=== PATIENT | male | born 1940 | race Caucasian/White ===

== ENCOUNTER → 2017-04-17 | Outpatient (REF) | payer MEDICARE ==
[2017-04-17 17:28] LABS: MEAN CORPUSCULAR HEMOGLOBIN 33.7 pg (27.0-33.0); MEAN CORPUSCULAR HGB CONC 33.7 g/dl (32.0-36.5); MEAN CORPUSCULAR VOLUME 100.2 fl (80.0-96.0); RED CELL DISTRIBUTION WIDTH 14.7 % (11.5-14.5); WHITE BLOOD COUNT 3.6 K/mm3 (4.0-10.0)
[2017-04-17 17:45] LABS: ALBUMIN 3.8 GM/DL (3.2-5.2); ALBUMIN/GLOBULIN RATIO 1.09 (1.00-1.93); ALKALINE PHOSPHATASE 105 U/L (45-117); ALT/SGPT 43 U/L (12-78); ANION GAP 5 MEQ/L (8-16); AST/SGOT 26 U/L (15-37); BILIRUBIN,TOTAL 0.5 MG/DL (0.2-1.0); BLOOD UREA NITROGEN 15 MG/DL (7-18); CALCIUM LEVEL 8.5 MG/DL (8.8-10.2); CARBON DIOXIDE LEVEL 28 MEQ/L (21-32); CHLORIDE LEVEL 104 MEQ/L (98-107); CREATININE FOR GFR 1.17 MG/DL (0.70-1.30); GLOMERULAR FILTRATION RATE > 60.0 (>42); GLUCOSE, FASTING 157 MG/DL (83-110); SODIUM LEVEL 137 MEQ/L (136-145); TOTAL PROTEIN 7.3 GM/DL (6.4-8.2)
[2017-04-17 17:51] LABS: POTASSIUM SERUM 5.3 MEQ/L (3.5-5.1)
== END ==
LOC: M SFHCCLAY 10:02
PROVIDERS: ATTEND Family Medicine
DX: M15.9 Polyosteoarthritis, unspecified (principal); I10 Essential (primary) hypertension; E11.9 Type 2 diabetes mellitus without complications

== ENCOUNTER → 2017-05-15 | Outpatient (REF) | payer MEDICARE ==
[2017-05-15 17:55] LABS: CALCIUM LEVEL 8.6 MG/DL (8.8-10.2); CREATININE FOR GFR 2.16 MG/DL (0.70-1.30); GLOMERULAR FILTRATION RATE 31.9 (>42); POTASSIUM SERUM 5.1 MEQ/L (3.5-5.1)
== END ==
LOC: M SFHCCLAY 17:26
PROVIDERS: ATTEND Family Medicine
DX: E87.5 Hyperkalemia (principal)

== ENCOUNTER → 2017-06-05 | Outpatient (REF) | payer MEDICARE ==
[2017-06-05 18:18] LABS: ANION GAP 8 MEQ/L (8-16); BLOOD UREA NITROGEN 16 MG/DL (7-18); CALCIUM LEVEL 8.8 MG/DL (8.8-10.2); CARBON DIOXIDE LEVEL 25 MEQ/L (21-32); CHLORIDE LEVEL 102 MEQ/L (98-107); CREATININE FOR GFR 1.08 MG/DL (0.70-1.30); GLOMERULAR FILTRATION RATE > 60.0 (>42); GLUCOSE, FASTING 164 MG/DL (83-110); POTASSIUM SERUM 4.1 MEQ/L (3.5-5.1); SODIUM LEVEL 135 MEQ/L (136-145)
== END ==
LOC: M SFHCCLAY 10:17
PROVIDERS: ATTEND Family Medicine
DX: N28.9 Disorder of kidney and ureter, unspecified (principal)

== ENCOUNTER → 2017-06-19 | Outpatient (REF) | payer MEDICARE ==
[2017-06-20 12:13] LABS: ANION GAP 8 MEQ/L (8-16); BLOOD UREA NITROGEN 14 MG/DL (7-18); CALCIUM LEVEL 9.3 MG/DL (8.8-10.2); CARBON DIOXIDE LEVEL 25 MEQ/L (21-32); CHLORIDE LEVEL 98 MEQ/L (98-107); CREATININE FOR GFR 1.16 MG/DL (0.70-1.30); GLOMERULAR FILTRATION RATE > 60.0 (>42); GLUCOSE, FASTING 128 MG/DL (83-110); SODIUM LEVEL 131 MEQ/L (136-145)
[2017-06-20 12:18] LABS: BASO % 0.8 % (0.0-1.0); EOS # 0.2 K/mm3 (0.0-0.50); LARGE UNSTAINED CELL # 0.1 K/mm3 (0.0-0.4); LARGE UNSTAINED CELL % 1.1 % (0.0-4.0); LYMPH # 0.8 K/mm3 (1.5-4.5); LYMPH % 16.2 % (24.0-44.0); MEAN CORPUSCULAR HEMOGLOBIN 35.1 pg (27.0-33.0); MEAN CORPUSCULAR VOLUME 103.2 fl (80.0-96.0); MONO # 0.4 K/mm3 (0.0-0.8); MONO % 8.1 % (0.0-5.0); NEUTROPHILS # 3.5 K/mm3 (1.8-7.7); NEUTROPHILS % 70.8 % (36.0-66.0); PLATELET COUNT, AUTOMATED 134 k/mm3 (150-450); WHITE BLOOD COUNT 4.9 K/mm3 (4.0-10.0)
[2017-06-20 12:21] LABS: POTASSIUM SERUM 5.6 MEQ/L (3.5-5.1)
== END ==
LOC: M SFHCCLAY 15:03
PROVIDERS: ATTEND Family Medicine
DX: D50.0 Iron deficiency anemia secondary to blood loss (chronic) (principal); N28.9 Disorder of kidney and ureter, unspecified

== ENCOUNTER → 2017-06-28 | Outpatient (REF) | payer MEDICARE ==
[2017-06-28 18:04] LABS: ANION GAP 8 MEQ/L (8-16); BLOOD UREA NITROGEN 14 MG/DL (7-18); CALCIUM LEVEL 8.8 MG/DL (8.8-10.2); CARBON DIOXIDE LEVEL 26 MEQ/L (21-32); CHLORIDE LEVEL 102 MEQ/L (98-107); CREATININE FOR GFR 1.17 MG/DL (0.70-1.30); GLOMERULAR FILTRATION RATE > 60.0 (>42); GLUCOSE, FASTING 167 MG/DL (83-110); POTASSIUM SERUM 4.7 MEQ/L (3.5-5.1); SODIUM LEVEL 136 MEQ/L (136-145)
== END ==
LOC: M SFHCCLAY 11:47
PROVIDERS: ATTEND Family Medicine
DX: I10 Essential (primary) hypertension (principal)

== ENCOUNTER → 2017-12-11 | Outpatient (REF) | payer MEDICARE ==
[2017-12-12 11:31] LABS: BASO # 0.1 10^3/uL (0.0-0.2); BASO % 1.1 % (0.0-1.0); EOS # 0.2 10^3/uL (0.0-0.50); EOS % 5.2 % (0.0-3.0); HEMATOCRIT 37.8 % (42.0-52.0); HEMOGLOBIN 12.5 g/dl (14.0-18.0); IMMATURE GRANULOCYTE % 0.6 % (0-0); MEAN CORPUSCULAR HEMOGLOBIN 33.1 pg (27.0-33.0); MEAN CORPUSCULAR HGB CONC 33.1 g/dl (32.0-36.5); MONO # 0.4 10^3/uL (0.0-0.8); MONO % 9.4 % (0.0-5.0); NEUTROPHILS # 2.9 10^3/uL (1.8-7.7); NEUTROPHILS % 62.7 % (36.0-66.0); PLATELET COUNT, AUTOMATED 121 10^3/uL (150-450); RED BLOOD COUNT 3.78 10^6/uL (4.30-6.10); RED CELL DISTRIBUTION WIDTH 13.8 % (11.5-14.5); WHITE BLOOD COUNT 4.7 10^3/uL (4.0-10.0)
[2017-12-12 11:56] LABS: ALBUMIN 4.1 GM/DL (3.2-5.2); ALBUMIN/GLOBULIN RATIO 1.08 (1.00-1.93); ALKALINE PHOSPHATASE 126 U/L (45-117); ALT/SGPT 31 U/L (12-78); ANION GAP 7 MEQ/L (8-16); AST/SGOT 18 U/L (7-37); BILIRUBIN,TOTAL 0.4 MG/DL (0.2-1.0); BLOOD UREA NITROGEN 16 MG/DL (7-18); CALCIUM LEVEL 8.9 MG/DL (8.8-10.2); CARBON DIOXIDE LEVEL 29 MEQ/L (21-32); CHLORIDE LEVEL 104 MEQ/L (98-107); CHOLESTEROL LEVEL 143 MG/DL (<200); CHOLESTEROL RISK RATIO 2.553 (<5); CREATININE FOR GFR 1.14 MG/DL (0.70-1.30); GLOMERULAR FILTRATION RATE > 60.0 (>42); GLUCOSE, FASTING 113 MG/DL (83-110); HDL CHOLESTEROL 56 MG/DL (>40); NON-HDL-C 87 MG/DL; POTASSIUM SERUM 5.1 MEQ/L (3.5-5.1); SODIUM LEVEL 140 MEQ/L (136-145); TOTAL PROTEIN 7.9 GM/DL (6.4-8.2); TRIGLYCERIDES LEVEL 115 MG/DL (<150)
[2017-12-12 13:02] LABS: ESTIMATED AVERAGE GLUCOSE 140 MG/DL (60-110); HEMOGLOBIN A1c 6.5 %
== END ==
LOC: M SFHCCLAY 14:21
DX: E11.9 Type 2 diabetes mellitus without complications (principal); I10 Essential (primary) hypertension; K21.0 Gastro-esophageal reflux disease with esophagitis
CPT/HCPCS: 80053

== ENCOUNTER → 2018-09-11 | Outpatient (CLI) | payer MEDICARE ==
[~2018-09-11] MED LIST: E-Z-GAS II EFFERVESCENT PACKET (SODIUM BICARB./CITRIC ACID/SIMETHICONE) As Ordered; E-Z-HD 98% w/w 340GM SUSP BTL As Ordered; E-Z-PAQUE 96% w/w SUSP 176GM BTL As Ordered
== END ==
LOC: M RAD 09:46
DX: R93.3 Abnormal findings on diagnostic imaging of other parts of digestive tract (principal); K22.4 Dyskinesia of esophagus; K22.2 Esophageal obstruction; R13.10 Dysphagia, unspecified; R14.2 Eructation
CPT/HCPCS: 74220

== ENCOUNTER 2018-10-09 12:41 | Day surgery (SDC) | payer MEDICARE ==
[~2018-10-09 12:41] MED LIST changes: -E-Z-GAS II EFFERVESCENT PACKET (SODIUM BICARB./CITRIC ACID/SIMETHICONE) As Ordered; -E-Z-HD 98% w/w 340GM SUSP BTL As Ordered; -E-Z-PAQUE 96% w/w SUSP 176GM BTL As Ordered; +NS 1,000 ML IV
[2018-10-09] MEDS ORDERED: PROPOFOL 200 MG/20 ML VIAL As Ordered ×2 (15:05)
== END 2018-10-09 15:53 | disposition home or self-care (01) ==
LOC: M OPP 15:53
DX: R13.10 Dysphagia, unspecified (principal); K22.4 Dyskinesia of esophagus; K22.2 Esophageal obstruction; K20.9 Esophagitis, unspecified
CPT/HCPCS: 43245

== ENCOUNTER → 2018-11-16 | Outpatient (REF) | payer MEDICARE | LOC: M SFHCCLAY 13:51 | DX: I10 Essential (primary) hypertension (principal); E11.9 Type 2 diabetes mellitus without complications; M15.9 Polyosteoarthritis, unspecified; Z53.8 Procedure and treatment not carried out for other reasons ==

== ENCOUNTER → 2018-11-19 | Outpatient (REF) | payer MEDICARE ==
[2018-11-19 13:00] LABS: BASO % 0.5 % (0.0-1.0); EOS # 0.3 10^3/uL (0.0-0.50); EOS % 3.1 % (0.0-3.0); HEMATOCRIT 39.1 % (42.0-52.0); HEMOGLOBIN 13.1 g/dl (13.5-17.5); IMMATURE GRANULOCYTE % 0.2 % (0-3.0); LYMPH # 0.9 10^3/uL (1.5-4.5); LYMPH % 11.5 % (24.0-44.0); MEAN CORPUSCULAR HEMOGLOBIN 33.9 pg (27.0-33.0); MEAN CORPUSCULAR HGB CONC 33.5 g/dl (32.0-36.5); MONO # 0.4 10^3/uL (0.0-0.8); MONO % 5.4 % (0.0-5.0); NEUTROPHILS # 6.4 10^3/uL (1.8-7.7); NEUTROPHILS % 79.3 % (36.0-66.0); PLATELET COUNT, AUTOMATED 157 10^3/uL (150-450); RED BLOOD COUNT 3.87 10^6/uL (4.30-6.10); RED CELL DISTRIBUTION WIDTH 13.2 % (11.5-14.5)
[2018-11-19 13:09] LABS: ALBUMIN 3.7 GM/DL (3.2-5.2); ALBUMIN/GLOBULIN RATIO 0.97 (1.00-1.93); ALKALINE PHOSPHATASE 135 U/L (45-117); ALT/SGPT 22 U/L (12-78); ANION GAP 8 MEQ/L (8-16); AST/SGOT 17 U/L (7-37); BILIRUBIN,TOTAL 0.6 MG/DL (0.2-1.0); BLOOD UREA NITROGEN 10 MG/DL (7-18); CALCIUM LEVEL 8.9 MG/DL (8.8-10.2); CARBON DIOXIDE LEVEL 28 MEQ/L (21-32); CHLORIDE LEVEL 102 MEQ/L (98-107); CREATININE FOR GFR 1.03 MG/DL (0.70-1.30); GLOMERULAR FILTRATION RATE > 60.0 (>42); GLUCOSE, FASTING 105 MG/DL (70-100); POTASSIUM SERUM 4.4 MEQ/L (3.5-5.1); SODIUM LEVEL 138 MEQ/L (136-145); TOTAL PROTEIN 7.5 GM/DL (6.4-8.2)
[2018-11-19 13:40] LABS: ERYTHROCYTE SEDIMENTATION RATE 25 mm/hr (0-20)
[2018-11-19 13:43] LABS: ESTIMATED AVERAGE GLUCOSE 120 MG/DL (60-110); HEMOGLOBIN A1c 5.8 %
== END ==
LOC: M SFHCCLAY 09:41
DX: I10 Essential (primary) hypertension (principal); E11.9 Type 2 diabetes mellitus without complications; M15.9 Polyosteoarthritis, unspecified

== ENCOUNTER → 2018-11-19 | Outpatient (CLI) | payer MEDICARE | LOC: M CLY 09:45 | DX: M51.34 Other intervertebral disc degeneration, thoracic region (principal); M54.9 Dorsalgia, unspecified; I10 Essential (primary) hypertension; E11.9 Type 2 diabetes mellitus without complications; M15.9 Polyosteoarthritis, unspecified | CPT/HCPCS: 80053 ==

== ENCOUNTER 2019-01-03 11:41 | Day surgery (SDC) | payer MEDICARE ==
[~2019-01-03] VITALS: Ht 167.6 cm; Wt 73.0 kg
[~2019-01-03 11:41] MED LIST changes: +ASPI81TA85 PO; +CLONI1TA PO; +DIPH50TA3 PO; +FAMO1TAB11 PO; +LIDOCAINE 2% INJ 100 MG/5 ML SDV (FOR ANES.) As Ordered ONE; +LOSA50TA88 PO; +MELO15TA28 PO; +METO1TAB33 PO; +NITR4TASL SL; +NORC1TAB4 PO; -NS 1,000 ML IV; +NS 1,000 ML IV ONE; +PRIM50TA6 PO; +PROPOFOL 200 MG/20 ML VIAL As Ordered ONE; +VITA200038 PO
--- NOTE | 2019-01-03 13:04 | ROOR ---
Patient Name: Allan Baldwin Procedure Date: 01/03/2019 12:40 PM Date of : 1940 Age: 78 Room: [facility] Gender: Male Note Status: Finalized Procedure: Upper GI endoscopy Indications: Therapeutic procedure, Dysphagia Providers: Patricio MAC MD Referring MD: Davey Bauman MD Requesting Provider: Medicines: Monitored Anesthesia Care Complications: No immediate complications. Procedure: Pre-Anesthesia Assessment: - The heart rate, respiratory rate, oxygen saturations, blood pressure, adequacy of pulmonary ventilation, and response to care were monitored throughout the procedure. The Endoscope was introduced through the mouth, and advanced to the second part of duodenum. The upper GI endoscopy was accomplished without difficulty. The patient tolerated the procedure well. Findings: Abnormal motility was noted in the esophagus. There are extra peristaltic waves in the esophageal body. The distal esophagus/lower esophageal sphincter is spastic, but gives up passage to the endoscope. One benign-appearing, intrinsic moderate (circumferential scarring or stenosis; an endoscope may pass) stenosis was found at the gastroesophageal junction. This stenosis measured 1 cm (in length). The stenosis was traversed. A TTS dilator was passed through the scope. Dilation with a 12-13.5-15 mm balloon dilator was performed to 15 mm. The dilation site was examined and showed moderate mucosal disruption. A small hiatal hernia was present. The exam of the stomach was otherwise normal. The examined duodenum was normal. Impression: - Abnormal esophageal motility, with persistent marked spasm at LES, suspicious for achalasia. - Benign-appearing esophageal stenosis. Dilated with CRE balloon to 15 mm. - Tortuous distal esophagus. - Small hiatal hernia. - Normal examined duodenum. - No specimens collected. Recommendation: - Refer for esophageal motility study to assess for Achalasia. (severe spasm and tortuosity LES will likely need endoscopic placement of motility catheter.) - My office will call you in the next few days to set you up for this study/exam. Patricio Mac MD Patricio MAC MD 01/03/2019 1:03:28 PM This report has been signed electronically. Number of Addenda: 0 Note Initiated On: 01/03/2019 12:40 PM Estimated Blood Loss: Estimated blood loss: none.
[2019-01-03 13:15] VITALS: BP 145/74
== END 2019-01-03 13:33 | disposition home or self-care (01) ==
LOC: M OPP 11:41
PROVIDERS: ATTEND Internal Medicine Gastroenterology
DX: K22.4 Dyskinesia of esophagus (principal); K22.2 Esophageal obstruction; K44.9 Diaphragmatic hernia without obstruction or gangrene; R13.10 Dysphagia, unspecified

== ENCOUNTER 2019-08-22 13:25 | Emergency (ER) | payer MEDICARE ==
[~2019-08-22] VITALS: Ht 170.2 cm; Wt 69.6 kg
[~2019-08-22 13:25] MED LIST changes: -LIDOCAINE 2% INJ 100 MG/5 ML SDV (FOR ANES.) As Ordered ONE; -NORC1TAB4 PO; +NORC1TAB7 PO; -NS 1,000 ML IV ONE; -PROPOFOL 200 MG/20 ML VIAL As Ordered ONE
[2019-08-22] MEDS ORDERED: OMEP-221 PO (14:14)
[2019-08-22] MEDS ORDERED: OXYC1TAB23 (14:14)
--- NOTE | 2019-08-22 14:51 | REP ---
Acute abdominal series three views including PA chest and supine upright abdomen: PA chest: Comparison is 11/19/2018. The lung adames are clear. Cardiac size is normal. The michelle, mediastinum, skeletal structures are unremarkable. There is no free subdiaphragmatic air. There is no interval change. Impression: Negative PA chest. Abdomen, supine upright views: There are no comparisons. The bowel gas pattern is normal. There is abundant fecal residue throughout the colon. There are no calcifications. Skeletal structures and soft tissues otherwise are unremarkable. Electronically Signed by Andrea Edwards MD 08/22/2019 02:43 P
[2019-08-22 15:27] LABS: HEMOGLOBIN 12.2 g/dl (13.5-17.5); MEAN CORPUSCULAR HEMOGLOBIN 33.4 pg (27.0-33.0); MEAN CORPUSCULAR VOLUME 101.4 fl (80.0-96.0); PLATELET COUNT, AUTOMATED 188 10^3/uL (150-450); RED BLOOD COUNT 3.65 10^6/uL (4.30-6.10); WHITE BLOOD COUNT 9.2 10^3/uL (4.0-10.0)
[2019-08-22] MEDS ORDERED: NORCO, ANEXSIA 5/325MG TABLET (HYDROcodone/ACETAMINOPHEN) PO ONE (15:30)
[2019-08-22 15:56] LABS: ALT/SGPT 25 U/L (12-78); BILIRUBIN,DIRECT 0.4 MG/DL (0.0-0.2); BILIRUBIN,TOTAL 0.8 MG/DL (0.2-1.0); BLOOD UREA NITROGEN 26 MG/DL (7-18); CALCIUM LEVEL 10.3 MG/DL (8.8-10.2); CARBON DIOXIDE LEVEL 28 MEQ/L (21-32); CHLORIDE LEVEL 104 MEQ/L (98-107); CREATININE FOR GFR 1.16 MG/DL (0.70-1.30); GLOMERULAR FILTRATION RATE > 60.0 (>42); GLUCOSE, FASTING 127 MG/DL (70-100); LIPASE 86 U/L (73-393); SODIUM LEVEL 141 MEQ/L (136-145)
[2019-08-22] MEDS ORDERED: MORPHINE 4 MG/ML 1ML VIAL/SYRINGE (J2270) IV ONE (16:00)
[2019-08-22] MEDS ORDERED: ISOVUE-370 76% 100ML VIAL (Q9967) As Ordered ONE (16:01)
--- NOTE | 2019-08-22 16:38 | REP ---
CT of the abdomen and pelvis with IV contrast, without bowel contrast for diffuse abdominal pain and no B for 2 weeks. Comparison is 08/28/2007. The distal esophagus above the diaphragm is fluid-filled and dilated. This is suggests there is a stricture of the esophagus distal to the a dilatation, likely at the gastroesophageal junction. The visualized lung adames demonstrate atelectasis in the posterior sulcus of the left lower lobe. The hepatic parenchyma is homogeneous. The gallbladder demonstrates a faintly visible mucosal septa fundus is otherwise unremarkable. The pancreas and spleen are unremarkable. The adrenals are unremarkable. There is a 4.6 cm mass at the lower pole of the right kidney. There is a 8-0.3 cm simple cyst in the upper pole right kidney. Left kidney is unremarkable. The The abdominal aorta is unremarkable. There is no periaortic adenopathy or mass. There is no bowel distension or obstruction. The mesentery is unremarkable. There is diverticulosis of the entire colon. There is no CT evidence of diverticulitis. There is a mild/moderate volume of fecal residue throughout the colon. Pelvis: The appendix and terminal ileum are unremarkable. There is no ascites or adenopathy. There is there are bilateral bladder CT to IV. The right diverticulum is significantly larger. This is unchanged from the prior study. Impression: There is a 4.6 cm mass at the lower pole of the right kidney as an interval change, compatible with hypernephroma. There is a right renal upper pole simple cyst, also an interval change. No adenopathy or ascites. Diverticulosis throughout the colon without diverticulitis. The distal esophagus is dilated and fluid-filled. This suggests there is a structure of the distal esophagus, likely at the gastroesophageal junction. No adenopathy or ascites. There is a mild/moderate volume of fecal residue throughout the colon. No bowel obstruction. Electronically Signed by Andrea Edwards MD 08/22/2019 04:30 P
--- NOTE | 2019-08-22 17:02 | REP ---
CT lumbar spine with IV contrast: History: Severe pain. Chronic history. No comparison lumbar spine imaging. Technique: Helical scanning is acquired and 4 mm axial images are reformatted. Coronal and sagittal MPR images are generated. 100 ml of intravenous Isovue [address] findings: Lumbar vertebral body heights are preserved and alignment is normal. There is no evidence of spondylolysis or spondylolisthesis. No bony destructive lesion is seen. There is heavy vascular calcification in a normal caliber aorta. At the L1-2, there is degenerative disc space narrowing with vacuum phenomena. No disc protrusion or central canal stenosis is seen. At L2-3, there is also degenerative disc disease manifest by narrowing, vacuum phenomenon, and anterior osteophyte formation. Minimal diffuse disc bulging is present. No other finding. At the L3-L4, there is mild diffuse disc bulging. Canal size is borderline developmentally. No foraminal narrowing is seen. At L4-5, there is degenerative narrowing of the disc. There is mild central canal stenosis due to diffuse disc bulging, ligamentum flavum hypertrophy, facet hypertrophy, and developmentally short pedicles. No bony foraminal narrowing is appreciated. At L5-S1, there is no evidence of disc protrusion. There is osteoarthritic facet hypertrophy bilaterally. No other finding. Impression: Degenerative spondylosis changes. There is mild central canal stenosis at L4-5. Moderate facet hypertrophy is noted bilaterally at L5-S1. Degenerative disc changes are also noted at L2-3 and L1-2. No acute bony abnormality. Electronically Signed by Tristan Coffey MD 08/23/2019 09:53 A
--- NOTE | 2019-08-22 17:08 | REP ---
CT thoracic spine with IV contrast: History: Severe pain. Chronic history. Comparison thoracic spine radiographs are from November 19, 2018. Technique: 100 ml of intravenous Isovue 370 is administered. Helical scanning is acquired. Axial 4 mm slices are reformatted. Coronal and sagittal MPR images are generated. CT findings: Incidental note is made of fluid-filled mildly dilated esophagus throughout the thorax. This implies reflux. There is mild mural thickening circumferentially suggesting reflux esophagitis. There is discoid atelectasis in the left lower lobe. There is also a tree in bud type micronodular infiltrate pattern in the superior segment of the left lower lobe suggesting a subtle pneumonia. There is a small cyst in the upper pole of the right kidney. Possible small gallstones visible. There is an extensive radiolucent destructive lesion in the T7 vertebral body with pathologic fracture and posterior epidural extension producing thecal sac and thoracic cord compression. There is right anterolateral paravertebral extension as well. The destructive lesion extends into the pedicles bilaterally at T7. The lesion is extending across the T6-7 disc into the inferior portion of the T6 vertebral body where there is some endplate destruction as well. There is approximately 30% loss of anterior vertebral body height at T7. No other bony destructive lesion is appreciated. Impression: There is a large lytic destructive lesion in the T7 vertebral body with significant epidural disease and mid thoracic cord compression. There is pathologic fracture with collapse of T7 and 30% loss of anterior vertebral body height. There is secondary bone destruction in the inferior aspect of the T6 vertebral body. Differential possibilities include plasmacytoma and metastasis. Incidental findings include early inflammatory changes in the left lower lobe superior segment suggesting early pneumonia. There is evidence of reflux esophagitis. Electronically Signed by Tristan Coffey MD 08/23/2019 09:54 A
--- NOTE | 2019-08-22 17:48 | REP ---
RIGHT UPPER QUADRANT ULTRASOUND: Real-time sonographic evaluation of the right upper quadrant performed. The gallbladder is moderately distended containing multiple small stones. There is no gallbladder wall thickening or pericholecystic fluid. There is no intrahepatic or extrahepatic biliary dilatation, the common bile duct measuring 6 mm. The liver is homogeneous with no gross mass. Pancreas could not be seen due to overlying bowel gas. Right kidney demonstrates no hydronephrosis with length of 9.4 cm. There is an upper pole cyst 2.2 cm in diameter. There is a solid mass in the lower pole of the right kidney 5 cm in diameter containing internal blood flow with Doppler evaluation. IMPRESSION: There are multiple small gallstones in a moderately distended gallbladder. There is no gallbladder wall thickening, free fluid or biliary dilatation. There is a solid appearing heterogeneous mass in the lower pole of the right kidney 5 cm in diameter. Electronically Signed by Andrea Mora MD 08/23/2019 04:34 P
[2019-08-22] MEDS ORDERED: METHYLNALTREXONE BROMIDE 12 MG/0.6 ML VIAL (RELISTOR) SC ONE (18:15)
[2019-08-22] MEDS ORDERED: NS 1,000 ML IV ONE (18:15)
[2019-08-22] MEDS ORDERED: KETOROLAC 30 MG/ML VIAL (J1885) IV ONE (19:30)
[2019-08-22] MEDS ORDERED: PERCOCET 5MG/325MG TAB PO ONE (20:00)
[2019-08-22 21:18] VITALS: BP 193/80
[2019-08-22] MEDS ORDERED: OXYC1TAB23 PO (21:49)
--- NOTE | 2019-08-23 06:46 | ED PDOC ---
Post-Departure Follow-Up dr ford faxed formal report of ct abd/p for fu Gerson Martinez MD Aug 23, 2019 06:46
--- NOTE | 2019-08-23 19:32 | ED PDOC ---
Post-Departure Follow-Up dr gonzalez faxed formal report of us for fu Gerson Martinez MD Aug 23, 2019 19:31
--- NOTE | 2019-08-23 19:34 | ED PDOC ---
Post-Departure Follow-Up dr gonzalez faxed formal report of ct t spine for fu Gerson Martinez MD Aug 23, 2019 19:34
== END 2019-08-22 22:05 | disposition home or self-care (01) ==
LOC: M ED 13:25
DX: R93.5 Abnormal findings on diagnostic imaging of other abdominal regions, including retroperitoneum (principal); M54.6 Pain in thoracic spine; K59.00 Constipation, unspecified; E11.9 Type 2 diabetes mellitus without complications; I10 Essential (primary) hypertension; K21.9 Gastro-esophageal reflux disease without esophagitis; K27.9 Peptic ulcer, site unspecified, unspecified as acute or chronic, without hemorrhage or perforation; Z79.899 Other long term (current) drug therapy; Z88.5 Allergy status to narcotic agent; Z87.891 Personal history of nicotine dependence
CPT/HCPCS: 72128; 72131; 74021; 74177; 76705; 80048; 80076; 83690; 85027; 96361; 96374; 96375; 99284; J2270; Q9967

== ENCOUNTER 2019-08-24 11:33 | Emergency (ER) | payer MEDICARE ==
[~2019-08-24] VITALS: Ht 167.6 cm; Wt 69.1 kg
[~2019-08-24 11:33] MED LIST changes: +OMEP-221 PO; +OXYC1TAB23; +OXYC1TAB23 PO
[2019-08-24 12:23] LABS: BASO % 0.2 % (0.0-1.0); EOS % 0.2 % (0.0-3.0); HEMOGLOBIN 11.7 g/dl (13.5-17.5); LYMPH # 0.5 10^3/uL (1.5-5.0); LYMPH % 4.1 % (24.0-44.0); MEAN CORPUSCULAR HEMOGLOBIN 33.2 pg (27.0-33.0); MEAN CORPUSCULAR HGB CONC 32.5 g/dl (32.0-36.5); MEAN CORPUSCULAR VOLUME 102.3 fl (80.0-96.0); MONO # 0.4 10^3/uL (0.0-0.8); MONO % 3.5 % (0.0-5.0); NEUTROPHILS # 11.6 10^3/uL (1.5-8.5); NEUTROPHILS % 91.5 % (36.0-66.0); PLATELET COUNT, AUTOMATED 176 10^3/uL (150-450); RED BLOOD COUNT 3.52 10^6/uL (4.30-6.10); WHITE BLOOD COUNT 12.7 10^3/uL (4.0-10.0)
[2019-08-24] MEDS ORDERED: SOD POLYSTYRENE SULFONATE SUSP 30 GM/120 ML ENEMA PR ONE (12:30)
[2019-08-24 12:36] LABS: INR 1.39; PROTHROMBIN TIME 16.8 SECONDS (11.8-14.0)
[2019-08-24 12:46] LABS: ALBUMIN 3.6 GM/DL (3.2-5.2); ALT/SGPT 22 U/L (12-78); BILIRUBIN,DIRECT 0.6 MG/DL (0.0-0.2); CK-MB VALUE MASS < 1.0 NG/ML (<3.6); CPK CREATINE PHOSPHOKINASE 48 U/L (39-308); LIPASE 63 U/L (73-393); MB/CK RELATIVE INDEX 2.08 (< OR =4); TOTAL PROTEIN 7.5 GM/DL (6.4-8.2); TROPONIN I < 0.02 NG/ML (< 0.10)
--- NOTE | 2019-08-24 13:48 | REP ---
AP PORTABLE CHEST: 08/24/2019. Comparison: Abdominal series 08/22/2019, bilateral rib series 11/19/2018. Clinical history: Chest pain. Findings: Lungs only marginally adequate in the degree of inflation. Epicardial fat pad at the left CP angle as before. Some minor basilar fibrotic change on the right greater than left. No gross effusion, dense consolidation or parenchymal mass. No cardiomegaly, vascular redistribution or pulmonary edema. The aorta is mildly tortuous but without aneurysm. Airway intact. Bones show no change from previous study with prior widening of the AC joint or distal clavicular excision on the right with degenerative changes at the left AC joint. No acute fracture. No free air under the diaphragm. Impression: 1. Some basilar fibrotic change, left greater than right without definite effusion, infiltrate, cardiomegaly, edema or other acute finding. Electronically Signed by Hayes Snyder MD 08/24/2019 07:40 P
[2019-08-24] MEDS ORDERED: ONDANSETRON 4MG/2ML VIAL (J2405) IV ONE (14:15)
[2019-08-24] MEDS ORDERED: FLEET OIL RETENTION ENEMA PR PRN (14:15)
[2019-08-24] MEDS ORDERED: MAGNESIUM CITRATE 300 ML BTL PO ONE (14:15)
[2019-08-24] MEDS ORDERED: MORPHINE 4 MG/ML 1ML VIAL/SYRINGE (J2270) IV ONE (14:15)
[2019-08-24] MEDS ORDERED: LOSA50TA88 PO (16:02)
[2019-08-24] MEDS ORDERED: MORPHINE 2 MG/ML 1ML SYRINGE (J2270) IV ONE ×2 (17:15→19:00)
[2019-08-24] MEDS ORDERED: KETOROLAC 30 MG/ML VIAL (J1885) IV ONE (17:30)
--- NOTE | 2019-08-24 19:26 | ECGEPIP ---
[facility] - ED Test Date: 2019-08-24 Pat Name: BRIAN PATRICK Department: Room: - Gender: Male [employer] Member: terrence : 1940 Requested By: Gerson Garcia Order Number: [id number] Reading MD: Gerson Garcia Measurements Intervals [place] Rate: 120 P: MN: 0 QRS: -42 QRSD: 86 T: 58 QT: 313 QTc: 442 Interpretive Statements ATRIAL FIBRILLATION WITH RAPID VENTRICULAR RESPONSE MARKED LEFT AXIS DEVIATION MODERATE ST DEPRESSION NO PRIOR ECG FOR COMPARISON Electronically Signed on 08-24-2019 19:26:14 EDT by Gerson Garcia
[2019-08-24 20:15] VITALS: BP 123/77
--- NOTE | 2019-08-25 06:48 | REP ---
SUPINE ABDOMEN: 08/24/2019. Comparison: CT abdomen pelvis 08/22/2019. Clinical history: Abdominal pain. Findings: Bladder distended with opacified urine. The patient had IV contrast 44 hours ago. There is a moderate stool from cecum to rectosigmoid representing mild to moderate constipation. I do not see dilated bowel loops. No abnormal soft-tissue calcification or mass identified. Bones show degenerative changes in the spine and hips. No abnormal calcifications over the renal fossae or expected course of the ureters.. The lower pole, solid renal mass within the right kidney seen on CT is not visible radiographically. Impression: 1. Mild to moderate constipation. 2. Bladder filled with contrast opacified urine from CT scan 2 days ago. No hydronephrosis. The right renal solid mass seen on CT is not visible radiographically. 3. No visible mass, calcification or other acute finding. 4. Some degenerative changes spine and hips. Electronically Signed by Hayes Snyder MD 08/25/2019 09:13 A
== END 2019-08-24 20:27 | disposition home or self-care (01) ==
LOC: M ED 11:33 → EDBD 11:33 → M ED 20:27
DX: R62.7 Adult failure to thrive (principal); K59.00 Constipation, unspecified; G89.29 Other chronic pain; M54.9 Dorsalgia, unspecified; I10 Essential (primary) hypertension; K21.9 Gastro-esophageal reflux disease without esophagitis; Z79.899 Other long term (current) drug therapy; Z88.5 Allergy status to narcotic agent; F17.210 Nicotine dependence, cigarettes, uncomplicated
CPT/HCPCS: 71045; 74018; 80047; 80076; 82550; 82553; 83690; 84484; 85025; 85610; 93005; 93041; 94760; 96374; 96375; 96376; 99285; J1885; J2270; J2405; J3360

== ENCOUNTER → 2019-11-28 | Outpatient (CLI) | payer MEDICARE ==
--- NOTE | 2019-12-02 09:07 | RADONC ---
RADIATION ONCOLOGY CONSULTATION NOTE DATE OF SERVICE: 11/28/2019 CHART NUMBER: [id number] DIAGNOSIS: Right renal cell carcinoma. STAGE: Stage IV, [id number]. ECOG PERFORMANCE STATUS: 1. CONSULTATION NOTE: Mr. 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 HISTORY OF PRESENT ILLNESS: The patient has a long history of multiple medical issues. He has been seen for paroxysmal atrial fibrillation, as well as diabetes and hypertension. He has had problems with esophageal motility, as well as various other problems. Since July 2019, he has had over a 50-pound weight loss. He presented to [facility] in July with increasing back pain and the images were undertaken, which revealed a pathologic fracture at the T7 vertebral body level. He was transferred to [facility] and underwent a corporectomy with extracavitary tumor debulking and a T4-T10 fusion. His surgeon was Dr. Acosta and the procedure was done on 09/07/2019. Postoperatively, unfortunately the patient had wound breakdown and dehiscence. He underwent corrective surgery 10/25/2019. The patient was then seen by Dr. Gann at [facility] for consideration of systemic therapy in lieu of a cytoreductive nephrectomy due to his poor performance status. The patient was seen by radiation oncology for postoperative palliative radiation therapy to the thoracic spine on 11/15/2019 but unfortunately the patient's back wound had not healed enough and radiation was delayed. He was subsequently referred to me to continue to follow and initiate radiation once healing has taken placed. PAST MEDICAL HISTORY: The patient's past medical history is positive for arthritis, diabetes, hypertension, a 50-pound weight loss, left rotator cuff repair, patella fracture surgery, right inguinal hernia repair, strabismus correction, transoral biopsy in July of last year. FAMILY HISTORY: The patient's family history is unknown. The patient was adopted. ALLERGIES: The patient has NO KNOWN DRUG ALLERGIES. SOCIAL HISTORY: The patient quit smoking 22 years ago. He had smoked three packs of cigarettes per day for 19 years for a 57 pack-year smoking history. He was a heavy drinker one point. He has a PEG tube. REVIEW OF SYSTEMS: The patient's review of systems is positive for continued back pain. He reports that he was given narcotic pain medication but claims he does not like it and he has been using Tylenol instead for his pain. His review of systems is also positive for physical limitations, as well as weight loss, anorexia, difficulty swallowing, decreased energy, shortness of breath and dental problems. He reports that he is having problems and claims to be receiving antibiotics for his PEG tube issues, as well as for his back. Apparently, he was seen in [place] by Gerardo Castillo and a new set of antibiotics was given for his back wound issues. He has not been seen again at his surgeon in [place] who did the back surgery nor has he been seen by the surgeon who did the PEG feeding tube. He reports that he received no training with regards to that. Apparently, the patient reports that he has been seen at [place], as well as in [place] and in [place] and this is indeed his fourth hospital. He does not wish to return to any of the previous sites and apparently is scheduled for a medical oncology consultation here in our institution sometime next week. PHYSICAL EXAMINATION: The patient is a chronically ill, cachectic appearing white male who does not appear in any acute distress. HEENT: Normocephalic, atraumatic. Extraocular movements are intact. There is no palpable cervical, supraclavicular, infraclavicular or axillary lymphadenopathy present. LUNGS: Clear to auscultation and percussion. HEART: Regular rate and rhythm. BACK: Shows some open wound still present, as well as sutures over the back wound. Clearly, he is not fully healed yet. ABDOMEN: Examination of the patient's abdomen reveals a PEG tube which is not showing any acute signs of any infection. There are no masses. NEUROLOGIC: The patient appears to be intact to sensory and motor. ASSESSMENT: At this time, clearly the patient's surgical wound over his thoracic spine is not yet healed enough to initiate radiation. In light of this, I have scheduled him to return for reconsultation in 2 weeks. I have instructed him to contact the patient's previous physicians, including the physician who undertook the PEG feeding tube in order to obtain any instructions or recommendations thereof. I have recommended that he continue to see the medical practice in [place] to evaluate his antibiotic issues, as well as his surgical wound. The patient is scheduled see medical oncology next week for his metastatic renal cell carcinoma. Thank you for allowing us to participate in the care of this very pleasant gentleman. I will keep you informed of new developments as they occur. Sincerely, Andrea Caldwell MD cc: MD Shawnee Lowe MD Michael Lacombe, MD Benard Poiesz, MD
== END ==
LOC: M ONCR 13:08
PROVIDERS: ATTEND Radiology Radiation Oncology
DX: C64.1 Malignant neoplasm of right kidney, except renal pelvis (principal); I48.0 Paroxysmal atrial fibrillation; E11.9 Type 2 diabetes mellitus without complications; I10 Essential (primary) hypertension; R06.02 Shortness of breath; R53.83 Other fatigue; R13.12 Dysphagia, oropharyngeal phase; R63.0 Anorexia; M54.5 Low back pain; M13.80 Other specified arthritis, unspecified site; Z87.891 Personal history of nicotine dependence; Z93.1 Gastrostomy status

== ENCOUNTER → 2019-12-06 | Outpatient (CLI) | payer MEDICARE ==
[~2019-12-06] MED LIST changes: +ISOVUE-370 76% 100ML VIAL (Q9967) As Ordered ONE
--- NOTE | 2019-12-06 19:13 | REP ---
CT CHEST WITH IV CONTRAST: CT ANGIO CHEST: TECHNIQUE: Axial contrast enhanced images from the thoracic inlet to the upper abdomen using 100 mL Isovue 370 intravenous contrast material with multiplanar reformations. COMPARISON: [facility] 09/18/2019 Mild scattered fibrotic changes are seen to the lungs without suspicious nodular opacity. There is a tiny calcified granuloma of the left upper lobe as well as a tiny 2 mm nodular density, stable limiting evaluation of the posterior mediastinum. There is no evidence of mediastinal, hilar or chest wall lymphadenopathy. The heart is normal in size. There is no evidence of pleural or pericardial effusion. Esophagus is not well visualized. IMPRESSION: No suspicious nodule in either lung. No evidence of adenopathy of the chest. Electronically Signed by Andrea Mora MD 12/07/2019 03:29 P
--- NOTE | 2019-12-06 19:16 | REP ---
CT ABDOMEN AND PELVIS WITH IV CONTRAST: TECHNIQUE: Axial contrast enhanced images from the lung bases to the pubic symphysis using 100 mL Isovue 370 intravenous contrast material with multiplanar reformations. The liver demonstrates no mass. The gallbladder demonstrates a small amount of intraluminal sludge or stones in the dependent portion. The spleen is enlarged. The length is approximately 15.7 cm. The adrenal glands are normal. No pancreatic mass is seen. Once again there is a mass in the lower pole of the right kidney. It measures approximately 5.0 x 5.[address] at [facility] 09/18/2019 it measured approximately 5.4 x 5.2 cm. There is a cyst in the upper lateral right kidney 2.3 cm in diameter. Left kidney appears normal. There is no hydronephrosis bilaterally. There is moderate atherosclerotic calcification of the abdominal aorta without aneurysm. I see no adenopathy, free air or free fluid. There is a gastrostomy tube present. I see no bowel wall thickening. Sigmoid and left colonic diverticulosis is present without evidence of acute diverticulitis. The appendix is normal. Urinary bladder is moderately distended and there is a large diverticulum at the right side of the bladder. There are two smaller diverticula along the left side of the bladder. The distal left ureter is mildly dilated. There are degenerative changes of the spine. IMPRESSION: Gastrostomy tube in place. Right renal mass is measuring slightly smaller than the prior CT at [facility] 09/18/2019. Sigmoid and left colonic diverticulosis without acute diverticulitis. Bladder diverticula. Distal end of the left ureter is mildly dilated. Small amount of sludge or stones in the gallbladder. Splenomegaly. Electronically Signed by Andrea Mora MD 12/07/2019 03:30 P
--- NOTE | 2019-12-09 09:33 | REP ---
INDICATION: Metastatic renal CA. PROCEDURE: CT head with and without contrast COMPARISON STUDIES: No prior similar studies FINDINGS: No acute bleed or acute large vessel territorial infarct. No fracture. Ventricles, cisterns and sulci within normal limits. No mass effect or midline shift. No abnormal fluid collections. Following contrast, no definite abnormal enhancement. There is a small lytic focus in the posterior skull on the right near midline measures perhaps 2-3 mm. IMPRESSION: No acute findings. No definite findings of metastatic disease. There is a small lytic focus in the posterior skull on the right near midline which could represent a lytic metastases although may also represent a normal variant (venous bradley). This is a subtle finding. Attention on follow-up imaging recommended. Electronically Signed by Benjie Rizzo MD 12/09/2019 09:25 A
== END ==
LOC: M RAD 17:09
PROVIDERS: ATTEND Student in an Organized Health Care Education/Training Program
DX: C64.9 Malignant neoplasm of unspecified kidney, except renal pelvis (principal)
CPT/HCPCS: 70470; 71260; 74177; Q9967

== ENCOUNTER → 2020-01-01 | Outpatient (CLI) | payer MEDICARE ==
[~2020-01-01] MED LIST changes: +FAMO20TA PO; +INLY5TAB PO; -ISOVUE-370 76% 100ML VIAL (Q9967) As Ordered ONE; +OXYC-403 PO; +OXYC20TA2 PO
--- NOTE | 2020-01-02 07:26 | RADONC ---
RADIATION ONCOLOGY PROGRESS NOTE DATE: 01/01/2020 CHART #: [id number] DIAGNOSIS: Right renal cell carcinoma. STAGE: IV, cT1b, N0, M1. ECOG PERFORMANCE STATUS: 1. FOLLOWUP NOTE: Mr. Baldwin is a very pleasant 79-year-old white male with the diagnosis of metastatic renal cell carcinoma to the thoracic spine who presented to us on 11/28/2019 for discussion of postoperative radiation therapy to his thoracic in order to attempt to achieve some palliative local control. At that time, the patient had a wound breakdown which had not healed yet. I have been following him since for evaluation and healing of his wounds prior to initiating radiation therapy. The patient comes in today once again complaining of an open area over his surgical scar with a scab present. It has improved slightly over the past couple of weeks. He has no other complaints at this time. REVIEW OF SYSTEMS: The patient's review of systems is positive for some back pain, but is otherwise noncontributory. Denies nausea, vomiting, fevers, chills, night sweats, diplopia, headaches, anxiety or depression, anorexia, weight loss, visual disturbances, chest pain, urinary or bowel difficulties, bone pain, or neurological problems. PHYSICAL EXAMINATION: The patient's skin in the surgical scar area continues to have two open regions, one measuring several centimeters in length covered with a scab and the other lesion is much smaller at the lower edge of the scar. At this time considering the patient's significant difficulties with wound breakdown and trouble healing, radiation would be too risky until this area heals further. In light of this and his generally stable clinical situation, I have scheduled him for a followup evaluation in three weeks' time. In the meantime, he will continue to be followed by his other physicians as well. cc: MD Shawnee Lowe MD Michael Lacombe, MD Benard Poiesz, MD
== END ==
LOC: M ONCR 13:57
PROVIDERS: ATTEND Radiology Radiation Oncology
DX: C64.1 Malignant neoplasm of right kidney, except renal pelvis (principal); C79.51 Secondary malignant neoplasm of bone
CPT/HCPCS: G0463 ×2

== ENCOUNTER → 2020-01-10 | Outpatient (REF) | payer MEDICARE ==
[~2020-01-10] MED LIST changes: +KEYT1INJ IV; +NEUR100C PO
== END ==
LOC: M SFHCCLAY 13:46
PROVIDERS: ATTEND Family Medicine
DX: N30.90 Cystitis, unspecified without hematuria (principal)
CPT/HCPCS: 81002; 87088; 87186; G0463

== ENCOUNTER 2020-02-26 09:06 | Emergency (ER) | payer MEDICARE ==
[~2020-02-26] VITALS: Ht 162.6 cm; Wt 52.3 kg
[2020-02-26] MEDS ORDERED: NS 500 ML IV ONE ×2 (09:45→11:45)
[2020-02-26 10:23] LABS: BASO % 0.1 % (0.0-1.0); EOS % 0.1 % (0.0-3.0); HEMATOCRIT 27.9 % (42.0-52.0); HEMOGLOBIN 8.9 g/dl (13.5-17.5); LYMPH # 0.4 10^3/uL (1.5-5.0); MEAN CORPUSCULAR HGB CONC 31.9 g/dl (32.0-36.5); MEAN CORPUSCULAR VOLUME 93.9 fl (80.0-96.0); MONO # 0.6 10^3/uL (0.0-0.8); MONO % 5.5 % (0.0-5.0); NEUTROPHILS # 9.6 10^3/uL (1.5-8.5); NEUTROPHILS % 89.8 % (36.0-66.0); PLATELET COUNT, AUTOMATED 109 10^3/uL (150-450); RED BLOOD COUNT 2.97 10^6/uL (4.30-6.10); WHITE BLOOD COUNT 10.6 10^3/uL (4.0-10.0)
[2020-02-26 10:34] LABS: INR 1.34; PARTIAL THROMBOPLASTIN TIME 37.6 SECONDS (25.0-38.4); PROTHROMBIN TIME 16.3 SECONDS (11.8-14.0)
[2020-02-26 10:39] LABS: ERYTHROCYTE SEDIMENTATION RATE 108 mm/hr (0-20)
[2020-02-26] MEDS: MORPHINE 2 MG/ML 1ML VIAL (J2270) IV PRN ×2 (10:43→11:46)
--- NOTE | 2020-02-26 11:31 | REP ---
CT THORACIC SPINE WITHOUT CONTRAST: HISTORY: Trauma with pus discharge from a wound. Comparison CT thoracic spine study September 08, 2019. August 22, 2019 CT study is also reviewed. The comparison CT study from July of 2019 showed a pathologic fracture due to a extensive lytic bony destructive lesion in T7 with bone destruction in the inferior aspect of T6. The September 15, 2019 outside prior study is apparently obtained in the postoperative period. CT FINDINGS: In the interval since the August 22, 2019 study, the patient has undergone transpedicle screw and interconnecting grace fixation throughout the upper thoracic spine from T4-T10 bilaterally. There is a metallic spacer hardware placed in the T7 vertebral body anteriorly. There has been progressive loss of height at T7. No malalignment is seen. There is considerable spray artifact at the operated levels. This produces significant image degradation. There is a tract of soft tissue gas surrounded by induration in the superficial dorsal soft tissues just to the right of midline superior to the operative level. This tract courses caudally to the hardware at the right posterior elements at the T4 level. I cannot resolve any bony destructive or erosive change. No ilya abscess is visualized. The patient appears to be status post interval right nephrectomy. There is some vascular calcification. The visualized lung adames are clear. IMPRESSION: Status post operative fusion and fixation bilaterally T4 through T10 with spacer at the level of the destructive lesion previously identified at T7. There is a dorsal extra spinal soft tissue tract in the right para-midline region, extending from the level of the spinous processes at T1 down to the right-sided posterior element hardware at T4. No ilya abscess or acute new bony destructive lesion. There has been interval additional loss of height at T7 where the prior study showed a destructive lesion. Interval right nephrectomy. Electronically Signed by Tristan Coffey MD 02/26/2020 01:07 P
[2020-02-26] MEDS ORDERED: VANCOMYCIN HCL 1,000 MG, VIAL MATE ADAPTER 1 EACH in D5W 250 ML IV ONE (13:00)
[2020-02-26] MEDS ORDERED: VANCOMYCIN HCL 1,000 MG in IV FLUID PLACE HOLDER 1 EA IV ONE (13:00)
[2020-02-26 15:14] VITALS: BP 110/61
== END 2020-02-26 15:16 | disposition short-term general hospital (02) ==
LOC: M ED 09:06
DX: S21.201A Unspecified open wound of right back wall of thorax without penetration into thoracic cavity, initial encounter (principal); T81.49XA Infection following a procedure, other surgical site, initial encounter; W01.0XXA Fall on same level from slipping, tripping and stumbling without subsequent striking against object, initial encounter; Y92.9 Unspecified place or not applicable; G06.1 Intraspinal abscess and granuloma; N17.9 Acute kidney failure, unspecified; C67.9 Malignant neoplasm of bladder, unspecified; M54.89 Other dorsalgia; K21.9 Gastro-esophageal reflux disease without esophagitis; I10 Essential (primary) hypertension; E11.9 Type 2 diabetes mellitus without complications; Z98.1 Arthrodesis status; Z79.899 Other long term (current) drug therapy
CPT/HCPCS: 72128; 80047; 85025; 85610; 85652; 85730; 86140; 87040; 87070; 87077; 87186; 87205; 96361; 96365; 99284; J2270; J3370

== ENCOUNTER → 2020-04-22 | Outpatient (CLI) | payer MEDICARE, OTHER ==
--- NOTE | 2020-04-22 15:08 | REP ---
NUCLEAR WHITE BLOOD CELL SCAN, WHOLE BODY: Following the intravenous administration of 9.4 millicuries technetium 99m Ceretec white blood cells, flow images are obtained in the anterior and posterior projections. Blood pool images and 2.5 hour delayed images are performed in multiple projections. There is normal delayed uptake in the liver and spleen. Small external focus of uptake is seen in the line of the patient's port. There is a tiny focus of uptake at the entrance site of the patient's PEG tube. No other abnormal uptake is seen. There is no abnormal uptake in the region of the fluid posterior to the lower thoracic spine. IMPRESSION: Tiny focus of radiotracer uptake at the entrance site of the patient's PEG tube in the left upper quadrant just left of midline. This could represent a small focus of active infection. There is no abnormal uptake at the site of the fluid collection posterior to the lower thoracic spine. Electronically Signed by Andrea Mora MD 04/22/2020 03:42 P
== END ==
LOC: M RAD 06:39
PROVIDERS: ATTEND Internal Medicine
DX: R50.9 Fever, unspecified (principal)
CPT/HCPCS: 78800; A9569

== ENCOUNTER → 2020-05-04 | Outpatient (REF) | payer MEDICARE ==
[~2020-05-04] MED LIST changes: +DOXY-350 PO; +FER-15DR PO; +LEVA1TAB2 PO; +LOPE-25 PO; +NORV5TAB PO; +TOPR25TA PO
[2020-05-04 17:17] LABS: BASO % 0.1 % (0.0-1.0); EOS % 0.1 % (0.0-3.0); HEMATOCRIT 33.7 % (42.0-52.0); HEMOGLOBIN 10.4 g/dl (13.5-17.5); LYMPH # 0.4 10^3/uL (1.5-5.0); LYMPH % 6.6 % (24.0-44.0); MEAN CORPUSCULAR HEMOGLOBIN 29.6 pg (27.0-33.0); MEAN CORPUSCULAR HGB CONC 30.9 g/dl (32.0-36.5); MONO # 0.4 10^3/uL (0.0-0.8); MONO % 5.5 % (0.0-5.0); NEUTROPHILS # 5.8 10^3/uL (1.5-8.5); NEUTROPHILS % 86.8 % (36.0-66.0); PLATELET COUNT, AUTOMATED 188 10^3/uL (150-450); RED BLOOD COUNT 3.51 10^6/uL (4.30-6.10); WHITE BLOOD COUNT 6.7 10^3/uL (4.0-10.0)
[2020-05-04 17:41] LABS: ALBUMIN 3.6 GM/DL (3.2-5.2); BILIRUBIN,TOTAL 0.4 MG/DL (0.2-1.0); CALCIUM LEVEL 9.7 MG/DL (8.8-10.2); CREATININE FOR GFR 1.39 MG/DL (0.70-1.30); GLOMERULAR FILTRATION RATE 52.6 (>42); POTASSIUM SERUM 5.6 MEQ/L (3.5-5.1); TOTAL PROTEIN 7.7 GM/DL (6.4-8.2)
== END ==
LOC: M LABDRAWC 15:54
PROVIDERS: ATTEND Specialist
DX: C64.9 Malignant neoplasm of unspecified kidney, except renal pelvis (principal); C67.9 Malignant neoplasm of bladder, unspecified

== ENCOUNTER → 2020-05-20 | Outpatient (CLI) | payer MEDICARE ==
--- NOTE | 2020-05-20 12:56 | REP ---
CT CHEST WITHOUT CONTRAST: HISTORY: Renal carcinoma. Restaging. Comparison chest CT study December 06, 2019. CT FINDINGS: Chandler rods are noted in the mid and upper levels of the thoracic spine as before. There is no evidence of hilar or mediastinal mass or adenopathy. Some coronary artery vascular calcification is seen. No pleural or significant pericardial effusion is noted. There is a stable small epicardial lymph node to the left of midline measuring 7 mm in short axis dimension unchanged. A gastrostomy tube is noted in place. There is some left coronary artery vascular calcification. The lung adames are free of infiltrate. There is a 4 mm peribronchovascular nodule in the right lower lobe on page 76 of 105 in series 204 of today's study. This is visible in retrospect on the December 06, 2019 study and is felt to be unchanged. No new pulmonary nodule is seen. No acute bony abnormality is appreciated. IMPRESSION: No acute cardiopulmonary disease. No evidence to suggest pulmonary metastasis. Electronically Signed by Tristan Coffey MD 05/20/2020 03:00 P
--- NOTE | 2020-05-20 13:02 | REP ---
CT ABDOMEN AND PELVIS WITHOUT IV OR ORAL CONTRAST: HISTORY: Carcinoma of the kidney restaging. Comparison CT study December 06, 2019. CT FINDINGS: The patient is status post right nephrectomy. The left kidney is morphologically intact without evidence of mass or hydronephrosis. There are small gallstones in the dependent portion the gallbladder. No focal hepatic or splenic lesion is seen. Gastrostomy tube is noted in place. There is cardoza colonic diverticulosis without CT evidence of diverticulitis. No pelvic or retroperitoneal mass or adenopathy is seen. There is a right posterior bladder diverticulum again noted in the pelvis. No bladder mass is seen. The appendix is unremarkable. No bony destructive lesion is seen. IMPRESSION: Right-sided bladder diverticulum. Cardoza colonic diverticulosis. Cholelithiasis. G tube in place. Post right nephrectomy with no evidence of recurrence or metastatic disease. Electronically Signed by Tristan Coffey MD 05/20/2020 03:00 P
== END ==
LOC: M RAD 08:12
PROVIDERS: ATTEND Specialist
DX: C64.9 Malignant neoplasm of unspecified kidney, except renal pelvis (principal); C67.9 Malignant neoplasm of bladder, unspecified; K80.10 Calculus of gallbladder with chronic cholecystitis without obstruction; Z90.5 Acquired absence of kidney

== ENCOUNTER → 2020-07-21 | Outpatient (CLI) | payer MEDICARE ==
[~2020-07-21] MED LIST changes: +AMLO1TAB24 PO; -ASPI81TA85 PO; +ASPI81TA86 PO; +DOCU100C16 PO; +GASTROGRAFIN SOLUTION 30ML (Q9963) As Ordered ONE; +ISOVUE-370 76% 100ML VIAL As Ordered ONE; +LEVO25SO PO; +METO1TAB32 PO; +OXYC10TA12 PO; +OXYC30TA72 PO; +VIBR50SY PO
--- NOTE | 2020-08-26 09:40 | REP ---
CT CHEST WITH INTRAVENOUS (IV) CONTRAST (REPEAT DICTATION) HISTORY: Kidney and bone cancer. This study is presented to [place] for repeat dictation on 08/18/2020. CT CONTRAST DOSE: 100 mL of intravenous Isovue-370 is administered. COMPARISON: CT study chest from 05/20/2020. CT FINDINGS: Preliminary digital cigarette making machine catcher radiograph demonstrates Chandler rods present bilaterally and extensively in the thoracic spine as before. There is no evidence of pleural or pericardial effusion. No hilar or mediastinal mass or adenopathy is observed. There is good opacification of the pulmonary arterial tree and the thoracic aorta. There is no evidence of pulmonary embolus or thoracic dissection. There is vascular calcification in the aorta and along the course of the left coronary artery. No infiltrate is seen in the lung adames. No pulmonary mass lesion is observed. There is a nodular density in the right lower lobe visualized on Page 58 of 113 in Series 204 of todays study. This measures 5 mm in greatest diameter. This is not new and appears essentially unchanged measuring 4 mm on the 05/20/2020 study. No other pulmonary nodule is appreciated. No other significant finding. Bone window settings show spray artifact from the thoracic spine hardware. There is evidence of a vertebral lesion stabilized by the hardware unchanged. No new bony destructive lesion is seen. IMPRESSION: Stable nodule right lower lobe 5 mm in greatest diameter. No new pulmonary nodule is appreciated. Otherwise, no acute disease. Extensive stabilization hardware in the thoracic spine again seen. MTDD
--- NOTE | 2020-08-26 09:41 | REP ---
CT ABDOMEN AND PELVIS WITH IV AND ORAL CONTRAST (REPEAT DICTATION) HISTORY: Kidney and bone cancer. The study is presented to [place] for repeat dictation on 08/18/2020. Comparison CT abdomen and pelvis study May 20, 2020. CT CONTRAST DOSE: 100 mL of intravenous Isovue-[address] FINDINGS: Preliminary digital sales assistants and salespersons radiograph demonstrates an unremarkable bowel gas pattern. A gastrostomy tube is noted in place. No liver mass lesion is seen. There is no evidence of splenic mass. There is a wedge shaped area of under perfusion in the superior aspect of the enlarged spleen, and I cannot exclude a splenic infarction, perhaps subacute. The spleen measures 14.5 cm in overall dimension. It is unchanged in overall size from May 20, 2020, and December 06, 2019, prior studies. The area of decreased enhancement in the superior spleen is a new finding compared with the prior contrast enhanced study from December 06, 2019. The stomach is somewhat distended and contains the gastrostomy tube in what appears to be good position. Gallbladder is unremarkable. No abnormality is noted in the pancreas. The adrenal glands are normal. The right kidney is surgically absent as before. There is extensive pancolonic diverticulosis without CT evidence of diverticulitis. There is no evidence of abdominal or pelvic mass or adenopathy. A right-sided bladder diverticulum is again noted. Bone window settings show no bony destructive lesion. IMPRESSION: Gastrostomy tube in place. Mildly distended stomach. There is a wedge shaped area of decreased contrast enhancement in the superior spleen. Question subacute or chronic splenic infarct. Splenomegaly is again observed. The right kidney is surgically absent. There is a right-sided bladder diverticulum. No mass or adenopathy is seen. [facility]
== END ==
LOC: M RAD 11:08
PROVIDERS: ATTEND Specialist
DX: C64.9 Malignant neoplasm of unspecified kidney, except renal pelvis (principal); C79.51 Secondary malignant neoplasm of bone
CPT/HCPCS: 71260; 74177; Q9963; Q9967

== ENCOUNTER 2020-07-31 12:18 | Inpatient (IN) | payer MEDICARE ==
[~2020-07-31] VITALS: Ht 162.6 cm; Wt 55.0 kg
[2020-07-31] VITALS (8 sets, daily range): BP systolic 115–142; BP diastolic 57–64
[~2020-07-31 12:18] MED LIST changes: -AMLO1TAB24 PO; -DOCU100C16 PO; -GASTROGRAFIN SOLUTION 30ML (Q9963) As Ordered ONE; -ISOVUE-370 76% 100ML VIAL As Ordered ONE; -LEVO25SO PO; -METO1TAB32 PO; -OXYC10TA12 PO; -OXYC30TA72 PO; -VIBR50SY PO
[2020-07-31] MEDS ORDERED: NS 1,000 ML IV ONE ×2 (13:00)
[2020-07-31] MEDS ORDERED: ONDANSETRON 4MG/2ML VIAL IV ONE ×2 (13:00→18:45)
[2020-07-31 13:33] LABS: BASO % 0.3 % (0.0-1.0); EOS % 0.2 % (0.0-3.0); HEMATOCRIT 25.8 % (42.0-52.0); HEMOGLOBIN 8.4 g/dl (13.5-17.5); LYMPH # 0.8 10^3/uL (1.5-5.0); LYMPH % 12.4 % (24.0-44.0); MEAN CORPUSCULAR HEMOGLOBIN 30.7 pg (27.0-33.0); MEAN CORPUSCULAR HGB CONC 32.6 g/dl (32.0-36.5); MEAN CORPUSCULAR VOLUME 94.2 fl (80.0-96.0); MONO # 0.5 10^3/uL (0.0-0.8); MONO % 7.9 % (0.0-5.0); NEUTROPHILS # 5.1 10^3/uL (1.5-8.5); NEUTROPHILS % 77.8 % (36.0-66.0); PLATELET COUNT, AUTOMATED 185 10^3/uL (150-450); RED BLOOD COUNT 2.74 10^6/uL (4.30-6.10); WHITE BLOOD COUNT 6.6 10^3/uL (4.0-10.0)
[2020-07-31 13:48] LABS: INR 1.08; PROTHROMBIN TIME 14.2 SECONDS (11.8-14.0)
[2020-07-31 13:49] LABS: PARTIAL THROMBOPLASTIN TIME 28.3 SECONDS (25.0-38.4)
[2020-07-31 13:54] LABS: CALCIUM LEVEL 9.1 MG/DL (8.8-10.2); CREATININE FOR GFR 1.35 MG/DL (0.70-1.30); GLOMERULAR FILTRATION RATE 54.4 (>42); POTASSIUM SERUM 4.5 MEQ/L (3.5-5.1)
--- NOTE | 2020-07-31 14:10 | REPVR ---
PROCEDURE INFORMATION: Exam: CT Abdomen And Pelvis Without Contrast Exam date and time: 07/31/2020 1:29 PM Age: 79 years old Clinical indication: Abdominal pain; Additional info: Hematuria, suprapubic pain TECHNIQUE: Imaging protocol: Computed tomography of the abdomen and pelvis without contrast. Radiation optimization: All CT scans at this facility use at least one of these dose optimization techniques: automated exposure control; mA and/or kV adjustment per patient size (includes targeted exams where dose is matched to clinical indication); or iterative reconstruction. COMPARISON: CT ABD PELVIS WITH CONTRAST 07/21/2020 1:36 PM The prior report is not available for correlation at the time of interpretation. FINDINGS: Detailed evaluation of the abdominal and pelvic viscera is somewhat limited in the absence of intravenous contrast. Tubes, catheters and devices: Percutaneous gastrostomy tube. Lungs: 5 mm right lower lobe nodule. For patients at low risk (minimal or absent history of smoking and of other known risk factors), no routine follow-up is indicated. For patients at high risk (history of smoking or of other known risk factors), consider optional CT Chest at 12 months. [place] H, Fleischner Society, 2017. Coronary artery calcification. Liver: No focal hepatic mass. Gallbladder and bile ducts: Cholelithiasis. Pancreas: No pancreatic mass or ductal dilatation. Spleen: Spleen upper limits of normal in size. Adrenals: Unremarkable adrenals. Kidneys and ureters: status post right nephrectomy. Normal left renal morphology. No hydronephrosis. Stomach and bowel: Gastric wall thickening. Copious stool in the dilated colon, in a pattern of constipation. Diverticulosis, without pericolonic inflammation. Appendix: No acute appendicitis. Intraperitoneal space: No significant free fluid. Vasculature: Vascular calcification. No abdominal aortic aneurysm. Lymph nodes: Subcentimeter lymph nodes. Bladder: 6.4 x 4.2 by 6.6 cm right bladder diverticulum, along with bladder wall thickening. Poorly defined dependent hyperdensity in the bladder and right-sided diverticulum, suggesting hemorrhage. Cystoscopy can be performed for improved characterization, as clinically indicated. Reproductive: Unremarkable as visualized. Bones/joints: Osteopenia. Surgical hardware in the thoracic spine with associated beam hardening artifact. Schmorl's nodes, vertebral endplate irregularity, and mild degenerative change. IMPRESSION: 1. Cholelithiasis. 2. 6.4 x 4.2 by 6.6 cm right bladder diverticulum, along with bladder wall thickening. Poorly defined dependent hyperdensity in the bladder and right-sided diverticulum, suggesting hemorrhage. Cystoscopy can be performed for improved characterization, as clinically indicated. 3. Gastric wall thickening. 4. Copious stool in the dilated colon, in a pattern of constipation. 5. Additional findings as described above. Electronically signed by: Pardeep Reilly On 07/31/2020 14:10:08 PM
[2020-07-31] MEDS ORDERED: LIDOCAINE 2% 5ML JELLY UROJET TOP ONE (14:45)
[2020-07-31 15:12] LABS: BILIRUBIN, URINE MANUAL OBSCURED (NEGATIVE); GLUCOSE, URINE (UA) MANUAL OBSCURED mg/dL (NEGATIVE); KETONE, URINE MANUAL OBSCURED mg/dL (NEGATIVE); UROBILINOGEN, URINE MANUAL OBSCURED mg/dl (NORMAL)
[2020-07-31 15:18] LABS: RBC, URINE TNTC /hpf (0-3)
[2020-07-31 15:21] LABS: SQUAMOUS EPITHELIAL CELL URINE NONE SEEN /hpf (SMALL AMT); TRANSITIONAL EPI CELLS, URINE SMALL AMOUNT /hpf
[2020-07-31 15:22] LABS: HYALINE CAST, URINE NONE SEEN /lpf (0-1)
[2020-07-31 15:26] LABS: BACTERIA, URINE LARGE AMOUNT
[2020-07-31 16:24] LABS: HEMATOCRIT 17.9 % (42.0-52.0)
[2020-07-31 16:26] LABS: HEMOGLOBIN 5.8 g/dl (13.5-17.5)
--- NOTE | 2020-07-31 17:53 | SMCUROLCON ---
Urology Consultation General Date of Consultation 07/31/20 Reason For Consultation This patient is seen for Urinary Problem. 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 The patient notes that he has had bloody urine each time he catheterized for the past few days. He does not void at all. He has been doing CIC for several years. He notes that he had some trouble catheterizing and might have "injured" something in his bladder a day prior to the onset of hematuria. He notes at that time he had some discomfort in his L lower abdomen when inserting the catheter. The patient had his R radical nephrectomy at [facility] and is followed by med/onc there as well. His blad carrie cancer was diagnosed here in [place] 20 yrs ago, but he has not had a cystoscopy in 15 years. Other than the recent episode of hematuria he has not had any previously. He also notes being very weak the last few days. He denies chest pain or SOB. He denies f/c/ns. Past Medical History Medical History see HPI Surgical Hstory R radical nephrectomy 01/23/20 PEG tube placement endoscopy w/ dilation 09/2018 inguinal hernia repair R rotator cuff surgery back surgery Allergies Allergies: Coded Allergies: No Known Allergies (Unverified , 02/26/20) Review of Systems General: Reports: Fatigue; Denies: Malaise Constitutional: Reports: Weakness; Denies: Fever, Chills Pulmonary: Denies: Dyspnea, Cough Cardiovascular: Denies Chest Pain, Denies Palpitations Gastrointestinal: Denies: Nausea, Vomiting, Abdominal Pain Genitourinary: Reports: Hematuria (w/ CIC), Retention Musculoskeletal: Denies: Neck Pain, Back Pain Psych: Reports: Mood Normal Physical Examination General Exam: Alert, Cooperative, No Acute Distress Chest Exam: Normal air movement Heart Exam: Regular Rhythm Abdomen Exam: Soft; No: Tenderness, Hepatospenomegaly, Mass Male Exam 22Fr catheter in place w/ dark red urine draining Skin Exam: Nl turgor and temperature Neuro Exam: Normal Speech Psych Exam: Mental status NL, Mood NL Vital Signs/I&O Vital Signs Date Time Temp Pulse Resp B/P (MAP) Pulse Ox O2 Delivery O2 Flow Rate FiO2 07/31/20 13:25 07/31/20 12:19 97.6 90 20 100 Room Air Laboratory Data 24H Labs Laboratory Tests 2 07/31/20 13:16: Immature Granulocyte % (Auto) 1.4, Neutrophils (%) (Auto) 77.8H, Lymphocytes (%) (Auto) 12.4L, Monocytes (%) (Auto) 7.9H, Eosinophils (%) (Auto) 0.2, Basophils (%) (Auto) 0.3, Neutrophils # (Auto) 5.1, Lymphocytes # (Auto) 0.8L, Monocytes # (Auto) 0.5, Eosinophils # (Auto) 0.0, Basophils # (Auto) 0.0, Nucleated Red Blood Cells % (auto) 0.0, Prothrombin Time 14.2H, Prothromb Time International Ratio 1.08, Activated Partial Thromboplast Time 28.3, Anion Gap 6L, Glomerular Filtration Rate 54.4, Calcium Level 9.1 07/31/20 14:20: Urine Color (CONCEPCIÓN) REDH, Urine Appearance (CONCEPCIÓN) TURBIDH, Urine pH (CONCEPCIÓN) OBSCUREDH, Urine Specific Anthony (CONCEPCIÓN) 1.022, Urine Protein OBSCUREDH, Bedside Urine Glucose (UA) OBSCUREDH, Bedside Urine Ketones (LAB) OBSCUREDH, Bedside Urine Blood POSITIVEH, Bedside Urine Nitrite (LAB) OBSCUREDH, Bedside Urine Bilirubin (LAB) OBSCUREDH, Bedside Urine Urobilinogen (LAB) OBSCUREDH, Bedside Urine Leukocyte Esterase (L OBSCUREDH, Urine Sediment Examination PERFORMED, Urine RBC TNTCH, Urine WBC TNTCH, Urine Squamous Epithelial Cells NONE SEEN, Urine Transitional Epithelial Cells SMALL AMOUNTH, Urine Bacteria LARGE AMOUNTH, Urine Hyaline Casts NONE SEEN, Urine Yeast CBC/BMP Laboratory Tests 07/31/20 13:16 07/31/20 16:06 Microbiology Microbiology 07/31/20 Urine Culture, Received Pending Assessment This is a 79 y/o M w/ a hx of bladder cancer diagnosed 20 yrs ago (treated w/ intravesical therapy), metastatic clear cell RCC (s/p R radical nephrectomy 01/23/20 and currently on axitinib), and urinary retention (managed w/ CIC twice daily), presenting to the hospital for gross hematuria. On presentation his Hb was 8.4 and after a 1L bolus the recheck was 5.8. Noncontrast CT A/P was notable for an unremarkable L kidney, absent R kidney, mildly distended bladder w/ a large diverticulum to the R, both of which contain what appears to be blood clot. No definite bladder masses could be seen on CT. Prior to my arrival, ER staff manually irrigated the patient's bladder and got a few clots out. I then irrigated his bladder as well w/ approximately 500cc of NS and got several moderate sized clots out. I was able to irrigate the bladder out until the outf low was consistently light pink, suggesting that he only had old blood in the bladder and is not actively bleeding. Plan - recommend admission to hospitalist service - keep catheter to gravity drainage - manually irrigate catheter as needed - patient is getting set up for transfusion of 2u PRBC in the ER - would check Hb q6hrs for now - make NPO at TX in case patient needs surgery tomorrow - COVID test ordered in case his Hb drops and emergent surgery is necessary - will sign the patient out to Dr. Wilcox, who will be covering the service this weekend PUSHPA ESCAMILLA MD Jul 31, 2020 17:46
[2020-07-31] MEDS ORDERED: MORPHINE 4 MG/ML 1ML VIAL/SYRINGE (J2270) IV ONE (18:45)
[2020-07-31] MEDS ORDERED: ACETAMINOPHEN TAB 650MG DOSE (2X325MG) PO PRN (20:00)
[2020-07-31] MEDS ORDERED: MOM 30ML SUSPENSION UDC PO PRN (20:00)
--- NOTE | 2020-07-31 20:02 | HPEPDOC ---
[facility] [place] Medical History & Physical Date of Admission Jul 31, 2020 Date of Service: Jul 31, 2020 Attending Physician: ARTUR STEELE MD History and Physical CHIEF COMPLAINT: hematuria HISTORY OF PRESENT ILLNESS: 79 yo M with a hx of bladder caner (dx 20 years, treated with intravesical therapy), metastatic RCC (s/p radical nephrectomy 01/23/20, now on axitinib), metastatic bony pain, urinary retention (self-caths daily), HTN, presented to ED with gross hematuria, thought to be from trauma during self cath. Hematuria for the past 3 days, associated with worsening fatigue and SOB. Hb 8.4, reduced to 5.8 after hemodilution with [address] abdo showing a 6.4 x 4.2 x 6.6 right bladder diverticulum along with bladder wall thickening. Urology consulted, performed further bladder irrigation. Planned for tranfusion of 3 units of pRBC. PAST MEDICAL HISTORY: 1. Bladder ca 2. Renal cell carcinoma 3. LGIB 4. Esophageal stricture, PEG tube feeds PAST SURGICAL HISTORY: R radical nephrectomy 01/23/20 L femur fracture PEG tube placement endoscopy w/ dilation 09/2018 inguinal hernia repair R rotator cuff surgery back surgery SOCIAL HISTORY: denies smoking denies etoh use Has good family support from daughter. FAMILY HISTORY: non contributory ALLERGIES: Please see below. REVIEW OF SYSTEMS: CONSTITUTIONAL: denies fevers, chills CARDIOVASCULAR: denies chest pain, palpitations. RESPIRATORY: denies cough, SOB. GASTROINTESTINAL: denies abdo pain, n/v/d. GENITOURINARY: reports hematuria with clots. MUSCULOSKELETAl: reports back pain NEUROLOGICAL: denies focal weakness, seizures PSYCHIATRIC: denies low mood HEMATOLOGIC/LYMPHATIC: denies easy bruising HOME MEDICATIONS: Please see below. PHYSICAL EXAMINATION: GENERAL APPEARANCE: fatigued, alert HEENT: PERRLA, EOMI. CARDIOVASCULAR: RRR, normal S1, S2. LUNGS: CTAB. ABDOMEN: PEG tube LUQ, clean site. Soft non tender MUSCULOSKELETAL: no joint deformity. MALE : indwelling dial cath in place, draining dark bloody urine EXTREMITIES: no edema. NEUROLOGICAL: no focal neuro deficit, CN2-12 intact. PSYCHIATRIC: calm, cooperative, mood nl. LABORATORY DATA: See below. IMAGING: CT abdo pelvis wo contrast: IMPRESSION: 1. Cholelithiasis. 2. 6.4 x 4.2 by 6.6 cm right bladder diverticulum, along with bladder wall thickening. Poorly defined dependent hyperdensity in the bladder and right-sided diverticulum, suggesting hemorrhage. Cystoscopy can be performed for improved characterization, as clinically indicated. 3. Gastric wall thickening. 4. Copious stool in the dilated colon, in a pattern of constipation. MICROBIOLOGY: Please see below. ASSESSMENT: 79 yo M with a hx of bladder caner (dx 20 years, treated with int ravesical therapy), metastatic RCC (s/p radical nephrectomy 01/23/20, now on axitinib), urinary retention (self-caths daily). He presented to the ED with a 3 day history of gross hematuria with clots. He was concerned that he may have caused trauma during self catheterization. On arrival to ED Hb 8.4, though dropped to 5.8 after 1L bolus admin. CT abdo pelvis showed Urology service, Dr. Eugene consult, assessed patient in the. Bladder irrigation performed, producing several mod sized blood clots. Urine draining pink color, suggesting no gross active bleeding. . PLAN: 1. Hematuria: - urology consulted, Dr. Eugene assessed patient - dial cath in place, s/p bladder irrigation, draining pink urine - monitor HH - keep patient NPO, possibly OR in the am 2. Acute anemia - in setting of gross hematuria - Hb 5.8 s/p hemodilution with NS bolus - transfusing 3 units pRBC - monitor HH q6h 3. 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 Will ask daughter to bring.) 4. Transitional Cell Carcinoma of Bladder - dx 1999, s/p TURBT, s/p adjuvant intravesicular therapy 5. Back pain - 2/2 metastatic lesion from RCC - takes 10-20 mg oxycodone q4h, pain now moderately controlled - bowel regimen 6. HTN: home med amlodipine 5 mg, 25 mg toprol XL. NPo for now, resume when eating. 7. Esophageal stricture - s/p PEG tube - dietary eval - peg tube feeds when off NPO 8. Constipation - stool burden seen on CT - patient uses oxycodone for pain control of met bony pain - senna, milk of mag DVT ppx: SCDs, TEDs. Avoid chemoprophylaxis due to acute bleed. Dispo: pending urologic workup. Will need PT/OT once stable. Vital Signs Vital Signs Date Time Temp Pulse Resp B/P (MAP) Pulse Ox O2 Delivery O2 Flow Rate FiO2 07/31/20 19:07 96.7 74 18 124/62 99 Room Air Laboratory Data Labs 24H Laboratory Tests 2 07/31/20 13:16: Immature Granulocyte % (Auto) 1.4, Neutrophils (%) (Auto) 77.8H, Lymphocytes (%) (Auto) 12.4L, Monocytes (%) (Auto) 7.9H, Eosinophils (%) (Auto) 0.2, Basophils (%) (Auto) 0.3, Neutrophils # (Auto) 5.1, Lymphocytes # (Auto) 0.8L, Monocytes # (Auto) 0.5, Eosinophils # (Auto) 0.0, Basophils # (Auto) 0.0, Nucleated Red Blood Cells % (auto) 0.0, Prothrombin Time 14.2H, Prothromb Time International Ratio 1.08, Activated Partial Thromboplast Time 28.3, Anion Gap 6L, Glomerular Filtration Rate 54.4, Calcium Level 9.1 07/31/20 14:20: Urine Color (CONCEPCIÓN) REDH, Urine Appearance (CONCEPCIÓN) TURBIDH, Urine pH (CONCEPCIÓN) OBSCUREDH, Urine Specific [place] (CONCEPCIÓN) 1.022, Urine Protein OBSCUREDH, Bedside Urine Glucose (UA) OBSCUREDH, Bedside Urine Ketones (LAB) OBSCUREDH, Bedside Urine Blood POSITIVEH, Bedside Urine Nitrite (LAB) OBSCUREDH, Bedside Urine Bilirubin (LAB) OBSCUREDH, Bedside Urine Urobilinogen (LAB) OBSCUREDH, Bedside Urine Leukocyte Esterase (L OBSCUREDH, Urine Sediment Examination PERFORMED, Urine RBC TNTCH, Urine WBC TNTCH, Urine Squamous Epithelial Cells NONE SEEN, Urine Transitional Epithelial Cells SMALL AMOUNTH, Urine Bacteria LARGE AMOUNTH, Urine Hyaline Casts NONE SEEN, Urine Yeast 07/31/20 18:39: Coronavirus (COVID-19)(PCR) NEGATIVE CBC/BMP Laboratory Tests 07/31/20 13:16 07/31/20 16:06 Microbiology Microbiology 07/31/20 Urine Culture, Received Pending Home Medications Scheduled Amlodipine Besylate (Norvasc) 5 Mg Tablet, 5 MG PO DAILY Axitinib (Inlyta) 5 Mg Tablet, 5 MG PO Q2D PATIENT HAS THIS MEDICATION WITH HIM Metoprolol Succinate (Toprol Xl) 25 Mg Tab.er.24h, 25 MG PO DAILY Primidone (Primidone) 50 Mg Tab, 50 MG PO TID Scheduled PRN Oxycodone HCl (Oxycodone HCl) 10 Mg Tablet, 10 MG PO Q4H PRN for pain Allergies Coded Allergies: No Known Allergies (Unverified , 02/26/20) A-FIB/CHADSVASC A-FIB History Current/History of A-Fib/PAF?: No Current PO Anticoag Therapy: No ARTUR STEELE MD Jul 31, 2020 20:02
[2020-07-31] MEDS ORDERED: OXYC30TA72 PO (20:42)
[2020-07-31] MEDS ORDERED: INLY5TAB PO (20:42)
[2020-07-31] MEDS ORDERED: PRIMIDONE 50 MG TAB PO SCH ×2 (21:00)
[2020-07-31] MEDS: DOCUSATE SODIUM 100 MG CAP PO SCH (21:00)
[2020-07-31] MEDS ORDERED: PEMBROLIZUMAB 100MG/4ML VIAL (KEYTRUDA) (J9271 PER 1MG) (FOR ONCOLOGY) IV SCH (21:30)
[2020-07-31] MEDS ORDERED: oxyCODONE 15 MG CR TAB PO PRN (21:30)
[2020-07-31] MEDS ORDERED: OXYC10TA12 PO (21:41)
[2020-07-31] MEDS ORDERED: oxyCODONE 10 MG CR TAB PO PRN (22:00)
[2020-07-31] MEDS ORDERED: MIRALAX *UNIT DOSE* 17GM PACKET PO PRN (22:00)
[2020-08-01] VITALS (8 sets, daily range): BP systolic 113–142; BP diastolic 57–64
[2020-08-01] MEDS ORDERED: MORPHINE 4 MG/ML 1ML VIAL/SYRINGE (J2270) IV ONE
[2020-08-01] MEDS ORDERED: oxyCODONE 5MG TAB PO PRN (00:15)
[2020-08-01] MEDS: oxyCODONE 5MG TAB GT PRN ×4 (01:00→21:22)
[2020-08-01 01:25] LABS: HEMATOCRIT 27.6 % (42.0-52.0)
[2020-08-01] MEDS: PRIMIDONE 50 MG TAB GT SCH ×4 (04:10→21:22)
[2020-08-01] MEDS: NS 1,000 ML IV SCH ×3 (04:16→17:58)
[2020-08-01 07:11] LABS: BASO % 0.5 % (0.0-1.0); EOS % 0.2 % (0.0-3.0); HEMATOCRIT 30.2 % (42.0-52.0); HEMOGLOBIN 9.9 g/dl (13.5-17.5); LYMPH # 0.6 10^3/uL (1.5-5.0); MEAN CORPUSCULAR HEMOGLOBIN 30.6 pg (27.0-33.0); MEAN CORPUSCULAR HGB CONC 32.8 g/dl (32.0-36.5); MEAN CORPUSCULAR VOLUME 93.2 fl (80.0-96.0); MONO # 0.5 10^3/uL (0.0-0.8); MONO % 8.2 % (0.0-5.0); NEUTROPHILS # 4.3 10^3/uL (1.5-8.5); PLATELET COUNT, AUTOMATED 105 10^3/uL (150-450); RED BLOOD COUNT 3.24 10^6/uL (4.30-6.10); WHITE BLOOD COUNT 5.5 10^3/uL (4.0-10.0)
[2020-08-01 07:34] LABS: ALBUMIN 2.7 GM/DL (3.2-5.2); ALT/SGPT 44 U/L (12-78); BILIRUBIN,TOTAL 0.8 MG/DL (0.2-1.0); BLOOD UREA NITROGEN 39 MG/DL (7-18); CALCIUM LEVEL 7.5 MG/DL (8.8-10.2); CARBON DIOXIDE LEVEL 25 MEQ/L (21-32); CHLORIDE LEVEL 106 MEQ/L (98-107); CREATININE FOR GFR 0.97 MG/DL (0.70-1.30); GLOMERULAR FILTRATION RATE > 60.0 (>42); GLUCOSE, FASTING 74 MG/DL (70-100); PHOSPHORUS LEVEL 2.3 MG/DL (2.5-4.9); POTASSIUM SERUM 4.7 MEQ/L (3.5-5.1); SODIUM LEVEL 136 MEQ/L (136-145); TOTAL PROTEIN 5.5 GM/DL (6.4-8.2)
[2020-08-01] MEDS: DOCUSATE SODIUM 100 MG CAP PO SCH ×2 (08:27→21:00)
[2020-08-01] MEDS ORDERED: amLODIPine 5 MG TAB PO SCH (09:00)
[2020-08-01] MEDS ORDERED: FLUBLOK(EGG FREE)(QUAD)INFLUENZA VACC 0.5ML SYRINGE 18YRS & OLDER IM ONE (09:00)
[2020-08-01] MEDS ORDERED: METOPROLOL SUCC *XL* 25MG TAB (TopROL *XL*) PO SCH (09:00)
--- NOTE | 2020-08-01 12:31 | IPNPDOC ---
Subjective Review oF Systems Chief Complaint The patient is a 79-year-old male admitted with a reason for visit of Acute Blood Loss Anemia,Bladder Hemorrhage. General: Reports: Normal Appetite; Denies: Fatigue, Malaise Constitutional: Denies: Fever, Chills, Sweats, Weakness, Malaise Eyes: Denies: Pain, Vision change ENT: Denies: Head Aches, Sore Throat, Epistaxis Skin: Denies: Rash, Lesions, Breakdown, Nail Changes Pulmonary: Denies: Dyspnea, Cough Cardiovascular: Denies Chest Pain, Denies Palpitations Genitourinary: Reports: Other Symptoms (Dial catheter draining very light pink urine) Hematologic: Denies: Bruising, Bleeding Excessively Objective Physical Examination General Exam: Moderate Distress, Other (Complaining of "pain everywhere") Eye Exam: PERRLA, Conjunctiva & lids normal, EOMI; No: Sclera icteric ENT EXAM: Atraumatic, Mucous membr. moist/pink, Pharynx Normal Neck Exam: Supple; No: JVD, thyromegaly Chest Exam: Clear to auscultation, Normal air movement ABDOMEN EXAM: Normal bowel sounds, Soft; No: Tenderness, Hepatospenomegaly Male Exam: Normal Genital Exam Vital Signs/I&O Vital Signs Date Time Temp Pulse Resp B/P (MAP) Pulse Ox O2 Delivery O2 Flow Rate FiO2 08/01/20 11:17 16 08/01/20 06:00 97.8 77 123/64 (83) 99 Room Air I&O- Last 24 Hours up to 6 AM 08/01/20 06:00 Intake Total 2940 ml Output Total 1170 ml Balance 1770 ml Laboratory Data Labs 24H Laboratory Tests 2 07/31/20 13:16: Immature Granulocyte % (Auto) 1.4, Neutrophils (%) (Auto) 77.8H, Lymphocytes (%) (Auto) 12.4L, Monocytes (%) (Auto) 7.9H, Eosinophils (%) (Auto) 0.2, Basophils (%) (Auto) 0.3, Neutrophils # (Auto) 5.1, Lymphocytes # (Auto) 0.8L, Monocytes # (Auto) 0.5, Eosinophils # (Auto) 0.0, Basophils # (Auto) 0.0, Nucleated Red Blood Cells % (auto) 0.0, Prothrombin Time 14.2H, Prothromb Time International Ratio 1.08, Activated Partial Thromboplast Time 28.3, Anion Gap 6L, Glomerular Filtration Rate 54.4, Calcium Level 9.1 07/31/20 14:20: Urine Color (CONCEPCIÓN) REDH, Urine Appearance (CONCEPCIÓN) TURBIDH, Urine pH (CONCEPCIÓN) OBSCUREDH, Urine Specific [place] (CONCEPCIÓN) 1.022, Urine Protein OBSCUREDH, Bedside Urine Glucose (UA) OBSCUREDH, Bedside Urine Ketones (LAB) OBSCUREDH, Bedside Urine Blood POSITIVEH, Bedside Urine Nitrite (LAB) OBSCUREDH, Bedside Urine Bilirubin (LAB) OBSCUREDH, Bedside Urine Urobilinogen (LAB) OBSCUREDH, Bedside Urine Leukocyte Esterase (L OBSCUREDH, Urine Sediment Examination PERFORMED, Urine RBC TNTCH, Urine WBC TNTCH, Urine Squamous Epithelial Cells NONE SEEN, Urine Transitional Epithelial Cells SMALL AMOUNTH, Urine Bacteria LARGE AMOUNTH, Urine Hyaline Casts NONE SEEN, Urine Yeast 07/31/20 18:39: Coronavirus (COVID-19)(PCR) NEGATIVE 08/01/20 06:32: Immature Granulocyte % (Auto) 1.1, Neutrophils (%) (Auto) 79.0H, Lymphocytes (%) (Auto) 11.0L, Monocytes (%) (Auto) 8.2H, Eosinophils (%) (Auto) 0.2, Basophils (%) (Auto) 0.5, Neutrophils # (Auto) 4.3, Lymphocytes # (Auto) 0.6L, Monocytes # (Auto) 0.5, Eosinophils # (Auto) 0.0, Basophils # (Auto) 0.0, Nucleated Red Blood Cells % (auto) 0.0, Anion Gap 5L, Glomerular Filtration Rate > 60.0, Calcium Level 7.5#L, Phosphorus Level 2.3L, Magnesium Level 2.0, Total Bilirubin 0.8, Aspartate Amino Transf (AST/SGOT) 36, Alanine Aminotransferase (ALT/SGPT) 44, Alkaline Phosphatase 145H, Total Protein 5.5L, Albumin 2.7L, Albumin/Globulin Ratio 1.0 CBC/BMP Laboratory Tests 07/31/20 13:16 07/31/20 16:06 08/01/20 01:07 08/01/20 06:32 Microbiology Microbiology 07/31/20 Urine Culture, Received Pending Assessment/Plan Date Seen The patient was seen on 08/01/20. Patient Summary Hematuria has cleared up and is now vry light pink on oral fluids and IV fluids. No CBI Plan/VTE VTE Prophylaxis Ordered?: Yes Plan/Urinary Catheter Reason for insertion/continuin: Critical Pt monitoring Plan Urinary catheter: Continue dial cath to monitor output and hematuria which has now cleared n icely. Continue to push oral fluids. LEIGHTON GAYTAN MD Aug 01, 2020 12:31
--- NOTE | 2020-08-01 20:48 | IPNPDOC ---
Date Seen The patient was seen on 08/01/20. Progress Note SUBJECTIVE: Patient seen and examined at bedside. C/o back pain. [place] urine in dial. No additional gross hematuria. Denies fevers, chills, chest pain, n/v/d. OBJECTIVE PHYSICAL EXAMINATION: VITAL SIGNS: Please see below. GENERAL APPEARANCE: fatigued, alert HEENT: PERRLA, EOMI. CARDIOVASCULAR: RRR, normal S1, S2. LUNGS: CTAB. ABDOMEN: PEG tube LUQ, clean site. Soft non tender MUSCULOSKELETAL: no joint deformity. MALE : indwelling dial cath in place, draining dark bloody urine EXTREMITIES: no edema. NEUROLOGICAL: no focal neuro deficit, CN2-12 intact. PSYCHIATRIC: calm, cooperative, mood nl. LABORATORY DATA, IMAGING STUDIES, MICROBIOLOGY: Please see below. DVT prophylaxis ordered?: ASSESSMENT: 79 yo M with a hx of bladder caner (dx 20 years, treated with intravesical therapy), metastatic RCC (s/p radical nephrectomy 01/23/20, now on axitinib), urinary retention (self-caths daily). He presented to the ED with a 3 day history of gross hematuria with clots. He was concerned that he may have caused trauma during self catheterization. On arrival to ED Hb 8.4, though dropped to 5.8 after 1L bolus admin. CT abdo pelvis showed Urology service, Dr. Eugene consult, assessed patient in the. Bladder irrigation performed, producing several mod sized blood clots. Urine draining pink color, suggesting no gross active bleeding. . PLAN: 1. Hematuria: - urology consulted, Dr. Eugene assessed patient - dial cath in place, s/p bladder irrigation, draining pink urine - monitor HH 2. Acute anemia - in setting of gross hematuria - s/p 3 units prbc - Hgb 5.8 --> 9.9. stable 3. 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 Transitional Cell Carcinoma of Bladder - dx 1999, s/p TURBT, s/p adjuvant intravesicular therapy 5. Back pain - 2/2 metastatic lesion from RCC - takes 10-20 mg oxycodone q4h, pain now moderately controlled - bowel regimen 6. HTN: home med amlodipine 5 mg, 25 mg toprol XL. Resume. 7. Esophageal stricture - s/p PEG tube - dietary eval - peg tube feeds 8. Constipation - stool burden seen on CT - patient uses oxycodone for pain control of met bony pain - senna, milk of mag DVT ppx: SCDs, TEDs. Avoid chemoprophylaxis due to acute bleed. Dispo: pending urologic workup. Will need PT/OT once stable. VS, I&O, 24H, Fishbone Vital Signs/I&O Vital Signs Date Time Temp Pulse Resp B/P (MAP) Pulse Ox O2 Delivery O2 Flow Rate FiO2 08/01/20 17:40 16 08/01/20 14:00 97.8 77 120/61 (80) 97 Room Air I&O- Last 24 Hours up to 6 AM 08/01/20 06:00 Intake Total 2940 ml Output Total 1170 ml Balance 1770 ml Laboratory Data 24H LABS Laboratory Tests 2 08/01/20 06:32: Immature Granulocyte % (Auto) 1.1, Neutrophils (%) (Auto) 79.0H, Lymphocytes (%) (Auto) 11.0L, Monocytes (%) (Auto) 8.2H, Eosinophils (%) (Auto) 0.2, Basophils (%) (Auto) 0.5, Neutrophils # (Auto) 4.3, Lymphocytes # (Auto) 0.6L, Monocytes # (Auto) 0.5, Eosinophils # (Auto) 0.0, Basophils # (Auto) 0.0, Nucleated Red Blood Cells % (auto) 0.0, Anion Gap 5L, Glomerular Filtration Rate > 60.0, Calcium Level 7.5#L, Phosphorus Level 2.3L, Magnesium Level 2.0, Total Bilirubin 0.8, Aspartate Amino Transf (AST/SGOT) 36, Alanine Aminotransferase (ALT/SGPT) 44, Alkaline Phosphatase 145H, Total Protein 5.5L, Albumin 2.7L, Albumin/Globulin Ratio 1.0 CBC/BMP Laboratory Tests 08/01/20 01:07 08/01/20 06:32 Microbiology Microbiology 07/31/20 Urine Culture, Received Pending ARTUR STEELE MD Aug 01, 2020 20:47
[2020-08-02] MEDS: NS 1,000 ML IV SCH ×3 (03:47→22:30)
[2020-08-02] MEDS: oxyCODONE 5MG TAB GT PRN ×5 (04:25→19:22)
[2020-08-02 06:00] VITALS: BP 127/60
[2020-08-02 07:03] LABS: BASO % 0.5 % (0.0-1.0); EOS % 0.5 % (0.0-3.0); HEMATOCRIT 26.1 % (42.0-52.0); HEMOGLOBIN 8.7 g/dl (13.5-17.5); LYMPH # 0.5 10^3/uL (1.5-5.0); MEAN CORPUSCULAR HEMOGLOBIN 31.2 pg (27.0-33.0); MEAN CORPUSCULAR HGB CONC 33.3 g/dl (32.0-36.5); MEAN CORPUSCULAR VOLUME 93.5 fl (80.0-96.0); MONO # 0.2 10^3/uL (0.0-0.8); NEUTROPHILS # 3.1 10^3/uL (1.5-8.5); NEUTROPHILS % 80.4 % (36.0-66.0); RED BLOOD COUNT 2.79 10^6/uL (4.30-6.10); WHITE BLOOD COUNT 3.8 10^3/uL (4.0-10.0)
[2020-08-02 07:06] LABS: PLATELET COUNT, AUTOMATED 97 10^3/uL (150-450)
[2020-08-02 07:28] LABS: ALBUMIN 2.3 GM/DL (3.2-5.2); ALT/SGPT 35 U/L (12-78); BILIRUBIN,TOTAL 0.3 MG/DL (0.2-1.0); BLOOD UREA NITROGEN 24 MG/DL (7-18); CALCIUM LEVEL 7.1 MG/DL (8.8-10.2); CARBON DIOXIDE LEVEL 25 MEQ/L (21-32); CHLORIDE LEVEL 109 MEQ/L (98-107); CREATININE FOR GFR 0.74 MG/DL (0.70-1.30); GLOMERULAR FILTRATION RATE > 60.0 (>42); GLUCOSE, FASTING 130 MG/DL (70-100); MAGNESIUM LEVEL 1.8 MG/DL (1.8-2.4); PHOSPHORUS LEVEL 1.8 MG/DL (2.5-4.9); POTASSIUM SERUM 4.3 MEQ/L (3.5-5.1); SODIUM LEVEL 138 MEQ/L (136-145)
[2020-08-02] MEDS ORDERED: [UNRECOGNIZED DRUG - OTHER] PO SCH (09:00)
[2020-08-02] MEDS ORDERED: ENTER DRUG NAME HERE (PATIENT'S OWN MED) GT SCH (09:00)
[2020-08-02] MEDS: amLODIPine 5 MG TAB PO SCH (09:00)
--- NOTE | 2020-08-02 10:14 | IPNPDOC ---
Subjective Review oF Systems Chief Complaint The patient is a 79-year-old male admitted with a reason for visit of Acute Blood Loss Anemia,Bladder Hemorrhage. General: Reports: Normal Appetite; Denies: Fatigue, Malaise Constitutional: Denies: Fever, Chills, Sweats, Weakness, Malaise Eyes: Denies: Pain, Vision change ENT: Denies: Head Aches, Sore Throat, Epistaxis Skin: Denies: Rash, Lesions, Breakdown, Nail Changes Pulmonary: Denies: Dyspnea, Cough, Pleuritic Chest Pain, Other Symptoms Cardiovascular: Denies Chest Pain, Denies Palpitations Gastrointestinal: Denies: Nausea, Vomiting, Abdominal Pain, Diarrhea, Constipation, Melena, Hematochezia, Other Symptoms Genitourinary: Denies: Dysuria, Frequency, Incontinence, Hematuria Hematologic: Denies: Bruising, Bleeding Excessively Endocrine: Denies: Polydipsia, Polyphagia, Polyuria Musculoskeletal: Reports: Back Pain; Denies: Neck Pain Neurological: Denies: Weakness, Numbness, Incoordination, Change in Speech Psych: Reports: Mood Normal; Denies: Anxiety, Depression Objective Physical Examination General Exam: Mild Distress, Moderate Distress, Other (Complaining of "pain everywhere") Eye Exam: PERRLA, Conjunctiva & lids normal, EOMI; No: Sclera icteric ENT EXAM: Atraumatic, Mucous membr. moist/pink, Pharynx Normal Neck Exam: Supple; No: JVD, thyromegaly Chest Exam: Clear to auscultation, Normal air movement ABDOMEN EXAM: Normal bowel sounds, Soft; No: Tenderness, Hepatospenomegaly Male Exam: Normal Genital Exam (jUrjine is clear from dial) Extremity Exam: Tenderness; No: Clubbing, Cyanosis, Edema Skin Exam: Nl turgor and temperature; No: Rash, Breakdown Vital Signs/I&O Vital Signs Date Time Temp Pulse Resp B/P (MAP) Pulse Ox O2 Delivery O2 Flow Rate FiO2 08/02/20 09:12 17 08/02/20 06:00 97.9 79 127/60 (82) 98 Room Air I&O- Last 24 Hours up to 6 AM 08/02/20 06:00 Intake Total 4020 ml Output Total 2950 ml Balance 1070 ml Laboratory Data Labs 24H Laboratory Tests 2 08/02/20 06:45: Immature Granulocyte % (Auto) 1.6, Neutrophils (%) (Auto) 80.4H, Lymphocytes (%) (Auto) 12.0L, Monocytes (%) (Auto) 5.0, Eosinophils (%) (Auto) 0.5, Basophils (%) (Auto) 0.5, Neutrophils # (Auto) 3.1, Lymphocytes # (Auto) 0.5L, Monocytes # (Auto) 0.2, Eosinophils # (Auto) 0.0, Basophils # (Auto) 0.0, Nucleated Red Blood Cells % (auto) 0.0, Immature Platelet Fraction 1.6, Anion Gap 4L, Glomerul ar Filtration Rate > 60.0, Calcium Level 7.1L, Phosphorus Level 1.8#L, Magnesium Level 1.8, Total Bilirubin 0.3#, Aspartate Amino Transf (AST/SGOT) 37, Alanine Aminotransferase (ALT/SGPT) 35, Alkaline Phosphatase 161H, Total Protein 5.0L, Albumin 2.3L, Albumin/Globulin Ratio 0.9 CBC/BMP Laboratory Tests 08/02/20 06:45 Microbiology Microbiology 07/31/20 Urine Culture - Preliminary, Resulted E.coli Esbl Assessment/Plan Date Seen The patient was seen on 08/02/20. Plan/VTE VTE Prophylaxis Ordered?: Yes Plan/Urinary Catheter Reason for insertion/continuin: Critical Pt monitoring Plan Urine is now clear per dial. No evidence of hematuria. Pt will need a cysto at some point which can be done as an outjpatijent to e valuate possible source3 of hematuria and statrus of bladder cancer. Urine culture is jpositive for #. coli. Will start antibiotics. LEIGHTON GAYTAN MD Aug 02, 2020 10:09
[2020-08-02] MEDS ORDERED: TRIMETHOPRIM/SULFAMETHOXAZOLE 160 MG in D5W 500 ML IV SCH (10:15)
[2020-08-02] MEDS: DOCUSATE SODIUM 100 MG CAP PO SCH ×2 (10:30→20:16)
[2020-08-02] MEDS: PRIMIDONE 50 MG TAB GT SCH ×3 (10:30→20:16)
[2020-08-02] MEDS: METOPROLOL SUCC *XL* 25MG TAB (TopROL *XL*) PO SCH (10:31)
[2020-08-02] MEDS: ERTAPENEM SODIUM 1 GM in NS MINI-BAG PLUS 50 ML IV SCH (12:31)
[2020-08-02 14:00] VITALS: BP 140/64
--- NOTE | 2020-08-02 20:48 | IPNPDOC ---
Date Seen The patient was seen on 08/02/20. Progress Note SUBJECTIVE: Patient seen and examined at bedside. C/o back pain. [place] urine in dial. No additional gross hematuria. Denies fevers, chills, chest pain, n/v/d. OBJECTIVE PHYSICAL EXAMINATION: VITAL SIGNS: Please see below. GENERAL APPEARANCE: fatigued, alert HEENT: PERRLA, EOMI. CARDIOVASCULAR: RRR, normal S1, S2. LUNGS: CTAB. ABDOMEN: PEG tube LUQ, clean site. Soft non tender MUSCULOSKELETAL: no joint deformity. MALE : indwelling dial cath in place, draining dark bloody urine EXTREMITIES: no edema. NEUROLOGICAL: no focal neuro deficit, CN2-12 intact. PSYCHIATRIC: calm, cooperative, mood nl. LABORATORY DATA, IMAGING STUDIES, MICROBIOLOGY: Please see below. DVT prophylaxis ordered?: ASSESSMENT: 79 yo M with a hx of bladder caner (dx 20 years, treated with intravesical therapy), metastatic RCC (s/p radical nephrectomy 01/23/20, now on axitinib), urinary retention (self-caths daily). He presented to the ED with a 3 day history of gross hematuria with clots. He was concerned that he may have caused trauma during self catheterization. On arrival to ED Hb 8.4, though dropped to 5.8 after 1L bolus admin. CT abdo pelvis showed Urology service, Dr. Eugene consult, assessed patient in the. Bladder irrigation performed, producing several mod sized blood clots. Urine draining pink color, suggesting no gross active bleeding. . PLAN: 1. Hematuria: - dial cath in place, s/p bladder irrigation, draining pink urine - HH stable - Discussed with Dr. Wilcox. No cystoscopy need on admission. Can f/u outpatient. 2. Acute anemia - in setting of gross hematuria - s/p 3 units prbc - Hgb 5.8 --> 9.9. stable UTI - ESBL, on meropenem - sensitive to Bactrim for PO therapy 3. 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 Transitional Cell Carcinoma of Bladder - dx 1999, s/p TURBT, s/p adjuvant intravesicular therapy 5. Back pain - 2/2 metastatic lesion from RCC - takes 10-20 mg oxycodone q4h, pain now moderately controlled - bowel regimen 6. HTN: home med amlodipine 5 mg, 25 mg toprol XL. Resume. 7. Esophageal stricture - s/p PEG tube - dietary eval - peg tube feeds 8. Constipation - stool burden seen on CT - patient uses oxycodone for pain control of met bony pain - senna, milk of mag DVT ppx: SCDs, TEDs. Avoid chemoprophylaxis due to acute bleed. Dispo: pending urologic workup. Will need PT/OT once stable. VS, I&O, 24H, Fishbone Vital Signs/I&O Vital Signs Date Time Temp Pulse Resp B/P (MAP) Pulse Ox O2 Delivery O2 Flow Rate FiO2 08/02/20 19:52 16 08/02/20 14:00 97.9 66 140/64 (89) 97 Room Air I&O- Last 24 Hours up to 6 AM 08/02/20 06:00 Intake Total 4020 ml Output Total 2950 ml Balance 1070 ml Laboratory Data 24H LABS Laboratory Tests 2 08/02/20 06:45: Immature Granulocyte % (Auto) 1.6, Neutrophils (%) (Auto) 80.4H, Lymphocytes (%) (Auto) 12.0L, Monocytes (%) (Auto) 5.0, Eosinophils (%) (Auto) 0.5, Basophils (%) (Auto) 0.5, Neutrophils # (Auto) 3.1, Lymphocytes # (Auto) 0.5L, Monocytes # (Auto) 0.2, Eosinophils # (Auto) 0.0, Basophils # (Auto) 0.0, Nucleated Red Blood Cells % (auto) 0.0, Immature Platelet Fraction 1.6, Anion Gap 4L, Glomerular Filtration Rate > 60.0, Calcium Level 7.1L, Phosphorus Level 1.8#L, M agnesium Level 1.8, Total Bilirubin 0.3#, Aspartate Amino Transf (AST/SGOT) 37, Alanine Aminotransferase (ALT/SGPT) 35, Alkaline Phosphatase 161H, Total Protein 5.0L, Albumin 2.3L, Albumin/Globulin Ratio 0.9 CBC/BMP Laboratory Tests 08/02/20 06:45 Microbiology Microbiology 07/31/20 Urine Culture - Preliminary, Resulted E.coli Esbl ARTUR STEELE MD Aug 02, 2020 20:48
[2020-08-02 22:00] VITALS: BP 122/52
[2020-08-02] MEDS: K-PHOS ORIGINAL (POT.ACID PHOSPHATE) 500MG TAB PO SCH (22:29)
[2020-08-03] MEDS: oxyCODONE 5MG TAB GT PRN ×4 (00:17→15:11)
[2020-08-03 06:00] VITALS: BP 130/60
[2020-08-03 06:51] LABS: BASO % 0.7 % (0.0-1.0); EOS % 0.7 % (0.0-3.0); HEMATOCRIT 27.7 % (42.0-52.0); HEMOGLOBIN 8.9 g/dl (13.5-17.5); LYMPH # 0.6 10^3/uL (1.5-5.0); LYMPH % 14.9 % (24.0-44.0); MEAN CORPUSCULAR HEMOGLOBIN 30.9 pg (27.0-33.0); MEAN CORPUSCULAR HGB CONC 32.1 g/dl (32.0-36.5); MEAN CORPUSCULAR VOLUME 96.2 fl (80.0-96.0); MONO # 0.3 10^3/uL (0.0-0.8); MONO % 6.5 % (0.0-5.0); NEUTROPHILS # 3.2 10^3/uL (1.5-8.5); NEUTROPHILS % 75.8 % (36.0-66.0); RED BLOOD COUNT 2.88 10^6/uL (4.30-6.10); WHITE BLOOD COUNT 4.2 10^3/uL (4.0-10.0)
--- NOTE | 2020-08-03 07:19 | IPNPDOC ---
Date Seen The patient was seen on 08/03/20. Progress Note SUBJECTIVE: Patient seen and examined at bedside. C/o back pain. [place] urine in dial. No additional gross hematuria. Denies fevers, chills, chest p ain, n/v/d. No dysuria. OBJECTIVE PHYSICAL EXAMINATION: VITAL SIGNS: Please see below. GENERAL APPEARANCE: NAD HEENT: PERRLA, EOMI. CARDIOVASCULAR: RRR, normal S1, S2. LUNGS: CTAB. ABDOMEN: PEG tube LUQ, clean site. Soft non tender MUSCULOSKELETAL: no joint deformity. MALE : indwelling dial cath in place, draining slightly pink urine. No gross blood. EXTREMITIES: no edema. NEUROLOGICAL: no focal neuro deficit, CN2-12 intact. PSYCHIATRIC: calm, cooperative, mood nl. LABORATORY DATA, IMAGING STUDIES, MICROBIOLOGY: Please see below. DVT prophylaxis ordered?: ASSESSMENT: 79 yo M with a hx of bladder caner (dx 20 years, treated with intravesical therapy), metastatic RCC (s/p radical nephrectomy 01/23/20, now on axitinib), urinary retention (self-caths daily). He presented to the ED with a 3 day history of gross hematuria with clots. He was concerned that he may have caused trauma during self catheterization. On arrival to ED Hb 8.4, though dropped to 5.8 after 1L bolus admin. CT abdo pelvis showed Urology service, Dr. Eugene consult, assessed patient in the. Bladder irrigation performed, producing several mod sized blood clots. Urine draining pink color, suggesting no gross active bleeding. . PLAN: 1. Hematuria: - dial cath in place, s/p bladder irrigation, draining pink urine - HH stable - Discussed with Dr. Wilcox. No cystoscopy need on admission. Ok to continue to self-catheterize. Can f/u outpatient. 2. Acute anemia - in setting of gross hematuria - s/p 3 units prbc - Hgb 5.8 --> 9.9 --> 8.7/8.9. Stable. 3. Asymptomatic Bacteruria - ESBL, on meropenem for 2 days - patient has no dysuria, fevers, leukocytosis, or lower abdominal discomfort - no indication for antibiotic treatment at this time - however, patient will be undergoing a cystoscopy upon follow up with urology, and will require prophylactic antibiotic therapy prior to procedure. This should be arranged on an outpatient basis on evaluation in urology clinic prior to cystoscopy. 4. 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 Transitional Cell Carcinoma of Bladder - dx 1999, s/p TURBT, s/p adjuvant intravesicular therapy 6. Back pain - 2/2 metastatic lesion from RCC - takes 10-20 mg oxycodone q4h, pain now moderately controlled - bowel regimen 7. HTN: home med amlodipine 5 mg, 25 mg toprol XL. Resume. 8. Esophageal stricture - s/p PEG tube - dietary eval - peg tube feeds 9. Constipation - stool burden seen on CT - patient uses oxycodone for pain control of met bony pain - senna, milk of mag - had BM 08/01/20 DVT ppx: SCDs, TEDs. Dispo: cleared from urology. Evaluated by PT. Recommended to return home. VS, I&O, 24H, Fishbone Vital Signs/I&O Vital Signs Date Time Temp Pulse Resp B/P (MAP) Pulse Ox O2 Delivery O2 Flow Rate FiO2 08/03/20 06:28 16 08/03/20 06:00 98.4 64 130/60 (83) 97 Room Air I&O- Last 24 Hours up to 6 AM 08/03/20 05:59 Intake Total 4310 ml Output Total 2750 ml Balance 1560 ml Laboratory Data 24H LABS Laboratory Tests 2 08/03/20 06:25: 08/03/20 06:26: CBC/BMP Microbiology Microbiology 07/31/20 Urine Culture - Preliminary, Resulted E.coli Esbl ARTUR STEELE MD Aug 03, 2020 07:19
[2020-08-03 07:25] LABS: ALBUMIN 2.4 GM/DL (3.2-5.2); ALT/SGPT 31 U/L (12-78); BILIRUBIN,TOTAL 0.3 MG/DL (0.2-1.0); BLOOD UREA NITROGEN 17 MG/DL (7-18); CALCIUM LEVEL 7.6 MG/DL (8.8-10.2); CARBON DIOXIDE LEVEL 22 MEQ/L (21-32); CHLORIDE LEVEL 109 MEQ/L (98-107); GLOMERULAR FILTRATION RATE > 60.0 (>42); GLUCOSE, FASTING 78 MG/DL (70-100); MAGNESIUM LEVEL 1.7 MG/DL (1.8-2.4); PHOSPHORUS LEVEL 2.3 MG/DL (2.5-4.9); POTASSIUM SERUM 4.3 MEQ/L (3.5-5.1); SODIUM LEVEL 136 MEQ/L (136-145); TOTAL PROTEIN 5.1 GM/DL (6.4-8.2)
[2020-08-03 07:39] LABS: PLATELET COUNT, AUTOMATED 92 10^3/uL (150-450)
[2020-08-03] MEDS: NS 1,000 ML IV SCH (08:35)
[2020-08-03] MEDS: DOCUSATE SODIUM 100 MG CAP PO SCH (09:00)
[2020-08-03] MEDS: K-PHOS ORIGINAL (POT.ACID PHOSPHATE) 500MG TAB PO SCH (09:09)
[2020-08-03 09:10] VITALS: BP 130/60
[2020-08-03] MEDS: PRIMIDONE 50 MG TAB GT SCH ×2 (09:10→16:12)
[2020-08-03] MEDS: METOPROLOL SUCC *XL* 25MG TAB (TopROL *XL*) PO SCH (09:10)
[2020-08-03] MEDS: amLODIPine 5 MG TAB PO SCH (09:10)
[2020-08-03] MEDS: ERTAPENEM SODIUM 1 GM in NS MINI-BAG PLUS 50 ML IV SCH (12:20)
[2020-08-03 14:00] VITALS: BP 126/59
[2020-08-03] MEDS ORDERED: AMLO1TAB24 PO (17:37)
[2020-08-03] MEDS ORDERED: DOCU100C16 PO (17:37)
[2020-08-03] MEDS ORDERED: METO1TAB32 PO (17:37)
--- NOTE | 2020-08-03 18:11 | DS.PDOC ---
Discharge Summary General Date of Admission Jul 31, 2020 at 19:54 Date of Discharge 08/03/20 Discharge Summary PROCEDURES PERFORMED DURING STAY: [None]. ADMITTING DIAGNOSES: 1. Hematuria 2. Acute anemia 3. Metastatic RCC 4. Transitional Cell Carcinoma of Bladder 5. Back pain 6. HTN 7. Esophageal stricture with PEG 8. Constipation DISCHARGE DIAGNOSES: 1. Hematuria 2. Acute anemia 3. Metastatic RCC 4. Transitional Cell Carcinoma of Bladder 5. Back pain 6. HTN 7. Esophageal stricture with PEG 8. Constipation 9. Asymptomatic ESBL bacteruria COMPLICATIONS/CHIEF COMPLAINT: Acute Blood Loss Anemia,Bladder Hemorrhage. HISTORY OF PRESENT ILLNESS: 79 yo M with a hx of bladder caner (dx 20 years, treated with intravesical therapy), metastatic RCC (s/p radical nephrectomy 01/23/20, now on axitinib), metastatic bony pain, urinary retention (self-caths daily), HTN, presented to ED with gross hematuria, thought to be from trauma during self cath. Hematuria for the past 3 days, associated with worsening fatigue and SOB. Hb 8.4, reduced to 5.8 after hemodilution with [address] abdo showing a 6.4 x 4.2 x 6.6 right bladder diverticulum along with bladder wall thickening. Urology consulted, performed further bladder irrigation. Tranfusion of 3 units of pRBC. HOSPITAL COURSE: Hemoglobin remained stable after transfusion at 8.7. Seen by urology after irrigation. Plan for outpatient cystoscopy. Patient had no additional gross hematuria. He remained afebrile throughout the admission, without leukocytosis, or abdominal pain. Discovered to have asymptomatic ESBL bacteruria, for which he received 2 days of meropenem while admitted. No PO abx were given on DC as the patient showed no clinical signs of infection. He will need prophylactic abx prior to outpatient cystoscopy. PT evaluated the patient and he was cleared for discharge. 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 Resumed Esophageal stricture - s/p PEG tube - peg tube feeds Constipation - stool burden seen on CT - patient uses oxycodone for pain control of met bony pain - senna, milk of mag - had BM 08/01/20 DVT ppx: SCDs, TEDs. DISCHARGE MEDICATIONS: Please see below. ALLERGIES: Please see below. PHYSICAL EXAMINATION ON DISCHARGE: VITAL SIGNS: Please see below. GENERAL APPEARANCE: fatigued, alert HEENT: PERRLA, EOMI. CARDIOVASCULAR: RRR, normal S1, S2. LUNGS: CTAB. ABDOMEN: PEG tube LUQ, clean site. Soft non tender MUSCULOSKELETAL: no joint deformity. MALE : indwelling dial cath in place, draining dark bloody urine EXTREMITIES: no edema. NEUROLOGICAL: no focal neuro deficit, CN2-12 intact. PSYCHIATRIC: calm, cooperative, mood nl. LABORATORY DATA: Please see below. IMAGING: CT abdo pelvis wo contrast PROGNOSIS: fair ACTIVITY: [As tolerated]. DIET: PEG tube feedings DISCHARGE PLAN: follow up with PCP and urology for cystoscopy. Continue to straight cath. DISPOSITION: DC home DISCHARGE INSTRUCTIONS: 1. Follow up with PCP 3-5 days 2. Follow up with Urology within 2 weeks 3. Follow up with oncology within 2 weeks 4. If notice blood in urine, chest pain, shortness of breath, abdominal pain, fevers or chills, please return to the ED or call 911. DISCHARGE CONDITION: [Stable]. TIME SPENT ON DISCHARGE: Greater than [30] minutes. Vital Signs/I&Os Vital Signs Date Time Temp Pulse Resp B/P (MAP) Pulse Ox O2 Delivery O2 Flow Rate FiO2 08/03/20 15:42 16 08/03/20 15:11 96 Room Air 08/03/20 14:00 98.0 69 126/59 (81) I&O- Last 24 Hours up to 6 AM 08/03/20 06:00 Intake Total 4310 ml Output Total 3000 ml Balance 1310 ml Laboratory Data Labs 24H Laboratory Tests 2 08/03/20 06:25: Immature Granulocyte % (Auto) 1.4, Neutrophils (%) (Auto) 75.8H, Lymphocytes (%) (Auto) 14.9L, Monocytes (%) (Auto) 6.5H, Eosinophils (%) (Auto) 0.7, Basophils (%) (Auto) 0.7, Neutrophils # (Auto) 3.2, Lymphocytes # (Auto) 0.6L, Monocytes # (Auto) 0.3, Eosinophils # (Auto) 0.0, Basophils # (Auto) 0.0, Nucleated Red Blood Cells % (auto) 0.0 08/03/20 06:26: Anion Gap 5L, Glomerular Filtration Rate > 60.0, Calcium Level 7.6L, Phosphorus Level 2.3#L, Magnesium Level 1.7L, Total Bilirubin 0.3, Aspartate Amino Transf (AST/SGOT) 27, Alanine Aminotransferase (ALT/SGPT) 31, Alkaline Phosphatase 159H, Total Protein 5.1L, Albumin 2.4L, Albumin/Globulin Ratio 0.9 CBC/BMP Laboratory Tests 08/03/20 06:25 08/03/20 06:26 Microbiology Microbiology 07/31/20 Urine Culture - Final, Complete E.coli Esbl Discharge Medications Scheduled Amlodipine Besylate (Norvasc) 5 Mg Tablet, 5 MG PO DAILY, (Reported) Amlodipine Besylate (Amlodipine Besylate) 5 Mg Tablet, 5 MG PO DAILY Axitinib (Inlyta) 5 Mg Tablet, 5 MG PO Q2D, (Reported) PATIENT HAS THIS MEDICATION WITH HIM Docusate Sodium (Docusate Sodium) 100 Mg Capsule, 100 MG PO BID Metoprolol Succinate (Toprol Xl) 25 Mg Tab.er.24h, 25 MG PO DAILY, (Reported) Metoprolol Succinate (Metoprolol Succinate) 25 Mg Tab.er.24h, 25 MG PO DAILY Primidone (Primidone) 50 Mg Tab, 50 MG PO TID, (Reported) Scheduled PRN Oxycodone HCl (Oxycodone HCl) 10 Mg Tablet, 10 MG PO Q4H PRN for pain, (Repor michael) Allergies Coded Allergies: No Known Allergies (Unverified , 02/26/20) ARTUR STEELE MD Aug 03, 2020 18:11
[2020-08-18] MEDS ORDERED: VIBR50SY PO (13:09)
[2020-08-18] MEDS ORDERED: LEVO25SO PO (13:09)
[2020-09-17] MEDS ORDERED: INLY5TAB PO (13:11)
== END 2020-08-03 17:57 | disposition home or self-care (01) | DRG 812 ==
LOC: M ED 12:18 → EEVIPCON 19:54 → M ED INP 19:54 → ENRESERV 20:24 → M MSPAV 20:50
PROVIDERS: ADMIT Family Medicine; ATTEND Family Medicine
PROC: 30233N1 Transfusion of Nonautologous Red Blood Cells into Peripheral Vein, Percutaneous Approach (ICD-10-PCS; principal; 2020-07-31)
DX: D62 Acute posthemorrhagic anemia (principal); C79.51 Secondary malignant neoplasm of bone; R31.0 Gross hematuria; I10 Essential (primary) hypertension; K59.00 Constipation, unspecified; K22.2 Esophageal obstruction; R33.9 Retention of urine, unspecified; Z93.1 Gastrostomy status; C67.9 Malignant neoplasm of bladder, unspecified; Z79.899 Other long term (current) drug therapy

== ENCOUNTER → 2020-08-07 | Outpatient (REF) | payer MEDICARE ==
[~2020-08-07] MED LIST changes: +AMLO1TAB24 PO; +DOCU100C16 PO; +LEVO25SO PO; +METO1TAB32 PO; +OXYC10TA12 PO; +OXYC30TA72 PO; +VIBR50SY PO
[2020-08-07 13:46] LABS: BASO # 0.1 10^3/uL (0.0-0.2); BASO % 0.8 % (0.0-1.0); EOS % 0.7 % (0.0-3.0); HEMATOCRIT 34.3 % (42.0-52.0); HEMOGLOBIN 10.9 g/dl (13.5-17.5); LYMPH # 0.8 10^3/uL (1.5-5.0); MEAN CORPUSCULAR HEMOGLOBIN 30.6 pg (27.0-33.0); MEAN CORPUSCULAR HGB CONC 31.8 g/dl (32.0-36.5); MEAN CORPUSCULAR VOLUME 96.3 fl (80.0-96.0); MONO # 0.3 10^3/uL (0.0-0.8); MONO % 4.7 % (0.0-5.0); NEUTROPHILS # 4.7 10^3/uL (1.5-8.5); NEUTROPHILS % 79.6 % (36.0-66.0); PLATELET COUNT, AUTOMATED 157 10^3/uL (150-450); RED BLOOD COUNT 3.56 10^6/uL (4.30-6.10); WHITE BLOOD COUNT 5.9 10^3/uL (4.0-10.0)
[2020-08-07 14:11] LABS: ALBUMIN 3.4 GM/DL (3.2-5.2); ALT/SGPT 43 U/L (12-78); BILIRUBIN,TOTAL 0.5 MG/DL (0.2-1.0); BLOOD UREA NITROGEN 33 MG/DL (7-18); C REACTIVE PROTEIN QUANTITATIV 1.26 MG/DL (0.00-0.30); CALCIUM LEVEL 9.2 MG/DL (8.8-10.2); CARBON DIOXIDE LEVEL 29 MEQ/L (21-32); CHLORIDE LEVEL 100 MEQ/L (98-107); CREATININE FOR GFR 1.18 MG/DL (0.70-1.30); GLOMERULAR FILTRATION RATE > 60.0 (>42); GLUCOSE, FASTING 118 MG/DL (70-100); POTASSIUM SERUM 4.5 MEQ/L (3.5-5.1); SODIUM LEVEL 136 MEQ/L (136-145); TOTAL PROTEIN 6.9 GM/DL (6.4-8.2)
[2020-08-07 14:15] LABS: ERYTHROCYTE SEDIMENTATION RATE 44 mm/hr (0-20)
== END ==
LOC: M LABDRAWC 12:20
PROVIDERS: ATTEND Nurse Practitioner Family
DX: T84.7XXD Infection and inflammatory reaction due to other internal orthopedic prosthetic devices, implants and grafts, subsequent encounter (principal); D61.818 Other pancytopenia; R50.9 Fever, unspecified; Z79.2 Long term (current) use of antibiotics

== ENCOUNTER → 2020-10-09 | Outpatient (REF) | payer MEDICARE ==
[2020-10-09 14:50] LABS: HEMOGLOBIN A1c 4.7 %
== END ==
LOC: M SFHCCLAY 14:07
PROVIDERS: ATTEND Family Medicine
DX: E11.9 Type 2 diabetes mellitus without complications (principal)

== ENCOUNTER → 2021-02-22 | Outpatient (REF) | payer MEDICARE ==
[~2021-02-22] MED LIST changes: -LOPE-25 PO; +LOPE-26 PO; +OMEP40CA97 PO; +PRED20TA PO; +PRED5PAK PO
[2021-02-22 16:04] LABS: BASO % 0.4 % (0.0-1.0); HEMATOCRIT 33.6 % (42.0-52.0); HEMOGLOBIN 10.1 g/dl (13.5-17.5); LYMPH # 0.6 10^3/uL (1.5-5.0); MEAN CORPUSCULAR HEMOGLOBIN 27.7 pg (27.0-33.0); MEAN CORPUSCULAR HGB CONC 30.1 g/dl (32.0-36.5); MEAN CORPUSCULAR VOLUME 92.3 fl (80.0-96.0); MONO # 0.4 10^3/uL (0.0-0.8); MONO % 6.9 % (2.0-8.0); NEUTROPHILS # 4.2 10^3/uL (1.5-8.5); NEUTROPHILS % 81.1 % (36.0-66.0); PLATELET COUNT, AUTOMATED 166 10^3/uL (150-450); RED BLOOD COUNT 3.64 10^6/uL (4.30-6.10); WHITE BLOOD COUNT 5.2 10^3/uL (4.0-10.0)
[2021-02-22 16:32] LABS: ERYTHROCYTE SEDIMENTATION RATE 65 mm/hr (0-20)
[2021-02-22 16:42] LABS: ALBUMIN 3.4 GM/DL (3.2-5.2); ALT/SGPT 19 U/L (12-78); BILIRUBIN,TOTAL 0.5 MG/DL (0.2-1.0); BLOOD UREA NITROGEN 32 MG/DL (7-18); C REACTIVE PROTEIN QUANTITATIV 6.09 MG/DL (0.00-0.30); CALCIUM LEVEL 9.1 MG/DL (8.8-10.2); CARBON DIOXIDE LEVEL 30 MEQ/L (21-32); CHLORIDE LEVEL 95 MEQ/L (98-107); CREATININE FOR GFR 1.22 MG/DL (0.70-1.30); GLOMERULAR FILTRATION RATE > 60.0 (>42); GLUCOSE, FASTING 120 MG/DL (70-100); POTASSIUM SERUM 4.2 MEQ/L (3.5-5.1); SODIUM LEVEL 130 MEQ/L (136-145); TOTAL PROTEIN 7.1 GM/DL (6.4-8.2)
== END ==
LOC: M LABDRAWC 15:40
PROVIDERS: ATTEND Physician Assistant
DX: T84.7XXD Infection and inflammatory reaction due to other internal orthopedic prosthetic devices, implants and grafts, subsequent encounter (principal); R50.9 Fever, unspecified; Z79.2 Long term (current) use of antibiotics

== ENCOUNTER → 2021-02-24 | Outpatient (CLI) | payer MEDICARE ==
--- NOTE | 2021-02-24 14:43 | REP ---
INDICATION: RENAL CELL CA, RT KIDNEY. COMPARISON: The most recent prior study dated 07/31/2020. TECHNIQUE: The study is performed without IV or bowel contrast. FINDINGS: The patient has known renal and bladder carcinoma and a right nephrectomy Within the visualized lower lung adames there is a 13 mm nodule in the superior segment of the right lower lobe on image 9. On the prior study this nodule measured 5 mm. No other lung nodules identified within the visualized lower lung adames. The inferior tips of Chandler rods are noted in the thoracic spine at T10, unchanged. The unenhanced hepatic parenchyma is homogeneous and unchanged. There is a collection of small gallbladder calculi along the dependent wall of the gallbladder, unchanged. The gallbladder is otherwise unremarkable. There is no biliary duct dilatation. The pancreas is normal size and unremarkable. The spleen is enlarged, as previously, but otherwise unremarkable. There is a percutaneous gastrostomy, as previously. The gastrostomy tract is unremarkable. There is a right nephrectomy. There is no evidence of tumor recurrence in the right renal fossa. The right adrenal is unremarkable. The left adrenal and unenhanced left kidney are unremarkable. The abdominal aorta is unremarkable except for calcified atheroma. There is no periaortic adenopathy or mass. The bowel and mesentery are unremarkable except for descending colon/sigmoid colon diverticulosis without diverticulitis. This is unchanged. Pelvis: There is a bladder diverticulum posterolaterally on the right as previously. There is focal thickening of the bladder wall at the orifice of the diverticulum, seen to best advantage on the coronal images. The hyperdensity noted dependently in the bladder diverticulum on the prior study is no longer present. There is no ascites or adenopathy. There are no lytic, blastic or destructive skeletal changes. There is degenerative disc disease throughout the lumbar spine. IMPRESSION: Enlarging nodule in the lower lobe of the right lung as described. With the history of renal carcinoma, PET scan follow-up might be considered for further evaluation of this nodule. Cholelithiasis, unchanged. No evidence of acute cholecystitis by CT. Splenomegaly, unchanged. Right nephrectomy. No evidence of tumor recurrence in the right renal fossa No retroperitoneal or mesenteric adenopathy. No ascites. Peg tube, unchanged. Chandler rods, unchanged. Bladder diverticulum. There is focal thickening of the bladder wall at the orifice of the diverticulum. This could be inflammatory, hypertrophy or neoplasm. <Electronically signed by Andrea Edwards > 02/24/21 [id number]
== END ==
LOC: M RAD 13:38
PROVIDERS: ATTEND Urology
DX: C64.1 Malignant neoplasm of right kidney, except renal pelvis (principal); R91.1 Solitary pulmonary nodule; Z90.5 Acquired absence of kidney; R16.1 Splenomegaly, not elsewhere classified; N32.3 Diverticulum of bladder; N32.89 Other specified disorders of bladder; Z93.1 Gastrostomy status

== ENCOUNTER → 2021-03-03 | Outpatient (CLI) | payer MEDICARE ==
[~2021-03-03] MED LIST changes: +E-Z-GAS II EFFERVESCENT PACKET (SODIUM BICARB./CITRIC ACID/SIMETHICONE) As Ordered ONE; +E-Z-HD 98% w/w 340GM SUSP BTL As Ordered ONE; +E-Z-PAQUE 96% w/w SUSP 176GM BTL As Ordered ONE
--- NOTE | 2021-03-03 08:37 | REP ---
INDICATION: DYSPHAGIA. COMPARISON: Chest CT dated 07/21/2020 and portable chest dated 08/24/2019. TECHNIQUE: Single PA view of the chest.. FINDINGS: According to in a from a schroeder in the film file patient has a history of renal and skeletal cancer. Current study is performed for clinical history of aspiration and distal esophageal stricture. The costophrenic angles are slightly effaced as an interval change suggestive of small bilateral pleural effusions. The lung adames are otherwise clear. Cardiac size is normal. The michelle are unremarkable. There are Chandler rods and an electric device projected over the thoracic spine as an interval change. IMPRESSION: Slight effacement of the costophrenic angles bilaterally suggestive of new small bilateral pleural effusions. No focal infiltrate. No lung nodules or masses. The lung adames are otherwise clear. Chandler rods and an electric device are projected over the thoracic spine as an interval change. <Electronically signed by Andrea Edwards > 03/03/21 0800
== END ==
LOC: M RAD 07:35
PROVIDERS: ATTEND Thoracic Surgery (Cardiothoracic Vascular Surgery)
DX: R13.10 Dysphagia, unspecified (principal)

== ENCOUNTER → 2021-03-17 | Outpatient (REF) | payer MEDICARE ==
[~2021-03-17] MED LIST changes: -E-Z-GAS II EFFERVESCENT PACKET (SODIUM BICARB./CITRIC ACID/SIMETHICONE) As Ordered ONE; -E-Z-HD 98% w/w 340GM SUSP BTL As Ordered ONE; -E-Z-PAQUE 96% w/w SUSP 176GM BTL As Ordered ONE
== END ==
LOC: M SMT 13:45
PROVIDERS: ATTEND Urology
DX: C67.8 Malignant neoplasm of overlapping sites of bladder (principal)

== ENCOUNTER 2021-03-24 12:00 | Inpatient (IN) | payer MEDICARE ==
[~2021-03-24] VITALS: Ht 162.6 cm; Wt 46.8 kg
[2021-03-24 13:19] LABS: BASO % 0.1 % (0.0-1.0); HEMATOCRIT 26.3 % (42.0-52.0); HEMOGLOBIN 8.5 g/dl (13.5-17.5); LYMPH # 0.3 10^3/uL (1.5-5.0); LYMPH % 3.2 % (24.0-44.0); MEAN CORPUSCULAR HGB CONC 32.3 g/dl (32.0-36.5); MEAN CORPUSCULAR VOLUME 89.8 fl (80.0-96.0); MONO # 0.3 10^3/uL (0.0-0.8); MONO % 4.1 % (2.0-8.0); NEUTROPHILS # 7.6 10^3/uL (1.5-8.5); NEUTROPHILS % 91.8 % (36.0-66.0); PLATELET COUNT, AUTOMATED 112 10^3/uL (150-450); RED BLOOD COUNT 2.93 10^6/uL (4.30-6.10); WHITE BLOOD COUNT 8.3 10^3/uL (4.0-10.0)
--- NOTE | 2021-03-24 13:43 | REP ---
INDICATION: Abdominal Pain. COMPARISON: Comparison radiographs March 03, 2021.. TECHNIQUE: Three views including upright chest. FINDINGS: Upright chest radiograph demonstrates bilateral thoracic spine fixation hardware in place throughout the midthoracic spine unchanged. The lungs are well inflated and free of infiltrate. There is no evidence of free subdiaphragmatic air. Heart size is normal. Supine and erect views of the abdomen demonstrate moderate stool throughout the colon. No small bowel dilation is seen. A feeding gastrostomy tube is noted in the left upper quadrant. No significant air-fluid level. IMPRESSION: Moderate colonic stool. Feeding gastrostomy tube. Status post extensive thoracic spine fusion. Otherwise no acute abnormality.. <Electronically signed by Elian Coffey > 03/24/21 [id number]
[2021-03-24 14:17] LABS: ALBUMIN 3.2 GM/DL (3.2-5.2); ALT/SGPT 16 U/L (12-78); BILIRUBIN,DIRECT 0.3 MG/DL (0.0-0.2); BILIRUBIN,TOTAL 0.6 MG/DL (0.2-1.0); BLOOD UREA NITROGEN 84 MG/DL (7-18); CALCIUM LEVEL 9.4 MG/DL (8.8-10.2); CARBON DIOXIDE LEVEL 28 MEQ/L (21-32); CHLORIDE LEVEL 94 MEQ/L (98-107); CK-MB VALUE MASS < 1.0 NG/ML (<3.6); CPK CREATINE PHOSPHOKINASE 18 U/L (39-308); CREATININE FOR GFR 2.09 MG/DL (0.70-1.30); GLOMERULAR FILTRATION RATE 32.8 (>42); GLUCOSE, FASTING 139 MG/DL (70-100); LIPASE 700 U/L (73-393); MB/CK RELATIVE INDEX 5.56 (< OR =4); PHOSPHORUS LEVEL 3.7 MG/DL (2.5-4.9); POTASSIUM SERUM 2.9 MEQ/L (3.5-5.1); SODIUM LEVEL 131 MEQ/L (136-145); TOTAL PROTEIN 7.3 GM/DL (6.4-8.2); TROPONIN I < 0.02 NG/ML (< 0.10)
[2021-03-24] MEDS ORDERED: KCL 10MEQ/100ML SWI (KRUN) 10 MEQ in IV 1 EA IV ONE (14:20)
[2021-03-24] MEDS ORDERED: POTASSIUM CHLORIDE 10% LIQ 20 MEQ/15 ML UDC PEG ONE (14:30)
[2021-03-24] MEDS ORDERED: PRED5TA PO (15:15)
[2021-03-24] MEDS ORDERED: OMEP-221 PO (15:15)
[2021-03-24] MEDS: NS 1,000 ML IV SCH ×2 (15:24→21:32)
--- NOTE | 2021-03-24 15:58 | REP ---
INDICATION: abd pain elevated lipase. COMPARISON: 02/24/2021 TECHNIQUE: Limited noncontrast enhanced standard helical technique FINDINGS: There is no significant change in appearance of the lung bases. Once again, there is 1.4 cm sized nodule in the right lower lobe. Limited evaluation of the solid intra-organs and gallbladder show no significant changes from the prior exam. Note is again made of cholelithiasis and splenomegaly. The right kidney is absent. There is compensatory hypertrophy of the left kidney status quo. Limited evaluation of the abdominal aorta and para-aortic regions show no significant changes. Limited evaluation of the bowel loops and the mesenteries show no significant changes. There is no evidence of free fluid or free air. There is no evidence of a mass or adenopathy. Note is again made of a large right-sided Hutch diverticulum of the urinary bladder a small left-sided urinary bladder ear. Bone window technique throughout the exam shows no change from the prior exam. There is no change in appearance of the PEG tube. IMPRESSION: No significant change compared to the prior exam with marked limitations as described above. <Electronically signed by Filiberto Fair > 03/24/21 [id number]
[2021-03-24 16:03] LABS: RSV AMPLIFICATION NEGATIVE (NEGATIVE)
--- NOTE | 2021-03-24 17:07 | HPEPDOC ---
[facility] Medical History & Physical Date of Admission Mar 24, 2021 Date of Service: Mar 24, 2021 History and Physical CHIEF COMPLAINT: abdominal pain HISTORY OF PRESENT ILLNESS: 80 -year-old male with past medical history as indicated presents for one-month history of worsening lethargy, weakness, abdominal pain, nausea, vomiting, diarrhea. He was receiving immunotherapy for his renal cell carcinoma. His last session was in December. He denies chest pain, shortness of breath. He denies any sick contacts. PAST MEDICAL HISTORY: #renal cell CA - s/p immunotherapy, last session December 2020 #urinary retention - self catheterizes ALLERGIES: Please see below. REVIEW OF SYSTEMS: Negative except as per HPI HOME MEDICATIONS: Please see below. PHYSICAL EXAMINATION: VITAL SIGNS: See below General: NAD, cachectic, chronically ill appearing HEENT: NC/AT Lungs: CTA B/L, multiple ecchymotic areas throughout Heart: +S1S2, RRR Abd: soft, tender, hypoactive bowel sounds, PEG tube in place Ext: trace edema LABORATORY DATA: See below. MICROBIOLOGY: Please see below. A/P: 80 year old male with PMHx renal cell CA with mets to the bone, last session of immunotherapy Dec 2020, presents for one month history of worsening abdominal pain, weakness, nausea, vomiting, diarrhea. #TRACEY - appears pre-renal - IV fluids - nephrology consultation #weakness - as above, poor nutrition, dehydration - dietary consultation #abdominal pain - elevated lipase - tender abdomen - surgery consultation pending #dysphagia - continue with home nepro x5 day, free water flushes - dietary consultation - was planned for swallow re-evaluation tomorrow - will order as inpatient #urinary retention - self catheterizes #renal cell CA/ mets to bone - pain control Vital Signs Vital Signs Date Time Temp Pulse Resp B/P (MAP) Pulse Ox O2 Delivery O2 Flow Rate FiO2 03/24/21 12:44 03/24/21 12:01 97.2 99 18 99 Room Air Laboratory Data Labs 24H Laboratory Tests 2 03/24/21 13:04: Immature Granulocyte % (Auto) 0.8, Neutrophils (%) (Auto) 91.8H, Lymphocytes (%) (Auto) 3.2L, Monocytes (%) (Auto) 4.1, Eosinophils (%) (Auto) 0.0, Basophils (%) (Auto) 0.1, Neutrophils # (Auto) 7.6, Lymphocytes # (Auto) 0.3L, Monocytes # (Auto) 0.3, Eosinophils # (Auto) 0.0, Basophils # (Auto) 0.0, Nucleated Red Blood Cells % (auto) 0.0, Anion Gap 9, Glomerular Filtration Rate 32.8L, Calcium Level 9.4, Phosphorus Level 3.7, Magnesium Level 3.0H, Total Bilirubin 0.6, Direct Bilirubin 0.3H, Aspartate Amino Transf (AST/SGOT) 18, Alanine Am inotransferase (ALT/SGPT) 16, Alkaline Phosphatase 128H, Total Creatine Kinase 18L, Creatine Kinase MB < 1.0, Creatine Kinase MB Relative Index 5.56H, Troponin I < 0.02, Total Protein 7.3, Albumin 3.2, Albumin/Globulin Ratio 0.8, Lipase 700H, Thyroid Stimulating Hormone (TSH) 1.150, Free Thyroxine 1.70H 03/24/21 15:10: Coronavirus (COVID-19)(PCR) NEGATIVE, Influenza Type A (RT-PCR) NEGATIVE, Influenza Type B (RT-PCR) NEGATIVE, Respiratory Syncytial Virus (PCR) NEGATIVE CBC/BMP Laboratory Tests 03/24/21 13:04 Home Medications Scheduled Omeprazole (Omeprazole) 40 Mg Capsule.dr, 40 MG PO DAILY Prednisone (Prednisone) 5 Mg Tablet, 5 MG PO DAILY Primidone (Primidone) 50 Mg Tab, 50 MG PO TID Scheduled PRN Oxycodone HCl (Oxycodone HCl) 10 Mg Tablet, 20 MG PO Q4H PRN for pain Allergies Coded Allergies: No Known Allergies (Unverified , 02/26/20) A-FIB/CHADSVASC A-FIB History Current/History of A-Fib/PAF?: No VIRIDIANA LARA MD Mar 24, 2021 17:07
[2021-03-24 18:52] VITALS: BP 123/76
[2021-03-24] MEDS: MIRALAX *UNIT DOSE* 17GM PACKET GT SCH (19:52)
[2021-03-24] MEDS: FLEET ENEMA PR SCH (19:52)
[2021-03-24] MEDS: DOCUSATE SOD LIQ 100MG/10ML UDC GT SCH (19:52)
[2021-03-24 20:00] VITALS: BP 135/74
[2021-03-24] MEDS ORDERED: ONDANSETRON 4MG/2ML VIAL IV PRN (21:35)
[2021-03-24 22:26] LABS: CALCIUM LEVEL 9.5 MG/DL (8.8-10.2); CREATININE FOR GFR 2.16 MG/DL (0.70-1.30); GLOMERULAR FILTRATION RATE 31.6 (>42); POTASSIUM SERUM 3.2 MEQ/L (3.5-5.1)
--- NOTE | 2021-03-24 23:06 | ECGEPIP ---
[facility] - ED Test Date: 2021-03-24 Pat Name: BRIAN PATRICK Department: Room: - Gender: Male Digital Project Manager: Chelsea LIVINGSTON : 1940 Requested By: SIA [place] Order Number: [id number] Reading MD: Raúl Aguiar Measurements Intervals [place] Rate: 91 P: 63 SD: 130 QRS: -52 QRSD: 86 T: 44 QT: 358 QTc: 440 Interpretive Statements Normal sinus rhythm Left axis deviation RHYTHM/RATE CHANGE COMPARED TO 08/24/19 Electronically Signed on 03-24-2021 23:06:43 EDT by Raúl Aguiar
[2021-03-25] VITALS (9 sets, daily range): BP systolic 103–145; BP diastolic 55–71
[2021-03-25 04:48] LABS: APPEARANCE, URINE TURBID (CLEAR); BACTERIA, URINE AUTO 3+ (NEGATIVE); BILIRUBIN, URINE AUTO NEGATIVE (NEGATIVE); BLOOD, URINE BLOOD 3+ (NEGATIVE); COLOR, URINE AMBER (YELLOW); GLUCOSE, URINE (UA) AUTO NEGATIVE (NEGATIVE); KETONE, URINE AUTO NEGATIVE (NEGATIVE); LEUKOCYTE ESTERASE, URINE AUTO 3+ (NEGATIVE); NITRITE, URINE AUTO POSITIVE (NEGATIVE); PROTEIN, URINE AUTO 1+ mg/dL (NEGATIVE); RBC, URINE AUTO TNTC /HPF (0-3); SPECIFIC GRAVITY URINE AUTO 1.011 (1.002-1.035); SQUAMOUS EPITHELIAL CELL UR AU 1 /HPF (0-6); UROBILINOGEN, URINE AUTO 0.2 mg/dL (0.0-2.0); WBC, URINE AUTO TNTC /HPF (0-3)
[2021-03-25 04:50] LABS: OSMOLALITY URINE 389 MOSM/KG (50-1400)
[2021-03-25 05:04] LABS: CHLORIDE,RANDOM URINE 24 MEQ/L; CREATININE,RANDOM URINE 47.5 MG/DL; SODIUM,RANDOM URINE 30 MEQ/L; TOTAL PROTEIN,RANDOM URINE 74.4 MG/DL (0.0-12.0)
[2021-03-25 05:53] LABS: HEMOGLOBIN 7.4 g/dl (13.5-17.5); MEAN CORPUSCULAR HGB CONC 30.8 g/dl (32.0-36.5); MEAN CORPUSCULAR VOLUME 90.9 fl (80.0-96.0); PLATELET COUNT, AUTOMATED 116 10^3/uL (150-450); RED BLOOD COUNT 2.64 10^6/uL (4.30-6.10)
[2021-03-25 06:20] LABS: ALBUMIN 2.7 GM/DL (3.2-5.2); BILIRUBIN,TOTAL 0.7 MG/DL (0.2-1.0); CALCIUM LEVEL 8.5 MG/DL (8.8-10.2); CREATININE FOR GFR 1.88 MG/DL (0.70-1.30); MAGNESIUM LEVEL 2.7 MG/DL (1.8-2.4); PHOSPHORUS LEVEL 2.4 MG/DL (2.5-4.9); POTASSIUM SERUM 3.4 MEQ/L (3.5-5.1); TOTAL PROTEIN 7.1 GM/DL (6.4-8.2)
--- NOTE | 2021-03-25 10:52 | IPNPDOC ---
Text Note Date of Service The patient was seen on 03/25/21. NOTE Subjective: Patient seen and examined at bedside. Still no urine overnight. Did not tolerate his feeds through his PEG tube, with reported vomiting. This morning he voices no new medical complaints. Discussed code status, he wishes for DNR/DNI. Also discussed hospice. Objective: VITAL SIGNS: See below General: NAD, cachectic, chronically ill appearing HEENT: NC/AT Lungs: CTA B/L, multiple ecchymotic areas throughout anterior chest Heart: +S1S2, RRR Abd: soft, tender, hypoactive bowel sounds, PEG tube in place Ext: trace edema A/P: 80 year old male with PMHx renal cell CA with mets to the bone, last session of immunotherapy Dec 2020, presents for one month history of worsening abdominal pain, weakness, nausea, vomiting, diarrhea. #TRACEY - appears pre-renal - IV fluids - nephrology consultation pending #weakness - as above, poor nutrition, dehydration - dietary consultation #abdominal pain - elevated lipase - tender abdomen - surgery consultation pending #dysphagia - dietary consultation - was planned for swallow re-evaluation tomorrow - will order as inpatient - feedings modified by surgery #urinary retention - self catheterizes - still anuric - urology consultation pending #renal cell CA/ mets to bone - pain control VS,Fishbone, I+O VS, Fishbone, I+O Laboratory Tests 03/24/21 13:04 03/24/21 21:55 03/25/21 05:30 Vital Signs Date Time Temp Pulse Resp B/P (MAP) Pulse Ox O2 Delivery O2 Flow Rate FiO2 03/25/21 07:23 98.5 93 18 120/65 (83) 100 Room Air I&O- Last 24 Hours up to 6 AM 03/25/21 06:00 Intake Total 280 ml Output Total 310 ml Balance -30 ml VIRIDIANA LARA MD Mar 25, 2021 10:52
[2021-03-25] MEDS: FLEET ENEMA PR SCH ×2 (14:31→21:23)
[2021-03-25] MEDS: KCL 20MEQ IN D5/0.45NS 1000ML 1,000 ML IV SCH (14:31)
[2021-03-25] MEDS: MIRALAX *UNIT DOSE* 17GM PACKET GT SCH ×2 (14:31→21:22)
[2021-03-25] MEDS: DOCUSATE SOD LIQ 100MG/10ML UDC GT SCH ×2 (14:31→21:22)
[2021-03-25] MEDS: oxyCODONE 5MG TAB PO PRN (16:15)
[2021-03-25 18:05] LABS: HEMATOCRIT 25.2 % (42.0-52.0); HEMOGLOBIN 7.9 g/dl (13.5-17.5); MEAN CORPUSCULAR HEMOGLOBIN 28.3 pg (27.0-33.0); MEAN CORPUSCULAR HGB CONC 31.3 g/dl (32.0-36.5); MEAN CORPUSCULAR VOLUME 90.3 fl (80.0-96.0); PLATELET COUNT, AUTOMATED 108 10^3/uL (150-450); RED BLOOD COUNT 2.79 10^6/uL (4.30-6.10); WHITE BLOOD COUNT 7.2 10^3/uL (4.0-10.0)
--- NOTE | 2021-03-25 18:14 | CR ---
NEPHROLOGY CONSULTATION DATE: 03/25/2021 REQUESTING PHYSICIAN: Tevin Mccoy M.D. REASON FOR CONSULTATION: Management of acute renal failure. CHIEF COMPLAINT: Patient presented to the hospital yesterday with abdominal pain. HISTORY OF PRESENT ILLNESS: Allan Baldwin is a 80-year-old male with a past medical history of renal cell cancer and status post immunotherapy. Last session was in December 2020, history of urinary retention (he self-catheterizes). He presented to the hospital with worsening lethargy, abdominal pain, weakness, nausea and vomiting, unable to keep anything down. Patient was found to be in acute renal failure with a creatinine of 2. He was hypokalemic with a potassium of 2.9. He was started on IV fluid hydration by the medical team. Nephrology service was called for further help in the management of this patient. I saw and evaluated the patient today morning at the bedside. He reports that he does not have a good appetite. He is unable to eat anything because of esophageal stenosis and strictures. He is percutaneous endoscopic gastrostomy (PEG) tube dependent. He is still complaining of abdominal pain and he was unable to urinate well. He tried to self-catheterize and even nurses tried to do a straight catheter and they were unable to do it. There was some blood in the toilet today. PAST MEDICAL HISTORY: 1. Renal cell carcinoma status post immunotherapy. Last session was in December 2020. 2. Patient has a baseline creatinine of 1.2 as of February 22, 2021, which makes him chronic kidney disease (CKD) stage III. 3. History of urinary retention. Patient does self-catheterization. 4. History of bladder diverticulum. 5. History of renal cell cancer with metastasis to bone. PAST SURGICAL HISTORY: 1. Status post percutaneous endoscopic gastrostomy (PEG) tube placement. 2. Status post spinal surgery. 3. Status post right nephrectomy. ALLERGIES: No known drug allergies. FAMILY HISTORY: No significant family history of end-stage renal disease. SOCIAL HISTORY: Patient lives at home. Denies any illicit drug abuse or alcohol abuse. REVIEW OF SYSTEMS: CONSTITUTIONAL: Patient is feeling very weak and tired. EYES: Denies blurry vision or double vision. EARS, NOSE AND THROAT (ENT): Denies any ear discharge. He does report dysphagia and he is dependent on percutaneous endoscopic gastrostomy (PEG) tube. CARDIOVASCULAR: Denies any chest pain. RESPIRATORY: Denies any shortness of breath or cough. GASTROINTESTINAL (GI): Reports nausea, vomiting, decreased appetite and PEG tube dependence. GENITOURINARY: He reports urinary retention. MUSCULOSKELETAL: He denies any muscle aches or pains. SKIN: He does report an ulcer in the back. HEMATOLOGICAL/ONCOLOGICAL: He reports renal cell carcinoma with metastasis to bone. CENTRAL NERVOUS SYSTEM (SCORING MACHINE OPERATOR): He denies any strokes or seizures. All other review of systems is negative. PHYSICAL EXAMINATION: GENERAL: Patient is awake, alert, oriented times three, laying in bed, very weak and cachectic, chronically malnourished. VITAL SIGNS: Temperature 97.7 degrees Fahrenheit, blood pressure 115/56, pulse 87, respiratory rate 18, saturating 98% on room air. HEAD AND NECK EXAM: Extraocular muscles intact. Pupils equally round and reactive to light. Mucous membranes are moist. Neck is supple. There is no jugular venous distention (JVD). CARDIOVASCULAR: S1, S2. Regular rate. No edema of the bilateral lower extremities. RESPIRATORY: Chest is clear to auscultation bilaterally. No rales or rhonchi. Old surgical scar in the thoracic area was noted. There is an ulcer superficial to the thoracic spine as well. ABDOMEN: Soft. Positive bowel sounds. Percutaneous endoscopic gastrostomy (PEG) tube in the epigastrium was noted as well. tenderness in suprapubic region. GENITOURINARY: There was some blood in his diaper and he reports that he tried to self-catheterize and he was unable to do that. MUSCULOSKELETAL: No clubbing or cyanosis. CENTRAL NERVOUS SYSTEM (SCORING MACHINE OPERATOR): No focal deficits. Power is 5/5 in all extremities. LABORATORY REVIEW: CBC showed a WBC 9, hemoglobin 7.4, platelets 116. Urinalysis done today showed it was turbid, too numerous to count WBCs and too numerous to count RBCs, 3+ leukocyte esterase. BMP on arrival showed sodium 131, potassium 2.9, chloride 94, bicarbonate 28, BUN 84, creatinine 2.09. BMP done today morning showed sodium 134, potassium 3.4, chloride 100, bicarbonate 29, BUN 81, creatinine 1.8, magnesium 2.7. Albumin 2.7, lipase 700. MICROBIOLOGY: Urine culture is pending. IMAGING: CAT scan of the abdomen and pelvis is done which showed right kidney is surgically absent. Patient had a large bladder filled with urine and there was a diverticulum on the right side of the bladder as well. CURRENT INPATIENT MEDICATIONS: Patient's medications were all reviewed by myself. He was getting normal saline at 100 mL/hour. I changed to intravenous (IV) fluid to potassium chloride (KCl) 20 mEq and D5 half-normal saline at 75 mL/hour for a total of 2 liters. He continues to be on: - Colace 200 mg PEG tube twice a day - Zofran as needed - oxycodone as needed - MiraLax one packet by mouth twice a day - Fleet enema per rectum twice a day ASSESSMENT AND PLAN: 1. Acute renal failure. Patient is in acute renal failure because of dehydration, volume depletion and urinary retention. Patient needs a Hutchison catheter placement by urology. I have discussed this with the hospitalist and they will call urology on board. At this time, I would continue the IV fluid addition, but fluids are being changed to potassium-containing fluids. 2. Hyponatremia. Hypovolemic hyponatremia. Sodium is gradually improving with isotonic fluid hydration. 3. Hypokalemia. Patient is getting oral and IV potassium. Potassium level is getting better. Potassium has also been added to IV fluids as well. 4. Urinary retention. Patient has a large bladder diverticulum and he is in urinary retention at this time. Straight catheterizations were unsuccessful. Patient needs a Hutchison catheter placed by urology. 5. Anemia. Hemoglobin is 7.4. I am going to order 1 unit of packed red blood cells (PRBC) transfusion. 6. Constipation. Patient is constipated because he has a large urinary retention. I believe if we relieve his urinary retention, his constipation will get better. Thank you for involving me in the care of this patient. I shall be happy to follow the patient along with you tomorrow morning. JOHN
[2021-03-26] VITALS: BP 113/56
[2021-03-26 00:27] LABS: HEMATOCRIT 26.2 % (42.0-52.0); HEMOGLOBIN 8.2 g/dl (13.5-17.5)
[2021-03-26] MEDS: KCL 20MEQ IN D5/0.45NS 1000ML 1,000 ML IV SCH (03:39)
[2021-03-26 03:40] VITALS: BP 145/62
[2021-03-26] MEDS: oxyCODONE 5MG TAB PO PRN ×2 (03:46→10:12)
[2021-03-26 06:45] LABS: HEMATOCRIT 25.9 % (42.0-52.0); HEMOGLOBIN 8.1 g/dl (13.5-17.5); MEAN CORPUSCULAR HEMOGLOBIN 28.6 pg (27.0-33.0); MEAN CORPUSCULAR HGB CONC 31.3 g/dl (32.0-36.5); MEAN CORPUSCULAR VOLUME 91.5 fl (80.0-96.0); PLATELET COUNT, AUTOMATED 110 10^3/uL (150-450); RED BLOOD COUNT 2.83 10^6/uL (4.30-6.10); WHITE BLOOD COUNT 5.2 10^3/uL (4.0-10.0)
[2021-03-26 06:59] LABS: CALCIUM LEVEL 8.7 MG/DL (8.8-10.2); CREATININE FOR GFR 1.82 MG/DL (0.70-1.30); GLOMERULAR FILTRATION RATE 38.4 (>42); POTASSIUM SERUM 3.3 MEQ/L (3.5-5.1)
[2021-03-26 07:39] VITALS: BP 118/60
--- NOTE | 2021-03-26 08:03 | REP ---
INDICATION: increased abd pain. COMPARISON: Comparison radiographs 24 March 2021.. TECHNIQUE: Two views. Supine abdomen. FINDINGS: Feeding gastrostomy tube remains in place. There is air and stool in a nondistended colon proximally and distally. No large or small bowel dilation is seen. Bowel gas pattern is essentially unchanged. There are surgical sutures in the right mid abdomen. IMPRESSION: No acute change. <Electronically signed by Elian Coffey > 03/26/21 0800
[2021-03-26 08:15] LABS: MAGNESIUM LEVEL 2.6 MG/DL (1.8-2.4)
[2021-03-26] MEDS: DOCUSATE SOD LIQ 100MG/10ML UDC GT SCH ×2 (09:48→20:52)
[2021-03-26] MEDS: FLEET ENEMA PR SCH (09:48)
[2021-03-26] MEDS: MIRALAX *UNIT DOSE* 17GM PACKET GT SCH ×2 (09:48→20:52)
--- NOTE | 2021-03-26 09:56 | IPNPDOC ---
Text Note Date of Service The patient was seen on 03/26/21. NOTE Subjective: Patient seen and examined at bedside. This morning he voices no new medical complaints. States he is feelign better. Caudet dial placed yesterday, draining cloudy red tinged urine. Objective: VITAL SIGNS: See below General: NAD, cachectic, chronically ill appearing HEENT: NC/AT Chest: Lungs CTA B/L, multiple ecchymotic areas Heart: +S1S2, RRR Abd: soft, tender, hypoactive bowel sounds, PEG tube in place Ext: trace edema A/P: 80 year old male with PMHx renal cell CA with mets to the bone, last session of immunotherapy Dec 2020, presents for one month history of worsening abdominal pain, weakness, nausea, vomiting, diarrhea. #TRACEY - appears pre-renal - IV fluids - nephrology consultation appreciated #weakness - as above, poor nutrition, dehydration - dietary consultation #abdominal pain - improving - surgery consultation appreciated - peg tube changed - feedings modified #dysphagia - dietary consultation - was planned for swallow re-evaluation tomorrow - will order as inpatient #urinary retention - self catheterizes - dial catheter place - urology consultation pending #renal cell CA/ mets to bone - pain control Dispo: pending clinical improvement; he has rescinded his DNR/DNI status and is full code. VS,Fishbone, I+O VS, Fishbone, I+O Laboratory Tests 03/25/21 17:47 03/25/21 23:53 03/26/21 06:00 Vital Signs Date Time Temp Pulse Resp B/P (MAP) Pulse Ox O2 Delivery O2 Flow Rate FiO2 03/26/21 07:39 98.5 84 18 118/60 (79) 97 Room Air I&O- Last 24 Hours up to 6 AM 03/26/21 06:00 Intake Total 400 ml Output Total 1375 ml Balance -975 ml VIRIDIANA LARA MD Mar 26, 2021 09:55
[2021-03-26] MEDS ORDERED: FLEET ENEMA PR PRN (10:55)
[2021-03-26] MEDS ORDERED: cefTRIAXone SOD 1 GM in D5W MINI-BAG PLUS 50 ML IV SCH (12:00)
[2021-03-26] MEDS ORDERED: POTASSIUM CHLORIDE 10% LIQ 20 MEQ/15 ML UDC PEG ONE (12:00)
[2021-03-26 12:26] VITALS: BP 115/59
[2021-03-26 16:24] VITALS: BP 110/55
--- NOTE | 2021-03-26 19:10 | IPN ---
PROGRESS NOTE DATE: 03/26/2021 SUBJECTIVE: Patient seems to be making some slow but progressive improvement from a bowel movement standpoint. I would start him on some stool softeners as well as Fleet enemas. He states his abdominal pain is better than it was previously. He has not had any nausea, no vomiting. He has a gastrostomy (G) tube in place and he is receiving tube feeds without any complaints. PHYSICAL EXAMINATION: ABDOMEN: He still has some abdominal tenderness, but I am feeling less firm stool throughout his abdomen, but definitively mildly distended. IMPRESSION/PLAN: Patient has some constipation of undetermined etiology and at this point, seems to be making slow but progressive improvement. We have added some stool softeners. I anticipate with just adding some MiraLax or as needed laxatives may be necessary while he is getting this immunotherapy, but otherwise, etiology for the lipase may be the immunotherapy as well. I am not seeing any evidence of pancreatitis on his CAT scan and no other evidence on his clinical presentation. In any case, would recommend continuing per medicine and will be available should further recommendations be necessary.
--- NOTE | 2021-03-26 19:17 | IPN ---
NEPHROLOGY PROGRESS NOTE DATE: 03/26/2021 SUBJECTIVE: The patient was seen and examined at the bedside today morning. The last 24 hour events were noted. The patient got a coude catheter placed yesterday. His urine retention has been relieved now. He is passing very cloudy urine in the urine bag. Renal function is stable since yesterday. He continues to get IV fluid hydration as well. OBJECTIVE: VITAL SIGNS: Temperature is 98 degrees Fahrenheit, blood pressure 110/55, pulse is 89, respiratory rate of 18, saturating 100% on room air. INTAKE AND OUTPUT: Urine output recorded as 1.5 liters, 150 mL so far today since overnight. Weight in the bed scale was 48.7 kg yesterday. PHYSICAL EXAMINATION: GENERAL APPEARANCE: The patient is awake, alert, oriented x3, very weak and cachectic, chronically malnourished. HEAD AND NECK: Extraocular muscles intact. He has bitemporal wasting, sunken eyes and prominent facial bones. Neck is supple. There is no jugular venous distention. CARDIOVASCULAR: S1, S2, regular rate. EXTREMITIES: No edema of the bilateral lower extremities. RESPIRATORY: Decreased breath sounds at the bases, otherwise no active rales or rhonchi. ABDOMEN: Soft, positive bowel sounds. GENITOURINARY: He has an indwelling Hutchison catheter. Urine in the bag is very cloudy. MUSCULOSKELETAL: No clubbing, no cyanosis. Pulses are 2+. MARKSMANSHIP INSTRUCTOR: No focal deficits. Power is 5/5 in all extremities. LAB REVIEW: CBC showed a white blood cell count of 5.2, hemoglobin is 8.1, platelet count 110. BMP showed sodium 137, potassium 3.3, chloride 102, bicarbonate 27, BUN is 80, creatinine is 1.82. It was 1.88 yesterday. Calcium is 8.7, magnesium is 2.6, lipase is 771. CURRENT INPATIENT MEDICATIONS: The patient's medications were all reviewed by myself. I have started the patient on Ceftriaxone one gram IV daily. He was also given a dose of potassium chloride 40 mEq p.o. times one dose. He was also getting Fleet's enemas which have been stopped now. ASSESSMENT AND PLAN: 1. Acute renal failure it was secondary to obstruction and dehydration. He continues to be on IV fluid hydration. Avoid use of phosphorous containing Fleet enema which can make the acute renal failure worse. 2. Urinary tract infection The patient's urine is very cloudy. He has a large bladder diverticulum on the right side as well. It can also cause stagnant urine and infection. I have started the patient on IV Ceftriaxone. Cultures are pending. ' 3. Hypokalemia he is getting potassium and IV fluids. He was also given potassium orally. 4. Hyponatremia it is hypovolemic hyponatremia. Sodium level has improved to normal now. 5. Anemia and chronic kidney disease - The patient was given one unit of PRBC transfusion. 6. Constipation it was relieved after his urinary obstruction was relieved. Fleet enema is being stopped. It can make renal function worse.
[2021-03-26 20:00] VITALS: BP 126/63
[2021-03-27] VITALS: BP 117/60
[2021-03-27 04:00] VITALS: BP 115/59
[2021-03-27] MEDS: oxyCODONE 5MG TAB PO PRN ×4 (06:01→21:55)
[2021-03-27 06:10] LABS: HEMATOCRIT 25.4 % (42.0-52.0); HEMOGLOBIN 7.8 g/dl (13.5-17.5); MEAN CORPUSCULAR HEMOGLOBIN 28.5 pg (27.0-33.0); MEAN CORPUSCULAR HGB CONC 30.7 g/dl (32.0-36.5); MEAN CORPUSCULAR VOLUME 92.7 fl (80.0-96.0); PLATELET COUNT, AUTOMATED 108 10^3/uL (150-450); RED BLOOD COUNT 2.74 10^6/uL (4.30-6.10); WHITE BLOOD COUNT 5.1 10^3/uL (4.0-10.0)
[2021-03-27 06:28] LABS: CALCIUM LEVEL 8.6 MG/DL (8.8-10.2); CREATININE FOR GFR 1.75 MG/DL (0.70-1.30); GLOMERULAR FILTRATION RATE 40.2 (>42); POTASSIUM SERUM 3.8 MEQ/L (3.5-5.1)
[2021-03-27 07:20] VITALS: BP 118/57
[2021-03-27] MEDS ORDERED: DARBEPOETIN 100 MCG/0.5 ML *NON-DIALYSIS* SYRINGE (J0881) SC SCH (09:00)
--- NOTE | 2021-03-27 09:43 | IPNPDOC ---
Text Note Date of Service The patient was seen on 03/27/21. NOTE Subjective: Patient seen and examined at bedside. This morning he voices no new medical complaints, continues to feel better. Objective: VITAL SIGNS: See below General: NAD, cachectic, chronically ill appearing HEENT: NC/AT Chest: Lungs CTA B/L, multiple ecchymotic areas Heart: +S1S2, RRR Abd: soft, tender, +BS, PEG tube in place Ext: trace edema A/P: 80 year old male with PMHx renal cell CA with mets to the bone, last session of immunotherapy Dec 2020, presents for one month history of worsening abdominal pain, weakness, nausea, vomiting, diarrhea. #TRACEY - improving - appears pre-renal - s/p IV fluids - nephrology consultation appreciated #weakness - improving - as above, poor nutrition, dehydration - dietary consultation #abdominal pain - improving - surgery consultation appreciated - peg tube changed - feedings modified - still having residuals with feeds #dysphagia - dietary consultation - was planned for swallow re-evaluation tomorrow - will order as inpatient #urinary retention - self catheterizes - dial catheter place - urology consultation pending - will likely dc dial today for trial of self catheterization #UTI - cultures +ESBL/E.Coli - transition to meropenem #renal cell CA/ mets to bone - pain control Dispo: pending clinical improvement; he has rescinded his DNR/DNI status and is full code. VS,Fishbone, I+O VS, Fishbone, I+O Laboratory Tests 03/27/21 05:44 Vital Signs Date Time Temp Pulse Resp B/P (MAP) Pulse Ox O2 Delivery O2 Flow Rate FiO2 03/27/21 07:20 96.8 88 18 118/57 (77) 98 Room Air I&O- Last 24 Hours up to 6 AM 03/27/21 06:00 Intake Total 50 ml Output Total 1525 ml Balance -1475 ml VIRIDIANA LARA MD March 27, 2021 09:43
[2021-03-27] MEDS ORDERED: MEROPENEM INJ 1 GM in IV 1 EA IV SCH (09:45)
[2021-03-27] MEDS: MEROPENEM INJ 500 MG in IV 1 EA IV SCH ×2 (11:04→21:19)
[2021-03-27 11:26] VITALS: BP 106/51
[2021-03-27] MEDS ORDERED: GLUCOSE 4GM CHEW TABLET PO PRN (12:35)
[2021-03-27] MEDS ORDERED: DEXTROSE 50% 50 ML SYRINGE IV PRN (12:35)
[2021-03-27] MEDS ORDERED: GLUCAGON INJ 1MG VIAL SC PRN (12:35)
[2021-03-27 13:18] LABS: HEMATOCRIT 24.9 % (42.0-52.0); HEMOGLOBIN 7.6 g/dl (13.5-17.5)
[2021-03-27] MEDS: HumaLOG INSULIN (NovoLOG) PER UNIT SC SCH ×2 (14:23→17:57)
--- NOTE | 2021-03-27 14:36 | IPN ---
NEPHROLOGY PROGRESS NOTE DATE: 03/27/2021 SUBJECTIVE: The patient was seen and examined at the bedside today morning. He continues to have an indwelling Hutchison catheter. His urine cultures came back as ESBL E-coli urinary tract infection. His IV antibiotic has been changed to Meropenem. Renal function is slowly and gradually improved. OBJECTIVE: VITAL SIGNS: Temperature is 97.4 degrees Fahrenheit, blood pressure 106/51, pulse is 87, respiratory rate of 18, saturating 99% on room air. INTAKE AND OUTPUT: Urine output recorded as 1.2 liters yesterday, 900 mL so far today since overnight. Weight in the bed scale is 47.5 kg. PHYSICAL EXAMINATION: GENERAL APPEARANCE: The patient is awake, alert, oriented x3, weak and cachectic, chronically malnourished. HEAD AND NECK: Extraocular muscles intact. Pupils are equally round and reactive to light. Mucous membranes are moist. Neck is supple. There is no jugular venous distention. CARDIOVASCULAR: S1, S2, regular rate. EXTREMITIES: No edema of the bilateral lower extremities. RESPIRATORY: Chest is clear to auscultation bilaterally. Bilaterally currently no rales or rhonchi. ABDOMEN: Soft, positive bowel sounds, moderate amount of tenderness in the left lower quadrant. GENITOURINARY: He has an indwelling Hutchison catheter. MUSCULOSKELETAL: No clubbing or cyanosis. FLY WORKER: No focal deficits. Power is 5/5 in all extremities. LAB REVIEW: CBC showed a WBC of 5.1, hemoglobin is 7.6, platelet count 106. BMP showed sodium of 138, potassium 3.8, chloride 105, bicarbonate 28, BUN 61, creatinine is 1.7. It was 1.8 yesterday. MICROBIOLOGY: He has ESBL E-coli which is sensitive to Meropenem. CURRENT INPATIENT MEDICATIONS: The patient's medications were all reviewed by myself. He has been started on Meropenem 500 mg IV q. 12 hourly. I have restarted the patient on KCL 20 mEq and half normal saline at 70 mL an hour. No other significant change in the medications today. ASSESSMENT AND PLAN: 1. Acute renal failure it was secondary to a urinary tract infection, urinary obstruction and dehydration. Creatinine is slowly improving. I have ordered 2 more liters of IV fluid. 2. ESBL E-coli urinary tract infection Ceftriaxone has been stopped. The patient has been started on IV Meropenem. 3. Hypokalemia it has resolved now. I have added potassium to the IV fluids again. 4. Anemia and chronic kidney disease - The patient will be started on Venofer and Aranesp because hemoglobin is still low.
[2021-03-27] MEDS: IRON SUCROSE 200 MG in NS 100 ML IV SCH (15:38)
[2021-03-27] MEDS: KCL 20MEQ IN 0.45NS 1000ML 1,000 ML IV SCH (15:38)
[2021-03-27 15:40] VITALS: BP 113/57
[2021-03-27] MEDS ORDERED: MORPHINE 2 MG/ML 1ML VIAL (J2270) IV ONE (17:30)
[2021-03-27 20:00] VITALS: BP 103/59
[2021-03-28] VITALS (9 sets, daily range): BP systolic 110–132; BP diastolic 57–79
[2021-03-28] MEDS: KCL 20MEQ IN 0.45NS 1000ML 1,000 ML IV SCH (05:25)
[2021-03-28] MEDS: HumaLOG INSULIN (NovoLOG) PER UNIT SC SCH ×4 (06:00→18:00)
[2021-03-28 06:54] LABS: HEMATOCRIT 24.1 % (42.0-52.0); HEMOGLOBIN 7.3 g/dl (13.5-17.5); MEAN CORPUSCULAR HEMOGLOBIN 28.5 pg (27.0-33.0); MEAN CORPUSCULAR HGB CONC 30.3 g/dl (32.0-36.5); MEAN CORPUSCULAR VOLUME 94.1 fl (80.0-96.0); PLATELET COUNT, AUTOMATED 100 10^3/uL (150-450); RED BLOOD COUNT 2.56 10^6/uL (4.30-6.10); WHITE BLOOD COUNT 4.8 10^3/uL (4.0-10.0)
[2021-03-28 07:17] LABS: CALCIUM LEVEL 8.7 MG/DL (8.8-10.2); CREATININE FOR GFR 1.64 MG/DL (0.70-1.30); GLOMERULAR FILTRATION RATE 43.4 (>42); POTASSIUM SERUM 4.3 MEQ/L (3.5-5.1)
[2021-03-28] MEDS: IRON SUCROSE 200 MG in NS 100 ML IV SCH (09:02)
[2021-03-28] MEDS: oxyCODONE 5MG TAB PO PRN ×2 (09:03→21:41)
--- NOTE | 2021-03-28 09:32 | IPNPDOC ---
Text Note Date of Service The patient was seen on 03/28/21. NOTE Subjective: Patient seen and examined at bedside. This morning he states he is feeling better, and is anxious to go home. He did not tolerate his feeds yesterday, with significant residuals. Objective: VITAL SIGNS: See below General: NAD, cachectic, chronically ill appearing HEENT: NC/AT Chest: Lungs CTA B/L, multiple ecchymotic areas Heart: +S1S2, RRR Abd: soft, tender, +BS, PEG tube in place Ext: trace edema A/P: 80 year old male with PMHx renal cell CA with mets to the bone, last session of immunotherapy Dec 2020, presents for one month history of worsening abdominal pain, weakness, nausea, vomiting, diarrhea. #TRACEY - improving - s/p IV fluids - nephrology consultation appreciated #anemia - H/H still trending down - s/p 1 unit PRBC, aranesp, Venofer #weakness - improving - as above, poor nutrition, dehydration - dietary consultation #abdominal pain - appears more tender today - did not tolerate feeds very well - reported to have bile with residual feed - surgery consultation appreciated - KUB today, hold feeds, possible CT with oral contrast via PEG - peg tube previously changed - feedings modified #dysphagia - dietary consultation - was planned for swallow re-evaluation tomorrow - will order as inpatient #urinary retention - self catheterizes at home - dial catheter place - urology consultation pending #UTI - cultures +ESBL/E.Coli - meropenem day #2 #renal cell CA/ mets to bone - pain control Dispo: pending clinical improvement - further imaging of abdomen pending; he has rescinded his DNR/DNI status and is full code. VS,Fishbone, I+O VS, Fishbone, I+O Laboratory Tests 03/27/21 13:00 03/28/21 05:46 Vital Signs Date Time Temp Pulse Resp B/P (MAP) Pulse Ox O2 Delivery O2 Flow Rate FiO2 03/28/21 09:03 18 03/28/21 07:21 99.2 90 123/60 (81) 98 Room Air I&O- Last 24 Hours up to 6 AM 03/28/21 06:00 Intake Total 1110 ml Output Total 1420 ml Balance -310 ml VIRIDIANA LARA MD March 28, 2021 09:31
--- NOTE | 2021-03-28 10:20 | REP ---
INDICATION: abd pain COMPARISON: None. TECHNIQUE: Two supine view of the abdomen and pelvis. FINDINGS: Percutaneous gastrostomy tube is identified in the left upper quadrant. Bowel gas pattern is nonspecific and without obstruction or perforation. No organomegaly. No abnormal calcifications. Skeletal structures intact. IMPRESSION: Nonspecific bowel gas pattern. <Electronically signed by Kun Ambriz > 03/28/21 1011
[2021-03-28] MEDS: MEROPENEM INJ 500 MG in IV 1 EA IV SCH ×2 (12:30→21:17)
[2021-03-28] MEDS: GASTROGRAFIN SOLUTION 30ML PO SCH ×2 (14:27→14:50)
--- NOTE | 2021-03-28 16:14 | IPN ---
PROGRESS NOTE DATE: 03/28/2021 SUBJECTIVE: Patient was seen and examined at the bedside today morning. He still has the indwelling Hutchison catheter. He was started on tube feeds, but they were stopped because he is not tolerating them well. He continues to be on I.V. fluid hydration. Renal function is improving. Creatinine has improved to 1.6 today. OBJECTIVE: VITAL SIGNS: Temperature 98.3 degrees Fahrenheit, blood pressure 112/59, pulse 81, respiratory rate 18, saturating 98% on room air. INTAKE/OUTPUT: Urine output recorded as 1.4 liters yesterday and 400 mL so far today since overnight. Weight in the bed scale was 47.5 kg yesterday. PHYSICAL EXAMINATION: GENERAL: Patient is awake, alert, oriented x3, weak and cachectic, malnourished. HEAD/NECK: Bitemporal wasting. Mucous membranes are moist. Neck is supple. There is no JVD. CARDIOVASCULAR: S1, S2, regular rate. No edema of the bilateral lower extremities. RESPIRATORY: Chest is clear to auscultation bilaterally. Old surgical scar in the thoracic spine area. ABDOMEN: Soft, positive bowel sounds. PEG tube in the epigastrium. Moderate amount of tenderness in the left lower quadrant. GENITOURINARY: He has an indwelling Hutchison catheter. MUSCULOSKELETAL: Patient is skin and bones, otherwise has no edema. MEDICAL CLAIMS SPECIALIST: No focal deficit. Power is 5/5 in all extremities. LABORATORY REVIEW: CBC showed WBC 4.8, hemoglobin 7.3, platelets 100,000. BMP showed sodium 137, potassium 4.3, chloride 105, bicarb 27, BUN 56, creatinine 1.6; it was 1.7 yesterday. Calcium 8.7. CURRENT INPATIENT MEDICATIONS: Patient's medications were all reviewed by myself. He continues to be on I.V. KCl 20 mEq and half normal saline at 70 cc an hour. He continues to be on Venofer and I.V. Meropenem. No significant change in the medications today. ASSESSMENT AND PLAN: 1. Acute renal failure superimposed on chronic kidney disease: Patient is responding to the I.V. fluid hydration and treatment of UTI. Creatinine is slowly trending down. If he is unable to tolerate the tube feeds, he might need to start TPN. 2. ESBL E. coli/urinary tract infection: Patient is currently on I.V. Meropenem. 3. Anemia and chronic kidney disease: Patient is on I.V. Venofer and Aranesp. Hemoglobin has dropped below 8. He is going to get 1 unit of PRBC transfusion as well. 4. Dysphagia and protein calorie malnutrition: Feeds are on hold. Surgical service wants to do CAT scan with oral contrast. If he remains n.p.o. like this, he might need to start TPN.
--- NOTE | 2021-03-28 17:37 | REP ---
INDICATION: abd pain; oral contrast via peg tube COMPARISON: 03/24/2021 TECHNIQUE: Axial noncontrast images from the lung bases to the pubic symphysis with coronal and sagittal reformations. This CT examination was performed using the following dose reduction techniques: Automated exposure control, adjustment of mA and/or kv according to the patient's size, and use of iterative reconstruction technique. FINDINGS: The lung bases demonstrate left basilar atelectasis and known right lower lobe noncalcified nodule requiring follow-up. Evaluation of the abdomen pelvis is limited by lack of contrast and paucity of intraperitoneal fat. Hepatosplenomegaly is suggested. Pancreas, bilateral adrenal glands, and left kidney are relatively normal. Patient appears to be status post right nephrectomy. Cholelithiasis noted without acute cholecystitis. Evaluation of the enteric system demonstrates percutaneous gastrostomy tube in satisfactory position. Extensive sigmoid diverticulosis is appreciated and there appears to be somewhat irregular mucosal thickening to the proximal/mid sigmoid colon with surrounding fat stranding and few small reactive lymph nodes raising the possibility of diverticulitis versus infectious/inflammatory colitis. No bowel obstruction. No obvious drainable collection or abscess. Hutchison catheter in collapsed bladder. Findings suggest prior prostate surgery. No ascites. No free air. No retroperitoneal adenopathy. Atherosclerotic changes to the aorta and vasculature noted without aneurysm. Musculoskeletal structures demonstrate degenerative changes. IMPRESSION: 1. Mucosal thickening involving the proximal to mid sigmoid colon with diverticulosis and surrounding inflammatory changes. Findings suggest acute diverticulitis versus infectious/inflammatory colitis and correlation is recommended. No associated bowel obstruction or perforation. No drainable collection or abscess. 2. Hepatosplenomegaly suggested. 3. Cholelithiasis 4. Further nonacute findings as noted above. 5. Findings at the lung bases warrant follow-up. <Electronically signed by Kun Ambriz > 03/28/21 [id number]
[2021-03-28] MEDS ORDERED: metroNIDAZOLE 500 MG in IV 1 EA IV SCH (20:00)
[2021-03-28 21:45] LABS: CLOSTRIDIUM DIFFICILE PCR NEGATIVE (NEGATIVE)
[2021-03-29 00:45] VITALS: BP 120/57
[2021-03-29 04:34] VITALS: BP 147/66
[2021-03-29] MEDS: HumaLOG INSULIN (NovoLOG) PER UNIT SC SCH ×4 (05:44→16:10)
[2021-03-29 06:17] LABS: HEMATOCRIT 28.9 % (42.0-52.0); HEMOGLOBIN 9.1 g/dl (13.5-17.5); MEAN CORPUSCULAR HGB CONC 31.5 g/dl (32.0-36.5); PLATELET COUNT, AUTOMATED 106 10^3/uL (150-450); RED BLOOD COUNT 3.14 10^6/uL (4.30-6.10); WHITE BLOOD COUNT 4.4 10^3/uL (4.0-10.0)
[2021-03-29 06:43] LABS: CREATININE FOR GFR 1.65 MG/DL (0.70-1.30); GLOMERULAR FILTRATION RATE 43.1 (>42); POTASSIUM SERUM 4.1 MEQ/L (3.5-5.1)
[2021-03-29 08:00] VITALS: BP 124/61
[2021-03-29] MEDS: IRON SUCROSE 200 MG in NS 100 ML IV SCH (08:07)
[2021-03-29] MEDS: MEROPENEM INJ 500 MG in IV 1 EA IV SCH ×2 (09:25→20:52)
--- NOTE | 2021-03-29 11:15 | IPNPDOC ---
Text Note Date of Service The patient was seen on 03/29/21. NOTE Subjective: Patient seen and examined at bedside. Patient has no new medical complaints this morning. Objective: VITAL SIGNS: See below General: NAD, cachectic, chronically ill appearing HEENT: NC/AT Chest: Lungs CTA B/L, multiple ecchymotic areas Heart: +S1S2, RRR Abd: soft, tender, +BS, PEG tube in place Ext: trace edema A/P: 80 year old male with PMHx renal cell CA with mets to the bone, last session of immunotherapy Dec 2020, presents for one month history of worsening abdominal pain, weakness, nausea, vomiting, diarrhea. #TRACEY - improving - s/p IV fluids - nephrology consultation appreciated #diverticulitis/abdominal pain - on meropenem day #3 for UTI/ESBL - d/w surgery - assistance appreciated - resuming feeds today as tolerated #anemia - stable today - s/p 2 unit PRBC, aranesp, Venofer #weakness - improving - as above, poor nutrition, dehydration - dietary consultation #dysphagia - secondary to esophageal stricture - dietary consultation - was planned for swallow re-evaluation as outpatient - ordered as inpatient #urinary retention - self catheterizes at home - dial catheter place - urology consultation pending - will dc dial today #UTI - cultures +ESBL/E.Coli - meropenem day #3 #renal cell CA/ mets to bone - pain control Dispo: pending clinical improvement; he has rescinded his DNR/DNI status and is full code. VS,Fishbone, I+O VS, Fishbone, I+O Laboratory Tests 03/29/21 05:46 Vital Signs Date Time Temp Pulse Resp B/P (MAP) Pulse Ox O2 Delivery O2 Flow Rate FiO2 03/29/21 08:00 97.7 88 16 124/61 (82) 96 Room Air I&O- Last 24 Hours up to 6 AM 03/29/21 06:00 Intake Total 3125 ml Output Total 1650 ml Balance 1475 ml VIRIDIANA LARA MD March 29, 2021 11:15
[2021-03-29 12:00] VITALS: BP 127/66
[2021-03-29 16:00] VITALS: BP 132/61
[2021-03-29 20:52] VITALS: BP 128/64
[2021-03-30] VITALS: BP 127/61
[2021-03-30] MEDS: HumaLOG INSULIN (NovoLOG) PER UNIT SC SCH ×4 (00:16→17:25)
[2021-03-30 04:29] VITALS: BP 146/70
[2021-03-30 05:40] LABS: HEMATOCRIT 30.7 % (42.0-52.0); HEMOGLOBIN 9.3 g/dl (13.5-17.5); MEAN CORPUSCULAR HEMOGLOBIN 28.5 pg (27.0-33.0); MEAN CORPUSCULAR HGB CONC 30.3 g/dl (32.0-36.5); MEAN CORPUSCULAR VOLUME 94.2 fl (80.0-96.0); PLATELET COUNT, AUTOMATED 100 10^3/uL (150-450); RED BLOOD COUNT 3.26 10^6/uL (4.30-6.10); WHITE BLOOD COUNT 4.7 10^3/uL (4.0-10.0)
[2021-03-30 06:04] LABS: CREATININE FOR GFR 1.6 MG/DL (0.70-1.30); GLOMERULAR FILTRATION RATE 44.6 (>42); POTASSIUM SERUM 3.7 MEQ/L (3.5-5.1)
[2021-03-30 08:00] VITALS: BP 128/60
[2021-03-30] MEDS: MEROPENEM INJ 500 MG in IV 1 EA IV SCH ×2 (09:26→21:51)
[2021-03-30] MEDS: oxyCODONE 5MG TAB PO PRN ×2 (10:24→21:51)
[2021-03-30] MEDS ORDERED: E-Z-PAQUE 96% w/w SUSP 176GM BTL As Ordered ONE (11:12)
[2021-03-30] MEDS ORDERED: E-Z-GAS II EFFERVESCENT PACKET (SODIUM BICARB./CITRIC ACID/SIMETHICONE) As Ordered ONE (11:12)
[2021-03-30] MEDS ORDERED: E-Z-HD 98% w/w 340GM SUSP BTL As Ordered ONE (11:12)
[2021-03-30 12:00] VITALS: BP 125/66
--- NOTE | 2021-03-30 12:17 | IPN ---
INPATIENT PROGRESS NOTE DATE: 03/29/2021 SUBJECTIVE: Patient is seen and examined this morning at the bedside. He offers no complaints, tells me that he has minimal to no oral intake and is wholly dependent on tube feeds. Yesterday he was receiving I.V. fluid as his tube feeding has pretty much been on-hold, but there is a plan by surgery to resume tube feeds today. The patient denies any shortness of breath, nausea or vomiting. His renal function is fairly plateau and his anemia has improved after transfusion of blood yesterday. PHYSICAL EXAMINATION: Vital signs: Temperature 97.4, pulse 77, respiratory rate 16, blood pressure 147/66, saturating 96% on room air. Intake yesterday was 3.1 liters, urine output was 900 mL. Weight on the bed scale today is 46.5 kg which is actually decreased from prior days. General: Patient is seen lying in bed, a very frail and cachetic, malnourished, chronically ill appearing elderly man. He is gaunt. HEENT: There is bitemporal wasting. Mucous membranes are dry. Neck: Supple. Jugular veins are not distended. Heart: Sounds are regular S1 and S2. There is no edema of the lower extremities. Lungs: Clear to auscultation bilaterally. There is no crackle. Abdomen: Soft. There are bowel sounds. There is a PEG tube present in the epigastrium and it is attached to a Hutchison bag. Genitourinary: He has an indwelling Hutchison catheter. Extremities: Patient is cachetic. There is significant muscle wasting. Neurologic: He is awake, alert, oriented times 3, interactive and conversational. LABORATORY DATA: Today's laboratory studies show white count 4.4, hemoglobin 9.1 improved from 7.3 yesterday, platelets 106. Sodium 140, potassium 4.1, bicarbonate 28, BUN 48, creatinine 1.6, calcium 9. IMAGING STUDIES: CT abdomen and pelvis done yesterday with oral contrast via PEG is noted. There is no bowel obstruction or perforation. INPATIENT MEDICATIONS: He continues on I.V. meropenem. he has received 3 doses of I.V. Venofer. He continues on once weekly Aranesp. The remainder of medications are unchanged as compared to yesterday. I note tube feeding orders which were written for Jevity at 25 mL an hour with 60 mL free water flush q6h. PROBLEMS/PLAN: 1. Acute nonoliguric kidney injury superimposed on CKD stage 3A: Patient's baseline creatinine is around 1.2. His present acute kidney injury is in the setting of ESBL E. coli UTI along with failure to thrive and dehydration. He was receiving I.V. fluids yesterday. His renal function has been fairly plateau and I note that a low rate of tube feeds is being started today at 25 mL an hour. Hopefully he tolerates the tube feeds if not we may need to put him back on I.V. fluids or consider TPN and I discussed the same with Dr. Mccoy. We will wait and see how he does with the tube feeds today. 2. ESBL E. coli UTI: Patient is on I.V. meropenem. 3. Anemia on chronic kidney disease: Patient has received 3 doses of I.V. Venofer and he is also written for once weekly Aranesp. He got a unit of blood yesterday. It was his second unit during this admission and his hemoglobin has come up nicely to 9.1. 4. Dysphagia and protein calorie malnutrition, failure to thrive and cachexia: Surgical service is managing his tube feeds. CT scan done yesterday is noted. He is now written for Jevity at 25 mL an hour with a free water flush of 60 mL q6h and if he does not tolerate tube feed then consideration will be given to resuming I.V. fluids versus TPN.
[2021-03-30] MEDS: KCL 20MEQ IN D5W 1000ML 1,000 ML IV SCH (13:27)
[2021-03-30 16:00] VITALS: BP 128/64
--- NOTE | 2021-03-30 16:43 | REP ---
INDICATION: dysphagia, history of esophageal stenosis. COMPARISON: Esophagram dated 09/11/2018 TECHNIQUE: This procedure was performed by Barb Sarabia [facility], under the direct supervision of Dr. Mora. Images were reviewed with Dr. Mora prior to dictation. Liquid barium was given in the erect position in order to perform a single contrast upper GI examination. FINDINGS: The substation designer film shows no organomegaly or pathological masses. The intestinal gas pattern is unremarkable. The patient has Chandler rods and electrical device in the thoracic spine. The oral and pharyngeal stages of deglutition demonstrated aspiration. Esophageal transport is delayed by severe esophageal dysmotility. Tertiary contractions were visualized throughout a majority of the exam, as well as to-and-fro motility. IMPRESSION: 1. Aspiration 2. Presbyesophagus with severe esophageal dysmotility, with delayed emptying into the stomach. 0.8 minutes of fluoroscopy time was utilized for this procedure. Some fluoroscopic images are performed with last image hold technology. These images require no additional radiation. <Electronically signed by Barb Sarabia > 03/30/21 1552 <Electronically signed by Andrea Mora > 03/30/21 0320
[2021-03-30 19:28] VITALS: BP 124/61
--- NOTE | 2021-03-30 21:19 | IPNPDOC ---
Subjective Date Seen The patient was seen on 03/30/21. Subjective Chief Complaint/HPI Mr. Baldwin is a 80 year old male with renal cell CA s/p immunotherapy last in Dec 2020 who presents with worsening lethargy, abdominal pain, and N/V/D. This morning, he was seen with the new PEG tube. Started tube feeds today. Denies chest pain or dyspnea. Dietary recommended using Osmolite 1.2 starting at 25 cc/hr and increasing by 5cc every 4 hours until goal rate of 65cc/hr. Also recommended free water flushes at 60cc q6hs. Was not able to find Osmolite here. Will continue Jevity at 25cc/hr until we are able to obtain Osmolite. Objective Physical Examination General Exam: Positive: Cooperative Eye Exam: Negative: Sclera icteric Neck Exam: Positive: Supple Chest Exam: Positive: Clear to auscultation Heart Exam: Positive: Rate Normal, Regular Rhythm Abdomen Exam: Positive: Normal bowel sounds, Soft Extremity Exam: Positive: Edema (trace) Neuro Exam: Positive: Normal Speech Psych Exam: Positive: Mental status NL, Mood NL Assessment /Plan Assessment Mr. Baldwin is a 80 year old male with renal cell CA s/p immunotherapy last in Dec 2020 who presents with worsening lethargy, abdominal pain, and N/V/D. He is here with TRACEY. Nephrology following, recommendations appreciated. His TRACEY may be from dehydration from N/V/D and poor oral intake. Will see how he does with tube feeds. Otherwise, speech/swallow therapy following. Recommended an esophagram. Patient may need dilatation of esophagus with his history of esophageal stricture. Pending esophagram and speech/swallow therapy recommendations. Plan/VTE VTE Prophylaxis Ordered?: Yes Plan 1. TRACEY -Baseline creatinine around 1.2 -Creatinine trending downwards -Nephrology consulted, recommendations appreciated 2. Dysphagia -May be secondary to esophageal stricture -Modified barium cookie swallow test ordered -Pending speech/swallow therapy recommendations 3. Diverticulitis -On Meropenem day 4 -General surgery following, recommendations appreciated 4. ESBL UTI -On Meropenem day 4 5. 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 DVT ppx -Due to recent anemia and placement of PEG tube, will hold off on chemical ppx. Will start pateint on TEDs Disposition: Pending improvement in renal function and recommendations from speech/swallow therapy VS, I&O, 24H, Fishbone Vital Signs/I&O Vital Signs Date Time Temp Pulse Resp B/P (MAP) Pulse Ox O2 Delivery O2 Flow Rate FiO2 03/30/21 19:28 97.9 67 18 124/61 (82) 97 Room Air I&O- Last 24 Hours up to 6 AM 03/30/21 06:00 Intake Total 680 ml Output Total 460 ml Balance 220 ml Laboratory Data 24H LABS Laboratory Tests 2 03/29/21 23:25: Bedside Glucose (Misc Panel) 112H 03/30/21 05:18: Nucleated Red Blood Cells % (auto) 0.0, Anion Gap 6L, Glomerular Filtration Rate 44.6, Calcium Level 9.0 03/30/21 06:13: Bedside Glucose (Misc Panel) 112H 03/30/21 11:28: Bedside Glucose (Misc Panel) 158H 03/30/21 17:23: Bedside Glucose (Misc Panel) 138H CBC/BMP Laboratory Tests 03/30/21 05:18 Microbiology Microbiology 03/25/21 Urine Culture - Final, Complete E.coli Esbl LUCRECIA RIVERO DO March 30, 2021 21:19
[2021-03-31] VITALS: BP 120/79
[2021-03-31 04:00] VITALS: BP 138/65
[2021-03-31] MEDS: HumaLOG INSULIN (NovoLOG) PER UNIT SC SCH ×5 (05:33→23:58)
[2021-03-31 06:22] LABS: HEMATOCRIT 28.8 % (42.0-52.0); HEMOGLOBIN 8.8 g/dl (13.5-17.5); MEAN CORPUSCULAR HGB CONC 30.6 g/dl (32.0-36.5); PLATELET COUNT, AUTOMATED 103 10^3/uL (150-450); RED BLOOD COUNT 3.03 10^6/uL (4.30-6.10); WHITE BLOOD COUNT 3.9 10^3/uL (4.0-10.0)
[2021-03-31 06:44] LABS: CALCIUM LEVEL 8.9 MG/DL (8.8-10.2); CREATININE FOR GFR 1.46 MG/DL (0.70-1.30); GLOMERULAR FILTRATION RATE 49.6 (>42); POTASSIUM SERUM 3.7 MEQ/L (3.5-5.1)
[2021-03-31 07:29] VITALS: BP 142/65
[2021-03-31] MEDS: KCL 20MEQ IN D5W 1000ML 1,000 ML IV SCH (09:13)
[2021-03-31] MEDS: MEROPENEM INJ 500 MG in IV 1 EA IV SCH ×2 (09:13→22:08)
[2021-03-31] MEDS ORDERED: VARIBAR PUDDING 40% w/v 230ML TUBE As Ordered ONE (11:56)
[2021-03-31] MEDS ORDERED: E-Z-PAQUE 96% w/w SUSP 176GM BTL As Ordered ONE (11:57)
[2021-03-31] MEDS ORDERED: VARIBAR NECTAR 40% w/v 240ML SUSP BTL As Ordered ONE (11:57)
[2021-03-31] MEDS ORDERED: BARIUM SULFATE 700 MG TABLET (E-Z-DISK) As Ordered ONE (11:57)
[2021-03-31 12:00] VITALS: BP 107/57
--- NOTE | 2021-03-31 13:24 | IPN ---
INPATIENT PROGRESS NOTE DATE: 03/30/2021 SUBJECTIVE: Patient is seen and examined this morning at the bedside. He denies any complaints. He has been tolerating a low rate of tube feeds. His Hutchison catheter was removed. He denies any shortness of breath or abdominal pain. Laboratory studies show rising sodium level and increasing alkalosis. PHYSICAL EXAMINATION: Vital signs: Temperature 97.4, pulse 87, respiratory rate 18, blood pressure 125/66, saturating 99% on room air. Intake yesterday was recorded as 800, urine output was 1100, gastric drainage was 500, net negative 800 mL. Weight on the bed scale today is 46.5 kg. General: Patient is seen lying in bed. He is cachetic, a chronically malnourished and ill appearing elderly male frail and gaunt. HEENT: There is bitemporal wasting. Mucous membranes are dry. Neck: Supple, jugular veins are not elevated. Heart: Sounds are regular S1 and S2. There is absolutely no peripheral edema nor dependent edema. Lungs: Symmetric air entry, no rales or rhonchus. Abdomen: Soft, there are bowel sounds. There is a PEG tube. Genitourinary: His Hutchison catheter has been removed. Extremities: Patient is cachectic. There is significant muscle wasting. Neurologic: He is awake, alert, oriented times 3, interactive and conversational. LABORATORY DATA: Today's laboratory studies show: Sodium 144, potassium 3.7, bicarbonate 34, BUN 47, creatinine 1.6. Hemoglobin 9.3, platelets 100. INPATIENT MEDICATIONS: I started the patient on D5W with 20 mEq of potassium chloride to run at 50 mL an hour for 1 liter only. His remainder of medications are unchanged as compared to yesterday. PROBLEMS/PLAN: 1. Acute nonoliguric kidney injury superimposed on CKD stage 3A: Patient's baseline creatinine is around 1.2. His present acute kidney injury is in the setting of ESBL E. coli along with failure to thrive and dehydration. He is presently receiving tube feeds, but at a low rte of only 25 mL an hour. His free water flushes are only 60 mL q6h (giving a total of 240 mL of free water in a 24 hour period). Given that his tube feed rates are still low I am going to give him D5W at 50 mL an hour for a total of 1 liter to make sure that he does not fall behind on his fluids and I will stop fluids once his tube feed rate picks up. 2. Dysphagia/protein calorie malnutrition, failure to thrive and cachexia: Surgical service is managing his tube feeds. He is getting less than 250 mL of free water in a 24 hour period right now. His tube feed rate is still low and patient's sodium level is noted to be rising, up to 144 on the labs today. He is going to develop a free water deficit hence I am giving him D5W at 50 mL an hour. 3. Alkalosis: It is sign of volume contraction and patient will be given hypotonic fluids as mentioned above. 4. Anemia related to iron deficiency and chronic disease: Patient has received I.V. iron and he is getting once weekly Aranesp and he was also transfused blood on this admission. His hemoglobin has improved. 5. ESBL E. coli UTI: The patient's Hutchison catheter was removed. He is hemodynamically stable and afebrile and he continues on meropenem managed by the primary team.
[2021-03-31 16:00] VITALS: BP 133/63
--- NOTE | 2021-03-31 16:23 | REP ---
INDICATION: dysphagia. COMPARISON: None. TECHNIQUE: The procedure was performed by SHANE Pérez, under the direct supervision of Dr. Mora. The procedure was performed with Jaquelin Bermudez and Sheila Francis from speech pathology present. 5 ml aliquots of thin, and nectar thick consistency barium was administered. FINDINGS: Penetration was visualized with both thin and nectar thick consistency barium. The detailed report of this examination will be provided by speech pathology. IMPRESSION: Penetration was visualized, a detailed report will be provided by speech pathology. 3.0 minutes of fluoroscopy time was utilized for this procedure. Some fluoroscopic images are performed with last image hold technology. These images require no additional radiation <Electronically signed by Barb Sarabia > 03/31/21 1401 <Electronically signed by Andrea Mora > 03/31/21 [id number]
[2021-03-31 20:00] VITALS: BP 115/67
--- NOTE | 2021-03-31 20:37 | IPNPDOC ---
Subjective Date Seen The patient was seen on 03/31/21. Subjective Chief Complaint/HPI Mr. Baldwin is a 80 year old male with renal cell CA s/p immunotherapy last in Dec 2020 who presents with worsening lethargy, abdominal pain, and N/V/D. He was seen this morning. Denies chest pain or dyspnea. He is tolerating the Osmolite 1.2 Joseph better. Spoke with radiology, Dr. Mora. He does not see stricture, but saw esophageal dysmotility. There is aspiration on exam. Spoke with ST who recommended modified barium cookie swallow. Objective Physical Examination General Exam: Positive: Cooperative Eye Exam: Negative: Sclera icteric Neck Exam: Positive: Supple Chest Exam: Positive: Clear to auscultation Heart Exam: Positive: Rate Normal, Regular Rhythm Abdomen Exam: Positive: Normal bowel sounds, Soft Extremity Exam: Positive: Edema (trace) Neuro Exam: Positive: Normal Speech Psych Exam: Positive: Mental status NL, Mood NL Assessment /Plan Assessment Mr. Baldwin is a 80 year old male with renal cell CA s/p immunotherapy last in Dec 2020 who presents with worsening lethargy, abdominal pain, and N/V/D. He is here with TRACEY. Nephrology following, recommendations appreciated. His TRACEY may be from dehydration from N/V/D and poor oral intake. Will see how he does with tube feeds. Creatine is improving with tube feeds Otherwise, speech/swallow therapy following. Spoke with Dr. Mora about esophagogram. There is no stricture seen but esophageal dysmotility. This is unchanged from prior esophagogram in 2018. He saw GI at that time the performed EGD with biopsy. ST recommending modified cookie swallow for further investigation. Plan/VTE VTE Prophylaxis Ordered?: Yes Plan 1. TRACEY -Baseline creatinine around 1.2 -Creatinine trending downwards -Nephrology consulted, recommendations appreciated 2. Dysphagia -May be secondary to esophageal motility and atrophy of swallowing muscles -Modified barium cookie swallow test ordered -Pending speech/swallow therapy recommendations 3. Diverticulitis -On Meropenem day 5 -General surgery following, recommendations appreciated 4. ESBL UTI -On Meropenem day 5 5. 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 DVT ppx -Due to recent anemia and placement of PEG tube, will hold off on chemical ppx. Will start patient on TEDs Disposition: Pending improvement in renal function and recommendations from speech/swallow therapy VS, I&O, 24H, Fishbone Vital Signs/I&O Vital Signs Date Time Temp Pulse Resp B/P (MAP) Pulse Ox O2 Delivery O2 Flow Rate FiO2 03/31/21 16:00 97.0 75 19 133/63 (86) 100 Room Air I&O- Last 24 Hours up to 6 AM 03/31/21 06:00 Intake Total 2011 ml Output Total 0 ml Balance 2011 ml Laboratory Data 24H LABS Laboratory Tests 2 03/31/21 00:46: Bedside Glucose (Misc Panel) 127H 03/31/21 05:27: Bedside Glucose (Misc Panel) 152H 03/31/21 05:54: Nucleated Red Blood Cells % (auto) 0.0, Anion Gap 4L, Glomerular Filtration Rate 49.6, Calcium Level 8.9 03/31/21 11:56: Bedside Glucose (Misc Panel) 135H 03/31/21 17:28: Bedside Glucose (Misc Panel) 122H CBC/BMP Laboratory Tests 03/31/21 05:54 Microbiology Microbiology 03/25/21 Urine Culture - Final, Complete E.coli Esbl LUCRECIA RIVERO DO March 31, 2021 20:37
[2021-04-01] VITALS: BP 109/73
[2021-04-01 06:00] VITALS: BP 117/69
[2021-04-01] MEDS: HumaLOG INSULIN (NovoLOG) PER UNIT SC SCH ×2 (06:00→12:00)
[2021-04-01 06:11] LABS: HEMATOCRIT 27.6 % (42.0-52.0); HEMOGLOBIN 8.3 g/dl (13.5-17.5); MEAN CORPUSCULAR HEMOGLOBIN 28.7 pg (27.0-33.0); MEAN CORPUSCULAR HGB CONC 30.1 g/dl (32.0-36.5); MEAN CORPUSCULAR VOLUME 95.5 fl (80.0-96.0); PLATELET COUNT, AUTOMATED 101 10^3/uL (150-450); RED BLOOD COUNT 2.89 10^6/uL (4.30-6.10); WHITE BLOOD COUNT 3.7 10^3/uL (4.0-10.0)
[2021-04-01 06:35] LABS: ERYTHROCYTE SEDIMENTATION RATE 65 mm/hr (0-20)
[2021-04-01 06:39] LABS: C REACTIVE PROTEIN QUANTITATIV 2.39 MG/DL (0.00-0.30); CALCIUM LEVEL 9.1 MG/DL (8.8-10.2); CREATININE FOR GFR 1.32 MG/DL (0.70-1.30); GLOMERULAR FILTRATION RATE 55.7 (>42); POTASSIUM SERUM 4.2 MEQ/L (3.5-5.1)
[2021-04-01 07:17] VITALS: BP 130/60
[2021-04-01] MEDS: MEROPENEM INJ 500 MG in IV 1 EA IV SCH (09:11)
--- NOTE | 2021-04-01 09:39 | IPN ---
PROGRESS NOTE DATE: 03/31/2021 SUBJECTIVE: The patient was seen and examined this morning at the bedside. He offers no complaints. He states his oral intake is improving. I note yesterday, nursing staff recorded 450 ml of ora intake, which is the most oral intake he has had on any day since admission. His tube feeds have been slowly increased currently running at 45 ml an hour. OBJECTIVE: Temperature 97.6, pulse 71, respiratory rate 19, blood pressure 142/65, saturation 99% on room air. Intake yesterday was 1280. Urine output yesterday was recorded as 6 voids and 5 bowel movements were also recorded. Weight in the bed scale today is 46.6 kg. General: The patient is seen lying in bed, cachectic and chronically ill and malnourished appearing, gaunt, elderly male. There is bitemporal wasting. Mucous membranes are dry. Neck I supple. Jugular veins are not elevated. Heart sounds are regular, S1, S2. There is absolutely no peripheral edema, nor dependent edema. Lungs show symmetric air entry. No rale or rhonchus. Abdomen: Soft. There are bowel sounds. There is a peg tube. Genitourinary: Hutchison catheter has been removed. He is voiding to the urinal. Extremities show cachexia and muscle wasting, but no edema. Neurologic: He is awake, alert and oriented x3, interactive and conversational. LABORATORY DATA: Today's laboratory study show white count 3.9, hemoglobin 8.8, platelets 103, sodium 140, potassium 3.7, BUN 44, creatinine 1.4, glucose 139. Esophagus x-ray today was done. INPATIENT MEDICATIONS: I stopped his D5W with potassium chloride, which I have been running at 50 ml an hour. He continues on Aranesp once a week, meropenem IV q 12 hours and oxycodone and Zofran as needed. His tube feeds are currently running at 45 ml an hour and he is receiving a free water flush of 60 ml every 6 hours. PROBLEMS: 1. Acute nonoliguric kidney injury superimposed on chronic kidney disease (CKD), stage III-A. The patient has solitary functioning left kidney. The patient's recent creatinine is around 1.2. There is acute kidney injury within the setting of extended spectrum beta-lactamase (ESBL) E. coli along with dehydration, whose tube feed rate has now been increased, presently running at 45 ml an hour and he is receiving very low amount of free water flush 60 ml q 6 hours (240 ml of free water in a 24 hour period), but he appears to have somewhat improved oral intake. The nursing staff recorded 450 ml oral intake yesterday, which is the most since admission. I am stopping D5W at this time because renal function is improving and we will see how he does with the tube feeds, as they are advanced. 2. Dysphagia/protein calorie malnutrition, failure to thrive and cachexia. Surgical service is managing his tube feeds. I suggest to increase the free water flushes when the patient can tolerate it, so that he is getting 1 liter of free water in a 24 hour period, especially if his oral intake remains suboptimal. D5W was stopped at present and we will see how he fairs. 3. Anemia related iron deficiency and chronic kidney disease. The patient has received IV iron and he is now getting once weekly Aranesp. He was also transfused blood on this admission. 4. Extended spectrum beta-lactamase (ESBL) E. coli urinary tract infection (UTI). The patient's Hutchison catheter has been removed. He continues on meropenem managed by the primary team.
[2021-04-01] MEDS ORDERED: BACT800T5 PO (11:44)
[2021-04-01] MEDS ORDERED: AUGM875T28 PO (11:44)
[2021-04-01] MEDS ORDERED: [UNRECOGNIZED DRUG - CODE] MC (11:55)
[2021-04-01 12:00] VITALS: BP 130/60
--- NOTE | 2021-04-01 18:25 | IPNPDOC ---
Subjective Date Seen The patient was seen on 04/01/21. Subjective Chief Complaint/HPI Mr. Baldwin is a 80 year old male with renal cell CA s/p immunotherapy last in Dec 2020 who presents with worsening lethargy, abdominal pain, and N/V/D. He was seen this morning. He is feeling better and felt ready for home. Medical necessity note Patient tells me that with his Jevity 1.5 bolus feeding, he was not able to tolerate it well. He would feel week and forget to give himself a bolus feeding, and then would become weaker. We had dietary evaluate patient. Yisel Jett evaluated patient on 03/30/21. Since the patient could not tolerate Jevity 1.5, she recommended changing the formula for better absorption and less gut irritation. Patient was put on Osmolite 1.2. Patient was able to tolerate the Osmolite 1.2. Patient needs Osmolite as patient did not tolerate Jevity. Since patient was not able to be compliant with his previous bolus feedings, he clinically declined. With the Kangaroo pump promotes compliance and ensures that he does not return to the hospital in a similar situation. Objective Physical Examination General Exam: Positive: Cooperative Eye Exam: Negative: Sclera icteric Neck Exam: Positive: Supple Chest Exam: Positive: Clear to auscultation Heart Exam: Positive: Rate Normal, Regular Rhythm Abdomen Exam: Positive: Normal bowel sounds, Soft Extremity Exam: Positive: Edema (trace) Neuro Exam: Positive: Normal Speech Psych Exam: Positive: Mental status NL, Mood NL Assessment /Plan Assessment Mr. Baldwin is a 80 year old male with renal cell CA s/p immunotherapy last in Dec 2020 who presents with worsening lethargy, abdominal pain, and N/V/D. He is here with TRACEY. Nephrology following, recommendations appreciated. His TRACEY may be from dehydration from N/V/D and poor oral intake. Will see how he does with tube feeds. Creatine is improving with tube feeds Otherwise, speech/swallow therapy following. Spoke with Dr. Mora about esophagogram. There is no stricture seen but esophageal dysmotility. This is unchanged from prior esophagogram in 2018. He saw GI at that time the performed EGD with biopsy. ST recommending sips and ice chips. Patient to continue with tube feeds Plan/VTE VTE Prophylaxis Ordered?: Yes Plan 1. TRACEY -Baseline creatinine around 1.2 -Creatinine trending downwards -Nephrology consulted, recommendations appreciated 2. Dysphagia -May be secondary to esophageal motility and atrophy of swallowing muscles -Modified barium cookie swallow test ordered -No solid food. Sips and ice chips 3. Diverticulitis -On Meropenem day 6 -Continue antibiotics for another 5 days as Augmentin 4. ESBL UTI -On Meropenem day 6 -Continue antibiotics for another 5 days as Bactrim 5. 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 DVT ppx -TEDs Disposition: Home today VS, I&O, 24H, Fishbone Vital Signs/I&O Vital Signs Date Time Temp Pulse Resp B/P (MAP) Pulse Ox O2 Delivery O2 Flow Rate FiO2 04/01/21 12:00 97.9 73 19 130/60 (83) 99 Room Air I&O- Last 24 Hours up to 6 AM 04/01/21 06:00 Intake Total 50 ml Output Total 320 ml Balance -270 ml Laboratory Data 24H LABS Laboratory Tests 2 03/31/21 17:28: Bedside Glucose (Misc Panel) 122H 03/31/21 20:54: Bedside Glucose (Misc Panel) 112H 03/31/21 23:48: Bedside Glucose (Misc Panel) 120H 04/01/21 05:39: Nucleated Red Blood Cells % (auto) 0.0, Erythrocyte Sedimentation Rate 65H, Anion Gap 3L, Glomerular Filtration Rate 55.7, Calcium Level 9.1, C-Reactive Protein, Quantitative 2.39H 04/01/21 06:20: Bedside Glucose (Misc Panel) 129H CBC/BMP Laboratory Tests 04/01/21 05:39 Microbiology Microbiology 03/25/21 Urine Culture - Final, Complete E.coli Esbl LUCRECIA RIVERO DO April 01, 2021 18:25
--- NOTE | 2021-04-01 23:24 | DS.PDOC ---
Discharge Summary General Date of Admission Mar 24, 2021 at 16:14 Date of Discharge April 01, 2021 Discharge Summary PROCEDURES PERFORMED DURING STAY: [None]. ADMITTING DIAGNOSES: 1. . DISCHARGE DIAGNOSES: 1. . COMPLICATIONS/CHIEF COMPLAINT: Abdominal Pain/Aris/Hypokalemia. HISTORY OF PRESENT ILLNESS: . HOSPITAL COURSE: . DISCHARGE MEDICATIONS: Please see below. ALLERGIES: Please see below. PHYSICAL EXAMINATION ON DISCHARGE: VITAL SIGNS: Please see below. GENERAL: HEENT: NECK: CARDIOVASCULAR EXAMINATION: RESPIRATORY EXAMINATION: ABDOMINAL EXAMINATION: EXTREMITIES: SKIN: NEUROLOGICAL EXAMINATION: PSYCHIATRIC EXAMINATION: LABORATORY DATA: Please see below. IMAGING: PROGNOSIS: ACTIVITY: [As tolerated]. DIET: DISCHARGE PLAN: DISPOSITION: Home Health Service. DISCHARGE INSTRUCTIONS: 1. . ITEMS TO FOLLOWUP ON ON OUTPATIENT: 1. . DISCHARGE CONDITION: [Stable]. TIME SPENT ON DISCHARGE: Greater than minutes. Vital Signs/I&Os Vital Signs Date Time Temp Pulse Resp B/P (MAP) Pulse Ox O2 Delivery O2 Flow Rate FiO2 04/01/21 12:00 97.9 73 19 130/60 (83) 99 Room Air I&O- Last 24 Hours up to 6 AM 04/01/21 06:00 Intake Total 50 ml Output Total 320 ml Balance -270 ml Laboratory Data Labs 24H Laboratory Tests 2 03/31/21 23:48: Bedside Glucose (Misc Panel) 120H 04/01/21 05:39: Nucleated Red Blood Cells % (auto) 0.0, Erythrocyte Sedimentation Rate 65H, Anion Gap 3L, Glomerular Filtration Rate 55.7, Calcium Level 9.1, C-Reactive Protein, Quantitative 2.39H 04/01/21 06:20: Bedside Glucose (Misc Panel) 129H CBC/BMP Laboratory Tests 04/01/21 05:39 FSBS Laboratory Tests Test 03/31/21 23:48 04/01/21 06:20 Range/Units Bedside Glucose (Misc Panel) 120 129 83-110 MG/DL Microbiology Microbiology 03/25/21 Urine Culture - Final, Complete E.coli Esbl Discharge Medications Scheduled Amoxicillin/Potassium Clav (Augmentin 875-125 Tablet) 1 Each Tablet, 1 TAB PO BI D Omeprazole (Omeprazole) 40 Mg Capsule.dr, 40 MG PO DAILY, (Reported) Primidone (Primidone) 50 Mg Tab, 50 MG PO TID, (Reported) Sulfamethoxazole/Trimethoprim (Bactrim Ds Tablet) 1 Each Tablet, 1 TAB PO BID Scheduled PRN Oxycodone HCl (Oxycodone HCl) 10 Mg Tablet, 20 MG PO Q4H PRN for pain, (Reported) Allergies Coded Allergies: No Known Allergies (Unverified , 02/26/20) LUCRECIA RIVERO DO April 01, 2021 23:24
== END 2021-04-01 18:17 | disposition home health service (06) | DRG 683 ==
LOC: M ED 12:00 → M ED INP 16:14 → ENRESERV 17:20 → M PCU 18:33
PROVIDERS: ADMIT Internal Medicine; ATTEND Internal Medicine
PROC: 30233N1 Transfusion of Nonautologous Red Blood Cells into Peripheral Vein, Percutaneous Approach (ICD-10-PCS; principal; 2021-03-25)
DX: N17.9 Acute kidney failure, unspecified (principal); N39.0 Urinary tract infection, site not specified; C64.9 Malignant neoplasm of unspecified kidney, except renal pelvis; C79.51 Secondary malignant neoplasm of bone; E87.1 Hypo-osmolality and hyponatremia; E46 Unspecified protein-calorie malnutrition; R64 Cachexia; R53.1 Weakness; R13.10 Dysphagia, unspecified; R33.9 Retention of urine, unspecified; E87.6 Hypokalemia; Z93.1 Gastrostomy status; N18.31 Chronic kidney disease, stage 3a; Z79.899 Other long term (current) drug therapy; Z79.52 Long term (current) use of systemic steroids; K59.00 Constipation, unspecified; B96.29 Other Escherichia coli [E. coli] as the cause of diseases classified elsewhere; D63.1 Anemia in chronic kidney disease

== ENCOUNTER 2021-04-13 14:07 | Observation (INO) | payer MEDICARE ==
[~2021-04-13] VITALS: Ht 162.6 cm; Wt 49.7 kg
[~2021-04-13 14:07] MED LIST changes: +AUGM875T28 PO; +BACT800T5 PO; +PRED5TA PO; +[UNRECOGNIZED DRUG - CODE] MC
[2021-04-13] MEDS ORDERED: AMOX400S TF (14:22)
[2021-04-13] MEDS ORDERED: SULF473O TF (14:22)
[2021-04-13 15:26] LABS: BASO % 0.7 % (0.0-1.0); EOS % 0.2 % (0.0-3.0); HEMATOCRIT 36.2 % (42.0-52.0); HEMOGLOBIN 11.1 g/dl (13.5-17.5); LYMPH # 0.5 10^3/uL (1.5-5.0); LYMPH % 8.8 % (24.0-44.0); MEAN CORPUSCULAR HEMOGLOBIN 29.4 pg (27.0-33.0); MEAN CORPUSCULAR HGB CONC 30.7 g/dl (32.0-36.5); MEAN CORPUSCULAR VOLUME 95.8 fl (80.0-96.0); MONO # 0.2 10^3/uL (0.0-0.8); MONO % 4.4 % (2.0-8.0); NEUTROPHILS # 4.6 10^3/uL (1.5-8.5); NEUTROPHILS % 83.2 % (36.0-66.0); PLATELET COUNT, AUTOMATED 157 10^3/uL (150-450); RED BLOOD COUNT 3.78 10^6/uL (4.30-6.10); WHITE BLOOD COUNT 5.5 10^3/uL (4.0-10.0)
[2021-04-13] MEDS ORDERED: NS 1,000 ML IV ONE (15:30)
[2021-04-13 15:44] LABS: CALCIUM LEVEL 8.8 MG/DL (8.8-10.2); CREATININE FOR GFR 2.24 MG/DL (0.70-1.30); GLOMERULAR FILTRATION RATE 30.3 (>42); MAGNESIUM LEVEL 2.5 MG/DL (1.8-2.4); POTASSIUM SERUM 5.3 MEQ/L (3.5-5.1)
[2021-04-13 17:08] LABS: ALBUMIN 3.9 GM/DL (3.2-5.2); BILIRUBIN,DIRECT 0.1 MG/DL (0.0-0.2); BILIRUBIN,TOTAL 0.4 MG/DL (0.2-1.0); TOTAL PROTEIN 8.4 GM/DL (6.4-8.2)
[2021-04-13] MEDS ORDERED: oxyCODONE 5MG TAB PEG PRN (18:30)
--- NOTE | 2021-04-13 18:42 | HPEPDOC ---
General Date of Admission 04/13/21 Date of Service: April 13, 2021 Chief Complaint The patient is a 80-year-old male admitted with a reason for visit of Confusion. Source: Patient, RN/MD History of Present Illness 80-year-old male with a past medical history of right renal cell cancer with metastases to thoracic spine status post surgery and radiation therapy to thoracic spine, status post right partial nephrectomy, status post chemotherapy and immunotherapy, massive weight loss of greater than 70 pounds significant calorie malnutrition, dysphagia on tube feeding presented to the ED when the home health nurse felt that he was confused and very weak and she was concerned about his fluid and electrolyte imbalance. Patient was last admitted at [facility] from March 24 to April 01 for dehydration, acute renal failure and diverticulitis. To me. Patient complains that he was very weak and shaky. He also is hands and legs where trembling so he could hardly stand, so he came to the emergency room. . He also complained of nausea and diarrhea . He had 6 watery bowel movements yeste rday and 3 today. During last admission his bolus feeding was changed to kangaroo pump feeding as he was having some issues with bolus feedings. Also, his tube feeds were changed from Jevity to Osmolite as he had complained of diarrhea. Patient reports that he has visiting nurse coming twice a day in the morning and night, then she did seem his medications and then starts his tube feeding pump and in the evening. She comes encases his medications and again refills the pump. , However, he did mention that he ran out of the feeds that were prescribed from the hospital several days ago, so he was using some of his old remaining feeds. Patient is unsure how many feeds and how much water he is being given by the visiting nurse. Lab work in the ED showed that the patient was in acute renal failure and was severely dehydrated. 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 Status post spinal surgery 2018. Patient underwent T7 corpectomy with RT 4T10.. Status post right partial nephrectomy in dec 2019 Right knee surgery Right rotator cuff surgery Abdominal hernia surgery Family History Father and mother unknown. Social History * Smoker: Denies Alcohol: Denies A-FIB/CHADSVASC A-FIB History Current/History of A-Fib/PAF?: No Review of Systems Constitutional: Reports: Weakness, Fatigue, Weight Loss Eyes: Denies: Pain, Vision change Pulmonary: Denies: Dyspnea, Cough Cardiovascular: Denies: Chest Pain, Palpitations, Orthopnea, Paroxysmal Noc. Dyspnea, Lt Headedness Gastrointestinal: Reports: Nausea, Diarrhea Genitourinary: Reports: Retention; Denies: Dysuria Hematologic: Denies: Bruising, Bleeding Excessively Musculoskeletal: Reports: Back Pain Physical Examination General Exam: Positive: Alert, Cooperative, No Acute Distress Eye Exam: Positive: PERRLA, Conjunctiva & lids normal, EOMI; Negative: Sclera icteric ENT Exam: Positive: Other ENT (severe bitemporal wasting) Neck Exam: Positive: Supple; Negative: JVD, thyromegaly Chest Exam: Positive: Clear to auscultation, Normal air movement Heart Exam: Positive: Rate Normal, Regular Rhythm, Normal S1, Normal S2; Negative: Murmurs, Rubs Abdomen Exam: Positive: Normal bowel sounds, Soft; Negative: Tenderness, Hepatospenomegaly Extremity Exam: Negative: Clubbing, Cyanosis, Edema Vital Signs Vital Signs Date Time Temp Pulse Resp B/P (MAP) Pulse Ox O2 Delivery O2 Flow Rate FiO2 5/18/21 17:00 76 118/59 (78) 99 Room Air 04/13/21 14:08 96.4 20 Laboratory Data Labs 24H Laboratory Tests 2 04/13/21 15:13: Immature Granulocyte % (Auto) 2.7, Neutrophils (%) (Auto) 83.2H, Lymphocytes (%) (Auto) 8.8L, Monocytes (%) (Auto) 4.4, Eosinophils (%) (Auto) 0.2, Basophils (%) (Auto) 0.7, Neutrophils # (Auto) 4.6, Lymphocytes # (Auto) 0.5L, Monocytes # (Auto) 0.2, Eosinophils # (Auto) 0.0, Basophils # (Auto) 0.0, Nucleated Red Blood Cells % (auto) 0.0 04/13/21 15:14: Anion Gap 11, Glomerular Filtration Rate 30.3L, Calcium Level 8.8, Magnesium Level 2.5H, Total Bilirubin 0.4, Direct Bilirubin 0.1, Aspartate Amino Transf (AST/SGOT) 43H, Alanine Aminotransferase (ALT/SGPT) 56, Alkaline Phosphatase 167H, Total Protein 8.4H, Albumin 3.9, Albumin/Globulin Ratio 0.9, Lipase 962H 04/13/21 15:18: POC Glucose (Misc Panel) 105, POC Sodium (Misc Panel) 133L, POC Potassium (Misc Panel) 5.4H, POC Chloride (Misc Panel) 102, POC Total CO2 (Misc Panel) 28.0H, POC Blood Urea Nitrogen (Misc Panel 98H, POC Ionized Calcium (Misc Panel) 5.1, POC Creatinine (Misc Panel) 2.4H, POC Hematocrit (Misc Panel) 37.0L CBC/BMP Laboratory Tests 04/13/21 15:13 04/13/21 15:14 Microbiology Microbiology 04/13/21 Respiratory Virus Panel (PCR) ([facility]), Received Pending Assessment/Plan 80-year-old male with a past medical history of right renal cell cancer with metastases to thoracic spine status post surgery and radiation therapy to thoracic spine, status post right partial nephrectomy, status post chemotherapy and immunotherapy, massive weight loss of greater than 70 pounds, Severe protein calorie malnutrition, dysphagia on tube feeding presented to the ED when the home health nurse felt that he was confused and weak and she was concerned about his fluid and electrolyte imbalance. Patient was last admitted at [facility] from March 24 to April 01 for dehydration, acute renal failure. To me. Patient complains that he was very weak and shaky. Lab work in the ED showed that the patient was in acute renal failure and was severely dehydrated. Acute renal failure Due to diarrhea and dehydration Patient may likely need more free water in his tube feeding Will give IV fluids Severe protein calorie malnutrition Continue tube feeding as per previous prescription Diarrhea and dehydration This could be due to the tube feeding. He has run out and ran out of Osmolite and was using his previous tube feeding Hyperkalemia Due to dehydration Chronic anemia and thrombocytopenia At present he is on hemoglobin and platelet is above his baseline numbers. This is likely due to dehydration History of hypertension and diabetes Resolved after massive weight loss in the past year. Essential tremors on primidone Plan / VTE VTE Prophylaxis Ordered?: Yes CROW HURTADO MD April 13, 2021 17:24
[2021-04-13 20:38] VITALS: BP 127/68
[2021-04-13] MEDS ORDERED: BACTRIM SUSP 160MG/800MG PER 20ML ORAL SYRINGE TF SCH (21:00)
[2021-04-13] MEDS ORDERED: PRIMIDONE 50 MG TAB PEG SCH (21:00)
[2021-04-13] MEDS: HEPARIN SOD (PORCINE) 5000UNITS/ML 1ML VIAL/SYRINGE SC SCH (21:00)
[2021-04-13] MEDS: AUGMENTIN BID 400MG/5ML SUSP 50ML BTL PEG SCH (21:43)
[2021-04-13] MEDS: PRIMIDONE 50 MG TAB PEG SCH (23:30)
[2021-04-14] MEDS ORDERED: NS 1,000 ML IV SCH (03:55)
[2021-04-14 06:00] VITALS: BP 121/59
[2021-04-14 06:07] LABS: HEMATOCRIT 29.3 % (42.0-52.0); HEMOGLOBIN 9.1 g/dl (13.5-17.5); MEAN CORPUSCULAR HEMOGLOBIN 29.4 pg (27.0-33.0); MEAN CORPUSCULAR HGB CONC 31.1 g/dl (32.0-36.5); MEAN CORPUSCULAR VOLUME 94.8 fl (80.0-96.0); PLATELET COUNT, AUTOMATED 125 10^3/uL (150-450); RED BLOOD COUNT 3.09 10^6/uL (4.30-6.10); WHITE BLOOD COUNT 5.3 10^3/uL (4.0-10.0)
[2021-04-14 06:28] LABS: BILIRUBIN,TOTAL 0.3 MG/DL (0.2-1.0); CALCIUM LEVEL 8.2 MG/DL (8.8-10.2); CREATININE FOR GFR 1.96 MG/DL (0.70-1.30); GLOMERULAR FILTRATION RATE 35.3 (>42); POTASSIUM SERUM 5.8 MEQ/L (3.5-5.1); TOTAL PROTEIN 7.2 GM/DL (6.4-8.2)
[2021-04-14] MEDS ORDERED: SODIUM CHLORIDE 0.9% 1000ML IV ONE ×3 (08:45→17:40)
[2021-04-14] MEDS: PRIMIDONE 50 MG TAB PEG SCH ×2 (10:39→20:25)
[2021-04-14] MEDS: HEPARIN SOD (PORCINE) 5000UNITS/ML 1ML VIAL/SYRINGE SC SCH ×2 (10:40→20:26)
[2021-04-14] MEDS: AUGMENTIN BID 400MG/5ML SUSP 50ML BTL PEG SCH (10:40)
--- NOTE | 2021-04-14 13:19 | IPNPDOC ---
Subjective Date Seen The patient was seen on 04/14/21. Subjective Chief Complaint/HPI Feels much better today. There is concern from the vising nurses about how he is managing his PEG tube. We do not have any records where the tube was placed most likely at [facility]. No record about who is prescribing the tube feeding. PFS is trying to figure this out. Objective Physical Examination General Exam: Positive: Alert, Cooperative, No Acute Distress Eye Exam: Positive: PERRLA, Conjunctiva & lids normal, EOMI; Negative: Sclera icteric ENT Exam: Positive: Other ENT (severe bitemporal wasting) Neck Exam: Positive: Supple; Negative: JVD, thyromegaly Chest Exam: Positive: Clear to auscultation, Normal air movement Heart Exam: Positive: Rate Normal, Regular Rhythm, Normal S1, Normal S2; Negative: Murmurs, Rubs Abdomen Exam: Positive: Normal bowel sounds, Soft; Negative: Tenderness, Hepatospenomegaly Extremity Exam: Negative: Clubbing, Cyanosis, Edema Assessment /Plan Assessment 80-year-old male with a past medical history of 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 Patient was last admitted at [facility] from March 24 to April 01 for dehydration, acute renal failure. To me. Patient complains that he was very weak and shaky. Lab work in the ED showed that the patient was in acute renal failure and was severely dehydrated. Acute renal failure Due to diarrhea and dehydration Patient may likely need more free water in his tube feeding Will give IV fluids Hyperkalemia likely due to Bactrim and TRACEY. will give IVF and reevaluate. Severe protein calorie malnutrition Continue tube feeding as per previous prescription of Osmolyte. Diarrhea and dehydration This could be due to the tube feeding. He has run out and ran out of Osmolite and was using his previous tube feeding Hyperkalemia Due to dehydration Chronic anemia and thrombocytopenia At present he is on hemoglobin and platelet is above his baseline numbers. This is likely due to dehydration History of hypertension and diabetes Resolved after massive weight loss in the past year. Essential tremors on primidone Dysphagia esophageal stenosis/ strictures as the gastroesophageal junction and abnormal esophageal motility with spastic and tortuous spastic LES seen in EGDs stenosis was dilated by Dr Mac several times since 2009. In Dec 2018 Dr Mac felt he may have achalasia: EGD: Abnormal esophageal motility, with persistent marked spasm at LES, suspicious for achalasia, Benign- appearing esophageal stenosis. Dilated with CRE balloon to 15 mm. Tortuous distal esophagus. Small hiatal hernia. Was supposed to get a esophageal motility study but then in Jul 2019 he Has the metastatic renal ca diagnosed adn subsequently PEG tube was placed. Now Has a PEG tube. It was placed at [facility] in Jul - Aug 2019 admission. Plan/VTE VTE Prophylaxis Ordered?: Yes VS, I&O, 24H, Fishbone Vital Signs/I&O Vital Signs Date Time Temp Pulse Resp B/P (MAP) Pulse Ox O2 Delivery O2 Flow Rate FiO2 04/14/21 06:00 97.2 88 16 121/59 (79) 97 Room Air I&O- Last 24 Hours up to 6 AM 04/14/21 06:00 Intake Total 1640 ml Output Total 700 ml Balance 940 ml Laboratory Data 24H LABS Laboratory Tests 2 04/13/21 15:13: Immature Granulocyte % (Auto) 2.7, Neutrophils (%) (Auto) 83.2H, Lymphocytes (%) (Auto) 8.8L, Monocytes (%) (Auto) 4.4, Eosinophils (%) (Auto) 0.2, Basophils (%) (Auto) 0.7, Neutrophils # (Auto) 4.6, Lymphocytes # (Auto) 0.5L, Monocytes # (Auto) 0.2, Eosinophils # (Auto) 0.0, Basophils # (Auto) 0.0, Nucleated Red Blood Cells % (auto) 0.0 04/13/21 15:14: Anion Gap 11, Glomerular Filtration Rate 30.3L, Calcium Level 8.8, Magnesium Level 2.5H, Total Bilirubin 0.4, Direct Bilirubin 0.1, Aspartate Amino Transf (AST/SGOT) 43H, Alanine Aminotransferase (ALT/SGPT) 56, Alkaline Phosphatase 167H, Total Protein 8.4H, Albumin 3.9, Albumin/Globulin Ratio 0.9, Lipase 962H 04/13/21 15:18: POC Glucose (Misc Panel) 105, POC Sodium (Misc Panel) 133L, POC Potassium (Misc Panel) 5.4H, POC Chloride (Misc Panel) 102, POC Total CO2 (Misc Panel) 28.0H, POC Blood Urea Nitrogen (Misc Panel 98H, POC Ionized Calcium (Misc Panel) 5.1, POC Creatinine (Misc Panel) 2.4H, POC Hematocrit (Misc Panel) 37.0L 04/14/21 05:47: Nucleated Red Blood Cells % (auto) 0.0, Anion Gap 4L, Glomerular Filtration Rate 35.3L, Calcium Level 8.2L, Total Bilirubin 0.3, Aspartate Amino Transf (AST/SGOT) 39H, Alanine Aminotransferase (ALT/SGPT) 46, Alkaline Phosphatase 127H, Total Protein 7.2, Albumin 3.0#L, Albumin/Globulin Ratio 0.7 CBC/BMP Laboratory Tests 04/13/21 15:13 04/13/21 15:14 04/14/21 05:47 Microbiology Microbiology 04/13/21 Respiratory Virus Panel (PCR) ([facility]) - Final, Complete CROW HURTADO MD April 14, 2021 13:19
[2021-04-14 14:00] VITALS: BP 102/53
[2021-04-14] MEDS ORDERED: DEXTROSE 50% 50 ML SYRINGE IV STA (17:34)
[2021-04-14] MEDS ORDERED: HumuLIN R (REGULAR) INSULIN (NovoLIN R) **100U/ML** PER UNIT IV STA (17:34)
[2021-04-14] MEDS ORDERED: ALBUTEROL SULFATE 2.5 MG/0.5 ML INH NEB SOLN NEB ONE (17:35)
[2021-04-14] MEDS ORDERED: SOD POLYSTYRENE SULFONATE SUSP 15 GM/60 ML UD PO ONE (17:35)
[2021-04-14] MEDS ORDERED: FUROSEMIDE 40MG/4ML VIAL (J1940) IV ONE (17:35)
[2021-04-14] MEDS ORDERED: CALCIUM GLUCONATE 1,000 MG in D5W MINI-BAG PLUS 100 ML IV ONE (17:35)
--- NOTE | 2021-04-14 17:39 | IPNPDOC ---
Text Note Date of Service The patient was seen on 04/14/21. NOTE Moved to PCU for Hyperkalemia VS,Shazia, I+O VS, Shazia, I+O Laboratory Tests 04/14/21 05:47 04/14/21 16:44 Vital Signs Date Time Temp Pulse Resp B/P (MAP) Pulse Ox O2 Delivery O2 Flow Rate FiO2 04/14/21 14:00 98.4 72 18 102/53 (69) 95 Room Air I&O- Last 24 Hours up to 6 AM 04/14/21 06:00 Intake Total 1640 ml Output Total 700 ml Balance 940 ml CROW HURTADO MD April 14, 2021 17:39
[2021-04-14 21:49] LABS: CALCIUM LEVEL 8.6 MG/DL (8.8-10.2); CREATININE FOR GFR 1.94 MG/DL (0.70-1.30); GLOMERULAR FILTRATION RATE 35.7 (>42); POTASSIUM SERUM 5.3 MEQ/L (3.5-5.1)
[2021-04-14 22:00] VITALS: BP 101/55
[2021-04-14 22:50] VITALS: BP 96/53
[2021-04-15] VITALS: BP 102/58
[2021-04-15 04:00] VITALS: BP 102/67
[2021-04-15 05:20] LABS: BASO % 0.4 % (0.0-1.0); EOS % 0.4 % (0.0-3.0); HEMATOCRIT 30.4 % (42.0-52.0); HEMOGLOBIN 9.2 g/dl (13.5-17.5); LYMPH # 0.4 10^3/uL (1.5-5.0); LYMPH % 9.4 % (24.0-44.0); MEAN CORPUSCULAR HGB CONC 30.3 g/dl (32.0-36.5); MEAN CORPUSCULAR VOLUME 95.9 fl (80.0-96.0); MONO # 0.2 10^3/uL (0.0-0.8); MONO % 5.1 % (2.0-8.0); NEUTROPHILS # 3.9 10^3/uL (1.5-8.5); NEUTROPHILS % 83.4 % (36.0-66.0); PLATELET COUNT, AUTOMATED 109 10^3/uL (150-450); RED BLOOD COUNT 3.17 10^6/uL (4.30-6.10); WHITE BLOOD COUNT 4.7 10^3/uL (4.0-10.0)
[2021-04-15 05:40] LABS: CALCIUM LEVEL 8.2 MG/DL (8.8-10.2); CREATININE FOR GFR 1.9 MG/DL (0.70-1.30); GLOMERULAR FILTRATION RATE 36.6 (>42); POTASSIUM SERUM 5.2 MEQ/L (3.5-5.1)
[2021-04-15 07:34] VITALS: BP 111/56
[2021-04-15] MEDS: PRIMIDONE 50 MG TAB PEG SCH ×2 (08:09→20:26)
[2021-04-15] MEDS: HEPARIN SOD (PORCINE) 5000UNITS/ML 1ML VIAL/SYRINGE SC SCH ×2 (08:10→20:26)
[2021-04-15] MEDS ORDERED: ACETAMINOPHEN TAB 650MG DOSE (2X325MG) PO PRN (08:35)
[2021-04-15] MEDS: oxyCODONE 5MG TAB PO PRN (10:06)
[2021-04-15 12:00] VITALS: BP 110/58
[2021-04-15] MEDS ORDERED: PATIROMER SORBITEX CALCIUM 8.4 GM POWDER PACKET (VELTASSA) PO SCH (12:00)
--- NOTE | 2021-04-15 13:43 | IPNPDOC ---
Subjective Date Seen The patient was seen on 04/15/21. Subjective Chief Complaint/HPI Feels good no complaints wants to go home. Objective Physical Examination General Exam: Positive: Alert, Cooperative, No Acute Distress Eye Exam: Positive: PERRLA, Conjunctiva & lids normal, EOMI; Negative: Sclera icteric ENT Exam: Positive: Other ENT (severe bitemporal wasting) Neck Exam: Positive: Supple; Negative: JVD, thyromegaly Chest Exam: Positive: Clear to auscultation, Normal air movement Heart Exam: Positive: Rate Normal, Regular Rhythm, Normal S1, Normal S2; Negative: Murmurs, Rubs Abdomen Exam: Positive: Normal bowel sounds, Soft; Negative: Tenderness, Hepatospenomegaly Extremity Exam: Negative: Clubbing, Cyanosis, Edema Assessment /Plan Assessment 80-year-old male with a past medical history of 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 Patient was last admitted at [facility] from March 24 to April 01 for dehydration, acute renal failure. To me. Patient complains that he was very weak and shaky. Lab work in the ED showed that the patient was in acute renal failure and was severely dehydrated. Acute renal failure Due to diarrhea and dehydration Patient may likely need more free water in his tube feeding Patient has neurogenic bladder and self catheterizes, Had dial placed as was unsure if he was obstructed. It seems to be OK. So will dc dial and go back to intermittent caths. Bladder scan after self catheterization to see if he is evacuating completely. Renal consult appreciated. Hyperkalemia likely due to Bactrim and TRACEY. better today after hyperkalemia cocktail, IVF, lasix and stopping Bactrim. Severe protein calorie malnutrition Continue tube feeding with Nepro. Diarrhea and dehydration This could be due to the tube feeding. He has run out and ran out of Osmolite and was using his previous tube feeding Hyperkalemia Due to dehydration Chronic anemia and thrombocytopenia At present he is on hemoglobin and platelet is above his baseline numbers. This is likely due to dehydration History of hypertension and diabetes Resolved after massive weight loss in the past year. Essential tremors on primidone Dysphagia esophageal stenosis/ strictures as the gastroesophageal junction and abnormal esophageal motility with spastic and tortuous spastic LES seen in EGDs stenosis was dilated by Dr Mac several times since 2009. In Dec 2018 Dr Mac felt he may have achalasia: EGD: Abnormal esophageal motility, with persistent marked spasm at LES, suspicious for achalasia, Benign- appearing esophageal stenosis. Dilated with CRE balloon to 15 mm. Tortuous distal esophagus. Small hiatal hernia. Was supposed to get a esophageal motility study but then in Jul 2019 he Has the metastatic renal ca diagnosed adn subsequently PEG tube was placed. Now Has a PEG tube. It was placed at [facility] in Jul - Aug 2019 admission. Plan/VTE VTE Prophylaxis Ordered?: Yes VS, I&O, 24H, Fishbone Vital Signs/I&O Vital Signs Date Time Temp Pulse Resp B/P (MAP) Pulse Ox O2 Delivery O2 Flow Rate FiO2 04/15/21 12:00 97.1 72 18 110/58 (75) 100 Room Air I&O- Last 24 Hours up to 6 AM 04/15/21 06:00 Intake Total 195 ml Output Total 2975 ml Balance -2780 ml Laboratory Data 24H LABS Laboratory Tests 2 04/14/21 21:13: Anion Gap 9, Glomerular Filtration Rate 35.7L, Calcium Level 8.6L 04/15/21 04:52: Anion Gap 6L, Glomerular Filtration Rate 36.6L, Calcium Level 8.2L, Immature Granulocyte % (Auto) 1.3, Neutrophils (%) (Auto) 83.4H, Lymphocytes (%) (Auto) 9.4L, Monocytes (%) (Auto) 5.1, Eosinophils (%) (Auto) 0.4, Basophils (%) (Auto) 0.4, Neutrophils # (Auto) 3.9, Lymphocytes # (Auto) 0.4L, Monocytes # (Auto) 0.2, Eosinophils # (Auto) 0.0, Basophils # (Auto) 0.0, Nucleated Red Blood Cells % (auto) 0.0 04/15/21 11:07: Bedside Glucose (Misc Panel) 114H CBC/BMP Laboratory Tests 04/14/21 16:44 04/14/21 21:13 04/15/21 04:52 Microbiology Microbiology 04/13/21 Respiratory Virus Panel (PCR) ([facility]) - Final, Complete CROW HURTADO MD April 15, 2021 13:43
[2021-04-15 16:00] VITALS: BP 118/61
[2021-04-15 20:00] VITALS: BP 131/63
[2021-04-16] VITALS: BP 131/62
[2021-04-16 04:00] VITALS: BP 119/60
[2021-04-16] MEDS: oxyCODONE 5MG TAB PO PRN (06:05)
[2021-04-16 06:57] LABS: BASO % 0.4 % (0.0-1.0); EOS % 0.7 % (0.0-3.0); HEMATOCRIT 29.4 % (42.0-52.0); LYMPH # 0.6 10^3/uL (1.5-5.0); LYMPH % 12.9 % (24.0-44.0); MEAN CORPUSCULAR HEMOGLOBIN 29.3 pg (27.0-33.0); MEAN CORPUSCULAR HGB CONC 30.6 g/dl (32.0-36.5); MEAN CORPUSCULAR VOLUME 95.8 fl (80.0-96.0); MONO # 0.2 10^3/uL (0.0-0.8); MONO % 4.8 % (2.0-8.0); NEUTROPHILS # 3.7 10^3/uL (1.5-8.5); NEUTROPHILS % 80.1 % (36.0-66.0); PLATELET COUNT, AUTOMATED 103 10^3/uL (150-450); RED BLOOD COUNT 3.07 10^6/uL (4.30-6.10); WHITE BLOOD COUNT 4.6 10^3/uL (4.0-10.0)
[2021-04-16 07:24] LABS: CALCIUM LEVEL 8.4 MG/DL (8.8-10.2); CREATININE FOR GFR 1.73 MG/DL (0.70-1.30); GLOMERULAR FILTRATION RATE 40.8 (>42); POTASSIUM SERUM 4.5 MEQ/L (3.5-5.1)
[2021-04-16 07:42] VITALS: BP 126/65
[2021-04-16] MEDS: HEPARIN SOD (PORCINE) 5000UNITS/ML 1ML VIAL/SYRINGE SC SCH (08:24)
[2021-04-16] MEDS: PRIMIDONE 50 MG TAB PEG SCH (08:42)
[2021-04-16] MEDS ORDERED: PATIROMER SORBITEX CALCIUM 8.4 GM POWDER PACKET (VELTASSA) PO SCH (09:00)
[2021-04-16] MEDS ORDERED: SLF 3 ML SYR IV PRN (09:10)
--- NOTE | 2021-04-16 09:24 | CR ---
NEPHROLOGY CONSULTATION DATE: 04/15/2021 REQUESTING PHYSICIAN: Dr. Salima Chambers CONSULTING PHYSICIAN: Dr. Marialuisa Manning REASON FOR CONSULTATION: Management of acute renal failure and electrolyte abnormalities. CHIEF COMPLAINT: The patient presented to the hospital two days ago with diarrhea and confusion. HISTORY OF PRESENT ILLNESS: Allan Baldwin is a 80-year-old male with a past medical history of metastatic renal cell carcinoma of the right kidney status post a right sided nephrectomy. History of chronic urinary retention requiring self catheterization. Baseline chronic kidney disease 3 with a creatinine of 1.3. He was seen by Nephrology Service during previous hospitalization as well with acute renal failure which responded to IV fluid hydration and later on tube feeds. He was sent to the Emergency Room by the home health nurse who felt that the patient was getting weak and confused. He was also very weak and shaky and he was having trembling of the extremities. The patient also reported having nausea and diarrhea. He was found to be in acute renal failure with a creatinine of 2.2. He was started on IV fluid hydration, however his hyperkalemia got worse with a potassium of 6.7 yesterday. He was given a dose of Kayexalate yesterday. Nephrology Service was called for further help in the management of this patient. I saw and evaluated the patient today morning at the bedside. He was getting tube feeds when I saw him in the morning. He was awake and alert and he was able to communicate with me well. PAST MEDICAL HISTORY: The patient's past medical history is significant for: 1. Chronic renal disease stage 3 baseline creatinine of around 1.3. 2. History of metastatic cell carcinoma of the right kidney with metastases to the thoracic spine. 3. Status post right sided nephrectomy. 4. History of chemotherapy and immunotherapy last session was in December 2020. 5. History of transitional cell cancer of the bladder in 1999. 6. Status post transurethral resection of bladder tumor and adjuvant therapy. 7. Chronic urinary retention and bladder diverticulum. He self catheterizes. 8. History of dysphagia and aspiration because of esophageal dysmotility. He is dependent on PEG tube feeds. 9. Protein calorie malnutrition. PAST SURGICAL HISTORY: The patient's past surgical history is significant for: 1. Status post PEG tube placement. 2. Status post spinal surgery in 2018. 3. He underwent T-7 corpectomy with radiation therapy to T-4 through T-10. 4. Status post right partial nephrectomy in December 2019. 5. Right knee surgery. 6. Right surgery. 7. Abdominal hernia surgery. ALLERGIES: No known drug allergies. FAMILY HISTORY: His father and mother are unknown. SOCIAL HISTORY: He denies any smoking or alcohol abuse. REVIEW OF SYSTEMS: Constitutional: He reports weakness and weight loss. Eyes: He denies any blurry vision, double vision. ENT: He denies any ear . He does report dysphagia. Cardiovascular: He denies any chest pain or palpitations. Respiratory: He denies any shortness of breath. GI: He reports dependent on PEG tube feed and diarrhea. Genitourinary: He reports urinary retention requiring straight catheterization daily. Musculoskeletal: He denies any muscles aches and pains. Skin: He denies any rashes or ulcerations which are new. Hematological/Oncological: He reports metastatic cancer. Otherwise denies any easy bleeding or bruising. All other review of systems is negative. OBJECTIVE: GENERAL APPEARANCE: The patient is awake, alert, oriented x3, laying in bed. VITAL SIGNS: Temperature is 98 degrees Fahrenheit, blood pressure 131/63, pulse is 83, respiratory rate of 16, saturating 99% on room air. INTAKE AND OUTPUT: Urine output recorded as 2.2 liters yesterday, and by the time I saw him, he had made about 800 mL of urine. Weight in the bed scale is 50.3 kg. PHYSICAL EXAMINATION: HEAD AND NECK: Extraocular muscles intact. Pupils are equally round and reactive to light. Mucous membranes are moist. Neck is supple. There is no jugular venous distention. He has bitemporal wasting, sunken eyes. CARDIOVASCULAR: S1, S2, regular rate. EXTREMITIES: No edema of the bilateral lower extremities. RESPIRATORY: Chest is clear to auscultation bilaterally. ABDOMEN: Soft, scaphoid. A PEG tube in the epigastrium is noted. He is getting the PEG tube feeds. GENITOURINARY: He has an indwelling Hutchison catheter. MUSCULOSKELETAL: He is skin and bones. [employer]MB[employer]: The patient is awake. He is able to follow commands and move his extremities. LAB REVIEW: CBC showed a WBC count of 4.7, hemoglobin 9.2, platelet count of 109. BMP showed sodium of 137, potassium 5.2; it was 6.7 yesterday, chloride 107, bicarbonate 24, BUN 67, creatinine is 1.9, calcium 8.2. CURRENT INPATIENT MEDICATIONS: The patient's medications were all reviewed by myself. He was given a dose of Kayexalate yesterday. I have started the patient on Veltassa 8.4 grams p.o. daily. He is getting Osmolite 1.2 at 65 mL an hour, and he is also getting free water flushes with the tube feedings. ASSESSMENT AND PLAN: 1. Acute renal failure superimposed on chronic kidney disease it is secondary to dehydration, diarrhea, inability to take fluids orally, and he was not able to adequately hydrate himself with tube feeds. He is getting the tube feeds and he is able to tolerate it. We will continue that. Otherwise he will be given IV fluid hydration. 2. Hyperkalemia he was given a dose of Kayexalate yesterday. I have started him on Veltassa. If hyperkalemia persists, then tube feeds would need to be changed to a low potassium formula such as Nepro. 3. Metastatic cell cancer of the kidney with metastases to the spine - The patient is status post chemotherapy and immunotherapy. He is not a candidate for any more treatment at this time because of severe protein calorie malnutrition. 4. Dysphagia - The patient reports that he was trying to eat ice cream at home. I saw the esophageal images during recent hospitalization and he gets aspiration, so I would avoid giving him anything orally at this time. Thank you for involving me in the care of this patient. I shall follow the patient along with you tomorrow morning.
[2021-04-16 09:32] LABS: MAGNESIUM LEVEL 2.1 MG/DL (1.8-2.4)
[2021-04-16 12:00] VITALS: BP 112/67
[2021-04-16] MEDS ORDERED: VELT1POW PEG (12:09)
[2021-04-16] MEDS ORDERED: PRIM50TA6 PEG (12:09)
--- NOTE | 2021-04-16 13:24 | IPNPDOC ---
Subjective Date Seen The patient was seen on 04/16/21. Subjective Chief Complaint/HPI Feeling well today. No complaints. Eager to go home. Objective Physical Examination General Exam: Positive: Alert, Cooperative, No Acute Distress Eye Exam: Positive: PERRLA, Conjunctiva & lids normal, EOMI; Negative: Sclera icteric ENT Exam: Positive: Other ENT (severe bitemporal wasting) Neck Exam: Positive: Supple; Negative: JVD, thyromegaly Chest Exam: Positive: Clear to auscultation, Normal air movement Heart Exam: Positive: Rate Normal, Regular Rhythm, Normal S1, Normal S2; Negative: Murmurs, Rubs Abdomen Exam: Positive: Normal bowel sounds, Soft; Negative: Tenderness, Hepatospenomegaly Extremity Exam: Negative: Clubbing, Cyanosis, Edema Assessment /Plan Assessment 80-year-old male with a past medical history of 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 Patient was last admitted at [facility] from March 24 to April 01 for dehydration, acute renal failure. To me. Patient complains that he was very weak and shaky. Lab work in the ED showed that the patient was in acute renal failure and was severely dehydrated. Acute renal failure Due to diarrhea and dehydration Patient may likely need more free water in his tube feeding Patient has neurogenic bladder and self catheterizes, Had dial placed as was unsure if he was obstructed. It seems to be OK. So will dc dial and go back to intermittent caths. No issues with self catheterization Renal consult appreciated. Hyperkalemia likely due to Bactrim and TRACEY. resolved Severe protein calorie malnutrition Continue tube feeding with Nepro 4 packs/ 24 hours at 40cc/hour continous feeding + 1080 cc of free water in 24 hours( 180 ml every 4 hours) Diarrhea and dehydration resolved. likey due to bolus feeding he is torating continuous feeding better than bolus. Here we have been giving him Nepro this time which he has been tolerating fine. Chronic anemia and thrombocytopenia follow up with oncology. History of hypertension and diabetes Resolved after massive weight loss in the past year. Essential tremors on primidone, dose reduced. Dysphagia esophageal stenosis/ strictures as the gastroesophageal junction and abnormal esophageal motility with spastic and tortuous spastic LES seen in EGDs stenosis was dilated by Dr Mac several times since 2009. In Dec 2018 Dr Mac felt he may have achalasia: EGD: Abnormal esophageal motility, with persistent marked spasm at LES, suspicious for achalasia, Benign- appearing esophageal stenosis. Dilated with CRE balloon to 15 mm. Tortuous distal esophagus. Small hiatal hernia. Was supposed to get a esophageal motility study but then in Jul 2019 he Has the metastatic renal ca diagnosed adn subsequently PEG tube was placed. Now Has a PEG tube. It was placed in [place] in [address]. [address] therapy recommendation on 04/01/21 Eat in sitting position. small sips and very slow intake if patient continues to choose to drink. thin liquids & ice slow & min intake d/t esophageal dysfunction & asp risk w reflux upright for 1 hour post intake HOB maintained at least 30* they recommended ST follow up after discharge. Vivienne does not want to do this at present as he reports he has too many doctors to follow up with. Dispo: Discharge home with services activated. Plan/VTE VTE Prophylaxis Ordered?: Yes VS, I&O, 24H, Fishbone Vital Signs/I&O Vital Signs Date Time Temp Pulse Resp B/P (MAP) Pulse Ox O2 Delivery O2 Flow Rate FiO2 04/16/21 12:00 96.9 82 18 112/67 (82) 95 Room Air I&O- Last 24 Hours up to 6 AM 04/16/21 06:00 Intake Total 1080 ml Output Total 2300 ml Balance -1220 ml Laboratory Data 24H LABS Laboratory Tests 2 04/15/21 18:06: Bedside Glucose (Misc Panel) 116H 04/16/21 06:22: Immature Granulocyte % (Auto) 1.1, Neutrophils (%) (Auto) 80.1H, Lymphocytes (%) (Auto) 12.9L, Monocytes (%) (Auto) 4.8, Eosinophils (%) (Auto) 0.7, Basophils (%) (Auto) 0.4, Neutrophils # (Auto) 3.7, Lymphocytes # (Auto) 0.6L, Monocytes # (Auto) 0.2, Eosinophils # (Auto) 0.0, Basophils # (Auto) 0.0, Nucleated Red Blo od Cells % (auto) 0.0, Anion Gap 6L, Glomerular Filtration Rate 40.8L, Calcium Level 8.4L, Magnesium Level 2.1 CBC/BMP Laboratory Tests 04/16/21 06:22 Microbiology Microbiology 04/13/21 Respiratory Virus Panel (PCR) ([facility]) - Final, Complete CROW HURTADO MD April 16, 2021 13:18
[2021-04-16] MEDS ORDERED: SLF 3 ML SYR IV SCH (14:00)
--- NOTE | 2021-04-16 23:26 | IPN ---
NEPHROLOGY PROGRESS NOTE DATE: 04/16/2021 SUBJECTIVE: Patient was seen and examined at the bedside today morning. He is afebrile, hemodynamically stable. He is making good amount of urine. Renal function is improving. Creatinine has improved to 1.7. Hyperkalemia is also getting better. He is tolerating the tube feeds at this time. His tube feeds were changed to Nepro yesterday. OBJECTIVE: VITAL SIGNS: Temperature 97.3 degrees Fahrenheit, blood pressure 112/67, pulse 82, respiratory rate 18, saturating 95% on room air. INTAKE/OUTPUT: Urine output recorded as 2.1 liters so far since overnight. Weight in the bed scale is 49.7 kg. PHYSICAL EXAMINATION: GENERAL: Patient is awake, alert, oriented x3, weak and cachectic, chronically malnourished. He is skin and bone. HEAD/NECK: Extraocular muscles intact. Pupils equally round and reactive to light. Neck is supple. There is no JVD. CVS: S1, S2, regular rate. No edema of bilateral lower extremities. RESPIRATORY: Chest is clear to auscultation bilaterally. ABDOMEN: Soft. He has a PEG tube in the epigastrium. MUSCULOSKELETAL: He is just skin and bones. He has surgical scar on the thoracic spine as well. AUTOMATIC ENGRAVER: No focal deficit. He moves all extremities. LAB REVIEW: CBC showed WBC 4.6, hemoglobin 9, platelets 103,000. BMP showed sodium 135, potassium 5, chloride 105, bicarb 24, BUN 62, creatinine 1.7; it was 1.9 yesterday. Magnesium 2.1. CURRENT INPATIENT MEDICATIONS: Patient's medications were all reviewed by myself. I changed his Veltassa dose to one packet 8.4 grams p.o. three times a week. He is currently not on any I.V. fluid hydration. ASSESSMENT AND PLAN: 1. Acute renal failure superimposed on chronic kidney disease: It was secondary to dehydration and poor oral intake. He is tolerating the tube feeds now and his renal function is getting better. 2. Chronic urinary retention and bladder diverticulum: Patient will continue to do straight cath daily at home. He already has supplies at home. 3. Hyperkalemia: It has resolved. Veltassa dose can be changed to three times a week now. 4. Protein calorie malnutrition and dysphagia: Patient is getting Nepro with water flushes and he will be sent home on the tube feeds. 5. Metastatic renal cell cancer with mets to spine; status post right-sided nephrectomy: Patient currently is not a candidate for any chemotherapy. DISPOSITION: Patient is optimized to be discharged from nephrology standpoint.
== END 2021-04-16 18:16 | disposition home or self-care (01) ==
LOC: M ED 14:07 → M ED INP 14:08 → ENRESERVDT 20:00 → ENRESERVTM 20:00 → M MSPAV 20:39 → M PCU 04-14 22:50
PROVIDERS: ADMIT Internal Medicine Nephrology; ATTEND Internal Medicine Nephrology
DX: N17.9 Acute kidney failure, unspecified (principal); N18.30 Chronic kidney disease, stage 3 unspecified; E86.0 Dehydration; R33.8 Other retention of urine; E46 Unspecified protein-calorie malnutrition; N32.3 Diverticulum of bladder; R13.19 Other dysphagia; E87.5 Hyperkalemia; C64.1 Malignant neoplasm of right kidney, except renal pelvis; C79.51 Secondary malignant neoplasm of bone; Z92.21 Personal history of antineoplastic chemotherapy; Z92.3 Personal history of irradiation; Z79.899 Other long term (current) drug therapy; Z93.1 Gastrostomy status; D69.6 Thrombocytopenia, unspecified; G25.0 Essential tremor; K21.9 Gastro-esophageal reflux disease without esophagitis; I10 Essential (primary) hypertension; F32.9 Major depressive disorder, single episode, unspecified
CPT/HCPCS: 36415; 80047; 80048; 80053; 80076; 83690; 83735; 84132; 85025; 85027; 87798; 93041; 94640; 96361; 96374; 96375; 96376; 99285; G0378; J0610; J1940

== ENCOUNTER → 2021-04-28 | Outpatient (REF) | payer MEDICARE ==
[~2021-04-28] MED LIST changes: +AMOX400S TF; +PRIM50TA6 PEG; +SULF473O TF; +VELT1POW PEG
[2021-04-28 17:10] LABS: BASO # 0.1 10^3/uL (0.0-0.2); BASO % 0.9 % (0.0-1.0); EOS % 0.2 % (0.0-3.0); HEMATOCRIT 32.5 % (42.0-52.0); LYMPH # 0.6 10^3/uL (1.5-5.0); MEAN CORPUSCULAR HEMOGLOBIN 30.1 pg (27.0-33.0); MEAN CORPUSCULAR HGB CONC 30.8 g/dl (32.0-36.5); MEAN CORPUSCULAR VOLUME 97.9 fl (80.0-96.0); MONO # 0.3 10^3/uL (0.0-0.8); NEUTROPHILS # 4.5 10^3/uL (1.5-8.5); NEUTROPHILS % 78.7 % (36.0-66.0); PLATELET COUNT, AUTOMATED 107 10^3/uL (150-450); RED BLOOD COUNT 3.32 10^6/uL (4.30-6.10); WHITE BLOOD COUNT 5.7 10^3/uL (4.0-10.0)
[2021-04-28 17:25] LABS: ALBUMIN 3.7 GM/DL (3.2-5.2); CALCIUM LEVEL 10.7 MG/DL (8.8-10.2); CREATININE FOR GFR 1.81 MG/DL (0.70-1.30); GLOMERULAR FILTRATION RATE 38.7 (>42); MAGNESIUM LEVEL 2.9 MG/DL (1.8-2.4); PHOSPHORUS LEVEL 3.7 MG/DL (2.5-4.9); POTASSIUM SERUM 3.9 MEQ/L (3.5-5.1)
== END ==
LOC: M SHH 15:58
PROVIDERS: ATTEND Internal Medicine Nephrology
DX: N18.31 Chronic kidney disease, stage 3a (principal); Z79.899 Other long term (current) drug therapy

== ENCOUNTER 2021-06-22 18:52 | Inpatient (IN) | payer MEDICARE ==
[~2021-06-22] VITALS: Ht 162.6 cm; Wt 53.3 kg
[~2021-06-22 18:52] MED LIST changes: +OMEP40CA4 PO; -OMEP40CA97 PO
[2021-06-22] MEDS ORDERED: SERT-141 PO (19:10)
[2021-06-22] MEDS ORDERED: ALPR2TAB3 PO (19:10)
[2021-06-22 20:32] LABS: BASO % 0.3 % (0.0-1.0); HEMATOCRIT 34.2 % (42.0-52.0); HEMOGLOBIN 11.4 g/dl (13.5-17.5); LYMPH # 0.5 10^3/uL (1.5-5.0); MEAN CORPUSCULAR HEMOGLOBIN 32.4 pg (27.0-33.0); MEAN CORPUSCULAR HGB CONC 33.3 g/dl (32.0-36.5); MEAN CORPUSCULAR VOLUME 97.2 fl (80.0-96.0); MONO # 0.4 10^3/uL (0.0-0.8); MONO % 4.1 % (2.0-8.0); NEUTROPHILS # 9.1 10^3/uL (1.5-8.5); NEUTROPHILS % 89.1 % (36.0-66.0); PLATELET COUNT, AUTOMATED 145 10^3/uL (150-450); RED BLOOD COUNT 3.52 10^6/uL (4.30-6.10); WHITE BLOOD COUNT 10.2 10^3/uL (4.0-10.0)
[2021-06-22 20:56] LABS: ALBUMIN 4.1 GM/DL (3.2-5.2); ALT/SGPT 142 U/L (12-78); BILIRUBIN,DIRECT 0.2 MG/DL (0.0-0.2); BILIRUBIN,TOTAL 0.6 MG/DL (0.2-1.0); CK-MB VALUE MASS < 1.0 NG/ML (<3.6); CPK CREATINE PHOSPHOKINASE 57 U/L (39-308); LIPASE 793 U/L (73-393); MB/CK RELATIVE INDEX 1.75 (< OR =4); TOTAL PROTEIN 8.4 GM/DL (6.4-8.2); TROPONIN I < 0.02 NG/ML (< 0.10)
[2021-06-22] MEDS ORDERED: ISOVUE-370 76% 100ML VIAL As Ordered ONE (22:04)
[2021-06-22] MEDS ORDERED: METOCLOPRAMIDE INJ 10MG/2ML VIAL (J2765 PER 1) IV ONE (22:20)
[2021-06-22] MEDS: MORPHINE 4 MG/ML 1ML VIAL/SYRINGE (J2270) IV PRN (22:28)
--- NOTE | 2021-06-23 00:02 | REPVR ---
PROCEDURE INFORMATION: Exam: CT Abdomen And Pelvis With Contrast Exam date and time: 06/22/2021 10:58 PM Age: 80 years old Clinical indication: Abdominal pain; Generalized; Additional info: Abd pain, metastatic renal CA, lung masses TECHNIQUE: Imaging protocol: Computed tomography of the abdomen and pelvis with contrast. Radiation optimization: All CT scans at this facility use at least one of these dose optimization techniques: automated exposure control; mA and/or kV adjustment per patient size (includes targeted exams where dose is matched to clinical indication); or iterative reconstruction. Contrast material: ISOVUE 370; Contrast volume: 100 ml; Contrast route: INTRAVENOUS (IV); COMPARISON: CT ABD/PEL W/IV CONTRAST ONLY 05/09/2021 2:04 PM FINDINGS: Tubes, catheters and devices: There is a PEG tube in the stomach. Liver: Unremarkable. No mass. Gallbladder and bile ducts: Small calculi in the gallbladder. No gallbladder wall thickening or pericholecystic fluid. Stable mild extrahepatic biliary duct dilation. Pancreas: Normal. No ductal dilation. 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 No splenomegaly. Adrenal glands: Normal. No mass. Kidneys and ureters: Prior right nephrectomy. No mass is seen in the right renal fossa. Left kidney is unremarkable. Left ureter is mildly dilated. No obstructing urinary tract calculi are seen. Stomach and bowel: Mild intraluminal fluid and mucosal enhancement in the small bowel. No bowel obstruction. There is colonic diverticulosis without evidence of diverticulitis. Stomach is mildly distended. Appendix: No evidence of appendicitis. Intraperitoneal space: No free air. No significant fluid collection. Vasculature: Unremarkable. No abdominal aortic aneurysm. Lymph nodes: Unremarkable. No enlarged lymph nodes. Urinary bladder: The urinary bladder is mildly distended. Numerous urinary bladder diverticula are present. No bladder wall thickening or calculi. Reproductive: Unremarkable as visualized. Bones/joints: There are degenerative changes in the spine and pelvis. Soft tissues: Unremarkable. IMPRESSION: 1. Colonic diverticulosis without evidence of diverticulitis. 2. Mild mucosal enhancement and intraluminal fluid in the small bowel is nonspecific but may indicate a viral enteritis. No bowel obstruction. 3. Mild left hydroureter, similar to the prior exam. No obstructing calculus is seen. 4. Multiple urinary bladder diverticula. Electronically signed by: Teddy Braswell On 06/23/2021 00:01:35 AM
--- NOTE | 2021-06-23 00:10 | REPVR ---
PROCEDURE INFORMATION: Exam: CT Chest With Contrast; Diagnostic Exam date and time: 06/22/2021 10:58 PM Age: 80 years old Clinical indication: Chest wall pain; Additional info: Abd pain, metastatic renal CA, lung masses TECHNIQUE: Imaging protocol: Diagnostic computed tomography of the chest with contrast. Radiation optimization: All CT scans at this facility use at least one of these dose optimization techniques: automated exposure control; mA and/or kV adjustment per patient size (includes targeted exams where dose is matched to clinical indication); or iterative reconstruction. Contrast material: ISOVUE 370; Contrast volume: 100 ml; Contrast route: INTRAVENOUS (IV); COMPARISON: CT ABD/PEL W/IV CONTRAST ONLY 05/09/2021 2:04 PM FINDINGS: Lungs: 6 mm noncalcified left upper lobe nodule is slightly increased in size. 14 mm noncalcified right lower lobe nodule is slightly increased in size. No airspace consolidation. Pleural spaces: Unremarkable. No pneumothorax. No pleural effusion. Heart: Unremarkable. No cardiomegaly. No pericardial effusion. Aorta: Unremarkable. No aortic aneurysm. Lymph nodes: Enlarged 1.8 cm left hilar lymph node. Bones/joints: Postoperative changes of prior thoracic posterior fusion are stable. Soft tissues: 5.1 x 2.1 cm right paraspinal mass has increased in size. IMPRESSION: 1. Slight increase in size of pulmonary masses. Enlarged left hilar lymph node. 2. Increasing size of right paraspinal mass. 3. No acute findings. Electronically signed by: Teddy Braswell On 06/23/2021 00:10:08 AM
[2021-06-23] MEDS ORDERED: ALPR0.25 PO (02:01)
[2021-06-23 03:00] LABS: RSV AMPLIFICATION NEGATIVE (NEGATIVE)
[2021-06-23] MEDS: MORPHINE 4 MG/ML 1ML VIAL/SYRINGE (J2270) IV PRN ×3 (03:11→16:53)
--- NOTE | 2021-06-23 03:53 | HPEPDOC ---
[facility] Medical History & Physical Date of Admission Jun 23, 2021 Date of Service: Jun 23, 2021 History and Physical CHIEF COMPLAINT: Back pain HISTORY OF PRESENT ILLNESS: 80-year-old male history of metastatic renal cell cancer who presents because of uncontrollable back pain associated with nausea and vomiting. Patient tells me he's been unable to take his pain medications due to intermittent vomiting and so his pain has been out of control. He was living with his daughter and Ernie until recently and was on hospice but recently decided he wants to move back home in [place] where he lost his hospice services when he changed counties and his primary care physician has been trying to obtain new hospice care for him. Patient is unsure if he wants to go back on hospice and wants to think about it he began she wants to go back and see his oncologist he tells me he was supposed to get a PET scan but didn't go. He says he continues to have worsening weakness and weight loss. He denies any chest pain or shortness of breath. Patient will be admitted to the hospitalist service for pain control and for oncology social worker to help us establish hospice care for the patient if those are still his wishes. He did reiterate that he does wish to continue to be DNR/DNI. PAST MEDICAL HISTORY: Metastatic renal cell carcinoma to the thoracic spine Partial nephrectomy History of bladder cancer status post transurethral resection of the bladder tumor self-catheterization due to urinary retention CKD Dysphagia with aspiration on tube feeding Protein calorie malnutrition and failure to thrive SOCIAL HISTORY: Lives at home alone now in [place] previously was living with his daughter FAMILY HISTORY: Reviewed and none contributory to this admission ALLERGIES: Please see below. REVIEW OF SYSTEMS: 10 point review of systems complete all negative otherwise stated in HPI HOME MEDICATIONS: Please see below. PHYSICAL EXAMINATION: Constitutional: Awake and alert, in no apparent distress, sacropenic, frail, appears weak. weight in [place] shows 113 kg this is incorrect perhaps nurse meant pounds. will ask to reweigh ENT: Sclera are clear. Mucosa is moist. Respiratory: Lungs CTA bilaterally. No respiratory distress. Cardiovascular: Regular rate and rhythm Gastrointestinal: Abdomen is soft, non distended, non tender, BS present. PEG tube in place Musculoskeletal: No lower extremity edema. Point tenderness mid thoracic spine Neurologic: No focal neurological deficit. Mental Status: A&O x3, normal affect LABORATORY DATA: See below. IMAGING: See chart MICROBIOLOGY: Please see below. ASSESSMENT/PLAN 80-year-old male history of metastatic renal cancer to the spine presents with intractable back pain likely related to his metastasis associated with nausea and vomiting. Patient admitted to medical service for further medical workup and management and pain control. # Metastatic renal cancer to the spine: Intractable pain. Pain control with IV morphine until able to tolerate by mouth. Zofran IV for nausea. Hospice consult. Discussed with patient tomorrow if he has decided if he wishes to proceed with hospice or wants to continue to follow-up with oncology. # Dysphagia with aspiration on tube feeding: Dietary consult for tube feeding. Continued last recs in the meantime: Jevity 1.5Cal 50mL/hr continuous with free water flushes 100mL q4h # Elevated lipase: Could be related to the metastatic cancer. Denies abdominal pain. IV fluids. Repeat lipase in the morning. # Urinary retention: Self-catheterization # Failure to thrive: Related to cancer cachexia severe protein calorie malnutrition. # Chronic anemia and thrombocytopenia # DVT prophylaxis: SCDs/TEDs due to his thrombocytopenia A [facility] Hospitalist Vital Signs Vital Signs Date Time Temp Pulse Resp B/P (MAP) Pulse Ox O2 Delivery O2 Flow Rate FiO2 06/23/21 03:11 18 98 Room Air 06/23/21 02:30 92 125/69 (87) 06/22/21 18:55 98.2 Laboratory Data Labs 24H Laboratory Tests 2 06/22/21 19:46: Immature Granulocyte % (Auto) 1.5, Neutrophils (%) (Auto) 89.1H, Lymphocytes (%) (Auto) 5.0L, Monocytes (%) (Auto) 4.1, Eosinophils (%) (Auto) 0.0, Basophils (%) (Auto) 0.3, Neutrophils # (Auto) 9.1H, Lymphocytes # (Auto) 0.5L, Monocytes # (Auto) 0.4, Eosinophils # (Auto) 0.0, Basophils # (Auto) 0.0, Nucleated Red Blood Cells % (auto) 0.0, Lactic Acid Level 1.5, Total Bilirubin 0.6, Direct Bi lirubin 0.2, Aspartate Amino Transf (AST/SGOT) 81H, Alanine Aminotransferase (ALT/SGPT) 142H, Alkaline Phosphatase 285H, Total Creatine Kinase 57, Creatine Kinase MB < 1.0, Creatine Kinase MB Relative Index 1.75, Troponin I < 0.02, Total Protein 8.4H, Albumin 4.1, Albumin/Globulin Ratio 1.0, Lipase 793H 06/22/21 20:05: Urine Color YELLOW, Urine Appearance TURBIDH, Urine pH 6.0, Urine Specific [place] 1.010, Urine Protein 2+H, Urine Glucose (UA) NEGATIVE, Urine Ketones NEGATIVE, Urine Blood 1+H, Urine Nitrite NEGATIVE, Urine Bilirubin NEGATIVE, Urine Urobilinogen 0.2, Urine Leukocyte Esterase 3+H, Urine WBC (Auto) TNTCH, Urine RBC (Auto) 89H, Urine Hyaline Casts (Auto) 0, Urine Bacteria (Auto) 3+H, Urine Squamous Epithelial Cells 2, Urine Sperm (Auto) 06/22/21 20:22: POC Glucose (Misc Panel) 132H, POC Sodium (Misc Panel) 125L, POC Potassium (Misc Panel) 3.8, POC Chloride (Misc Panel) 92L, POC Total CO2 (Misc Panel) 23.0, POC Blood Urea Nitrogen (Misc Panel 74H, POC Ionized Calcium (Misc Panel) 4.5, POC Creatinine (Misc Panel) 1.1, POC Hematocrit (Misc Panel) 35.0L 06/23/21 02:15: Coronavirus (COVID-19)(PCR) NEGATIVE, Influenza Type A (RT-PCR) NEGATIVE, Influenza Type B (RT-PCR) NEGATIVE, Respiratory Syncytial Virus (PCR) NEGATIVE CBC/BMP Laboratory Tests 06/22/21 19:46 Microbiology Microbiology 06/22/21 Urine Culture, Received Pending Home Medications Scheduled Primidone (Primidone) 50 Mg Tablet, 50 MG PO BID Sertraline Hcl (Sertraline HCl) 50 Mg Tablet, 50 MG PO DAILY Scheduled PRN Alprazolam (Alprazolam) 0.25 Mg Tablet, 0.25 MG PO QHS PRN for ANXIETY Oxycodone HCl (Oxycodone HCl) 10 Mg Tablet, 20 MG PO Q4H PRN for PAIN LEVEL 5-10 Allergies Coded Allergies: No Known Allergies (Unverified , 02/26/20) JOSELO RIVERA MD Jun 23, 2021 03:53
[2021-06-23] MEDS ORDERED: ONDANSETRON 4MG/2ML VIAL IV PRN (04:00)
[2021-06-23] MEDS ORDERED: MOM 30ML SUSPENSION UDC PO PRN (04:10)
[2021-06-23] MEDS ORDERED: NS 1,000 ML IV SCH (04:10)
[2021-06-23] MEDS ORDERED: ACETAMINOPHEN TAB 650MG DOSE (2X325MG) PO PRN (04:10)
[2021-06-23 07:02] LABS: HEMATOCRIT 33.5 % (42.0-52.0); HEMOGLOBIN 10.8 g/dl (13.5-17.5); MEAN CORPUSCULAR HGB CONC 32.2 g/dl (32.0-36.5); MEAN CORPUSCULAR VOLUME 99.4 fl (80.0-96.0); PLATELET COUNT, AUTOMATED 128 10^3/uL (150-450); RED BLOOD COUNT 3.37 10^6/uL (4.30-6.10); WHITE BLOOD COUNT 12.1 10^3/uL (4.0-10.0)
[2021-06-23 07:26] LABS: ALBUMIN 3.7 GM/DL (3.2-5.2); ALT/SGPT 121 U/L (12-78); BILIRUBIN,TOTAL 0.5 MG/DL (0.2-1.0); BLOOD UREA NITROGEN 63 MG/DL (7-18); CALCIUM LEVEL 8.2 MG/DL (8.8-10.2); CARBON DIOXIDE LEVEL 16 MEQ/L (21-32); CHLORIDE LEVEL 98 MEQ/L (98-107); CREATININE FOR GFR 1.15 MG/DL (0.70-1.30); GLOMERULAR FILTRATION RATE > 60.0 (>42); GLUCOSE, FASTING 101 MG/DL (70-100); LIPASE 639 U/L (73-393); POTASSIUM SERUM 3.8 MEQ/L (3.5-5.1); SODIUM LEVEL 126 MEQ/L (136-145); TOTAL PROTEIN 7.5 GM/DL (6.4-8.2)
[2021-06-23] MEDS ORDERED: DOCUSATE SODIUM 100MG CAPSULE PO SCH (09:00)
[2021-06-23] MEDS ORDERED: OXYC10TA12 PO (16:03)
--- NOTE | 2021-06-23 16:58 | IPNPDOC ---
Subjective Date Seen The patient was seen on 06/23/21. Subjective Chief Complaint/HPI No complaints since morning, nausea, dry heaves, distension, diarrhea resolved. Patient wants to go home. I discussed about hospice but he is not interested in hospice at present . He wants to get the PET scan and see his cancer doctor in [place]. I spoke with daughter Leigha in [place]. Patient was down there with her for 3 weeks. He was supposed to stay there with her permanently but then had a change of mind and wanted to come up to his own house in [place]. He lives alone. His PMD Dr Jha set up Home hospice at [place]. When they came for [facility] admission process there was some misinformation and the nurse told that as he is on tube feeding the insurance does not cover both the tube feeding and hospice. He was then set up for palliative care. But 2 days before his appointment he insisted on coming back up here to his own house. He went to see his PMD on the 06/18/21 and was prescribed sertraline and alprazolam. Daughter says that he sleeps a lot all though out the day and night. Daughter says sometimes if the feed becomes empty air enters into his stomach and its gets distended and he has dry heaves. She believes that what happened. Also she said in the 3 weeks he was with he patient took oxycodone only twice. I talked about hospice referral here but patient wants to stay at home and as he lives alone so home hospice is not possible and he is not interested in hospice house. Daughter says patient is unable to take care of himself at home but he refuses to go to a NH. Her other sister who lives in [place] checks on him 3 to 4 times a day but she cannot stay with her. I offered to set up some home servi sam. Will speak with special education case manager to see if we can increase his hours from before. Daughter also mentioned that he has not taken his chemo medicine since December. Objective Physical Examination General Exam: Positive: Alert, Cooperative, No Acute Distress Eye Exam: Positive: PERRLA, Conjunctiva & lids normal, EOMI; Negative: Sclera icteric ENT Exam: Positive: Atraumatic, Mucous membr. moist/pink, Pharynx Normal Neck Exam: Positive: Supple; Negative: JVD, thyromegaly Chest Exam: Positive: Clear to auscultation, Normal air movement Heart Exam: Positive: Rate Normal, Regular Rhythm, Normal S1, Normal S2; Negative: Murmurs, Rubs Abdomen Exam: Positive: Normal bowel sounds, Soft; Negative: Tenderness, Hepatospenomegaly Extremity Exam: Negative: Clubbing, Cyanosis, Edema Skin Exam: Positive: Breakdown (Uper back superficial healing surgical wound) Assessment /Plan Assessment 80-year-old male history of metastatic renal cell cancer (Right) s/p nephrectomy now with increasing thoracic paraspinal mass, hilar lymphadenopathy and pulmonary nodules who presented to [facility] ED because of uncontrollable back pain associated with nausea and vomiting, abdominal distension. Patient tells me he's been unable to take his pain medications due to intermittent vomiting and so his pain has been out of control. He was living with his daughter and [place] for 3 weeks then moved back to his home in [place] last week. N, dry heaves, distention, diarrhea likely due to improper tube feeding + medications now resolved. tolerating tube feeds without issues here uses Nepro at home. Hyponatremia likely due to improper tube feeding. Improper feed and water balance and lung mets. Transaminitis. 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 Status post spinal surgery 2018. Patient underwent T7 corpectomy with RT 4T10.. Status post right partial nephrectomy in dec 2019 Right knee surgery Right rotator cuff surgery Abdominal hernia surgery Dispo: Home Plan/VTE VTE Prophylaxis Ordered?: No (going home) VS, I&O, 24H, Fishbone Vital Signs/I&O Vital Signs Date Time Temp Pulse Resp B/P (MAP) Pulse Ox O2 Delivery O2 Flow Rate FiO2 06/23/21 11:23 97.4 86 20 130/64 (86) 99 Room Air Laboratory Data 24H LABS Laboratory Tests 2 06/22/21 19:46: Immature Granulocyte % (Auto) 1.5, Neutrophils (%) (Auto) 89.1H, Lymphocytes (%) (Auto) 5.0L, Monocytes (%) (Auto) 4.1, Eosinophils (%) (Auto) 0.0, Basophils (%) (Auto) 0.3, Neutrophils # (Auto) 9.1H, Lymphocytes # (Auto) 0.5L, Monocytes # (Auto) 0.4, Eosinophils # (Auto) 0.0, Basophils # (Auto) 0.0, Nucleated Red Blood Cells % (auto) 0.0, Lactic Acid Level 1.5, Total Bilirubin 0.6, Direct Bilirubin 0.2, Aspartate Amino Transf (AST/SGOT) 81H, Alanine Aminotransferase (ALT/SGPT) 142H, Alkaline Phosphatase 285H, Total Creatine Kinase 57, Creatine Kinase MB < 1.0, Creatine Kinase MB Relative Index 1.75, Troponin I < 0.02, Total Protein 8.4H, Albumin 4.1, Albumin/Globulin Ratio 1.0, Lipase 793H 06/22/21 20:05: Urine Color YELLOW, Urine Appearance TURBIDH, Urine pH 6.0, Urine Specific Hawks 1.010, Urine Protein 2+H, Urine Glucose (UA) NEGATIVE, Urine Ketones NEGATIVE, Urine Blood 1+H, Urine Nitrite NEGATIVE, Urine Bilirubin NEGATIVE, Urine Urobilinogen 0.2, Urine Leukocyte Esterase 3+H, Urine WBC (Auto) TNTCH, Urine RBC (Auto) 89H, Urine Hyaline Casts (Auto) 0, Urine Bacteria (Auto) 3+H, Urine Squamous Epithelial Cells 2, Urine Sperm (Auto) 06/22/21 20:22: POC Glucose (Misc Panel) 132H, POC Sodium (Misc Panel) 125L, POC Potassium (Misc Panel) 3.8, POC Chloride (Misc Panel) 92L, POC Total CO2 (Misc Panel) 23.0, POC Blood Urea Nitrogen (Misc Panel 74H, POC Ionized Calcium (Misc Panel) 4.5, POC Creatinine (Misc Panel) 1.1, POC Hematocrit (Misc Panel) 35.0L 06/23/21 02:15: Coronavirus (COVID-19)(PCR) NEGATIVE, Influenza Type A (RT-PCR) NEGATIVE, Influenza Type B (RT-PCR) NEGATIVE, Respiratory Syncytial Virus (PCR) NEGATIVE 06/23/21 06:52: Nucleated Red Blood Cells % (auto) 0.0, Anion Gap 12, Glomerular Filtration Rate > 60.0, Calcium Level 8.2L, Total Bilirubin 0.5, Aspartate Amino Transf ( AST/SGOT) 58H, Alanine Aminotransferase (ALT/SGPT) 121H, Alkaline Phosphatase 239H, Total Protein 7.5, Albumin 3.7, Albumin/Globulin Ratio 1.0, Lipase 639H CBC/BMP Laboratory Tests 06/22/21 19:46 06/23/21 06:52 Microbiology Microbiology 06/22/21 Urine Culture, Received Pending CROW HURTADO MD Jun 23, 2021 16:58
[2021-06-23 17:00] VITALS: BP 161/69
[2021-06-23] MEDS ORDERED: PREVNAR 13 VACCINE SYRINGE IM ONE (17:00)
--- NOTE | 2021-06-24 07:27 | ECGEPIP ---
[facility] - ED Test Date: 2021-06-22 Pat Name: BRIAN PATRICK Department: Room: [place] [address] Gender: Male [employer] Sales[employer]: grant : [id number] Requested By: GEORGIA Barber Order Number: [id number] Reading MD: Raúl Aguiar Measurements Intervals [place] Rate: 95 P: 49 VT: 128 QRS: -64 QRSD: 74 T: 53 QT: 332 QTc: 417 Interpretive Statements Sinus rhythm with premature atrial complexes Left axis deviation SIMILAR TO 05/09/21 Electronically Signed on 06-24-2021 7:26:50 EDT by Raúl Aguiar
== END 2021-06-23 17:38 | disposition home or self-care (01) | DRG 947 ==
LOC: M ED 18:52 → M ED INP 06-23 04:10 → ENRESERV 06-23 15:30
PROVIDERS: ADMIT Family Medicine; ATTEND Family Medicine
DX: G89.3 Neoplasm related pain (acute) (chronic) (principal); E43 Unspecified severe protein-calorie malnutrition; C64.9 Malignant neoplasm of unspecified kidney, except renal pelvis; C79.51 Secondary malignant neoplasm of bone; N18.30 Chronic kidney disease, stage 3 unspecified; R11.2 Nausea with vomiting, unspecified; Z66 Do not resuscitate; D69.6 Thrombocytopenia, unspecified; R13.10 Dysphagia, unspecified; Z79.899 Other long term (current) drug therapy

== ENCOUNTER → 2022-03-14 | Outpatient (CLI) | payer MEDICARE ==
[~2022-03-14] MED LIST changes: +ALPR0.25 PO; +ALPR2TAB3 PO; +LOSA50TA28 PO; -LOSA50TA88 PO; -OMEP-221 PO; +OMEP40CA5 PO; +SERT-141 PO
== END ==
LOC: M PLARAD 15:15
PROVIDERS: ATTEND Family Medicine
DX: C64.1 Malignant neoplasm of right kidney, except renal pelvis (principal); R91.8 Other nonspecific abnormal finding of lung field; C79.51 Secondary malignant neoplasm of bone; M25.511 Pain in right shoulder
CPT/HCPCS: 78815; A9552

== ENCOUNTER 2022-04-16 08:10 | Emergency (ER) | payer MEDICARE ==
[~2022-04-16] VITALS: Ht 162.6 cm; Wt 66.4 kg
[2022-04-16] MEDS ORDERED: oxyCODONE 5MG TAB PO ONE ×2 (09:40→10:40)
[2022-04-16 11:54] VITALS: BP 104/50
== END 2022-04-16 11:57 | disposition home or self-care (01) ==
LOC: M ED 08:10 → EDBD 08:10 → M ED 11:57
DX: Z43.1 Encounter for attention to gastrostomy (principal); T85.528A Displacement of other gastrointestinal prosthetic devices, implants and grafts, initial encounter; E11.9 Type 2 diabetes mellitus without complications; I10 Essential (primary) hypertension; D64.9 Anemia, unspecified; K21.9 Gastro-esophageal reflux disease without esophagitis; N18.9 Chronic kidney disease, unspecified; C64.9 Malignant neoplasm of unspecified kidney, except renal pelvis; Z87.891 Personal history of nicotine dependence; Z79.899 Other long term (current) drug therapy
CPT/HCPCS: 43762; 74018; 99284; C1729

== ENCOUNTER → 2022-05-24 | Outpatient (REF) | payer MEDICARE ==
[~2022-05-24] MED LIST changes: +ATIV1TAB10 PO; +ONDA-196 PO; +ONDA4TAB6 PO
[2022-05-24 16:03] LABS: BASO % 0.2 % (0.0-1.0); HEMATOCRIT 28.2 % (42.0-52.0); HEMOGLOBIN 8.7 g/dl (13.5-17.5); LYMPH # 0.7 10^3/uL (1.5-5.0); LYMPH % 7.4 % (24.0-44.0); MEAN CORPUSCULAR HEMOGLOBIN 28.1 pg (27.0-33.0); MEAN CORPUSCULAR HGB CONC 30.9 g/dl (32.0-36.5); MONO # 0.5 10^3/uL (0.0-0.8); MONO % 5.6 % (2.0-8.0); NEUTROPHILS % 85.4 % (36.0-66.0); PLATELET COUNT, AUTOMATED 152 10^3/uL (150-450); WHITE BLOOD COUNT 9.4 10^3/uL (4.0-10.0)
[2022-05-24 16:25] LABS: ALBUMIN 3.8 GM/DL (3.2-5.2); ALT/SGPT 15 U/L (12-78); BILIRUBIN,TOTAL 0.6 MG/DL (0.2-1.0); BLOOD UREA NITROGEN 96 MG/DL (7-18); CALCIUM LEVEL 10.1 MG/DL (8.8-10.2); CARBON DIOXIDE LEVEL 26 MEQ/L (21-32); CHLORIDE LEVEL 99 MEQ/L (98-107); CHOLESTEROL LEVEL 82 MG/DL (<200); CHOLESTEROL RISK RATIO 1.952 (<5); CREATININE FOR GFR 3.14 MG/DL (0.70-1.30); GLOMERULAR FILTRATION RATE 20.4 (>35); GLUCOSE, FASTING 108 MG/DL (70-100); HDL CHOLESTEROL 42 MG/DL (>40); IRON (FE) 28 UG/DL (65-175); LDL CHOLESTEROL 17 MG/DL (<100); MAGNESIUM LEVEL 2.6 MG/DL (1.8-2.4); NON-HDL-C 40 MG/DL; POTASSIUM SERUM 4.6 MEQ/L (3.5-5.1); SODIUM LEVEL 133 MEQ/L (136-145); TRIGLYCERIDES LEVEL 115 MG/DL (<150)
[2022-05-24 16:53] LABS: VITAMIN B12 LEVEL 1566 PG/ML (247-911)
[2022-05-24 16:54] LABS: FOLATE > 24.0 NG/ML (>5.4)
[2022-05-24 17:55] LABS: HEMOGLOBIN A1c 4.8 %
== END ==
LOC: M SFHCCLAY 09:44
PROVIDERS: ATTEND Family Medicine
DX: D64.9 Anemia, unspecified (principal); E11.9 Type 2 diabetes mellitus without complications; I10 Essential (primary) hypertension

== ENCOUNTER 2022-06-02 17:52 | Inpatient (IN) | payer MEDICARE ==
[~2022-06-02] VITALS: Ht 162.6 cm; Wt 61.8 kg
[~2022-06-02 17:52] MED LIST changes: -ATIV1TAB10 PO; -ONDA-196 PO; -ONDA4TAB6 PO
[2022-06-02] MEDS ORDERED: ONDA4TAB6 PO (18:20)
[2022-06-02 20:12] LABS: APPEARANCE, URINE CLOUDY (CLEAR); BACTERIA, URINE AUTO NEGATIVE (NEGATIVE); BILIRUBIN, URINE AUTO NEGATIVE (NEGATIVE); BLOOD, URINE BLOOD 2+ (NEGATIVE); COLOR, URINE YELLOW (YELLOW); GLUCOSE, URINE (UA) AUTO NEGATIVE (NEGATIVE); KETONE, URINE AUTO NEGATIVE (NEGATIVE); LEUKOCYTE ESTERASE, URINE AUTO 3+ (NEGATIVE); MUCUS, URINE LARGE (NEGATIVE); NITRITE, URINE AUTO NEGATIVE (NEGATIVE); PROTEIN, URINE AUTO 1+ mg/dL (NEGATIVE); RBC, URINE AUTO 4 /HPF (0-3); SPECIFIC GRAVITY URINE AUTO 1.014 (1.002-1.035); SQUAMOUS EPITHELIAL CELL UR AU 1 /HPF (0-6); TRANSITIONAL EPITHELIAL AUTO 1 /HPF; UROBILINOGEN, URINE AUTO 0.2 mg/dL (0.0-2.0); WBC, URINE AUTO TNTC /HPF (0-3)
[2022-06-02] MEDS ORDERED: ONDANSETRON 4MG 2ML VIAL IV ONE (20:45)
[2022-06-02] MEDS ORDERED: HYDROMORPHONE HCL 0.5 MG/ 0.5 ML SYRINGE (J1170 PER 1) IV ONE ×2 (20:45→23:05)
[2022-06-02 21:40] LABS: BASO % 0.1 % (0.0-1.0); HEMATOCRIT 29.6 % (42.0-52.0); LYMPH # 0.3 10^3/uL (1.5-5.0); LYMPH % 2.2 % (24.0-44.0); MEAN CORPUSCULAR HEMOGLOBIN 27.2 pg (27.0-33.0); MEAN CORPUSCULAR HGB CONC 30.4 g/dl (32.0-36.5); MEAN CORPUSCULAR VOLUME 89.4 fl (80.0-96.0); MONO # 0.4 10^3/uL (0.0-0.8); MONO % 2.9 % (2.0-8.0); NEUTROPHILS # 12.7 10^3/uL (1.5-8.5); NEUTROPHILS % 94.1 % (36.0-66.0); PLATELET COUNT, AUTOMATED 172 10^3/uL (150-450); RED BLOOD COUNT 3.31 10^6/uL (4.30-6.10); WHITE BLOOD COUNT 13.5 10^3/uL (4.0-10.0)
[2022-06-02 22:05] LABS: ALBUMIN 3.5 GM/DL (3.2-5.2); BILIRUBIN,DIRECT 0.1 MG/DL (0.0-0.2); BILIRUBIN,TOTAL 0.6 MG/DL (0.2-1.0); TOTAL PROTEIN 8.2 GM/DL (6.4-8.2)
[2022-06-02 22:06] LABS: CALCIUM LEVEL 9.9 MG/DL (8.8-10.2); CREATININE FOR GFR 2.45 MG/DL (0.70-1.30); GLOMERULAR FILTRATION RATE 27.2 (>35); POTASSIUM SERUM 4.7 MEQ/L (3.5-5.1)
[2022-06-02] MEDS ORDERED: PIPERACILLIN/TAZOBACTAM SOD 4.5 GM in D5W MINI-BAG PLUS 50 ML IV ONE (23:00)
[2022-06-03 00:08] LABS: RSV AMPLIFICATION NEGATIVE (NEGATIVE)
[2022-06-03] MEDS ORDERED: OXYC10TA12 PO (01:11)
[2022-06-03] MEDS ORDERED: ONDA-196 PO (01:11)
[2022-06-03] MEDS ORDERED: ATIV1TAB10 PO (01:11)
[2022-06-03] MEDS ORDERED: HOME MED LIST COMPLETE! XX SCH (01:15)
[2022-06-03] MEDS ORDERED: ACETAMINOPHEN TAB 650MG DOSE (2X325MG) PO PRN (02:10)
[2022-06-03] MEDS ORDERED: MAALOX 30 ML SUSP *UDC PO PRN (02:10)
[2022-06-03] MEDS ORDERED: ONDANSETRON 4MG 2ML VIAL IV PRN (02:10)
[2022-06-03] MEDS: NS 1,000 ML IV SCH ×2 (03:55→12:41)
[2022-06-03] MEDS: HYDROMORPHONE HCL 0.5 MG/ 0.5 ML SYRINGE (J1170 PER 1) IV PRN ×3 (04:27→17:41)
[2022-06-03 04:32] LABS: CREATININE,RANDOM URINE 54.6 MG/DL; TOTAL PROTEIN,RANDOM URINE 70.7 MG/DL (0.0-12.0)
[2022-06-03] MEDS: PIPERACILLIN/TAZOBACTAM SOD 3.375 GM in D5W MINI-BAG PLUS 50 ML IV SCH ×4 (05:50→23:57)
[2022-06-03] MEDS: HEPARIN SOD (PORCINE) 5000UNITS/ML 1ML VIAL/SYRINGE SC SCH ×3 (05:50→21:23)
[2022-06-03 10:15] LABS: ALBUMIN 2.9 GM/DL (3.2-5.2); CALCIUM LEVEL 8.5 MG/DL (8.8-10.2); CREATININE FOR GFR 2.12 MG/DL (0.70-1.30); GLOMERULAR FILTRATION RATE 32.2 (>35); PHOSPHORUS LEVEL 3.1 MG/DL (2.5-4.9); POTASSIUM SERUM 3.8 MEQ/L (3.5-5.1)
[2022-06-03 16:22] VITALS: BP 119/55
[2022-06-03] MEDS: LORazepam 0.5 MG TAB PO PRN (17:56)
[2022-06-03 21:37] VITALS: BP 118/56
[2022-06-03] MEDS: HYDROmorphone HCL 2MG/ML 1ML VIAL IV PRN (23:57)
[2022-06-04] MEDS: PIPERACILLIN/TAZOBACTAM SOD 3.375 GM in D5W MINI-BAG PLUS 50 ML IV SCH ×3 (05:20→17:09)
[2022-06-04] MEDS: HEPARIN SOD (PORCINE) 5000UNITS/ML 1ML VIAL/SYRINGE SC SCH ×3 (05:20→20:35)
[2022-06-04 06:00] VITALS: BP 120/56
[2022-06-04 07:16] LABS: HEMATOCRIT 26.4 % (42.0-52.0); MEAN CORPUSCULAR HEMOGLOBIN 27.7 pg (27.0-33.0); MEAN CORPUSCULAR HGB CONC 30.3 g/dl (32.0-36.5); MEAN CORPUSCULAR VOLUME 91.3 fl (80.0-96.0); PLATELET COUNT, AUTOMATED 114 10^3/uL (150-450); RED BLOOD COUNT 2.89 10^6/uL (4.30-6.10); WHITE BLOOD COUNT 6.9 10^3/uL (4.0-10.0)
[2022-06-04] MEDS: LORazepam 0.5 MG TAB PO PRN ×3 (07:17→20:34)
[2022-06-04] MEDS: HYDROMORPHONE HCL 0.5 MG/ 0.5 ML SYRINGE (J1170 PER 1) IV PRN ×2 (07:17→14:01)
[2022-06-04 07:42] LABS: CALCIUM LEVEL 9.3 MG/DL (8.8-10.2); CREATININE FOR GFR 2.18 MG/DL (0.70-1.30); GLOMERULAR FILTRATION RATE 31.1 (>35); MAGNESIUM LEVEL 2.3 MG/DL (1.8-2.4); POTASSIUM SERUM 3.5 MEQ/L (3.5-5.1)
[2022-06-04] MEDS ORDERED: BISACODYL 10 MG SUPP PR ONE (08:15)
[2022-06-04] MEDS: HYDROmorphone HCL 2MG/ML 1ML VIAL IV PRN ×3 (10:50→20:34)
[2022-06-04] MEDS: MOM 30ML SUSPENSION UDC PO SCH (10:55)
[2022-06-04] MEDS: SENNA 8.6 MG TAB (SENOKOT) PO SCH ×2 (10:55→20:34)
[2022-06-04] MEDS ORDERED: POTASSIUM CHLORIDE 10% LIQ 20 MEQ/15 ML UDC PO ONE (11:40)
[2022-06-04 14:00] VITALS: BP 136/63
[2022-06-04 22:00] VITALS: BP 136/64
[2022-06-05] MEDS: HYDROmorphone HCL 2MG/ML 1ML VIAL IV PRN ×7 (00:43→21:20)
[2022-06-05] MEDS: PIPERACILLIN/TAZOBACTAM SOD 3.375 GM in D5W MINI-BAG PLUS 50 ML IV SCH ×4 (00:44→17:36)
[2022-06-05] MEDS: HEPARIN SOD (PORCINE) 5000UNITS/ML 1ML VIAL/SYRINGE SC SCH ×3 (05:31→21:16)
[2022-06-05 06:00] VITALS: BP 134/65
[2022-06-05 06:41] LABS: HEMATOCRIT 27.9 % (42.0-52.0); MEAN CORPUSCULAR HEMOGLOBIN 26.7 pg (27.0-33.0); MEAN CORPUSCULAR HGB CONC 28.7 g/dl (32.0-36.5); PLATELET COUNT, AUTOMATED 134 10^3/uL (150-450)
[2022-06-05 06:57] LABS: CALCIUM LEVEL 9.5 MG/DL (8.8-10.2); CREATININE FOR GFR 1.95 MG/DL (0.70-1.30); GLOMERULAR FILTRATION RATE 35.4 (>35); MAGNESIUM LEVEL 2.7 MG/DL (1.8-2.4); POTASSIUM SERUM 4.2 MEQ/L (3.5-5.1)
[2022-06-05] MEDS: MOM 30ML SUSPENSION UDC PO SCH (08:35)
[2022-06-05] MEDS: SENNA 8.6 MG TAB (SENOKOT) PO SCH ×2 (08:35→21:15)
[2022-06-05 14:00] VITALS: BP 134/64
[2022-06-05] MEDS: LORazepam 0.5 MG TAB PO PRN ×2 (14:12→21:16)
[2022-06-05 22:00] VITALS: BP 157/82
[2022-06-06] MEDS: PIPERACILLIN/TAZOBACTAM SOD 3.375 GM in D5W MINI-BAG PLUS 50 ML IV SCH ×4 (00:27→18:14)
[2022-06-06] MEDS: HYDROmorphone HCL 2MG/ML 1ML VIAL IV PRN ×3 (00:28→06:48)
[2022-06-06 06:00] VITALS: BP 136/71
[2022-06-06] MEDS: HEPARIN SOD (PORCINE) 5000UNITS/ML 1ML VIAL/SYRINGE SC SCH ×3 (06:00→22:00)
[2022-06-06] MEDS: LORazepam 0.5 MG TAB PO PRN ×2 (06:24→20:29)
[2022-06-06 06:34] LABS: HEMOGLOBIN 8.1 g/dl (13.5-17.5); MEAN CORPUSCULAR HEMOGLOBIN 27.2 pg (27.0-33.0); MEAN CORPUSCULAR HGB CONC 28.9 g/dl (32.0-36.5); PLATELET COUNT, AUTOMATED 129 10^3/uL (150-450); RED BLOOD COUNT 2.98 10^6/uL (4.30-6.10); WHITE BLOOD COUNT 9.1 10^3/uL (4.0-10.0)
[2022-06-06 07:01] LABS: CALCIUM LEVEL 9.5 MG/DL (8.8-10.2); CREATININE FOR GFR 1.8 MG/DL (0.70-1.30); GLOMERULAR FILTRATION RATE 38.8 (>35); MAGNESIUM LEVEL 2.4 MG/DL (1.8-2.4); POTASSIUM SERUM 3.4 MEQ/L (3.5-5.1)
[2022-06-06] MEDS ORDERED: POTASSIUM CHLORIDE 10% LIQ 20 MEQ/15 ML UDC PEG ONE (08:00)
[2022-06-06] MEDS: SENNA 8.6 MG TAB (SENOKOT) PO SCH ×2 (09:00→20:30)
[2022-06-06] MEDS: MOM 30ML SUSPENSION UDC PO SCH (09:00)
[2022-06-06] MEDS: oxyCODONE 5MG TAB PO PRN ×3 (09:08→23:06)
[2022-06-06] MEDS: MORPHINE 30 MG SA TAB PO SCH ×2 (11:42→20:29)
[2022-06-06 14:00] VITALS: BP 135/69
[2022-06-06 21:06] VITALS: BP 158/87
[2022-06-07] MEDS: PIPERACILLIN/TAZOBACTAM SOD 3.375 GM in D5W MINI-BAG PLUS 50 ML IV SCH ×4 (00:07→18:07)
[2022-06-07] MEDS: oxyCODONE 5MG TAB PO PRN ×2 (03:12→07:36)
[2022-06-07 05:08] VITALS: BP 148/87
[2022-06-07] MEDS: HEPARIN SOD (PORCINE) 5000UNITS/ML 1ML VIAL/SYRINGE SC SCH ×2 (06:14→18:04)
[2022-06-07 06:38] LABS: HEMATOCRIT 27.9 % (42.0-52.0); MEAN CORPUSCULAR HEMOGLOBIN 27.3 pg (27.0-33.0); MEAN CORPUSCULAR HGB CONC 28.7 g/dl (32.0-36.5); MEAN CORPUSCULAR VOLUME 95.2 fl (80.0-96.0); PLATELET COUNT, AUTOMATED 133 10^3/uL (150-450); RED BLOOD COUNT 2.93 10^6/uL (4.30-6.10); WHITE BLOOD COUNT 9.2 10^3/uL (4.0-10.0)
[2022-06-07 07:08] LABS: CALCIUM LEVEL 9.2 MG/DL (8.8-10.2); CREATININE FOR GFR 1.78 MG/DL (0.70-1.30); GLOMERULAR FILTRATION RATE 39.3 (>35); MAGNESIUM LEVEL 2.2 MG/DL (1.8-2.4)
[2022-06-07 08:15] VITALS: BP 130/54
[2022-06-07] MEDS: MOM 30ML SUSPENSION UDC PO SCH (08:54)
[2022-06-07] MEDS: SENNA 8.6 MG TAB (SENOKOT) PO SCH (08:54)
[2022-06-07] MEDS: GASTROGRAFIN SOLUTION 30ML PO SCH ×2 (10:22→10:43)
[2022-06-07] MEDS: HYDROMORPHONE HCL 0.5 MG/ 0.5 ML SYRINGE (J1170 PER 1) IV PRN ×3 (10:59→21:42)
[2022-06-07] MEDS: D5W/0.9% SODIUM CHLORIDE 1,000 ML IV SCH ×2 (11:26→21:41)
[2022-06-07] MEDS: LORazepam 0.5 MG TAB PO PRN (19:57)
[2022-06-07 22:00] VITALS: BP 142/73
[2022-06-08] MEDS: PIPERACILLIN/TAZOBACTAM SOD 3.375 GM in D5W MINI-BAG PLUS 50 ML IV SCH ×4 (00:01→18:32)
[2022-06-08 06:00] VITALS: BP 145/68
[2022-06-08] MEDS: HYDROMORPHONE HCL 0.5 MG/ 0.5 ML SYRINGE (J1170 PER 1) IV PRN ×2 (06:07→09:35)
[2022-06-08] MEDS: HEPARIN SOD (PORCINE) 5000UNITS/ML 1ML VIAL/SYRINGE SC SCH ×2 (06:07→18:23)
[2022-06-08 06:29] LABS: HEMATOCRIT 24.8 % (42.0-52.0); HEMOGLOBIN 7.1 g/dl (13.5-17.5); MEAN CORPUSCULAR HEMOGLOBIN 27.4 pg (27.0-33.0); MEAN CORPUSCULAR HGB CONC 28.6 g/dl (32.0-36.5); MEAN CORPUSCULAR VOLUME 95.8 fl (80.0-96.0); PLATELET COUNT, AUTOMATED 117 10^3/uL (150-450); RED BLOOD COUNT 2.59 10^6/uL (4.30-6.10); WHITE BLOOD COUNT 8.2 10^3/uL (4.0-10.0)
[2022-06-08 07:01] LABS: CALCIUM LEVEL 8.4 MG/DL (8.8-10.2); CREATININE FOR GFR 1.53 MG/DL (0.70-1.30); GLOMERULAR FILTRATION RATE 46.9 (>35); POTASSIUM SERUM 3.7 MEQ/L (3.5-5.1)
[2022-06-08] MEDS: D5W/0.9% SODIUM CHLORIDE 1,000 ML IV SCH ×2 (09:12→21:15)
[2022-06-08 20:21] VITALS: BP 138/64
[2022-06-09] VITALS (7 sets, daily range): BP systolic 130–140; BP diastolic 54–61
[2022-06-09] MEDS: PIPERACILLIN/TAZOBACTAM SOD 3.375 GM in D5W MINI-BAG PLUS 50 ML IV SCH ×4 (00:23→17:22)
[2022-06-09] MEDS: D5W/0.9% SODIUM CHLORIDE 1,000 ML IV SCH (03:59)
[2022-06-09] MEDS: HYDROMORPHONE HCL 0.5 MG/ 0.5 ML SYRINGE (J1170 PER 1) IV PRN ×4 (03:59→20:31)
[2022-06-09 05:57] LABS: MEAN CORPUSCULAR HEMOGLOBIN 26.7 pg (27.0-33.0); MEAN CORPUSCULAR HGB CONC 26.8 g/dl (32.0-36.5); MEAN CORPUSCULAR VOLUME 99.6 fl (80.0-96.0); PLATELET COUNT, AUTOMATED 102 10^3/uL (150-450); RED BLOOD COUNT 2.51 10^6/uL (4.30-6.10); WHITE BLOOD COUNT 5.8 10^3/uL (4.0-10.0)
[2022-06-09 06:10] LABS: HEMOGLOBIN 6.7 g/dl (13.5-17.5)
[2022-06-09 06:26] LABS: CALCIUM LEVEL 7.7 MG/DL (8.8-10.2); CREATININE FOR GFR 1.45 MG/DL (0.70-1.30); GLOMERULAR FILTRATION RATE 49.9 (>35); MAGNESIUM LEVEL 1.9 MG/DL (1.8-2.4); POTASSIUM SERUM 3.7 MEQ/L (3.5-5.1)
[2022-06-09] MEDS: HEPARIN SOD (PORCINE) 5000UNITS/ML 1ML VIAL/SYRINGE SC SCH ×2 (06:27→17:21)
[2022-06-09 07:30] LABS: BASO % 0.1 % (0.0-1.0); EOS % 0.1 % (0.0-3.0); HEMATOCRIT 23.9 % (42.0-52.0); LYMPH # 0.5 10^3/uL (1.5-5.0); LYMPH % 6.5 % (24.0-44.0); MEAN CORPUSCULAR HEMOGLOBIN 27.4 pg (27.0-33.0); MEAN CORPUSCULAR HGB CONC 28.5 g/dl (32.0-36.5); MEAN CORPUSCULAR VOLUME 96.4 fl (80.0-96.0); MONO # 0.4 10^3/uL (0.0-0.8); MONO % 5.4 % (2.0-8.0); NEUTROPHILS # 5.7 10^3/uL (1.5-8.5); NEUTROPHILS % 83.5 % (36.0-66.0); PLATELET COUNT, AUTOMATED 116 10^3/uL (150-450); RED BLOOD COUNT 2.48 10^6/uL (4.30-6.10); WHITE BLOOD COUNT 6.9 10^3/uL (4.0-10.0)
[2022-06-09 07:35] LABS: HEMOGLOBIN 6.8 g/dl (13.5-17.5)
[2022-06-09] MEDS ORDERED: FUROSEMIDE 40MG/4ML VIAL (J1940) IV ONE (09:10)
[2022-06-09] MEDS ORDERED: D5W 1000ML IV ONE (13:00)
[2022-06-09 15:53] LABS: HEMATOCRIT 27.3 % (42.0-52.0); HEMOGLOBIN 8.2 g/dl (13.5-17.5); MEAN CORPUSCULAR HEMOGLOBIN 28.1 pg (27.0-33.0); MEAN CORPUSCULAR VOLUME 93.5 fl (80.0-96.0); PLATELET COUNT, AUTOMATED 105 10^3/uL (150-450); RED BLOOD COUNT 2.92 10^6/uL (4.30-6.10); WHITE BLOOD COUNT 6.7 10^3/uL (4.0-10.0)
[2022-06-09 16:25] LABS: CREATININE FOR GFR 1.47 MG/DL (0.70-1.30); GLOMERULAR FILTRATION RATE 49.1 (>35); POTASSIUM SERUM 3.3 MEQ/L (3.5-5.1)
[2022-06-09] MEDS ORDERED: POTASSIUM CHLORIDE 10% LIQ 20 MEQ/15 ML UDC GT ONE (16:35)
[2022-06-10] MEDS: HYDROMORPHONE HCL 0.5 MG/ 0.5 ML SYRINGE (J1170 PER 1) IV PRN ×3 (00:04→09:07)
[2022-06-10] MEDS: PIPERACILLIN/TAZOBACTAM SOD 3.375 GM in D5W MINI-BAG PLUS 50 ML IV SCH ×2 (00:08→05:42)
[2022-06-10 04:50] LABS: BASO % 0.4 % (0.0-1.0); EOS % 0.1 % (0.0-3.0); HEMATOCRIT 27.3 % (42.0-52.0); HEMOGLOBIN 8.3 g/dl (13.5-17.5); LYMPH # 0.6 10^3/uL (1.5-5.0); LYMPH % 6.8 % (24.0-44.0); MEAN CORPUSCULAR HGB CONC 30.4 g/dl (32.0-36.5); MEAN CORPUSCULAR VOLUME 92.2 fl (80.0-96.0); MONO # 0.5 10^3/uL (0.0-0.8); MONO % 5.9 % (2.0-8.0); NEUTROPHILS # 6.8 10^3/uL (1.5-8.5); NEUTROPHILS % 83.6 % (36.0-66.0); PLATELET COUNT, AUTOMATED 125 10^3/uL (150-450); RED BLOOD COUNT 2.96 10^6/uL (4.30-6.10); WHITE BLOOD COUNT 8.1 10^3/uL (4.0-10.0)
[2022-06-10 05:14] LABS: CREATININE FOR GFR 1.52 MG/DL (0.70-1.30); GLOMERULAR FILTRATION RATE 47.2 (>35); POTASSIUM SERUM 3.6 MEQ/L (3.5-5.1)
[2022-06-10] MEDS: HEPARIN SOD (PORCINE) 5000UNITS/ML 1ML VIAL/SYRINGE SC SCH (05:42)
== END 2022-06-10 14:00 | disposition home or self-care (01) | DRG 699 ==
LOC: M ED 17:52 → M ED INP 06-03 02:07 → M MS5PR 06-03 02:07 → ENRESERV 06-03 14:30 → M MS5PR 06-03 16:00
PROVIDERS: ADMIT Internal Medicine; ATTEND Internal Medicine Nephrology
PROC: 30233N1 Transfusion of Nonautologous Red Blood Cells into Peripheral Vein, Percutaneous Approach (ICD-10-PCS; principal; 2022-06-09)
DX: N32.1 Vesicointestinal fistula (principal); K57.32 Diverticulitis of large intestine without perforation or abscess without bleeding; N39.0 Urinary tract infection, site not specified; N17.9 Acute kidney failure, unspecified; J96.11 Chronic respiratory failure with hypoxia; Q60.0 Renal agenesis, unilateral; E46 Unspecified protein-calorie malnutrition; C78.00 Secondary malignant neoplasm of unspecified lung; C79.51 Secondary malignant neoplasm of bone; K56.7 Ileus, unspecified; E87.3 Alkalosis; E87.0 Hyperosmolality and hypernatremia; N12 Tubulo-interstitial nephritis, not specified as acute or chronic; I12.9 Hypertensive chronic kidney disease with stage 1 through stage 4 chronic kidney disease, or unspecified chronic kidney disease; K21.9 Gastro-esophageal reflux disease without esophagitis; E11.22 Type 2 diabetes mellitus with diabetic chronic kidney disease; K80.20 Calculus of gallbladder without cholecystitis without obstruction; N18.30 Chronic kidney disease, stage 3 unspecified; R33.9 Retention of urine, unspecified; R91.1 Solitary pulmonary nodule; D64.9 Anemia, unspecified; K59.09 Other constipation; M19.90 Unspecified osteoarthritis, unspecified site; E86.0 Dehydration; R13.10 Dysphagia, unspecified; Z92.21 Personal history of antineoplastic chemotherapy; Z93.1 Gastrostomy status; Z79.899 Other long term (current) drug therapy; Z66 Do not resuscitate; Z85.51 Personal history of malignant neoplasm of bladder; B96.29 Other Escherichia coli [E. coli] as the cause of diseases classified elsewhere

== ENCOUNTER → 2022-07-01 | Outpatient (CLI) | payer MEDICARE ==
[~2022-07-01] MED LIST changes: +ATIV1TAB10 PO; +ONDA-196 PO; +ONDA4TAB6 PO
[2022-07-01 14:44] LABS: APPEARANCE, URINE TURBID (CLEAR); BACTERIA, URINE AUTO 3+ (NEGATIVE); BILIRUBIN, URINE AUTO NEGATIVE (NEGATIVE); BLOOD, URINE BLOOD 2+ (NEGATIVE); COLOR, URINE AMBER (YELLOW); GLUCOSE, URINE (UA) AUTO NEGATIVE (NEGATIVE); KETONE, URINE AUTO NEGATIVE (NEGATIVE); LEUKOCYTE ESTERASE, URINE AUTO 3+ (NEGATIVE); NITRITE, URINE AUTO NEGATIVE (NEGATIVE); PROTEIN, URINE AUTO 2+ mg/dL (NEGATIVE); RBC, URINE AUTO 38 /HPF (0-3); SPECIFIC GRAVITY URINE AUTO 1.012 (1.002-1.035); SQUAMOUS EPITHELIAL CELL UR AU 7 /HPF (0-6); UROBILINOGEN, URINE AUTO 0.2 mg/dL (0.0-2.0); WBC, URINE AUTO TNTC /HPF (0-3)
[2022-07-01 15:28] LABS: ALBUMIN 3.4 GM/DL (3.2-5.2); BILIRUBIN,TOTAL 0.5 MG/DL (0.2-1.0); CALCIUM LEVEL 11.6 MG/DL (8.8-10.2); CREATININE FOR GFR 2.95 MG/DL (0.70-1.30); POTASSIUM SERUM 4.5 MEQ/L (3.5-5.1); TOTAL PROTEIN 8.7 GM/DL (6.4-8.2)
[2022-07-01 15:57] LABS: CREATININE, URINE 77.9 MG/DL; MAU/CREAT RATIO 310.6 MCG/MG (0.0-30.0)
== END ==
LOC: M RAD 13:02
PROVIDERS: ATTEND Family Medicine
DX: N18.4 Chronic kidney disease, stage 4 (severe) (principal)

== ENCOUNTER 2022-07-18 07:48 | Emergency (ER) | payer MEDICARE ==
[~2022-07-18] VITALS: Ht 162.6 cm; Wt 30.2 kg
[2022-07-18] MEDS ORDERED: GASTROGRAFIN SOLUTION 30ML (Q9963) GT ONE (08:20)
[2022-07-18 10:37] VITALS: BP 131/66
== END 2022-07-18 10:56 | disposition home or self-care (01) ==
LOC: M ED 07:48
DX: K94.23 Gastrostomy malfunction (principal); I10 Essential (primary) hypertension; N18.4 Chronic kidney disease, stage 4 (severe); C67.9 Malignant neoplasm of bladder, unspecified; C64.9 Malignant neoplasm of unspecified kidney, except renal pelvis; Z87.891 Personal history of nicotine dependence; Z79.52 Long term (current) use of systemic steroids; Z79.899 Other long term (current) drug therapy
CPT/HCPCS: 74018; 99284; Q9963

== ENCOUNTER 2022-07-21 21:28 | Emergency (ER) | payer MEDICARE ==
[~2022-07-21] VITALS: Ht 162.6 cm; Wt 65.0 kg
[2022-07-22 01:26] VITALS: BP 118/80
== END 2022-07-22 01:31 | disposition home or self-care (01) ==
LOC: M ED 21:28
DX: K94.23 Gastrostomy malfunction (principal); E11.9 Type 2 diabetes mellitus without complications; I10 Essential (primary) hypertension; C67.9 Malignant neoplasm of bladder, unspecified; Z79.52 Long term (current) use of systemic steroids; Z79.899 Other long term (current) drug therapy

== ENCOUNTER 2022-07-26 02:15 | Inpatient (IN) | payer MEDICARE ==
[~2022-07-26] VITALS: Ht 162.6 cm; Wt 66.4 kg
[2022-07-26 07:58] LABS: BASO % 0.2 % (0.0-1.0); HEMATOCRIT 23.1 % (42.0-52.0); HEMOGLOBIN 7.3 g/dl (13.5-17.5); LYMPH # 0.4 10^3/uL (1.5-5.0); LYMPH % 4.4 % (24.0-44.0); MEAN CORPUSCULAR HEMOGLOBIN 26.7 pg (27.0-33.0); MEAN CORPUSCULAR HGB CONC 31.6 g/dl (32.0-36.5); MEAN CORPUSCULAR VOLUME 84.6 fl (80.0-96.0); MONO # 0.3 10^3/uL (0.0-0.8); MONO % 3.4 % (2.0-8.0); NEUTROPHILS # 7.8 10^3/uL (1.5-8.5); NEUTROPHILS % 89.8 % (36.0-66.0); PLATELET COUNT, AUTOMATED 123 10^3/uL (150-450); RED BLOOD COUNT 2.73 10^6/uL (4.30-6.10); WHITE BLOOD COUNT 8.7 10^3/uL (4.0-10.0)
[2022-07-26 08:39] LABS: RSV AMPLIFICATION NEGATIVE (NEGATIVE)
[2022-07-26 08:40] LABS: ALBUMIN 3.3 GM/DL (3.2-5.2); BILIRUBIN,DIRECT 0.3 MG/DL (0.0-0.2); BILIRUBIN,TOTAL 0.6 MG/DL (0.2-1.0); CALCIUM LEVEL 9.4 MG/DL (8.8-10.2); CREATININE FOR GFR 4.08 MG/DL (0.70-1.30); GLOMERULAR FILTRATION RATE 15.1 (>35); POTASSIUM SERUM 3.5 MEQ/L (3.5-5.1); THYROID STIMULATING HORMONE 3.26 uIU/ML (0.358-3.740); TOTAL PROTEIN 7.7 GM/DL (6.4-8.2)
[2022-07-26] MEDS ORDERED: NS 500 ML IV ONE (08:45)
[2022-07-26] MEDS ORDERED: HOME MED LIST COMPLETE! XX SCH (09:20)
[2022-07-26] MEDS ORDERED: SENOKOT S TAB PO PRN (09:20)
[2022-07-26] MEDS ORDERED: TAMSULOSIN 0.4 MG CAP PO ONE (09:20)
[2022-07-26] MEDS: NS 1,000 ML IV SCH ×2 (10:39→19:58)
[2022-07-26] MEDS: oxyCODONE 5MG TAB PO PRN ×2 (10:40→20:06)
[2022-07-26 13:19] LABS: CREATININE FOR GFR 3.67 MG/DL (0.70-1.30); GLOMERULAR FILTRATION RATE 17.1 (>35); POTASSIUM SERUM 3.6 MEQ/L (3.5-5.1)
[2022-07-26 15:40] VITALS: BP 116/56
[2022-07-26] MEDS ORDERED: GLUCAGON INJ 1MG VIAL SC PRN (16:15)
[2022-07-26] MEDS ORDERED: GLUCOSE 4GM CHEW TABLET PO PRN (16:15)
[2022-07-26] MEDS ORDERED: DEXTROSE 50% 50 ML SYRINGE IV PRN (16:15)
[2022-07-26] MEDS: PIPERACILLIN/TAZOBACTAM SOD 2.25 GM in D5W MINI-BAG PLUS 50 ML IV SCH ×2 (16:26→19:58)
[2022-07-26 18:14] LABS: HEMATOCRIT 19.5 % (42.0-52.0); HEMOGLOBIN 6.2 g/dl (13.5-17.5)
[2022-07-26 18:19] VITALS: BP 102/51
[2022-07-26 18:36] VITALS: BP 108/53
[2022-07-26 19:09] LABS: CALCIUM LEVEL 8.4 MG/DL (8.8-10.2); CREATININE FOR GFR 3.32 MG/DL (0.70-1.30); GLOMERULAR FILTRATION RATE 19.2 (>35)
[2022-07-26 19:44] LABS: SODIUM,RANDOM URINE 34 MEQ/L
[2022-07-26 19:47] LABS: OSMOLALITY URINE 398 MOSM/KG (50-1400)
[2022-07-26 19:56] VITALS: BP 113/57
[2022-07-26 20:08] VITALS: BP 113/57
[2022-07-26] MEDS: ACETAMINOPHEN TAB 650MG DOSE (2X325MG) PO PRN (21:47)
[2022-07-26] MEDS: BALMEX CREAM 60GM TOP SCH (21:53)
[2022-07-27] VITALS (10 sets, daily range): BP systolic 104–130; BP diastolic 52–60
[2022-07-27] MEDS: NS 1,000 ML IV SCH (00:01)
[2022-07-27] MEDS: oxyCODONE 5MG TAB PO PRN ×3 (00:02→10:02)
[2022-07-27 00:30] LABS: HEMATOCRIT 21.4 % (42.0-52.0)
[2022-07-27 00:33] LABS: HEMOGLOBIN 6.8 g/dl (13.5-17.5)
[2022-07-27 01:02] LABS: CALCIUM LEVEL 8.2 MG/DL (8.8-10.2); CREATININE FOR GFR 3.11 MG/DL (0.70-1.30); GLOMERULAR FILTRATION RATE 20.7 (>35)
[2022-07-27] MEDS ORDERED: LIDOCAINE 5% (LIDODERM) PATCH TD ONE (01:30)
[2022-07-27] MEDS: PIPERACILLIN/TAZOBACTAM SOD 2.25 GM in D5W MINI-BAG PLUS 50 ML IV SCH ×4 (02:15→21:05)
[2022-07-27] MEDS ORDERED: diphenhydrAMINE CREAM 30GM TOP PRN (02:20)
[2022-07-27] MEDS ORDERED: POTASSIUM CHLORIDE 10MEQ SR TABLET PO ONE ×2 (02:45→04:00)
[2022-07-27] MEDS: KCL 10MEQ/100ML SWI (KRUN) 10 MEQ in IV 1 EA IV SCH ×4 (03:50→06:48)
[2022-07-27] MEDS: KCL 40MEQ in NS 1000ML 1,000 ML IV SCH ×2 (03:50→15:22)
[2022-07-27 07:15] LABS: HEMATOCRIT 26.2 % (42.0-52.0); HEMOGLOBIN 8.3 g/dl (13.5-17.5); MEAN CORPUSCULAR HEMOGLOBIN 27.6 pg (27.0-33.0); MEAN CORPUSCULAR HGB CONC 31.7 g/dl (32.0-36.5); PLATELET COUNT, AUTOMATED 106 10^3/uL (150-450); RED BLOOD COUNT 3.01 10^6/uL (4.30-6.10); WHITE BLOOD COUNT 5.7 10^3/uL (4.0-10.0)
[2022-07-27 07:35] LABS: CALCIUM LEVEL 8.2 MG/DL (8.8-10.2); CREATININE FOR GFR 2.78 MG/DL (0.70-1.30); GLOMERULAR FILTRATION RATE 23.5 (>35); POTASSIUM SERUM 3.7 MEQ/L (3.5-5.1)
[2022-07-27] MEDS: TAMSULOSIN 0.4 MG CAP PO SCH (09:38)
[2022-07-27] MEDS: BALMEX CREAM 60GM TOP SCH ×2 (09:39→21:08)
[2022-07-27] MEDS ORDERED: oxyCODONE 5MG TAB PO PRN (12:05)
[2022-07-27] MEDS ORDERED: HYDROMORPHONE HCL 0.5 MG/ 0.5 ML SYRINGE (J1170 PER 1) IV ONE ×2 (12:05→21:20)
[2022-07-27 12:11] LABS: HEMATOCRIT 26.8 % (42.0-52.0); HEMOGLOBIN 8.9 g/dl (13.5-17.5)
[2022-07-27 12:42] LABS: CALCIUM LEVEL 8.6 MG/DL (8.8-10.2); CREATININE FOR GFR 2.57 MG/DL (0.70-1.30); GLOMERULAR FILTRATION RATE 25.8 (>35); POTASSIUM SERUM 4.1 MEQ/L (3.5-5.1)
[2022-07-27] MEDS ORDERED: **NOTE PATIENT COMMENT** MISC XX ONE (13:30)
[2022-07-28] VITALS: BP 123/57
[2022-07-28] MEDS: oxyCODONE 5MG TAB PO PRN ×5 (00:23→20:57)
[2022-07-28] MEDS: KCL 40MEQ in NS 1000ML 1,000 ML IV SCH ×3 (00:23→13:14)
[2022-07-28 04:00] VITALS: BP_SYST 117; BP_SYST 136; BP_DIAS 58; BP_DIAS 60
[2022-07-28] MEDS: PIPERACILLIN/TAZOBACTAM SOD 2.25 GM in D5W MINI-BAG PLUS 50 ML IV SCH ×4 (04:57→17:00)
[2022-07-28 05:46] LABS: HEMOGLOBIN 8.1 g/dl (13.5-17.5); MEAN CORPUSCULAR HEMOGLOBIN 27.8 pg (27.0-33.0); MEAN CORPUSCULAR VOLUME 92.8 fl (80.0-96.0); RED BLOOD COUNT 2.91 10^6/uL (4.30-6.10); WHITE BLOOD COUNT 6.2 10^3/uL (4.0-10.0)
[2022-07-28 06:30] LABS: PLATELET COUNT, AUTOMATED 99 10^3/uL (150-450)
[2022-07-28 06:36] LABS: GLOMERULAR FILTRATION RATE 34.4 (>35); POTASSIUM SERUM 4.8 MEQ/L (3.5-5.1)
[2022-07-28 08:09] VITALS: BP 128/57
[2022-07-28] MEDS: BALMEX CREAM 60GM TOP SCH ×2 (09:38→20:56)
[2022-07-28] MEDS: TAMSULOSIN 0.4 MG CAP PO SCH (09:38)
[2022-07-28 12:05] VITALS: BP 128/60
[2022-07-28 20:00] VITALS: BP 122/72
[2022-07-28] MEDS ORDERED: LORazepam 0.5 MG TAB PO ONE (20:05)
[2022-07-28] MEDS: NS 1,000 ML IV SCH (20:55)
[2022-07-29] MEDS ORDERED: LIDOCAINE 5% (LIDODERM) PATCH TD ONE
[2022-07-29] MEDS ORDERED: MORPHINE 2 MG/ML 1ML VIAL IV ONE (00:05)
[2022-07-29] MEDS: PIPERACILLIN/TAZOBACTAM SOD 2.25 GM in D5W MINI-BAG PLUS 50 ML IV SCH ×2 (02:11→09:17)
[2022-07-29] MEDS: oxyCODONE 5MG TAB PO PRN ×3 (02:18→21:19)
[2022-07-29] MEDS ORDERED: oxyCODONE 5MG TAB PO ONE (02:45)
[2022-07-29 04:00] VITALS: BP 117/58
[2022-07-29 04:14] LABS: HEMATOCRIT 27.6 % (42.0-52.0); HEMOGLOBIN 8.1 g/dl (13.5-17.5); MEAN CORPUSCULAR HEMOGLOBIN 27.7 pg (27.0-33.0); MEAN CORPUSCULAR HGB CONC 29.3 g/dl (32.0-36.5); MEAN CORPUSCULAR VOLUME 94.5 fl (80.0-96.0); RED BLOOD COUNT 2.92 10^6/uL (4.30-6.10); WHITE BLOOD COUNT 5.3 10^3/uL (4.0-10.0)
[2022-07-29 04:17] LABS: PLATELET COUNT, AUTOMATED 91 10^3/uL (150-450)
[2022-07-29 04:47] LABS: CALCIUM LEVEL 8.1 MG/DL (8.8-10.2); CREATININE FOR GFR 1.78 MG/DL (0.70-1.30); GLOMERULAR FILTRATION RATE 39.3 (>35); POTASSIUM SERUM 5.6 MEQ/L (3.5-5.1)
[2022-07-29] MEDS ORDERED: CALCIUM GLUCONATE 1,000 MG in D5W MINI-BAG PLUS 100 ML IV ONE (06:40)
[2022-07-29] MEDS ORDERED: PATIROMER SORBITEX CALCIUM 8.4 GM POWDER PACKET (VELTASSA) PO ONE (06:40)
[2022-07-29 07:52] VITALS: BP 131/62
[2022-07-29] MEDS: TAMSULOSIN 0.4 MG CAP PO SCH ×2 (09:00→09:17)
[2022-07-29] MEDS: BALMEX CREAM 60GM TOP SCH ×2 (11:52→21:20)
[2022-07-29] MEDS ORDERED: **NOTE PATIENT COMMENT** MISC XX ONE (12:00)
[2022-07-29] MEDS: NS 1,000 ML IV SCH (12:46)
[2022-07-29] MEDS: metroNIDAZOLE (FLAGYL) 500MG TABLET PO SCH ×2 (14:27→21:19)
[2022-07-29] MEDS ORDERED: METR-265 PO (16:52)
[2022-07-29] MEDS ORDERED: CIPR-250 PO (16:52)
[2022-07-29] MEDS ORDERED: FLOM0.4C39 PO (16:54)
[2022-07-29] MEDS ORDERED: BALMOINT60 TOP (16:54)
[2022-07-29 17:30] VITALS: BP 152/68
[2022-07-29] MEDS: CIPROFLOXACIN 250MG TAB PO SCH (18:50)
[2022-07-29] MEDS: ACETAMINOPHEN TAB 650MG DOSE (2X325MG) PO PRN (18:50)
[2022-07-29 22:00] VITALS: BP 151/70
[2022-07-30] MEDS: oxyCODONE 5MG TAB PO PRN ×2 (02:33→08:01)
[2022-07-30 06:00] VITALS: BP 140/69
[2022-07-30] MEDS: metroNIDAZOLE (FLAGYL) 500MG TABLET PO SCH (06:35)
[2022-07-30] MEDS: CIPROFLOXACIN 250MG TAB PO SCH (06:35)
[2022-07-30 07:18] LABS: HEMATOCRIT 27.2 % (42.0-52.0); HEMOGLOBIN 8.1 g/dl (13.5-17.5); MEAN CORPUSCULAR HGB CONC 29.8 g/dl (32.0-36.5); MEAN CORPUSCULAR VOLUME 94.1 fl (80.0-96.0); RED BLOOD COUNT 2.89 10^6/uL (4.30-6.10)
[2022-07-30 07:19] LABS: PLATELET COUNT, AUTOMATED 95 10^3/uL (150-450)
[2022-07-30 07:51] LABS: CALCIUM LEVEL 8.7 MG/DL (8.8-10.2); CREATININE FOR GFR 1.69 MG/DL (0.70-1.30); GLOMERULAR FILTRATION RATE 41.8 (>35); POTASSIUM SERUM 5.2 MEQ/L (3.5-5.1)
[2022-07-30] MEDS: BALMEX CREAM 60GM TOP SCH (08:01)
[2022-07-30] MEDS: TAMSULOSIN 0.4 MG CAP PO SCH (08:01)
== END 2022-07-30 11:05 | disposition home health service (06) | DRG 394 ==
LOC: M ED 02:15 → EDBEDREQSVC 09:01 → M ED INP 09:09 → ENRESERV 13:52 → M PCU 15:38 → M MS5PR 07-29 17:24
PROVIDERS: ADMIT General Practice; ATTEND General Practice
PROC: 30233N1 Transfusion of Nonautologous Red Blood Cells into Peripheral Vein, Percutaneous Approach (ICD-10-PCS; principal; 2022-07-26)
DX: K94.23 Gastrostomy malfunction (principal); N17.9 Acute kidney failure, unspecified; J96.11 Chronic respiratory failure with hypoxia; E87.1 Hypo-osmolality and hyponatremia; G95.20 Unspecified cord compression; K57.32 Diverticulitis of large intestine without perforation or abscess without bleeding; C79.51 Secondary malignant neoplasm of bone; C78.00 Secondary malignant neoplasm of unspecified lung; E44.0 Moderate protein-calorie malnutrition; R64 Cachexia; E86.0 Dehydration; R53.1 Weakness; K22.2 Esophageal obstruction; I12.9 Hypertensive chronic kidney disease with stage 1 through stage 4 chronic kidney disease, or unspecified chronic kidney disease; N18.30 Chronic kidney disease, stage 3 unspecified; K21.9 Gastro-esophageal reflux disease without esophagitis; M19.90 Unspecified osteoarthritis, unspecified site; R62.7 Adult failure to thrive; E11.22 Type 2 diabetes mellitus with diabetic chronic kidney disease; D63.8 Anemia in other chronic diseases classified elsewhere; E87.6 Hypokalemia; Z92.21 Personal history of antineoplastic chemotherapy; Z85.51 Personal history of malignant neoplasm of bladder; Z79.899 Other long term (current) drug therapy

== ENCOUNTER 2022-09-04 11:23 | Emergency (ER) | payer MEDICARE ==
[~2022-09-04 11:23] MED LIST changes: +BALMOINT60 TOP; +CIPR-250 PO; +FLOM0.4C39 PO; +METR-265 PO
[2022-09-04] MEDS ORDERED: oxyCODONE 5MG TAB PO ONE (14:00)
[2022-09-04 16:24] VITALS: BP 119/67
== END 2022-09-04 16:52 | disposition home or self-care (01) ==
LOC: M ED 11:23 → EDBD 11:23 → M ED 16:52
DX: K94.23 Gastrostomy malfunction (principal); E11.9 Type 2 diabetes mellitus without complications; I10 Essential (primary) hypertension; Z79.899 Other long term (current) drug therapy; Z79.2 Long term (current) use of antibiotics; Z79.83 Long term (current) use of bisphosphonates

== ENCOUNTER 2022-09-06 19:53 | Inpatient (IN) | payer MEDICARE ==
[~2022-09-06] VITALS: Ht 162.6 cm; Wt 59.5 kg
[~2022-09-06 19:53] MED LIST changes: -DOXY-350 PO; +DOXY-444 PO
[2022-09-06] MEDS ORDERED: NS 500 ML IV ONE (21:25)
[2022-09-06 22:58] LABS: BASO % 0.1 % (0.0-1.0); HEMATOCRIT 23.3 % (42.0-52.0); HEMOGLOBIN 7.3 g/dl (13.5-17.5); LYMPH # 0.3 10^3/uL (1.5-5.0); LYMPH % 3.1 % (24.0-44.0); MEAN CORPUSCULAR HEMOGLOBIN 27.5 pg (27.0-33.0); MEAN CORPUSCULAR HGB CONC 31.3 g/dl (32.0-36.5); MEAN CORPUSCULAR VOLUME 87.9 fl (80.0-96.0); MONO # 0.4 10^3/uL (0.0-0.8); MONO % 4.1 % (2.0-8.0); NEUTROPHILS # 8.4 10^3/uL (1.5-8.5); NEUTROPHILS % 90.9 % (36.0-66.0); PLATELET COUNT, AUTOMATED 123 10^3/uL (150-450); RED BLOOD COUNT 2.65 10^6/uL (4.30-6.10); WHITE BLOOD COUNT 9.2 10^3/uL (4.0-10.0)
[2022-09-06 23:06] LABS: RSV AMPLIFICATION NEGATIVE (NEGATIVE)
[2022-09-06 23:07] LABS: CPK CREATINE PHOSPHOKINASE 49 U/L (39-308)
[2022-09-06 23:07] LABS: ALBUMIN 3.4 GM/DL (3.2-5.2); BILIRUBIN,DIRECT 0.2 MG/DL (0.0-0.2); BILIRUBIN,TOTAL 0.8 MG/DL (0.2-1.0); C REACTIVE PROTEIN QUANTITATIV 6.12 MG/DL (0.00-0.30); CALCIUM LEVEL 10.2 MG/DL (8.8-10.2); CREATININE FOR GFR 2.75 MG/DL (0.70-1.30); GLOMERULAR FILTRATION RATE 23.8 (>35); POTASSIUM SERUM 4.5 MEQ/L (3.5-5.1); TOTAL PROTEIN 8.4 GM/DL (6.4-8.2)
[2022-09-06 23:38] LABS: ERYTHROCYTE SEDIMENTATION RATE 129 mm/hr (0-20)
[2022-09-07] MEDS ORDERED: ACETAMINOPHEN TAB 650MG DOSE (2X325MG) GT PRN (00:55)
[2022-09-07] MEDS ORDERED: IPRATROPIUM 0.5MG/ALBUTEROL 2.5MG INH SOL UD 3ML (DUONEB) NEB PRN (01:00)
[2022-09-07] MEDS: NS 1,000 ML IV SCH ×2 (01:31→08:55)
[2022-09-07] MEDS: cefTRIAXone SOD 2 GM in D5W MINI-BAG PLUS 50 ML IV SCH (01:31)
[2022-09-07 02:05] LABS: INR 0.92; PROTHROMBIN TIME 12.6 SECONDS (12.5-14.5)
[2022-09-07] MEDS ORDERED: BALMOINT60 TOP (02:20)
[2022-09-07] MEDS ORDERED: HOME MED LIST COMPLETE! XX SCH (02:20)
[2022-09-07] MEDS ORDERED: BALMEX CREAM 60GM TOP PRN (03:00)
[2022-09-07] MEDS: metroNIDAZOLE 500 MG in IV 1 EA IV SCH ×3 (03:17→17:17)
[2022-09-07] MEDS: oxyCODONE 5MG TAB GT PRN ×3 (06:40→23:14)
[2022-09-07 06:54] LABS: HEMATOCRIT 24.2 % (42.0-52.0); HEMOGLOBIN 7.7 g/dl (13.5-17.5); MEAN CORPUSCULAR HEMOGLOBIN 28.5 pg (27.0-33.0); MEAN CORPUSCULAR HGB CONC 31.8 g/dl (32.0-36.5); MEAN CORPUSCULAR VOLUME 89.6 fl (80.0-96.0); PLATELET COUNT, AUTOMATED 152 10^3/uL (150-450)
[2022-09-07 07:27] LABS: CREATININE FOR GFR 2.47 MG/DL (0.70-1.30)
[2022-09-07 07:28] LABS: CALCIUM LEVEL 9.7 MG/DL (8.8-10.2); MAGNESIUM LEVEL 2.4 MG/DL (1.8-2.4)
[2022-09-07] MEDS: HEPARIN SOD (PORCINE) 5000UNITS/ML 1ML VIAL/SYRINGE SC SCH ×2 (08:54→21:43)
[2022-09-07 14:00] VITALS: BP 128/55
[2022-09-07] MEDS: KCL 40MEQ IN D5/0.45NS 1000ML 1,000 ML IV SCH (18:36)
[2022-09-07] MEDS: MORPHINE 2 MG/ML 1ML VIAL IV PRN (21:43)
[2022-09-08] VITALS (7 sets, daily range): BP systolic 101–141; BP diastolic 46–61
[2022-09-08] MEDS: MORPHINE 2 MG/ML 1ML VIAL IV PRN ×5 (00:48→22:13)
[2022-09-08] MEDS: cefTRIAXone SOD 2 GM in D5W MINI-BAG PLUS 50 ML IV SCH ×2 (00:49→00:57)
[2022-09-08] MEDS: KCL 40MEQ IN D5/0.45NS 1000ML 1,000 ML IV SCH ×3 (02:40→22:12)
[2022-09-08] MEDS: metroNIDAZOLE 500 MG in IV 1 EA IV SCH ×3 (02:41→18:19)
[2022-09-08] MEDS: oxyCODONE 5MG TAB GT PRN ×2 (06:41→18:29)
[2022-09-08 07:31] LABS: CALCIUM LEVEL 8.7 MG/DL (8.8-10.2); CREATININE FOR GFR 2.04 MG/DL (0.70-1.30); GLOMERULAR FILTRATION RATE 33.6 (>35); POTASSIUM SERUM 3.6 MEQ/L (3.5-5.1)
[2022-09-08 08:41] LABS: HEMATOCRIT 21.5 % (42.0-52.0); MEAN CORPUSCULAR HEMOGLOBIN 28.6 pg (27.0-33.0); MEAN CORPUSCULAR HGB CONC 31.6 g/dl (32.0-36.5); MEAN CORPUSCULAR VOLUME 90.3 fl (80.0-96.0); PLATELET COUNT, AUTOMATED 143 10^3/uL (150-450); RED BLOOD COUNT 2.38 10^6/uL (4.30-6.10); WHITE BLOOD COUNT 6.2 10^3/uL (4.0-10.0)
[2022-09-08 08:45] LABS: HEMOGLOBIN 6.8 g/dl (13.5-17.5)
[2022-09-08] MEDS ORDERED: EMLA CREAM 5GM TUBE (LIDOCAINE/PRILOCAINE) TOP SCH (09:00)
[2022-09-08 09:09] LABS: PERCENT SATURATION 11.2 % (19.7-50.0)
[2022-09-08] MEDS: HEPARIN SOD (PORCINE) 5000UNITS/ML 1ML VIAL/SYRINGE SC SCH ×2 (09:26→22:12)
[2022-09-08] MEDS ORDERED: GASTROGRAFIN SOLUTION 30ML As Ordered ONE (12:01)
[2022-09-08] MEDS ORDERED: EMLA CREAM 5GM TUBE (LIDOCAINE/PRILOCAINE) As Ordered ONE ×2 (12:25→12:34)
[2022-09-08] MEDS ORDERED: ISOVUE-300 61% 50ML VIAL As Ordered ONE ×2 (13:04→13:08)
[2022-09-08] MEDS ORDERED: MORPHINE 10 MG/ML 1ML VIAL As Ordered ONE (13:44)
[2022-09-08] MEDS ORDERED: LIDOCAINE 1% MDV 20ML VIAL As Ordered ONE (14:17)
[2022-09-08] MEDS: ONDANSETRON 4MG ORAL DISINTEGRATING TAB SL PRN (14:57)
[2022-09-08] MEDS ORDERED: EMLA CREAM 5GM TUBE (LIDOCAINE/PRILOCAINE) TOP ONE (16:00)
[2022-09-08] MEDS: LIDOCAINE 5% OINT 30GM TUBE TOP SCH ×2 (16:59→22:13)
[2022-09-08 18:18] LABS: HEMATOCRIT 23.2 % (42.0-52.0); HEMOGLOBIN 7.3 g/dl (13.5-17.5)
[2022-09-09] VITALS (7 sets, daily range): BP systolic 104–112; BP diastolic 49–57
[2022-09-09] MEDS: cefTRIAXone SOD 2 GM in D5W MINI-BAG PLUS 50 ML IV SCH (01:04)
[2022-09-09] MEDS: metroNIDAZOLE 500 MG in IV 1 EA IV SCH (01:53)
[2022-09-09] MEDS: MORPHINE 2 MG/ML 1ML VIAL IV PRN ×4 (03:46→22:18)
[2022-09-09 05:46] LABS: HEMATOCRIT 22.5 % (42.0-52.0); HEMOGLOBIN 7.1 g/dl (13.5-17.5); MEAN CORPUSCULAR HEMOGLOBIN 28.5 pg (27.0-33.0); MEAN CORPUSCULAR HGB CONC 31.6 g/dl (32.0-36.5); MEAN CORPUSCULAR VOLUME 90.4 fl (80.0-96.0); PLATELET COUNT, AUTOMATED 128 10^3/uL (150-450); RED BLOOD COUNT 2.49 10^6/uL (4.30-6.10); WHITE BLOOD COUNT 5.4 10^3/uL (4.0-10.0)
[2022-09-09 06:24] LABS: CALCIUM LEVEL 8.2 MG/DL (8.8-10.2); CREATININE FOR GFR 1.83 MG/DL (0.70-1.30); GLOMERULAR FILTRATION RATE 38.1 (>35); MAGNESIUM LEVEL 1.9 MG/DL (1.8-2.4); PHOSPHORUS LEVEL 1.5 MG/DL (2.5-4.9); POTASSIUM SERUM 4.5 MEQ/L (3.5-5.1)
[2022-09-09] MEDS ORDERED: oxyCODONE 5MG TAB PO ONE (07:15)
[2022-09-09] MEDS: metroNIDAZOLE (FLAGYL) 500MG TABLET PO SCH ×3 (08:01→21:48)
[2022-09-09] MEDS: NS 1,000 ML IV SCH ×2 (08:02→20:39)
[2022-09-09] MEDS: LIDOCAINE 5% OINT 30GM TUBE TOP SCH ×3 (09:00→20:45)
[2022-09-09] MEDS: CIPROFLOXACIN 500MG TABLET PO SCH (09:56)
[2022-09-09] MEDS: HEPARIN SOD (PORCINE) 5000UNITS/ML 1ML VIAL/SYRINGE SC SCH ×2 (09:56→20:39)
[2022-09-09] MEDS ORDERED: oxyCODONE 5MG TAB GT ONE (14:00)
[2022-09-09 18:40] LABS: HEMATOCRIT 25.4 % (42.0-52.0); HEMOGLOBIN 7.9 g/dl (13.5-17.5)
[2022-09-09] MEDS: oxyCODONE 5MG TAB PO PRN (20:40)
[2022-09-09] MEDS ORDERED: ACETAMINOPHEN TAB 650MG DOSE (2X325MG) PO PRN (20:55)
[2022-09-10] MEDS: MORPHINE 2 MG/ML 1ML VIAL IV PRN ×3 (02:19→11:18)
[2022-09-10] MEDS: oxyCODONE 5MG TAB PO PRN (03:40)
[2022-09-10] MEDS: CIPROFLOXACIN 500MG TABLET PO SCH (05:31)
[2022-09-10] MEDS: metroNIDAZOLE (FLAGYL) 500MG TABLET PO SCH ×3 (05:31→20:49)
[2022-09-10] MEDS: NS 1,000 ML IV SCH ×2 (05:38→13:30)
[2022-09-10 06:13] VITALS: BP 112/54
[2022-09-10 06:58] LABS: HEMATOCRIT 26.6 % (42.0-52.0); HEMOGLOBIN 8.4 g/dl (13.5-17.5); MEAN CORPUSCULAR HEMOGLOBIN 28.9 pg (27.0-33.0); MEAN CORPUSCULAR HGB CONC 31.6 g/dl (32.0-36.5); MEAN CORPUSCULAR VOLUME 91.4 fl (80.0-96.0); PLATELET COUNT, AUTOMATED 126 10^3/uL (150-450); RED BLOOD COUNT 2.91 10^6/uL (4.30-6.10); WHITE BLOOD COUNT 4.8 10^3/uL (4.0-10.0)
[2022-09-10 07:29] LABS: CALCIUM LEVEL 7.7 MG/DL (8.8-10.2); CREATININE FOR GFR 1.67 MG/DL (0.70-1.30); GLOMERULAR FILTRATION RATE 42.4 (>35); MAGNESIUM LEVEL 1.9 MG/DL (1.8-2.4); PHOSPHORUS LEVEL 1.6 MG/DL (2.5-4.9); POTASSIUM SERUM 4.6 MEQ/L (3.5-5.1)
[2022-09-10] MEDS ORDERED: KETOROLAC 30 MG/ML 1ML VIAL IV ONE (07:50)
[2022-09-10] MEDS ORDERED: NS 1,000 ML IV ONE (08:00)
[2022-09-10] MEDS ORDERED: HYDROMORPHONE HCL 0.5 MG/ 0.5 ML SYRINGE (J1170 PER 1) IV ONE (08:30)
[2022-09-10] MEDS: LIDOCAINE 5% (LIDODERM) PATCH TD SCH (09:00)
[2022-09-10] MEDS: HEPARIN SOD (PORCINE) 5000UNITS/ML 1ML VIAL/SYRINGE SC SCH ×2 (09:03→20:49)
[2022-09-10] MEDS: BOUDREAUX'S BUTT PASTE TOP SCH ×4 (09:04→20:49)
[2022-09-10] MEDS: LIDOCAINE 5% OINT 30GM TUBE TOP SCH ×3 (09:05→20:50)
[2022-09-10] MEDS ORDERED: MAG SULF 1GM/100ML (MAG RUN) 1 GM in IV 1 EA IV ONE (10:30)
[2022-09-10 16:14] LABS: CPK CREATINE PHOSPHOKINASE 31 U/L (39-308)
[2022-09-10] MEDS ORDERED: FUROSEMIDE 40 MG TAB PO ONE (18:00)
[2022-09-10 21:23] VITALS: BP 125/81
[2022-09-11] MEDS: metroNIDAZOLE (FLAGYL) 500MG TABLET PO SCH ×3 (05:24→22:17)
[2022-09-11] MEDS: CIPROFLOXACIN 500MG TABLET PO SCH (05:24)
[2022-09-11 05:26] VITALS: BP 126/60
[2022-09-11] MEDS: MORPHINE 2 MG/ML 1ML VIAL IV PRN ×2 (05:32→08:18)
[2022-09-11 08:12] LABS: HEMATOCRIT 27.2 % (42.0-52.0); HEMOGLOBIN 8.5 g/dl (13.5-17.5); MEAN CORPUSCULAR HGB CONC 31.3 g/dl (32.0-36.5); MEAN CORPUSCULAR VOLUME 92.8 fl (80.0-96.0); PLATELET COUNT, AUTOMATED 128 10^3/uL (150-450); RED BLOOD COUNT 2.93 10^6/uL (4.30-6.10); WHITE BLOOD COUNT 4.3 10^3/uL (4.0-10.0)
[2022-09-11] MEDS: HEPARIN SOD (PORCINE) 5000UNITS/ML 1ML VIAL/SYRINGE SC SCH ×2 (08:14→21:04)
[2022-09-11] MEDS: MIDODRINE 5 MG TAB PO SCH ×3 (08:14→16:47)
[2022-09-11] MEDS: LIDOCAINE 5% (LIDODERM) PATCH TD SCH (08:14)
[2022-09-11] MEDS: BOUDREAUX'S BUTT PASTE TOP SCH ×4 (08:14→21:05)
[2022-09-11] MEDS: LIDOCAINE 5% OINT 30GM TUBE TOP SCH ×3 (08:15→21:05)
[2022-09-11 08:32] LABS: CALCIUM LEVEL 7.8 MG/DL (8.8-10.2); CREATININE FOR GFR 1.46 MG/DL (0.70-1.30); GLOMERULAR FILTRATION RATE 49.5 (>35); PHOSPHORUS LEVEL 1.5 MG/DL (2.5-4.9); POTASSIUM SERUM 4.6 MEQ/L (3.5-5.1)
[2022-09-11] MEDS: MORPHINE 30 MG TAB **MSIR PO SCH ×2 (09:00→13:07)
[2022-09-11] MEDS ORDERED: FUROSEMIDE 40MG/4ML VIAL IV ONE ×2 (09:25→15:15)
[2022-09-11] MEDS ORDERED: MAG SULF 1GM/100ML (MAG RUN) 1 GM in IV 1 EA IV ONE (09:25)
[2022-09-11] MEDS ORDERED: metOLazone 5 MG TAB PO ONE (09:30)
[2022-09-11] MEDS ORDERED: NALOXONE INJ 0.4MG/1ML VIAL IV PRN (10:15)
[2022-09-11 11:57] VITALS: BP 134/66
[2022-09-11] MEDS ORDERED: MORPHINE 30 MG TAB **MSIR PO ONE (15:10)
[2022-09-11] MEDS ORDERED: PILL CUTTER 1 EACH XX PRN (16:10)
[2022-09-11 17:29] LABS: CREATININE FOR GFR 1.55 MG/DL (0.70-1.30); GLOMERULAR FILTRATION RATE 46.2 (>35); MAGNESIUM LEVEL 2.1 MG/DL (1.8-2.4); POTASSIUM SERUM 4.7 MEQ/L (3.5-5.1)
[2022-09-11] MEDS: NEUTRA-PHOS 1.5 GM PACKET PO SCH ×2 (18:24→23:56)
[2022-09-11 19:35] VITALS: BP 126/57
[2022-09-11] MEDS ORDERED: MORPHINE 30 MG TAB **MSIR PO SCH (21:00)
[2022-09-12 05:01] VITALS: BP 125/59
[2022-09-12] MEDS: metroNIDAZOLE (FLAGYL) 500MG TABLET PO SCH ×3 (05:28→20:57)
[2022-09-12] MEDS: CIPROFLOXACIN 500MG TABLET PO SCH (05:28)
[2022-09-12] MEDS: NEUTRA-PHOS 1.5 GM PACKET PO SCH ×3 (05:37→19:26)
[2022-09-12] MEDS ORDERED: MORPHINE 30 MG TAB **MSIR PO SCH (06:00)
[2022-09-12 06:45] LABS: HEMATOCRIT 31.5 % (42.0-52.0); HEMOGLOBIN 9.4 g/dl (13.5-17.5); MEAN CORPUSCULAR HEMOGLOBIN 27.8 pg (27.0-33.0); MEAN CORPUSCULAR HGB CONC 29.8 g/dl (32.0-36.5); MEAN CORPUSCULAR VOLUME 93.2 fl (80.0-96.0); PLATELET COUNT, AUTOMATED 167 10^3/uL (150-450); RED BLOOD COUNT 3.38 10^6/uL (4.30-6.10); WHITE BLOOD COUNT 6.7 10^3/uL (4.0-10.0)
[2022-09-12 07:32] LABS: CALCIUM LEVEL 7.9 MG/DL (8.8-10.2); CREATININE FOR GFR 1.67 MG/DL (0.70-1.30); GLOMERULAR FILTRATION RATE 42.4 (>35); MAGNESIUM LEVEL 2.1 MG/DL (1.8-2.4); PHOSPHORUS LEVEL 2.8 MG/DL (2.5-4.9); POTASSIUM SERUM 5.1 MEQ/L (3.5-5.1)
[2022-09-12] MEDS: MIDODRINE 5 MG TAB PO SCH ×3 (08:56→16:56)
[2022-09-12] MEDS: HEPARIN SOD (PORCINE) 5000UNITS/ML 1ML VIAL/SYRINGE SC SCH ×2 (08:56→20:57)
[2022-09-12] MEDS: LIDOCAINE 5% OINT 30GM TUBE TOP SCH ×3 (08:57→20:57)
[2022-09-12] MEDS: LIDOCAINE 5% (LIDODERM) PATCH TD SCH ×3 (08:57→21:39)
[2022-09-12] MEDS: BOUDREAUX'S BUTT PASTE TOP SCH ×4 (08:58→20:57)
[2022-09-12] MEDS: MORPHINE 2 MG/ML 1ML VIAL IV PRN (12:17)
[2022-09-12] MEDS: MORPHINE 30 MG TAB **MSIR PO SCH ×2 (13:45→19:27)
[2022-09-12 14:00] VITALS: BP 126/61
[2022-09-12 22:00] VITALS: BP 121/61
[2022-09-13] MEDS: NEUTRA-PHOS 1.5 GM PACKET PO SCH ×3 (00:15→12:21)
[2022-09-13] MEDS: MORPHINE 30 MG TAB **MSIR PO SCH ×5 (00:34→23:11)
[2022-09-13] MEDS ORDERED: MORPHINE 30 MG TAB **MSIR PO ONE (03:00)
[2022-09-13] MEDS ORDERED: MORPHINE 4 MG/ML 1ML VIAL IV ONE (04:00)
[2022-09-13 06:00] VITALS: BP 119/63
[2022-09-13 06:21] LABS: HEMATOCRIT 29.8 % (42.0-52.0); HEMOGLOBIN 9.1 g/dl (13.5-17.5); MEAN CORPUSCULAR HEMOGLOBIN 28.3 pg (27.0-33.0); MEAN CORPUSCULAR HGB CONC 30.5 g/dl (32.0-36.5); MEAN CORPUSCULAR VOLUME 92.5 fl (80.0-96.0); PLATELET COUNT, AUTOMATED 138 10^3/uL (150-450); RED BLOOD COUNT 3.22 10^6/uL (4.30-6.10); WHITE BLOOD COUNT 6.3 10^3/uL (4.0-10.0)
[2022-09-13 06:43] LABS: CALCIUM LEVEL 7.6 MG/DL (8.8-10.2); CREATININE FOR GFR 1.58 MG/DL (0.70-1.30); GLOMERULAR FILTRATION RATE 45.1 (>35); PHOSPHORUS LEVEL 3.9 MG/DL (2.5-4.9); POTASSIUM SERUM 5.6 MEQ/L (3.5-5.1)
[2022-09-13] MEDS: LIDOCAINE 5% (LIDODERM) PATCH TD SCH (09:00)
[2022-09-13] MEDS: MIDODRINE 5 MG TAB PO SCH ×3 (09:26→16:00)
[2022-09-13] MEDS: BOUDREAUX'S BUTT PASTE TOP SCH ×4 (09:29→21:37)
[2022-09-13] MEDS: LIDOCAINE 5% OINT 30GM TUBE TOP SCH ×3 (09:29→21:37)
[2022-09-13] MEDS: HEPARIN SOD (PORCINE) 5000UNITS/ML 1ML VIAL/SYRINGE SC SCH ×2 (10:57→21:36)
[2022-09-13 14:00] VITALS: BP 150/67
[2022-09-13 16:00] LABS: CALCIUM LEVEL 7.9 MG/DL (8.8-10.2); CREATININE FOR GFR 1.61 MG/DL (0.70-1.30); GLOMERULAR FILTRATION RATE 44.2 (>35); POTASSIUM SERUM 6.2 MEQ/L (3.5-5.1)
[2022-09-13] MEDS ORDERED: SOD POLYSTYRENE SULFONATE SUSP 15GM 60ML UD PO ONE (16:10)
[2022-09-13] MEDS ORDERED: SOD POLYSTYRENE SULFONATE SUSP 15GM 60ML UD GT ONE (17:05)
[2022-09-13 19:51] VITALS: BP 154/68
[2022-09-13 21:09] LABS: CREATININE FOR GFR 1.6 MG/DL (0.70-1.30); GLOMERULAR FILTRATION RATE 44.5 (>35)
[2022-09-13] MEDS ORDERED: PATIROMER SORBITEX CALCIUM 8.4 GM POWDER PACKET (VELTASSA) XX ONE (22:00)
[2022-09-14 04:52] VITALS: BP 139/67
[2022-09-14 05:38] LABS: HEMATOCRIT 29.6 % (42.0-52.0); HEMOGLOBIN 9.1 g/dl (13.5-17.5); MEAN CORPUSCULAR HEMOGLOBIN 28.6 pg (27.0-33.0); MEAN CORPUSCULAR HGB CONC 30.7 g/dl (32.0-36.5); MEAN CORPUSCULAR VOLUME 93.1 fl (80.0-96.0); PLATELET COUNT, AUTOMATED 139 10^3/uL (150-450); RED BLOOD COUNT 3.18 10^6/uL (4.30-6.10); WHITE BLOOD COUNT 7.3 10^3/uL (4.0-10.0)
[2022-09-14] MEDS: MORPHINE 30 MG TAB **MSIR PO SCH ×3 (05:51→17:55)
[2022-09-14 06:31] LABS: CALCIUM LEVEL 7.5 MG/DL (8.8-10.2); CREATININE FOR GFR 1.7 MG/DL (0.70-1.30); GLOMERULAR FILTRATION RATE 41.5 (>35); PHOSPHORUS LEVEL 5.2 MG/DL (2.5-4.9); POTASSIUM SERUM 5.5 MEQ/L (3.5-5.1)
[2022-09-14] MEDS: MIDODRINE 5 MG TAB PO SCH ×3 (08:00→16:31)
[2022-09-14 08:47] LABS: CALCIUM LEVEL 8.1 MG/DL (8.8-10.2); CREATININE FOR GFR 1.77 MG/DL (0.70-1.30); GLOMERULAR FILTRATION RATE 39.6 (>35); POTASSIUM SERUM 5.1 MEQ/L (3.5-5.1)
[2022-09-14] MEDS ORDERED: SOD POLYSTYRENE SULFONATE SUSP 15GM 60ML UD GT ONE (09:00)
[2022-09-14] MEDS: LIDOCAINE 5% (LIDODERM) PATCH TD SCH (09:00)
[2022-09-14] MEDS: HEPARIN SOD (PORCINE) 5000UNITS/ML 1ML VIAL/SYRINGE SC SCH ×2 (09:33→21:22)
[2022-09-14] MEDS: LIDOCAINE 5% OINT 30GM TUBE TOP SCH ×3 (09:34→21:21)
[2022-09-14] MEDS: BOUDREAUX'S BUTT PASTE TOP SCH ×4 (09:34→21:21)
[2022-09-14 11:13] VITALS: BP 123/63
[2022-09-14 14:00] VITALS: BP 120/61
[2022-09-14 14:48] LABS: CREATININE FOR GFR 1.69 MG/DL (0.70-1.30); GLOMERULAR FILTRATION RATE 41.8 (>35)
[2022-09-14 16:30] VITALS: BP 119/59
[2022-09-14 21:26] VITALS: BP 118/58
[2022-09-15] MEDS: MORPHINE 30 MG TAB **MSIR PO SCH ×4 (01:01→18:23)
[2022-09-15 05:54] VITALS: BP 100/54
[2022-09-15 07:38] LABS: PHOSPHORUS LEVEL 4.4 MG/DL (2.5-4.9)
[2022-09-15] MEDS: HEPARIN SOD (PORCINE) 5000UNITS/ML 1ML VIAL/SYRINGE SC SCH ×2 (09:00→21:54)
[2022-09-15 09:01] LABS: HEMATOCRIT 27.1 % (42.0-52.0); HEMOGLOBIN 8.3 g/dl (13.5-17.5); MEAN CORPUSCULAR HEMOGLOBIN 28.8 pg (27.0-33.0); MEAN CORPUSCULAR HGB CONC 30.6 g/dl (32.0-36.5); MEAN CORPUSCULAR VOLUME 94.1 fl (80.0-96.0); RED BLOOD COUNT 2.88 10^6/uL (4.30-6.10); WHITE BLOOD COUNT 5.2 10^3/uL (4.0-10.0)
[2022-09-15] MEDS: LIDOCAINE 5% (LIDODERM) PATCH TD SCH ×2 (09:01→22:56)
[2022-09-15] MEDS: LIDOCAINE 5% OINT 30GM TUBE TOP SCH ×3 (09:02→21:54)
[2022-09-15] MEDS: BOUDREAUX'S BUTT PASTE TOP SCH ×4 (09:02→21:54)
[2022-09-15] MEDS: MIDODRINE 5 MG TAB PO SCH ×3 (09:03→16:34)
[2022-09-15 09:08] LABS: CREATININE FOR GFR 1.49 MG/DL (0.70-1.30); GLOMERULAR FILTRATION RATE 48.3 (>35); POTASSIUM SERUM 4.1 MEQ/L (3.5-5.1)
[2022-09-15 09:09] LABS: ALBUMIN 2.6 GM/DL (3.2-5.2); BILIRUBIN,TOTAL 0.3 MG/DL (0.2-1.0); TOTAL PROTEIN 6.4 GM/DL (6.4-8.2)
[2022-09-15 09:22] LABS: PLATELET COUNT, AUTOMATED 120 10^3/uL (150-450)
[2022-09-15 14:00] VITALS: BP 124/59
[2022-09-15 20:18] VITALS: BP 122/58
[2022-09-15] MEDS ORDERED: MORPHINE 30 MG TAB **MSIR PO ONE (22:00)
[2022-09-16] MEDS: MORPHINE 30 MG TAB **MSIR PO SCH ×5 (01:04→23:58)
[2022-09-16 05:59] VITALS: BP 119/58
[2022-09-16 08:09] LABS: HEMATOCRIT 28.2 % (42.0-52.0); HEMOGLOBIN 8.6 g/dl (13.5-17.5); MEAN CORPUSCULAR HEMOGLOBIN 28.3 pg (27.0-33.0); MEAN CORPUSCULAR HGB CONC 30.5 g/dl (32.0-36.5); MEAN CORPUSCULAR VOLUME 92.8 fl (80.0-96.0); PLATELET COUNT, AUTOMATED 137 10^3/uL (150-450); RED BLOOD COUNT 3.04 10^6/uL (4.30-6.10); WHITE BLOOD COUNT 5.5 10^3/uL (4.0-10.0)
[2022-09-16 08:43] LABS: ALBUMIN 2.7 GM/DL (3.2-5.2); BILIRUBIN,TOTAL 0.3 MG/DL (0.2-1.0); CALCIUM LEVEL 8.6 MG/DL (8.8-10.2); CREATININE FOR GFR 1.54 MG/DL (0.70-1.30); GLOMERULAR FILTRATION RATE 46.5 (>35); PHOSPHORUS LEVEL 3.8 MG/DL (2.5-4.9); POTASSIUM SERUM 4.1 MEQ/L (3.5-5.1); TOTAL PROTEIN 6.7 GM/DL (6.4-8.2)
[2022-09-16] MEDS: LIDOCAINE 5% (LIDODERM) PATCH TD SCH (09:00)
[2022-09-16] MEDS: MIDODRINE 5 MG TAB PO SCH ×3 (09:21→17:01)
[2022-09-16] MEDS: BOUDREAUX'S BUTT PASTE TOP SCH ×4 (09:22→21:03)
[2022-09-16] MEDS: LIDOCAINE 5% OINT 30GM TUBE TOP SCH ×3 (09:22→21:03)
[2022-09-16 14:48] VITALS: BP 124/58
[2022-09-16 20:52] VITALS: BP 125/57
[2022-09-16] MEDS: MORPHINE 30 MG TAB **MSIR PO PRN (21:11)
[2022-09-17 01:52] VITALS: O2SAT 94
[2022-09-17] MEDS: MORPHINE 30 MG TAB **MSIR PO SCH ×4 (05:11→23:37)
[2022-09-17 06:08] VITALS: BP 113/55
[2022-09-17 07:19] LABS: HEMATOCRIT 28.3 % (42.0-52.0); HEMOGLOBIN 8.7 g/dl (13.5-17.5); MEAN CORPUSCULAR HEMOGLOBIN 28.5 pg (27.0-33.0); MEAN CORPUSCULAR HGB CONC 30.7 g/dl (32.0-36.5); MEAN CORPUSCULAR VOLUME 92.8 fl (80.0-96.0); PLATELET COUNT, AUTOMATED 139 10^3/uL (150-450); RED BLOOD COUNT 3.05 10^6/uL (4.30-6.10); WHITE BLOOD COUNT 4.8 10^3/uL (4.0-10.0)
[2022-09-17 07:29] LABS: ALBUMIN 2.8 GM/DL (3.2-5.2); BILIRUBIN,TOTAL 0.3 MG/DL (0.2-1.0); CALCIUM LEVEL 9.9 MG/DL (8.8-10.2); CREATININE FOR GFR 1.47 MG/DL (0.70-1.30); GLOMERULAR FILTRATION RATE 49.1 (>35); POTASSIUM SERUM 4.4 MEQ/L (3.5-5.1); TOTAL PROTEIN 7.5 GM/DL (6.4-8.2)
[2022-09-17] MEDS: MIDODRINE 5 MG TAB PO SCH ×3 (08:53→17:33)
[2022-09-17] MEDS: LIDOCAINE 5% (LIDODERM) PATCH TD SCH (08:54)
[2022-09-17] MEDS: LIDOCAINE 5% OINT 30GM TUBE TOP SCH ×3 (08:54→20:47)
[2022-09-17] MEDS: BOUDREAUX'S BUTT PASTE TOP SCH ×4 (08:54→20:47)
[2022-09-17 21:00] VITALS: O2SAT 96
[2022-09-17 21:07] VITALS: BP 131/58
[2022-09-18] MEDS: MORPHINE 30 MG TAB **MSIR PO SCH ×4 (05:03→23:05)
[2022-09-18 05:57] VITALS: BP 129/57
[2022-09-18 07:06] LABS: HEMATOCRIT 27.6 % (42.0-52.0); HEMOGLOBIN 8.6 g/dl (13.5-17.5); MEAN CORPUSCULAR HEMOGLOBIN 28.9 pg (27.0-33.0); MEAN CORPUSCULAR HGB CONC 31.2 g/dl (32.0-36.5); MEAN CORPUSCULAR VOLUME 92.6 fl (80.0-96.0); PLATELET COUNT, AUTOMATED 146 10^3/uL (150-450); RED BLOOD COUNT 2.98 10^6/uL (4.30-6.10); WHITE BLOOD COUNT 5.2 10^3/uL (4.0-10.0)
[2022-09-18 07:44] LABS: ALBUMIN 2.9 GM/DL (3.2-5.2); BILIRUBIN,TOTAL 0.3 MG/DL (0.2-1.0); CALCIUM LEVEL 9.6 MG/DL (8.8-10.2); CREATININE FOR GFR 1.44 MG/DL (0.70-1.30); GLOMERULAR FILTRATION RATE 50.2 (>35); PHOSPHORUS LEVEL 3.8 MG/DL (2.5-4.9); POTASSIUM SERUM 4.9 MEQ/L (3.5-5.1)
[2022-09-18] MEDS: LIDOCAINE 5% (LIDODERM) PATCH TD SCH (09:00)
[2022-09-18] MEDS: MIDODRINE 5 MG TAB PO SCH ×3 (09:06→17:03)
[2022-09-18] MEDS: BOUDREAUX'S BUTT PASTE TOP SCH ×3 (09:07→17:03)
[2022-09-18] MEDS: LIDOCAINE 5% OINT 30GM TUBE TOP SCH ×2 (09:07→17:02)
[2022-09-18] MEDS: MORPHINE 30 MG TAB **MSIR PO PRN (09:21)
[2022-09-18 14:15] VITALS: BP 126/62
[2022-09-18 21:00] VITALS: O2SAT 96
[2022-09-18 21:31] VITALS: BP 126/56
[2022-09-19] MEDS: MORPHINE 30 MG TAB **MSIR PO PRN ×3 (04:18→22:03)
[2022-09-19 05:53] VITALS: BP 125/65
[2022-09-19] MEDS: MORPHINE 30 MG TAB **MSIR PO SCH ×3 (06:00→17:30)
[2022-09-19 06:47] LABS: HEMATOCRIT 27.7 % (42.0-52.0); HEMOGLOBIN 8.7 g/dl (13.5-17.5); MEAN CORPUSCULAR HEMOGLOBIN 28.8 pg (27.0-33.0); MEAN CORPUSCULAR HGB CONC 31.4 g/dl (32.0-36.5); MEAN CORPUSCULAR VOLUME 91.7 fl (80.0-96.0); PLATELET COUNT, AUTOMATED 156 10^3/uL (150-450); RED BLOOD COUNT 3.02 10^6/uL (4.30-6.10); WHITE BLOOD COUNT 5.6 10^3/uL (4.0-10.0)
[2022-09-19 07:21] LABS: BILIRUBIN,TOTAL 0.4 MG/DL (0.2-1.0); CALCIUM LEVEL 10.3 MG/DL (8.8-10.2); CREATININE FOR GFR 1.53 MG/DL (0.70-1.30); GLOMERULAR FILTRATION RATE 46.9 (>35); POTASSIUM SERUM 4.8 MEQ/L (3.5-5.1); TOTAL PROTEIN 7.4 GM/DL (6.4-8.2)
[2022-09-19] MEDS: MIDODRINE 5 MG TAB PO SCH ×3 (08:46→16:15)
[2022-09-19] MEDS: BOUDREAUX'S BUTT PASTE TOP SCH (08:56)
[2022-09-19] MEDS: LIDOCAINE 5% (LIDODERM) PATCH TD SCH (08:57)
[2022-09-19 12:40] VITALS: BP 118/62
[2022-09-19 19:42] VITALS: BP 117/62
[2022-09-20] MEDS: MORPHINE 30 MG TAB **MSIR PO SCH ×4 (00:50→16:07)
[2022-09-20] MEDS: BOUDREAUX'S BUTT PASTE TOP PRN ×2 (00:56→21:18)
[2022-09-20] MEDS: LIDOCAINE 5% OINT 30GM TUBE TOP PRN ×3 (00:57→21:18)
[2022-09-20 06:00] VITALS: BP 113/70
[2022-09-20 06:17] LABS: HEMATOCRIT 28.3 % (42.0-52.0); HEMOGLOBIN 8.6 g/dl (13.5-17.5); MEAN CORPUSCULAR HEMOGLOBIN 28.3 pg (27.0-33.0); MEAN CORPUSCULAR HGB CONC 30.4 g/dl (32.0-36.5); MEAN CORPUSCULAR VOLUME 93.1 fl (80.0-96.0); PLATELET COUNT, AUTOMATED 151 10^3/uL (150-450); RED BLOOD COUNT 3.04 10^6/uL (4.30-6.10); WHITE BLOOD COUNT 4.3 10^3/uL (4.0-10.0)
[2022-09-20 07:01] LABS: ALBUMIN 3.1 GM/DL (3.2-5.2); BILIRUBIN,TOTAL 0.5 MG/DL (0.2-1.0); CALCIUM LEVEL 10.4 MG/DL (8.8-10.2); CREATININE FOR GFR 1.57 MG/DL (0.70-1.30); GLOMERULAR FILTRATION RATE 45.5 (>35); POTASSIUM SERUM 4.7 MEQ/L (3.5-5.1); TOTAL PROTEIN 7.4 GM/DL (6.4-8.2)
[2022-09-20] MEDS: LIDOCAINE 5% (LIDODERM) PATCH TD SCH (09:00)
[2022-09-20] MEDS: MIDODRINE 5 MG TAB PO SCH ×3 (11:42→15:45)
[2022-09-20] MEDS: BOUDREAUX'S BUTT PASTE TOP SCH (11:43)
[2022-09-20 14:00] VITALS: BP 115/62
[2022-09-20] MEDS: HEPARIN SOD (PORCINE) 5000UNITS/ML 1ML VIAL/SYRINGE SQ SCH (21:17)
[2022-09-20] MEDS: MORPHINE 30 MG TAB **MSIR PO PRN (21:18)
[2022-09-21 06:17] VITALS: BP 121/61
[2022-09-21 06:54] LABS: HEMATOCRIT 27.7 % (42.0-52.0); HEMOGLOBIN 8.5 g/dl (13.5-17.5); MEAN CORPUSCULAR HEMOGLOBIN 28.9 pg (27.0-33.0); MEAN CORPUSCULAR HGB CONC 30.7 g/dl (32.0-36.5); MEAN CORPUSCULAR VOLUME 94.2 fl (80.0-96.0); PLATELET COUNT, AUTOMATED 138 10^3/uL (150-450); RED BLOOD COUNT 2.94 10^6/uL (4.30-6.10); WHITE BLOOD COUNT 3.7 10^3/uL (4.0-10.0)
[2022-09-21 07:32] LABS: ALBUMIN 2.8 GM/DL (3.2-5.2); BILIRUBIN,TOTAL 0.4 MG/DL (0.2-1.0); CALCIUM LEVEL 10.7 MG/DL (8.8-10.2); CREATININE FOR GFR 1.65 MG/DL (0.70-1.30); GLOMERULAR FILTRATION RATE 42.9 (>35); POTASSIUM SERUM 4.5 MEQ/L (3.5-5.1); TOTAL PROTEIN 7.7 GM/DL (6.4-8.2)
[2022-09-21] MEDS: LIDOCAINE 5% (LIDODERM) PATCH TD SCH (08:09)
[2022-09-21] MEDS: MIDODRINE 5 MG TAB PO SCH ×3 (08:09→16:57)
[2022-09-21] MEDS: BOUDREAUX'S BUTT PASTE TOP SCH (08:10)
[2022-09-21] MEDS: HEPARIN SOD (PORCINE) 5000UNITS/ML 1ML VIAL/SYRINGE SQ SCH ×2 (08:10→20:49)
[2022-09-21] MEDS: MORPHINE 30 MG TAB **MSIR PO PRN ×4 (08:10→20:49)
[2022-09-21] MEDS: BOUDREAUX'S BUTT PASTE TOP PRN (20:55)
[2022-09-22] MEDS: MORPHINE 30 MG TAB **MSIR PO PRN ×5 (00:54→22:33)
[2022-09-22 06:00] VITALS: BP 119/59
[2022-09-22] MEDS: MIDODRINE 5 MG TAB PO SCH ×3 (08:29→16:31)
[2022-09-22] MEDS: LIDOCAINE 5% (LIDODERM) PATCH TD SCH (09:00)
[2022-09-22] MEDS: HEPARIN SOD (PORCINE) 5000UNITS/ML 1ML VIAL/SYRINGE SQ SCH ×2 (09:00→20:19)
[2022-09-22 09:41] VITALS: BP 120/60
[2022-09-22] MEDS: BOUDREAUX'S BUTT PASTE TOP SCH (09:54)
[2022-09-22 13:33] VITALS: BP 118/58
[2022-09-23] MEDS: MORPHINE 30 MG TAB **MSIR PO PRN ×4 (04:07→19:43)
[2022-09-23 06:22] VITALS: BP 120/60
[2022-09-23] MEDS: BOUDREAUX'S BUTT PASTE TOP SCH (07:39)
[2022-09-23] MEDS: MIDODRINE 5 MG TAB PO SCH ×3 (08:22→16:11)
[2022-09-23] MEDS: HEPARIN SOD (PORCINE) 5000UNITS/ML 1ML VIAL/SYRINGE SQ SCH ×2 (08:22→19:43)
[2022-09-23] MEDS: LIDOCAINE 5% (LIDODERM) PATCH TD SCH (08:22)
[2022-09-23] MEDS: ONDANSETRON 4MG ORAL DISINTEGRATING TAB SL PRN (19:43)
[2022-09-23] MEDS ORDERED: METOCLOPRAMIDE INJ 10MG/2ML VIAL IV ONE (21:00)
[2022-09-24] MEDS: MORPHINE 30 MG TAB **MSIR PO PRN ×5 (00:06→19:49)
[2022-09-24 05:46] VITALS: BP 125/63
[2022-09-24] MEDS: MIDODRINE 5 MG TAB PO SCH ×3 (07:39→16:44)
[2022-09-24] MEDS: BOUDREAUX'S BUTT PASTE TOP SCH (07:40)
[2022-09-24] MEDS: LIDOCAINE 5% OINT 30GM TUBE TOP PRN (07:40)
[2022-09-24] MEDS: HEPARIN SOD (PORCINE) 5000UNITS/ML 1ML VIAL/SYRINGE SQ SCH ×2 (08:30→19:48)
[2022-09-24] MEDS: LIDOCAINE 5% (LIDODERM) PATCH TD SCH (08:30)
[2022-09-25] MEDS: MORPHINE 30 MG TAB **MSIR PO PRN ×4 (01:00→21:16)
[2022-09-25] MEDS ORDERED: MORPHINE 30 MG TAB **MSIR PO ONE (02:45)
[2022-09-25 06:32] VITALS: BP 125/62
[2022-09-25] MEDS: BOUDREAUX'S BUTT PASTE TOP SCH (08:01)
[2022-09-25] MEDS: MIDODRINE 5 MG TAB PO SCH ×3 (08:01→16:45)
[2022-09-25] MEDS: HEPARIN SOD (PORCINE) 5000UNITS/ML 1ML VIAL/SYRINGE SQ SCH ×2 (08:01→21:00)
[2022-09-25] MEDS: LIDOCAINE 5% (LIDODERM) PATCH TD SCH (08:01)
[2022-09-25] MEDS: LIDOCAINE 5% OINT 30GM TUBE TOP PRN (08:02)
[2022-09-25] MEDS ORDERED: SENOKOT S TAB PO PRN (16:25)
[2022-09-26] MEDS: MORPHINE 30 MG TAB **MSIR PO PRN ×4 (01:51→20:29)
[2022-09-26 04:00] VITALS: BP 125/81
[2022-09-26] MEDS: HEPARIN SOD (PORCINE) 5000UNITS/ML 1ML VIAL/SYRINGE SQ SCH ×2 (09:00→13:42)
[2022-09-26] MEDS: LIDOCAINE 5% (LIDODERM) PATCH TD SCH (09:00)
[2022-09-26] MEDS: MIDODRINE 5 MG TAB PO SCH ×3 (09:36→15:15)
[2022-09-26] MEDS: BOUDREAUX'S BUTT PASTE TOP SCH (09:37)
[2022-09-27] MEDS: MORPHINE 30 MG TAB **MSIR PO PRN ×6 (00:27→20:52)
[2022-09-27 04:00] VITALS: BP 131/72
[2022-09-27] MEDS: HEPARIN SOD (PORCINE) 5000UNITS/ML 1ML VIAL/SYRINGE SQ SCH ×3 (08:39→20:43)
[2022-09-27] MEDS: LIDOCAINE 5% (LIDODERM) PATCH TD SCH (08:39)
[2022-09-27] MEDS: MIDODRINE 5 MG TAB PO SCH ×3 (08:39→16:45)
[2022-09-27] MEDS: BOUDREAUX'S BUTT PASTE TOP SCH (08:40)
[2022-09-28] MEDS: MORPHINE 30 MG TAB **MSIR PO PRN ×6 (00:56→22:21)
[2022-09-28 05:36] VITALS: BP 128/58
[2022-09-28] MEDS: MIDODRINE 5 MG TAB PO SCH ×3 (08:57→16:32)
[2022-09-28] MEDS: BOUDREAUX'S BUTT PASTE TOP SCH (08:58)
[2022-09-28] MEDS: HEPARIN SOD (PORCINE) 5000UNITS/ML 1ML VIAL/SYRINGE SQ SCH ×2 (08:58→21:00)
[2022-09-28] MEDS: LIDOCAINE 5% (LIDODERM) PATCH TD SCH (08:58)
[2022-09-29 02:16] VITALS: BP 122/79
[2022-09-29] MEDS: MORPHINE 30 MG TAB **MSIR PO PRN ×5 (03:32→20:40)
[2022-09-29] MEDS: LIDOCAINE 5% (LIDODERM) PATCH TD SCH (07:49)
[2022-09-29] MEDS: HEPARIN SOD (PORCINE) 5000UNITS/ML 1ML VIAL/SYRINGE SQ SCH ×2 (07:49→20:44)
[2022-09-29] MEDS: MIDODRINE 5 MG TAB PO SCH ×3 (08:13→16:29)
[2022-09-29] MEDS: BOUDREAUX'S BUTT PASTE TOP SCH (08:13)
[2022-09-30] MEDS: MORPHINE 30 MG TAB **MSIR PO PRN ×5 (00:47→20:32)
[2022-09-30 06:00] VITALS: BP 127/56
[2022-09-30] MEDS: MIDODRINE 5 MG TAB PO SCH ×3 (08:25→16:20)
[2022-09-30] MEDS: HEPARIN SOD (PORCINE) 5000UNITS/ML 1ML VIAL/SYRINGE SQ SCH ×2 (09:00→20:23)
[2022-09-30] MEDS: LIDOCAINE 5% (LIDODERM) PATCH TD SCH (09:00)
[2022-09-30] MEDS: BOUDREAUX'S BUTT PASTE TOP SCH (12:16)
[2022-10-01] MEDS: MORPHINE 30 MG TAB **MSIR PO PRN ×5 (00:35→21:11)
[2022-10-01 05:13] VITALS: BP 119/56
[2022-10-01] MEDS: MIDODRINE 5 MG TAB PO SCH ×3 (08:12→16:32)
[2022-10-01] MEDS: HEPARIN SOD (PORCINE) 5000UNITS/ML 1ML VIAL/SYRINGE SQ SCH ×2 (08:14→21:00)
[2022-10-01] MEDS: LIDOCAINE 5% (LIDODERM) PATCH TD SCH (08:14)
[2022-10-01] MEDS: BOUDREAUX'S BUTT PASTE TOP SCH (08:16)
[2022-10-02] MEDS: MORPHINE 30 MG TAB **MSIR PO PRN ×5 (01:12→17:16)
[2022-10-02] MEDS: ACETAMINOPHEN 325MG/10.15ML UDC PO PRN (03:58)
[2022-10-02 05:21] VITALS: BP 122/55
[2022-10-02] MEDS: LIDOCAINE 5% (LIDODERM) PATCH TD SCH (09:00)
[2022-10-02] MEDS: HEPARIN SOD (PORCINE) 5000UNITS/ML 1ML VIAL/SYRINGE SQ SCH ×2 (09:00→19:54)
[2022-10-02] MEDS: MIDODRINE 5 MG TAB PO SCH ×3 (09:16→17:16)
[2022-10-02] MEDS: BOUDREAUX'S BUTT PASTE TOP SCH (09:17)
[2022-10-02] MEDS: LIDOCAINE 5% OINT 30GM TUBE TOP PRN (09:18)
[2022-10-02 20:00] VITALS: BP 122/50
[2022-10-02] MEDS ORDERED: MORPHINE 10 MG/ML 1ML VIAL IV PRN (21:30)
[2022-10-02] MEDS ORDERED: MORPHINE 4 MG/ML 1ML VIAL IV ONE (22:00)
[2022-10-02] MEDS ORDERED: NS 1,000 ML IV SCH (23:20)
[2022-10-03] VITALS (11 sets, daily range): BP systolic 115–143; BP diastolic 52–70
[2022-10-03 00:31] LABS: BASO % 0.4 % (0.0-1.0); EOS % 0.1 % (0.0-3.0); HEMATOCRIT 23.8 % (42.0-52.0); HEMOGLOBIN 7.5 g/dl (13.5-17.5); LYMPH # 0.3 10^3/uL (1.5-5.0); LYMPH % 3.8 % (24.0-44.0); MEAN CORPUSCULAR HEMOGLOBIN 29.5 pg (27.0-33.0); MEAN CORPUSCULAR HGB CONC 31.5 g/dl (32.0-36.5); MEAN CORPUSCULAR VOLUME 93.7 fl (80.0-96.0); MONO # 0.3 10^3/uL (0.0-0.8); MONO % 3.9 % (2.0-8.0); NEUTROPHILS # 6.4 10^3/uL (1.5-8.5); NEUTROPHILS % 89.8 % (36.0-66.0); PLATELET COUNT, AUTOMATED 143 10^3/uL (150-450); RED BLOOD COUNT 2.54 10^6/uL (4.30-6.10); WHITE BLOOD COUNT 7.2 10^3/uL (4.0-10.0)
[2022-10-03] MEDS: metroNIDAZOLE 500 MG in IV 1 EA IV SCH ×3 (00:34→16:33)
[2022-10-03 00:40] LABS: INR 1.05; PROTHROMBIN TIME 13.9 SECONDS (12.5-14.5)
[2022-10-03 00:41] LABS: PARTIAL THROMBOPLASTIN TIME 32.2 SECONDS (24.8-34.2)
[2022-10-03 01:00] LABS: ALBUMIN 3.1 GM/DL (3.2-5.2); BILIRUBIN,TOTAL 0.5 MG/DL (0.2-1.0); CREATININE FOR GFR 1.53 MG/DL (0.70-1.30); GLOMERULAR FILTRATION RATE 46.9 (>35); MAGNESIUM LEVEL 2.3 MG/DL (1.8-2.4); POTASSIUM SERUM 5.1 MEQ/L (3.5-5.1); TOTAL PROTEIN 7.9 GM/DL (6.4-8.2)
[2022-10-03] MEDS: CIPROFLOXACIN 400 MG in IV 1 EA IV SCH ×2 (01:38→12:25)
[2022-10-03] MEDS: LIDOCAINE 5% (LIDODERM) PATCH TD SCH (09:00)
[2022-10-03] MEDS: HEPARIN SOD (PORCINE) 5000UNITS/ML 1ML VIAL/SYRINGE SQ SCH ×2 (09:00→21:00)
[2022-10-03] MEDS: MIDODRINE 5 MG TAB PO SCH ×3 (09:09→16:32)
[2022-10-03] MEDS: BOUDREAUX'S BUTT PASTE TOP SCH (09:11)
[2022-10-03] MEDS: ONDANSETRON 4MG ORAL DISINTEGRATING TAB SL PRN (10:25)
[2022-10-03 10:39] LABS: HEMATOCRIT 22.8 % (42.0-52.0); MEAN CORPUSCULAR HEMOGLOBIN 28.8 pg (27.0-33.0); MEAN CORPUSCULAR HGB CONC 30.7 g/dl (32.0-36.5); MEAN CORPUSCULAR VOLUME 93.8 fl (80.0-96.0); PLATELET COUNT, AUTOMATED 124 10^3/uL (150-450); RED BLOOD COUNT 2.43 10^6/uL (4.30-6.10); WHITE BLOOD COUNT 4.4 10^3/uL (4.0-10.0)
[2022-10-03] MEDS ORDERED: FUROSEMIDE 40MG/4ML VIAL IV ONE ×2 (11:45→19:30)
[2022-10-03 12:23] LABS: CALCIUM LEVEL 9.8 MG/DL (8.8-10.2); CREATININE FOR GFR 1.57 MG/DL (0.70-1.30); GLOMERULAR FILTRATION RATE 45.5 (>35); POTASSIUM SERUM 4.6 MEQ/L (3.5-5.1)
[2022-10-03] MEDS: LIDOCAINE 5% OINT 30GM TUBE TOP PRN (21:55)
[2022-10-04] MEDS: metroNIDAZOLE 500 MG in IV 1 EA IV SCH ×3 (00:01→16:35)
[2022-10-04] MEDS: CIPROFLOXACIN 400 MG in IV 1 EA IV SCH ×2 (01:14→12:46)
[2022-10-04 05:36] VITALS: BP 129/62
[2022-10-04 07:54] LABS: BASO % 0.2 % (0.0-1.0); HEMATOCRIT 31.3 % (42.0-52.0); LYMPH # 0.2 10^3/uL (1.5-5.0); LYMPH % 3.4 % (24.0-44.0); MEAN CORPUSCULAR HEMOGLOBIN 29.2 pg (27.0-33.0); MEAN CORPUSCULAR HGB CONC 32.3 g/dl (32.0-36.5); MEAN CORPUSCULAR VOLUME 90.5 fl (80.0-96.0); MONO # 0.3 10^3/uL (0.0-0.8); NEUTROPHILS # 4.4 10^3/uL (1.5-8.5); NEUTROPHILS % 87.6 % (36.0-66.0); PLATELET COUNT, AUTOMATED 105 10^3/uL (150-450); RED BLOOD COUNT 3.46 10^6/uL (4.30-6.10)
[2022-10-04 07:59] LABS: HEMOGLOBIN 10.1 g/dl (13.5-17.5)
[2022-10-04 08:17] LABS: CALCIUM LEVEL 9.5 MG/DL (8.8-10.2); CREATININE FOR GFR 1.74 MG/DL (0.70-1.30); GLOMERULAR FILTRATION RATE 40.4 (>35); POTASSIUM SERUM 4.2 MEQ/L (3.5-5.1)
[2022-10-04] MEDS: LIDOCAINE 5% (LIDODERM) PATCH TD SCH (09:00)
[2022-10-04] MEDS: HEPARIN SOD (PORCINE) 5000UNITS/ML 1ML VIAL/SYRINGE SQ SCH ×2 (09:00→21:00)
[2022-10-04] MEDS: MIDODRINE 5 MG TAB PO SCH ×3 (09:12→16:35)
[2022-10-04] MEDS: BOUDREAUX'S BUTT PASTE TOP SCH (09:13)
[2022-10-04] MEDS: NS 1,000 ML IV SCH (12:45)
[2022-10-04 14:00] VITALS: BP 128/66
[2022-10-04 21:58] VITALS: BP 126/63
[2022-10-05] MEDS: metroNIDAZOLE 500 MG in IV 1 EA IV SCH ×3 (00:27→15:32)
[2022-10-05 00:56] VITALS: BP 134/65
[2022-10-05] MEDS: CIPROFLOXACIN 400 MG in IV 1 EA IV SCH ×2 (01:56→12:35)
[2022-10-05] MEDS: NS 1,000 ML IV SCH (02:48)
[2022-10-05 05:07] VITALS: BP 133/65
[2022-10-05 06:15] LABS: BASO % 0.3 % (0.0-1.0); EOS % 0.2 % (0.0-3.0); HEMOGLOBIN 10.2 g/dl (13.5-17.5); LYMPH # 0.2 10^3/uL (1.5-5.0); LYMPH % 3.1 % (24.0-44.0); MEAN CORPUSCULAR HEMOGLOBIN 29.2 pg (27.0-33.0); MEAN CORPUSCULAR HGB CONC 31.9 g/dl (32.0-36.5); MEAN CORPUSCULAR VOLUME 91.7 fl (80.0-96.0); MONO # 0.3 10^3/uL (0.0-0.8); MONO % 4.7 % (2.0-8.0); NEUTROPHILS # 5.1 10^3/uL (1.5-8.5); NEUTROPHILS % 89.6 % (36.0-66.0); RED BLOOD COUNT 3.49 10^6/uL (4.30-6.10); WHITE BLOOD COUNT 5.7 10^3/uL (4.0-10.0)
[2022-10-05 07:01] LABS: PLATELET COUNT, AUTOMATED 98 10^3/uL (150-450)
[2022-10-05 07:02] LABS: CALCIUM LEVEL 8.8 MG/DL (8.8-10.2); CREATININE FOR GFR 1.59 MG/DL (0.70-1.30); GLOMERULAR FILTRATION RATE 44.8 (>35)
[2022-10-05] MEDS: MORPHINE 30 MG TAB **MSIR PO PRN ×3 (08:12→19:45)
[2022-10-05] MEDS: BOUDREAUX'S BUTT PASTE TOP SCH (08:14)
[2022-10-05] MEDS: LIDOCAINE 5% (LIDODERM) PATCH TD SCH (08:14)
[2022-10-05] MEDS: MIDODRINE 5 MG TAB PO SCH ×3 (08:14→15:33)
[2022-10-05] MEDS: HEPARIN SOD (PORCINE) 5000UNITS/ML 1ML VIAL/SYRINGE SQ SCH ×2 (08:15→20:36)
[2022-10-05 11:20] VITALS: O2SAT 95
[2022-10-05] MEDS: ALBUTEROL SULFATE 2.5MG/0.5ML INH NEB SOLN NEB SCH ×4 (11:23→23:58)
[2022-10-05 12:00] LABS: TOTAL PROTEIN 7.2 GM/DL (6.4-8.2)
[2022-10-05] MEDS ORDERED: LIDOCAINE 1% MDV 20ML VIAL As Ordered ONE (13:23)
[2022-10-05 14:00] VITALS: BP 135/64
[2022-10-05 15:04] LABS: APPEARANCE, BODY FLUID CLOUDY (CLEAR); PLEURAL FL COLOR AMBER (COLORLESS); SOURCE, BODY FLUID PLEURAL
[2022-10-05 15:35] LABS: AMYLASE, BODY FLUID 60 U/L (NOT ESTABLISHED); LDH, BODY FLUID 119 U/L (NOT ESTABLISHED); SOURCE, BODY FLUID ALBUMIN PLEURAL; SOURCE, BODY FLUID AMYLASE PLEURAL; SOURCE, BODY FLUID GLUCOSE PLEURAL; SOURCE, BODY FLUID LDH PLEURAL; SOURCE, BODY FLUID TOT PROTEIN PLEURAL; TOTAL PROTEIN, BODY FLUID 4.7 G/DL (NOT ESTABLISHED)
[2022-10-05 15:47] LABS: PH BODY FLUID 7.505 UNITS (NOT ESTABLISHED); SOURCE, BODY FLUID pH PLEURAL
[2022-10-05 22:00] VITALS: BP 137/74
[2022-10-05] MEDS ORDERED: MORPHINE 4 MG/ML 1ML VIAL IV ONE (22:45)
[2022-10-06] MEDS: metroNIDAZOLE 500 MG in IV 1 EA IV SCH ×3 (00:49→16:01)
[2022-10-06] MEDS: CIPROFLOXACIN 400 MG in IV 1 EA IV SCH ×2 (01:45→12:49)
[2022-10-06] MEDS: MORPHINE 30 MG TAB **MSIR PO PRN ×3 (03:37→13:01)
[2022-10-06 06:00] VITALS: BP 127/6
[2022-10-06 06:05] LABS: BASO % 0.4 % (0.0-1.0); HEMATOCRIT 32.2 % (42.0-52.0); HEMOGLOBIN 10.1 g/dl (13.5-17.5); LYMPH # 0.2 10^3/uL (1.5-5.0); LYMPH % 4.2 % (24.0-44.0); MEAN CORPUSCULAR HEMOGLOBIN 29.3 pg (27.0-33.0); MEAN CORPUSCULAR HGB CONC 31.4 g/dl (32.0-36.5); MEAN CORPUSCULAR VOLUME 93.3 fl (80.0-96.0); MONO # 0.3 10^3/uL (0.0-0.8); MONO % 5.7 % (2.0-8.0); NEUTROPHILS # 4.5 10^3/uL (1.5-8.5); NEUTROPHILS % 87.9 % (36.0-66.0); RED BLOOD COUNT 3.45 10^6/uL (4.30-6.10); WHITE BLOOD COUNT 5.1 10^3/uL (4.0-10.0)
[2022-10-06 06:12] LABS: PLATELET COUNT, AUTOMATED 86 10^3/uL (150-450)
[2022-10-06 06:37] LABS: CALCIUM LEVEL 8.7 MG/DL (8.8-10.2); CREATININE FOR GFR 1.64 MG/DL (0.70-1.30); GLOMERULAR FILTRATION RATE 43.2 (>35); POTASSIUM SERUM 4.1 MEQ/L (3.5-5.1)
[2022-10-06] MEDS: MIDODRINE 5 MG TAB PO SCH ×3 (08:00→16:00)
[2022-10-06] MEDS: ALBUTEROL SULFATE 2.5MG/0.5ML INH NEB SOLN NEB SCH ×4 (08:00→21:38)
[2022-10-06] MEDS: HEPARIN SOD (PORCINE) 5000UNITS/ML 1ML VIAL/SYRINGE SQ SCH (08:27)
[2022-10-06] MEDS: LIDOCAINE 5% (LIDODERM) PATCH TD SCH (08:27)
[2022-10-06] MEDS: BOUDREAUX'S BUTT PASTE TOP SCH (09:43)
[2022-10-06 10:11] LABS: OSMOLALITY URINE 505 MOSM/KG (50-1400)
[2022-10-06 10:37] LABS: SODIUM,RANDOM URINE 69 MEQ/L
[2022-10-06] MEDS: DOXYCYCLINE HYCLATE 100 MG in D5W MINI-BAG PLUS 100 ML IV SCH ×2 (10:55→21:58)
[2022-10-06 12:31] LABS: PERCENT SATURATION 10.1 % (19.7-50.0)
[2022-10-06] MEDS: NS 1,000 ML IV SCH (12:50)
[2022-10-06 14:24] VITALS: BP 117/62
[2022-10-06] MEDS: MORPHINE 2 MG/ML 1ML VIAL IV PRN ×2 (16:01→21:58)
[2022-10-06 16:44] LABS: PLTBLUE- EDTA FREE MACHINE 66 10^3/uL (172-450)
[2022-10-06 16:45] LABS: PLTBLUE- EDTA FREE CALC 73 K/mm3 (172-450)
[2022-10-06] MEDS: INSULIN LISPRO (NovoLOG) PER UNIT SC SCH (18:00)
[2022-10-06] MEDS ORDERED: FAT EMULSION IV 250 ML IV ONE (18:00)
[2022-10-06] MEDS: AMINO AC/ELECTROLYTE/DEX/CALC 1,000 ML IV SCH (18:59)
[2022-10-06 21:44] VITALS: BP 129/62
[2022-10-07] MEDS: metroNIDAZOLE 500 MG in IV 1 EA IV SCH ×3 (00:25→16:00)
[2022-10-07] MEDS: ALBUTEROL SULFATE 2.5MG/0.5ML INH NEB SOLN NEB SCH ×6 (00:35→21:34)
[2022-10-07] MEDS: CIPROFLOXACIN 400 MG in IV 1 EA IV SCH ×2 (01:50→13:49)
[2022-10-07] MEDS: ONDANSETRON 4MG ORAL DISINTEGRATING TAB SL PRN ×3 (03:45→14:35)
[2022-10-07 05:38] VITALS: BP 127/62
[2022-10-07] MEDS: NS 1,000 ML IV SCH ×2 (05:50→16:00)
[2022-10-07] MEDS: INSULIN LISPRO (NovoLOG) PER UNIT SC SCH ×5 (05:51→23:43)
[2022-10-07 06:45] LABS: BASO % 0.2 % (0.0-1.0); HEMATOCRIT 30.3 % (42.0-52.0); HEMOGLOBIN 9.3 g/dl (13.5-17.5); LYMPH # 0.2 10^3/uL (1.5-5.0); MEAN CORPUSCULAR HEMOGLOBIN 29.2 pg (27.0-33.0); MEAN CORPUSCULAR HGB CONC 30.7 g/dl (32.0-36.5); MEAN CORPUSCULAR VOLUME 95.3 fl (80.0-96.0); MONO # 0.3 10^3/uL (0.0-0.8); MONO % 5.4 % (2.0-8.0); NEUTROPHILS # 4.5 10^3/uL (1.5-8.5); NEUTROPHILS % 89.6 % (36.0-66.0); PLATELET COUNT, AUTOMATED 71 10^3/uL (150-450); RED BLOOD COUNT 3.18 10^6/uL (4.30-6.10)
[2022-10-07 07:00] LABS: CALCIUM LEVEL 8.3 MG/DL (8.8-10.2); CREATININE FOR GFR 1.31 MG/DL (0.70-1.30); POTASSIUM SERUM 4.4 MEQ/L (3.5-5.1)
[2022-10-07] MEDS: MIDODRINE 5 MG TAB PO SCH ×2 (08:00→12:00)
[2022-10-07] MEDS: LIDOCAINE 5% (LIDODERM) PATCH TD SCH (10:18)
[2022-10-07] MEDS: DOXYCYCLINE HYCLATE 100 MG in D5W MINI-BAG PLUS 100 ML IV SCH ×2 (10:19→21:05)
[2022-10-07] MEDS: BOUDREAUX'S BUTT PASTE TOP SCH (10:19)
[2022-10-07 13:23] LABS: INR 1.28; PROTHROMBIN TIME 16.2 SECONDS (12.5-14.5)
[2022-10-07] MEDS: HYDROMORPHONE HCL 0.5 MG/ 0.5 ML SYRINGE (J1170 PER 1) IV PRN ×2 (14:35→21:00)
[2022-10-07 15:19] VITALS: BP 124/63
[2022-10-07] MEDS ORDERED: FAT EMULSION IV 250 ML IV ONE (18:00)
[2022-10-07] MEDS: AMINO AC/ELECTROLYTE/DEX/CALC 1,000 ML IV SCH (20:01)
[2022-10-07] MEDS ORDERED: PHYTONADIONE INJection 10 MG in NS 50 ML IV ONE (21:30)
[2022-10-07 22:25] VITALS: BP 126/67
[2022-10-07] MEDS ORDERED: HYDROMORPHONE HCL 0.5 MG/ 0.5 ML SYRINGE (J1170 PER 1) IV PRN (22:45)
[2022-10-07] MEDS ORDERED: ACETAMINOPHEN 1000MG 100ML IV BAG IV ONE (22:55)
[2022-10-08] MEDS: ONDANSETRON 4MG ORAL DISINTEGRATING TAB SL PRN ×4 (00:09→18:44)
[2022-10-08] MEDS: ALBUTEROL SULFATE 2.5MG/0.5ML INH NEB SOLN NEB SCH ×6 (04:00→20:00)
[2022-10-08 05:51] VITALS: BP 135/71
[2022-10-08] MEDS: INSULIN LISPRO (NovoLOG) PER UNIT SC SCH ×4 (05:59→23:45)
[2022-10-08] MEDS: ACETAMINOPHEN 325MG/10.15ML UDC PO PRN (06:14)
[2022-10-08 07:59] LABS: BASO % 0.2 % (0.0-1.0); HEMATOCRIT 28.8 % (42.0-52.0); HEMOGLOBIN 9.2 g/dl (13.5-17.5); LYMPH # 0.2 10^3/uL (1.5-5.0); LYMPH % 2.9 % (24.0-44.0); MEAN CORPUSCULAR HEMOGLOBIN 30.2 pg (27.0-33.0); MEAN CORPUSCULAR HGB CONC 31.9 g/dl (32.0-36.5); MEAN CORPUSCULAR VOLUME 94.4 fl (80.0-96.0); MONO # 0.2 10^3/uL (0.0-0.8); MONO % 4.7 % (2.0-8.0); NEUTROPHILS # 4.6 10^3/uL (1.5-8.5); NEUTROPHILS % 90.3 % (36.0-66.0); RED BLOOD COUNT 3.05 10^6/uL (4.30-6.10); WHITE BLOOD COUNT 5.1 10^3/uL (4.0-10.0)
[2022-10-08 08:00] LABS: PLATELET COUNT, AUTOMATED 60 10^3/uL (150-450)
[2022-10-08 08:23] LABS: CALCIUM LEVEL 8.4 MG/DL (8.8-10.2); CREATININE FOR GFR 1.29 MG/DL (0.70-1.30); GLOMERULAR FILTRATION RATE 57.1 (>35); POTASSIUM SERUM 4.5 MEQ/L (3.5-5.1)
[2022-10-08] MEDS: LIDOCAINE 5% (LIDODERM) PATCH TD SCH (09:00)
[2022-10-08] MEDS: HYDROMORPHONE HCL 0.5 MG/ 0.5 ML SYRINGE (J1170 PER 1) IV PRN ×5 (09:21→22:54)
[2022-10-08] MEDS: DOXYCYCLINE HYCLATE 100 MG in D5W MINI-BAG PLUS 100 ML IV SCH ×2 (09:22→21:47)
[2022-10-08] MEDS: BOUDREAUX'S BUTT PASTE TOP PRN (09:22)
[2022-10-08] MEDS: BOUDREAUX'S BUTT PASTE TOP SCH (09:23)
[2022-10-08] MEDS: AMINO AC/ELECTROLYTE/DEX/CALC 1,000 ML IV SCH ×2 (09:28→16:25)
[2022-10-08 14:00] VITALS: BP 142/86
[2022-10-08] MEDS ORDERED: fentaNYL 25 MCG/HR PATCH TOP SCH (16:00)
[2022-10-08] MEDS: NS 1,000 ML IV SCH (16:25)
[2022-10-08] MEDS ORDERED: FAT EMULSION IV 250 ML IV ONE (18:00)
[2022-10-08 20:56] VITALS: BP 142/74
[2022-10-08] MEDS ORDERED: MORPHINE 4 MG/ML 1ML VIAL IV ONE (21:15)
[2022-10-09] MEDS: HYDROMORPHONE HCL 0.5 MG/ 0.5 ML SYRINGE (J1170 PER 1) IV PRN ×7 (01:37→20:39)
[2022-10-09] MEDS: ALBUTEROL SULFATE 2.5MG/0.5ML INH NEB SOLN NEB SCH ×4 (03:22→12:00)
[2022-10-09] MEDS: ONDANSETRON 4MG ORAL DISINTEGRATING TAB SL PRN ×3 (04:46→20:39)
[2022-10-09 05:54] VITALS: BP_SYST 72
[2022-10-09] MEDS: INSULIN LISPRO (NovoLOG) PER UNIT SC SCH ×3 (06:00→17:39)
[2022-10-09 08:32] LABS: BASO % 0.2 % (0.0-1.0); HEMATOCRIT 30.4 % (42.0-52.0); HEMOGLOBIN 9.4 g/dl (13.5-17.5); LYMPH # 0.2 10^3/uL (1.5-5.0); LYMPH % 4.5 % (24.0-44.0); MEAN CORPUSCULAR HEMOGLOBIN 28.9 pg (27.0-33.0); MEAN CORPUSCULAR HGB CONC 30.9 g/dl (32.0-36.5); MEAN CORPUSCULAR VOLUME 93.5 fl (80.0-96.0); MONO # 0.2 10^3/uL (0.0-0.8); MONO % 4.7 % (2.0-8.0); NEUTROPHILS # 3.8 10^3/uL (1.5-8.5); NEUTROPHILS % 88.7 % (36.0-66.0); RED BLOOD COUNT 3.25 10^6/uL (4.30-6.10); WHITE BLOOD COUNT 4.3 10^3/uL (4.0-10.0)
[2022-10-09 08:37] LABS: PLATELET COUNT, AUTOMATED 57 10^3/uL (150-450)
[2022-10-09] MEDS: LIDOCAINE 5% (LIDODERM) PATCH TD SCH (09:00)
[2022-10-09 09:22] LABS: BLOOD UREA NITROGEN 28 MG/DL (7-18); CALCIUM LEVEL 8.5 MG/DL (8.8-10.2); CARBON DIOXIDE LEVEL 23 MEQ/L (21-32); CHLORIDE LEVEL 104 MEQ/L (98-107); CREATININE FOR GFR 1.15 MG/DL (0.70-1.30); GLOMERULAR FILTRATION RATE > 60.0 (>35); GLUCOSE, FASTING 110 MG/DL (70-100); POTASSIUM SERUM 4.4 MEQ/L (3.5-5.1); SODIUM LEVEL 131 MEQ/L (136-145)
[2022-10-09] MEDS: BOUDREAUX'S BUTT PASTE TOP SCH (09:23)
[2022-10-09] MEDS: DOXYCYCLINE HYCLATE 100 MG in D5W MINI-BAG PLUS 100 ML IV SCH ×2 (11:08→20:39)
[2022-10-09] MEDS: AMINO AC/ELECTROLYTE/DEX/CALC 1,000 ML IV SCH ×2 (11:23→16:14)
[2022-10-09] MEDS: PANTOPRAZOLE 40MG VIAL IV SCH (12:48)
[2022-10-09] MEDS: methylPREDNISolone 125MG 2ML VIAL IV SCH (14:30)
[2022-10-09] MEDS: NS 1,000 ML IV SCH (16:23)
[2022-10-09] MEDS ORDERED: FAT EMULSION IV 250 ML IV ONE (18:00)
[2022-10-09 20:00] VITALS: BP 136/69
[2022-10-10] MEDS: HYDROMORPHONE HCL 0.5 MG/ 0.5 ML SYRINGE (J1170 PER 1) IV PRN ×5 (00:10→14:23)
[2022-10-10] MEDS: INSULIN LISPRO (NovoLOG) PER UNIT SC SCH ×3 (00:10→11:39)
[2022-10-10] MEDS: NS 1,000 ML IV SCH (03:18)
[2022-10-10] MEDS: ONDANSETRON 4MG ORAL DISINTEGRATING TAB SL PRN ×3 (04:30→23:46)
[2022-10-10 06:20] LABS: BASO % 0.4 % (0.0-1.0); HEMATOCRIT 32.3 % (42.0-52.0); LYMPH # 0.1 10^3/uL (1.5-5.0); LYMPH % 3.9 % (24.0-44.0); MEAN CORPUSCULAR HEMOGLOBIN 29.7 pg (27.0-33.0); MEAN CORPUSCULAR VOLUME 95.8 fl (80.0-96.0); MONO # 0.1 10^3/uL (0.0-0.8); MONO % 3.5 % (2.0-8.0); NEUTROPHILS # 2.6 10^3/uL (1.5-8.5); NEUTROPHILS % 89.7 % (36.0-66.0); PLATELET COUNT, AUTOMATED 51 10^3/uL (150-450); RED BLOOD COUNT 3.37 10^6/uL (4.30-6.10); WHITE BLOOD COUNT 2.9 10^3/uL (4.0-10.0)
[2022-10-10 06:53] LABS: BLOOD UREA NITROGEN 31 MG/DL (7-18); CALCIUM LEVEL 8.3 MG/DL (8.8-10.2); CARBON DIOXIDE LEVEL 12 MEQ/L (21-32); CHLORIDE LEVEL 109 MEQ/L (98-107); CREATININE FOR GFR 1.11 MG/DL (0.70-1.30); GLOMERULAR FILTRATION RATE > 60.0 (>35); GLUCOSE, FASTING 116 MG/DL (70-100); POTASSIUM SERUM 5.6 MEQ/L (3.5-5.1); SODIUM LEVEL 133 MEQ/L (136-145)
[2022-10-10] MEDS ORDERED: SODIUM BICARBONATE 8.4% INJ 50ML SYRINGE IV STA (07:19)
[2022-10-10] MEDS ORDERED: ALBUTEROL SULFATE 2.5MG/0.5ML INH NEB SOLN NEB ONE (07:20)
[2022-10-10] MEDS ORDERED: oxyCODONE 5MG TAB PO PRN (07:30)
[2022-10-10] MEDS: AMINO AC/ELECTROLYTE/DEX/CALC 1,000 ML IV SCH (07:30)
[2022-10-10] MEDS ORDERED: fentaNYL 100 MCG/2 ML INJECTION IV PRN (07:30)
[2022-10-10] MEDS ORDERED: ONDANSETRON 4MG 2ML VIAL IV PRN (07:30)
[2022-10-10] MEDS ORDERED: LR 1,000 ML IV SCH ×2 (07:30)
[2022-10-10] MEDS ORDERED: MORPHINE 2 MG/ML 1ML VIAL IV PRN (07:30)
[2022-10-10 08:10] VITALS: O2SAT 97
[2022-10-10] MEDS: PANTOPRAZOLE 40MG VIAL IV SCH (08:17)
[2022-10-10] MEDS: LIDOCAINE 5% (LIDODERM) PATCH TD SCH (08:19)
[2022-10-10] MEDS: BOUDREAUX'S BUTT PASTE TOP SCH (08:20)
[2022-10-10 09:49] LABS: INR 1.14; PROTHROMBIN TIME 14.9 SECONDS (12.5-14.5)
[2022-10-10] MEDS: DOXYCYCLINE HYCLATE 100 MG in D5W MINI-BAG PLUS 100 ML IV SCH (11:43)
[2022-10-10] MEDS: methylPREDNISolone 125MG 2ML VIAL IV SCH (14:24)
[2022-10-10] MEDS ORDERED: ONDANSETRON 4MG 2ML VIAL IV ONE (15:15)
[2022-10-10] MEDS ORDERED: LORazepam 2 MG/ML VIAL IV PRN (15:20)
[2022-10-10] MEDS: SCOPOLAMINE 1MG TRANSDERMAL PATCH TOP SCH (15:31)
[2022-10-10] MEDS: MORPHINE 10MG/0.5ML ORAL CONCENTRATE SOLUTION U/D SL PRN ×3 (15:32→23:18)
[2022-10-10] MEDS ORDERED: BISACODYL 10MG SUPP PR ONE (15:40)
[2022-10-10] MEDS ORDERED: FAT EMULSION IV 250 ML IV ONE (18:00)
[2022-10-10] MEDS ORDERED: AMINO AC/ELECTROLYTE/DEX/CALC 1,000 ML IV SCH ×2 (18:00)
[2022-10-10] MEDS ORDERED: INSULIN LISPRO (NovoLOG) PER UNIT SC SCH (18:00)
[2022-10-10] MEDS: D5W/0.9% SODIUM CHLORIDE 1,000 ML IV SCH (18:12)
[2022-10-11] MEDS: HYDROMORPHONE HCL 0.5 MG/ 0.5 ML SYRINGE (J1170 PER 1) IV PRN (02:14)
[2022-10-11] MEDS: PROMETHAZINE 25MG/ML 1ML VIAL IV PRN (04:01)
[2022-10-11] MEDS: D5W/0.9% SODIUM CHLORIDE 1,000 ML IV SCH ×2 (04:01→19:14)
[2022-10-11] MEDS: LIDOCAINE 5% (LIDODERM) PATCH TD SCH (08:28)
[2022-10-11] MEDS: PANTOPRAZOLE 40MG VIAL IV SCH (08:36)
[2022-10-11] MEDS: BOUDREAUX'S BUTT PASTE TOP SCH (08:37)
[2022-10-11] MEDS: MORPHINE 10MG/0.5ML ORAL CONCENTRATE SOLUTION U/D SL PRN ×6 (08:37→22:00)
[2022-10-11] MEDS: ONDANSETRON 4MG ORAL DISINTEGRATING TAB SL PRN ×2 (11:31→17:45)
[2022-10-11] MEDS ORDERED: LIDOCAINE 1% MDV 20ML VIAL As Ordered ONE (14:57)
[2022-10-11] MEDS: fentaNYL 50 MCG/HR PATCH TOP SCH (16:36)
[2022-10-11] MEDS ORDERED: AMINO AC/ELECTROLYTE/DEX/CALC 2,000 ML IV SCH (18:00)
[2022-10-11] MEDS ORDERED: INSULIN LISPRO (NovoLOG) PER UNIT SC SCH (18:00)
[2022-10-11] MEDS ORDERED: FAT EMULSION IV 250 ML IV ONE (18:00)
[2022-10-12] MEDS: ONDANSETRON 4MG ORAL DISINTEGRATING TAB SL PRN ×3 (02:17→15:08)
[2022-10-12] MEDS: MORPHINE 10MG/0.5ML ORAL CONCENTRATE SOLUTION U/D SL PRN ×10 (02:17→22:14)
[2022-10-12] MEDS: D5W/0.9% SODIUM CHLORIDE 1,000 ML IV SCH (08:40)
[2022-10-12] MEDS: PANTOPRAZOLE 40MG VIAL IV SCH (08:40)
[2022-10-12] MEDS: LIDOCAINE 5% (LIDODERM) PATCH TD SCH (08:40)
[2022-10-12] MEDS: BOUDREAUX'S BUTT PASTE TOP SCH (08:45)
[2022-10-12] MEDS ORDERED: LIDOCAINE 1% MDV 20ML VIAL As Ordered ONE (09:53)
[2022-10-12 09:55] VITALS: BP 140/67
[2022-10-12] MEDS ORDERED: SODIUM CHLORIDE 0.9% INJ 10 ML SYR IV PRN (11:15)
[2022-10-12 12:39] LABS: CALCIUM LEVEL 9.4 MG/DL (8.3-10.6); CREATININE FOR GFR 1.24 MG/DL (0.70-1.30); GLOMERULAR FILTRATION RATE 59.7 (>35); POTASSIUM SERUM 4.7 MMOL/L (3.5-5.1)
[2022-10-12] MEDS ORDERED: DEXTROSE 50% 50ML SYRINGE IV PRN (14:45)
[2022-10-12] MEDS ORDERED: GLUCAGON INJ 1MG VIAL SC PRN (14:45)
[2022-10-12] MEDS ORDERED: GLUCOSE 4GM CHEW TABLET PO PRN (14:45)
[2022-10-12] MEDS ORDERED: AMINO ACID/ DEXTROSE 2,000 ML IV SCH (18:00)
[2022-10-12] MEDS ORDERED: [UNRECOGNIZED DRUG - OTHER] IV SCH ×8 (18:00)
[2022-10-12] MEDS ORDERED: SODIUM ACETATE IV SCH ×8 (18:00)
[2022-10-12] MEDS ORDERED: FAT EMULSION IV 250 ML IV ONE (18:00)
[2022-10-12] MEDS: INSULIN LISPRO (NovoLOG) PER UNIT SC SCH (18:00)
[2022-10-12] MEDS ORDERED: INSULIN LISPRO (NovoLOG) PER UNIT SC SCH (18:00)
[2022-10-12] MEDS ORDERED: SODIUM CHLORIDE IV SCH ×8 (18:00)
[2022-10-12] MEDS: SODIUM CHLORIDE 0.9% INJ 10 ML SYR IV SCH (18:29)
[2022-10-13] MEDS: MORPHINE 10MG/0.5ML ORAL CONCENTRATE SOLUTION U/D SL PRN ×8 (00:17→21:16)
[2022-10-13] MEDS: ONDANSETRON 4MG ORAL DISINTEGRATING TAB SL PRN ×3 (00:25→13:44)
[2022-10-13] MEDS: INSULIN LISPRO (NovoLOG) PER UNIT SC SCH ×6 (06:00→23:39)
[2022-10-13] MEDS: SODIUM CHLORIDE 0.9% INJ 10 ML SYR IV SCH ×2 (06:45→18:00)
[2022-10-13] MEDS: PANTOPRAZOLE 40MG VIAL IV SCH (08:32)
[2022-10-13] MEDS: LIDOCAINE 5% (LIDODERM) PATCH TD SCH (08:32)
[2022-10-13 08:49] LABS: BLOOD UREA NITROGEN 38 MG/DL (9-23); CALCIUM LEVEL 9.3 MG/DL (8.3-10.6); CARBON DIOXIDE LEVEL 18 MMOL/L (20-31); CHLORIDE LEVEL 103 MMOL/L (98-107); CREATININE FOR GFR 1.16 MG/DL (0.70-1.30); GLOMERULAR FILTRATION RATE > 60.0 (>35); GLUCOSE, FASTING 608 MG/DL (74-106); POTASSIUM SERUM 4.1 MMOL/L (3.5-5.1); SODIUM LEVEL 129 MMOL/L (136-145)
[2022-10-13] MEDS: BOUDREAUX'S BUTT PASTE TOP SCH (09:00)
[2022-10-13] MEDS: SCOPOLAMINE 1MG TRANSDERMAL PATCH TOP SCH (15:44)
[2022-10-13] MEDS ORDERED: [UNRECOGNIZED DRUG - OTHER] IV SCH ×6 (18:00)
[2022-10-13] MEDS ORDERED: FAT EMULSION IV 250 ML IV ONE (18:00)
[2022-10-13] MEDS ORDERED: SODIUM ACETATE IV SCH ×6 (18:00)
[2022-10-13] MEDS ORDERED: SODIUM PHOSPHATE IV SCH ×6 (18:00)
[2022-10-14] MEDS: MORPHINE 10MG/0.5ML ORAL CONCENTRATE SOLUTION U/D SL PRN ×4 (00:41→18:22)
[2022-10-14] MEDS: INSULIN LISPRO (NovoLOG) PER UNIT SC SCH ×7 (00:41→18:25)
[2022-10-14] MEDS: ONDANSETRON 4MG ORAL DISINTEGRATING TAB SL PRN (02:36)
[2022-10-14] MEDS: SODIUM CHLORIDE 0.9% INJ 10 ML SYR IV SCH ×2 (06:33→18:23)
[2022-10-14] MEDS: HYDROMORPHONE HCL 0.5 MG/ 0.5 ML SYRINGE (J1170 PER 1) IV PRN (06:34)
[2022-10-14] MEDS: PANTOPRAZOLE 40MG VIAL IV SCH (07:37)
[2022-10-14] MEDS: LORazepam 2 MG/ML VIAL IV PRN (07:37)
[2022-10-14] MEDS: PROMETHAZINE 25MG/ML 1ML VIAL IV PRN (07:37)
[2022-10-14 08:11] LABS: BLOOD UREA NITROGEN 42 MG/DL (9-23); CALCIUM LEVEL 10.1 MG/DL (8.3-10.6); CARBON DIOXIDE LEVEL 18 MMOL/L (20-31); CHLORIDE LEVEL 106 MMOL/L (98-107); CREATININE FOR GFR 1.07 MG/DL (0.70-1.30); GLOMERULAR FILTRATION RATE > 60.0 (>35); GLUCOSE, FASTING 114 MG/DL (74-106); POTASSIUM SERUM 4.4 MMOL/L (3.5-5.1); SODIUM LEVEL 135 MMOL/L (136-145)
[2022-10-14] MEDS: LIDOCAINE 5% (LIDODERM) PATCH TD SCH (09:00)
[2022-10-14] MEDS: BOUDREAUX'S BUTT PASTE TOP SCH (09:00)
[2022-10-14] MEDS: fentaNYL 50 MCG/HR PATCH TOP SCH (16:11)
[2022-10-14] MEDS: FENTANYL REMOVAL DOCUMENTATION MISC XX SCH (16:13)
[2022-10-14] MEDS ORDERED: SODIUM ACETATE IV SCH ×8 (18:00)
[2022-10-14] MEDS ORDERED: [UNRECOGNIZED DRUG - OTHER] IV SCH ×8 (18:00)
[2022-10-14] MEDS ORDERED: SODIUM PHOSPHATE IV SCH ×8 (18:00)
[2022-10-14] MEDS ORDERED: FAT EMULSION IV 250 ML IV ONE (18:00)
[2022-10-15] MEDS: INSULIN LISPRO (NovoLOG) PER UNIT SC SCH ×8 (00:30→23:43)
[2022-10-15] MEDS: MORPHINE 10MG/0.5ML ORAL CONCENTRATE SOLUTION U/D SL PRN ×8 (04:45→23:43)
[2022-10-15] MEDS: SODIUM CHLORIDE 0.9% INJ 10 ML SYR IV SCH ×2 (05:56→18:18)
[2022-10-15 06:54] LABS: BLOOD UREA NITROGEN 46 MG/DL (9-23); CALCIUM LEVEL 10.3 MG/DL (8.3-10.6); CARBON DIOXIDE LEVEL 16 MMOL/L (20-31); CHLORIDE LEVEL 108 MMOL/L (98-107); CREATININE FOR GFR 1.12 MG/DL (0.70-1.30); GLOMERULAR FILTRATION RATE > 60.0 (>35); GLUCOSE, FASTING 154 MG/DL (74-106); POTASSIUM SERUM 3.9 MMOL/L (3.5-5.1); SODIUM LEVEL 135 MMOL/L (136-145)
[2022-10-15] MEDS: LIDOCAINE 5% (LIDODERM) PATCH TD SCH (08:01)
[2022-10-15] MEDS: ONDANSETRON 4MG ORAL DISINTEGRATING TAB SL PRN ×2 (09:02→20:59)
[2022-10-15] MEDS: PANTOPRAZOLE 40MG VIAL IV SCH (09:02)
[2022-10-15] MEDS: HYDROMORPHONE HCL 0.5 MG/ 0.5 ML SYRINGE (J1170 PER 1) IV PRN (09:09)
[2022-10-15] MEDS: BOUDREAUX'S BUTT PASTE TOP SCH (11:09)
[2022-10-15] MEDS ORDERED: FAT EMULSION IV 250 ML IV ONE (18:00)
[2022-10-15] MEDS ORDERED: SODIUM PHOSPHATE IV SCH ×6 (18:00)
[2022-10-15] MEDS ORDERED: SODIUM ACETATE IV SCH ×6 (18:00)
[2022-10-15] MEDS ORDERED: INSULIN LISPRO (NovoLOG) PER UNIT SC SCH (18:00)
[2022-10-15] MEDS ORDERED: [UNRECOGNIZED DRUG - OTHER] IV SCH ×6 (18:00)
[2022-10-15] MEDS: LORazepam 2 MG/ML VIAL IV PRN (23:43)
[2022-10-16] MEDS: MORPHINE 10MG/0.5ML ORAL CONCENTRATE SOLUTION U/D SL PRN ×3 (06:13→21:31)
[2022-10-16] MEDS: SODIUM CHLORIDE 0.9% INJ 10 ML SYR IV SCH ×2 (06:15→18:17)
[2022-10-16] MEDS: INSULIN LISPRO (NovoLOG) PER UNIT SC SCH ×3 (06:17→18:26)
[2022-10-16 07:07] LABS: BLOOD UREA NITROGEN 50 MG/DL (9-23); CARBON DIOXIDE LEVEL 16 MMOL/L (20-31); CHLORIDE LEVEL 108 MMOL/L (98-107); CREATININE FOR GFR 1.12 MG/DL (0.70-1.30); GLOMERULAR FILTRATION RATE > 60.0 (>35); GLUCOSE, FASTING 166 MG/DL (74-106); SODIUM LEVEL 135 MMOL/L (136-145)
[2022-10-16] MEDS: LIDOCAINE 5% (LIDODERM) PATCH TD SCH ×2 (09:14→21:23)
[2022-10-16] MEDS: PANTOPRAZOLE 40MG VIAL IV SCH (09:16)
[2022-10-16] MEDS: BOUDREAUX'S BUTT PASTE TOP SCH (09:16)
[2022-10-16] MEDS: SCOPOLAMINE 1MG TRANSDERMAL PATCH TOP SCH (15:52)
[2022-10-16] MEDS: LORazepam 2 MG/ML VIAL IV PRN (16:02)
[2022-10-16] MEDS ORDERED: SODIUM ACETATE IV SCH ×6 (18:00)
[2022-10-16] MEDS ORDERED: INSULIN LISPRO (NovoLOG) PER UNIT SC SCH (18:00)
[2022-10-16] MEDS ORDERED: [UNRECOGNIZED DRUG - OTHER] IV SCH ×6 (18:00)
[2022-10-16] MEDS ORDERED: FAT EMULSION IV 250 ML IV ONE (18:00)
[2022-10-16] MEDS ORDERED: SODIUM PHOSPHATE IV SCH ×6 (18:00)
[2022-10-16] MEDS: ATROPINE SULFATE 1% OPHTH SOLN 2ML BTL SL PRN (22:45)
[2022-10-17] MEDS: INSULIN LISPRO (NovoLOG) PER UNIT SC SCH ×4 (00:15→17:19)
[2022-10-17] MEDS: MORPHINE 10MG/0.5ML ORAL CONCENTRATE SOLUTION U/D SL PRN ×5 (00:16→20:23)
[2022-10-17] MEDS: ATROPINE SULFATE 1% OPHTH SOLN 2ML BTL SL PRN ×5 (00:47→22:44)
[2022-10-17] MEDS: SODIUM CHLORIDE 0.9% INJ 10 ML SYR IV SCH ×2 (05:08→17:19)
[2022-10-17 06:22] LABS: CALCIUM LEVEL 10.8 MG/DL (8.3-10.6); CREATININE FOR GFR 1.37 MG/DL (0.70-1.30); GLOMERULAR FILTRATION RATE 53.2 (>35); POTASSIUM SERUM 4.7 MMOL/L (3.5-5.1)
[2022-10-17] MEDS: LORazepam 2 MG/ML VIAL IV PRN ×4 (07:46→20:22)
[2022-10-17] MEDS: LIDOCAINE 5% (LIDODERM) PATCH TD SCH ×2 (09:47→22:00)
[2022-10-17] MEDS: BOUDREAUX'S BUTT PASTE TOP SCH (09:48)
[2022-10-17] MEDS: PANTOPRAZOLE 40MG VIAL IV SCH (09:48)
[2022-10-17] MEDS: fentaNYL 50 MCG/HR PATCH TOP SCH (15:51)
[2022-10-17] MEDS: FENTANYL REMOVAL DOCUMENTATION MISC XX SCH (15:54)
[2022-10-17] MEDS ORDERED: FAT EMULSION IV 250 ML IV ONE (18:00)
[2022-10-17] MEDS ORDERED: AMINO AC/ELECTROLYTE/DEX/CALC 2,000 ML IV SCH (18:00)
[2022-10-18] MEDS: SODIUM CHLORIDE 0.9% INJ 10 ML SYR IV SCH (05:09)
[2022-10-18] MEDS: ATROPINE SULFATE 1% OPHTH SOLN 2ML BTL SL PRN (05:09)
[2022-10-18] MEDS: LIDOCAINE 5% (LIDODERM) PATCH TD SCH (06:31)
[2022-10-18 06:51] LABS: CALCIUM LEVEL 10.9 MG/DL (8.3-10.6); CREATININE FOR GFR 3.02 MG/DL (0.70-1.30); GLOMERULAR FILTRATION RATE 21.4 (>35); POTASSIUM SERUM 7.8 MMOL/L (3.5-5.1)
== END 2022-10-18 06:55 | disposition expired | DRG 393 ==
LOC: EDBD 19:53 → M ED 19:53 → M ED INP 09-07 00:54 → ENRESERV 09-07 11:37 → M MS5PR 09-07 13:15 → UNDODISIN 10-18 06:55
PROVIDERS: ADMIT Internal Medicine; ATTEND General Practice
PROC: 0W9B3ZZ Drainage of Left Pleural Cavity, Percutaneous Approach (ICD-10-PCS; principal; 2022-10-05 13:30)
PROC: 02HV33Z Insertion of Infusion Device into Superior Vena Cava, Percutaneous Approach (ICD-10-PCS; 2022-10-12)
PROC: 02HV33Z Insertion of Infusion Device into Superior Vena Cava, Percutaneous Approach (ICD-10-PCS; 2022-10-12)
DX: K94.23 Gastrostomy malfunction (principal); I50.33 Acute on chronic diastolic (congestive) heart failure; N17.9 Acute kidney failure, unspecified; L03.311 Cellulitis of abdominal wall; K57.20 Diverticulitis of large intestine with perforation and abscess without bleeding; E87.1 Hypo-osmolality and hyponatremia; J96.11 Chronic respiratory failure with hypoxia; E46 Unspecified protein-calorie malnutrition; C78.01 Secondary malignant neoplasm of right lung; C79.51 Secondary malignant neoplasm of bone; C78.1 Secondary malignant neoplasm of mediastinum; J98.11 Atelectasis; C79.89 Secondary malignant neoplasm of other specified sites; C78.02 Secondary malignant neoplasm of left lung; C34.92 Malignant neoplasm of unspecified part of left bronchus or lung; J91.0 Malignant pleural effusion; N10 Acute pyelonephritis; E87.20 Acidosis, unspecified; D61.818 Other pancytopenia; I47.20 Ventricular tachycardia, unspecified; J81.1 Chronic pulmonary edema; R11.0 Nausea; M19.90 Unspecified osteoarthritis, unspecified site; R10.84 Generalized abdominal pain; R62.7 Adult failure to thrive; N40.1 Benign prostatic hyperplasia with lower urinary tract symptoms; R21 Rash and other nonspecific skin eruption; E86.0 Dehydration; G89.29 Other chronic pain; E87.70 Fluid overload, unspecified; M54.9 Dorsalgia, unspecified; N18.30 Chronic kidney disease, stage 3 unspecified; K21.9 Gastro-esophageal reflux disease without esophagitis; R33.9 Retention of urine, unspecified; Z66 Do not resuscitate; E87.5 Hyperkalemia; D69.6 Thrombocytopenia, unspecified; F17.210 Nicotine dependence, cigarettes, uncomplicated; D72.819 Decreased white blood cell count, unspecified; I95.0 Idiopathic hypotension; K59.09 Other constipation; B96.20 Unspecified Escherichia coli [E. coli] as the cause of diseases classified elsewhere; L89.152 Pressure ulcer of sacral region, stage 2

== ENCOUNTER 2022-09-27 13:15 | Outpatient (RCR) | payer MEDICARE | END 2022-10-18 | LOC: M ONCR 13:15 | PROVIDERS: ATTEND General Practice | DX: C64.1 Malignant neoplasm of right kidney, except renal pelvis (principal) ==

== ENCOUNTER 2022-09-28 13:08 | Outpatient (RCR) | payer MEDICARE | END 2022-10-18 | LOC: M ONCR 13:08 | PROVIDERS: ATTEND General Practice | DX: C64.1 Malignant neoplasm of right kidney, except renal pelvis (principal) ==